=== PATIENT | female | born 1945 | race Caucasian/White ===

== ENCOUNTER → 2018-02-17 07:56 | Outpatient (CLI) | payer MEDICARE, OTHER, SELFPAY ==
[2018-02-17 10:17] LABS: Absolute Lymphocyte Count 0.92 X10^3/ul (0.83-4.51); Absolute Neutrophil Count 2.3 X10^3/uL (2.0-7.7); Basophil# 0.01 X10^3/uL; Basophil% 0.3 % (0-1); Eosinophil# 0.04 X10^3/uL; Eosinophils% 1.1 % (0-5); Hematocrit 37.6 % (37-47); Hemoglobin 12.7 g/dl (12.0-15.0); Lymphocyte # 0.92 X10^3/ul (4.0); Lymphocyte % 25.1 % (19-41); Mean Corp Hgb Conc 33.8 g/gl (32-36); Mean Corpuscular Hgb 31.3 pg (27.0-32.0); Mean Corpuscular Volume 92.6 fL (81-99); Monocyte# 0.41 X10^3/uL; Monocyte% 11.2 % (0-10); Neutrophil # 2.28 X10^3/uL (2.7-7.7); Neutrophil % 62.3 % (47-70); Platelet Count 238 K/mm3 (150-450); RBC Distribution Width CV 12.6 % (11.6-14.6); RBC Distribution Width SD 41.8 fl (35.1-43.9); Red Blood Count 4.06 M/mm3 (4.2-5.4); White Blood Count 3.7 K/mm3 (4.4-11.0)
[2018-02-17 10:21] LABS: POSITIVE COUNT NO; POSITIVE DIFFERENTIAL NO; POSITIVE MORPHOLOGY NO
[2018-02-17 10:30] LABS: ALB/GLOB Ratio 0.9 RATIO (0.9-2.4); AST(SGOT) 31 U/L (15-37); Alanine Aminotransfer ALT/SGPT 40 U/L (13-56); Albumin, Serum 3.3 g/dL (3.2-5.0); Alkaline Phosphatase 91 U/L (45-117); Anion Gap 8 (5-15); BUN 12 mg/dL (7-18); BUN/Creat Ratio 15.8 RATIO (10-20); Calcium,Total 8.4 mg/dL (8.5-10.1); Chloride 104 mmol/L (98-107); Creatinine, Serum 0.76 mg/dL (0.55-1.02); EST Glomerular Filtration Rate 80 mL/min (>60); Est Glom Filt Rate - Afr Amer 97 mL/min (>60); Globulin 3.6 g/dL (2.2-4.2); Glucose 92 mg/dL (74-106); Protein, Total 6.9 g/dL (6.4-8.2); Sodium Level 137 mmol/L (136-145)
== END ==
PROVIDERS: Family Provider Family Medicine; PCP Family Medicine; Visit Provider Internal Medicine Rheumatology
DX: M06.4 Inflammatory polyarthropathy (principal); M35.00 Sjogren syndrome, unspecified; K21.0 Gastro-esophageal reflux disease with esophagitis; R76.8 Other specified abnormal immunological findings in serum; Z79.899 Other long term (current) drug therapy
CPT/HCPCS: 36415; 80053; 85025

== ENCOUNTER → 2018-05-20 07:13 | Outpatient (CLI) | payer MEDICARE, OTHER, SELFPAY ==
[2018-05-20 11:48] LABS: Absolute Lymphocyte Count 1.37 X10^3/ul (0.83-4.51); Absolute Neutrophil Count 5.3 X10^3/uL (2.0-7.7); Eosinophil# 0.01 X10^3/uL; Eosinophils% 0.1 % (0-5); Hematocrit 37.7 % (37-47); Hemoglobin 13.2 g/dl (12.0-15.0); Lymphocyte # 1.37 X10^3/ul (4.0); Lymphocyte % 18.6 % (19-41); Mean Corpuscular Hgb 32.4 pg (27.0-32.0); Mean Corpuscular Volume 92.4 fL (81-99); Mean Platelet Vol. 9.8 fl (6.2-12.0); Monocyte# 0.57 X10^3/uL; Monocyte% 7.8 % (0-10); Neutrophil # 5.33 X10^3/uL (2.7-7.7); Neutrophil % 72.5 % (47-70); Platelet Count 331 K/mm3 (150-450); RBC Distribution Width CV 12.7 % (11.6-14.6); RBC Distribution Width SD 42.2 fl (35.1-43.9); Red Blood Count 4.08 M/mm3 (4.2-5.4); White Blood Count 7.4 K/mm3 (4.4-11.0)
[2018-05-20 11:51] LABS: POSITIVE COUNT NO; POSITIVE DIFFERENTIAL NO; POSITIVE MORPHOLOGY NO
[2018-05-20 12:15] LABS: AST(SGOT) 24 U/L (15-37); Alanine Aminotransfer ALT/SGPT 86 U/L (13-56); Albumin, Serum 3.5 g/dL (3.2-5.0); Alkaline Phosphatase 104 U/L (45-117); Anion Gap 11 (5-15); BUN 16 mg/dL (7-18); BUN/Creat Ratio 18.1 RATIO (10-20); Calcium,Total 8.3 mg/dL (8.5-10.1); Chloride 102 mmol/L (98-107); Creatinine, Serum 0.88 mg/dL (0.55-1.02); EST Glomerular Filtration Rate 67 mL/min (>60); Est Glom Filt Rate - Afr Amer 81 mL/min (>60); Globulin 3.5 g/dL (2.2-4.2); Glucose 100 mg/dL (74-106); Potassium 3.5 mmol/L (3.5-5.1); Sodium Level 135 mmol/L (136-145)
[2018-05-22 15:59] LABS: CPK Total, Creatine Kinase 40 U/L (26-192)
[2018-05-23 13:12] LABS: Aldolase 2.8 U/L (3.3-10.3)
== END ==
PROVIDERS: Family Provider Family Medicine; PCP Family Medicine; Visit Provider Internal Medicine Rheumatology
DX: M06.4 Inflammatory polyarthropathy (principal); M35.00 Sjogren syndrome, unspecified; K21.0 Gastro-esophageal reflux disease with esophagitis; R76.8 Other specified abnormal immunological findings in serum; Z79.899 Other long term (current) drug therapy
CPT/HCPCS: 36415; 80053; 82085; 82550; 85025

== ENCOUNTER → 2018-08-12 08:14 | Outpatient (CLI) | payer MEDICARE, OTHER, SELFPAY ==
[2018-08-12 10:16] LABS: Absolute Lymphocyte Count 0.72 X10^3/ul (0.83-4.51); Absolute Neutrophil Count 2.5 X10^3/uL (2.0-7.7); Basophil# 0.01 X10^3/uL; Basophil% 0.3 % (0-1); Eosinophil# 0.06 X10^3/uL; Eosinophils% 1.6 % (0-5); Hematocrit 39.2 % (37-47); Hemoglobin 13.1 g/dl (12.0-15.0); Lymphocyte # 0.72 X10^3/ul (4.0); Lymphocyte % 19.6 % (19-41); Mean Corp Hgb Conc 33.4 g/gl (32-36); Mean Corpuscular Hgb 32.3 pg (27.0-32.0); Mean Corpuscular Volume 96.8 fL (81-99); Mean Platelet Vol. 9.2 fl (6.2-12.0); Monocyte# 0.41 X10^3/uL; Monocyte% 11.2 % (0-10); Neutrophil # 2.46 X10^3/uL (2.7-7.7); Platelet Count 212 K/mm3 (150-450); RBC Distribution Width CV 12.9 % (11.6-14.6); RBC Distribution Width SD 45.6 fl (35.1-43.9); Red Blood Count 4.05 M/mm3 (4.2-5.4); White Blood Count 3.7 K/mm3 (4.4-11.0)
[2018-08-12 10:17] LABS: POSITIVE COUNT NO; POSITIVE DIFFERENTIAL NO; POSITIVE MORPHOLOGY NO
[2018-08-12 10:24] LABS: AST(SGOT) 23 U/L (15-37); Alanine Aminotransfer ALT/SGPT 34 U/L (13-56); Albumin, Serum 3.4 g/dL (3.2-5.0); Alkaline Phosphatase 83 U/L (45-117); Anion Gap 6 (5-15); BUN 12 mg/dL (7-18); BUN/Creat Ratio 12.8 RATIO (10-20); Calcium,Total 8.7 mg/dL (8.5-10.1); Chloride 104 mmol/L (98-107); Creatinine, Serum 0.94 mg/dL (0.55-1.02); EST Glomerular Filtration Rate 63 mL/min (>60); Est Glom Filt Rate - Afr Amer 76 mL/min (>60); Globulin 3.3 g/dL (2.2-4.2); Glucose 70 mg/dL (74-106); Potassium 3.8 mmol/L (3.5-5.1); Protein, Total 6.7 g/dL (6.4-8.2); Sodium Level 139 mmol/L (136-145)
== END ==
PROVIDERS: Family Provider Family Medicine; PCP Family Medicine; Referring Provider Internal Medicine Rheumatology; Visit Provider Internal Medicine Rheumatology
DX: M06.4 Inflammatory polyarthropathy (principal); M35.00 Sjogren syndrome, unspecified; K21.0 Gastro-esophageal reflux disease with esophagitis; R76.8 Other specified abnormal immunological findings in serum; Z79.899 Other long term (current) drug therapy
CPT/HCPCS: 36415; 80053; 85025

== ENCOUNTER → 2018-10-23 07:37 | Outpatient (CLI) | payer MEDICARE, OTHER, SELFPAY ==
[2018-10-23 10:23] LABS: Absolute Lymphocyte Count 0.75 X10^3/ul (0.83-4.51); Absolute Neutrophil Count 1.7 X10^3/uL (2.0-7.7); Basophil# 0.01 X10^3/uL; Basophil% 0.3 % (0-1); Eosinophil# 0.03 X10^3/uL; Hematocrit 37.5 % (37-47); Hemoglobin 12.3 g/dl (12.0-15.0); Lymphocyte # 0.75 X10^3/ul (4.0); Mean Corp Hgb Conc 32.8 g/gl (32-36); Mean Corpuscular Hgb 31.1 pg (27.0-32.0); Mean Corpuscular Volume 94.7 fL (81-99); Mean Platelet Vol. 9.7 fl (6.2-12.0); Monocyte# 0.46 X10^3/uL; Monocyte% 15.3 % (0-10); Neutrophil # 1.74 X10^3/uL (2.7-7.7); Neutrophil % 58.1 % (47-70); POSITIVE COUNT NO; POSITIVE DIFFERENTIAL NO; POSITIVE MORPHOLOGY NO; Platelet Count 270 K/mm3 (150-450); RBC Distribution Width CV 12.6 % (11.6-14.6); RBC Distribution Width SD 43.2 fl (35.1-43.9); Red Blood Count 3.96 M/mm3 (4.2-5.4)
[2018-10-23 10:31] LABS: ALB/GLOB Ratio 1.1 RATIO (0.9-2.4); AST(SGOT) 26 U/L (15-37); Alanine Aminotransfer ALT/SGPT 42 U/L (13-56); Albumin, Serum 3.5 g/dL (3.2-5.0); Alkaline Phosphatase 90 U/L (45-117); Anion Gap 8 (5-15); BUN 13 mg/dL (7-18); BUN/Creat Ratio 15.6 RATIO (10-20); Calcium,Total 8.7 mg/dL (8.5-10.1); Chloride 104 mmol/L (98-107); Creatinine, Serum 0.83 mg/dL (0.55-1.02); EST Glomerular Filtration Rate 72 mL/min (>60); Est Glom Filt Rate - Afr Amer 87 mL/min (>60); Globulin 3.3 g/dL (2.2-4.2); Glucose 79 mg/dL (74-106); Protein, Total 6.8 g/dL (6.4-8.2); Sodium Level 139 mmol/L (136-145)
== END ==
PROVIDERS: Family Provider Family Medicine; PCP Family Medicine; Referring Provider Internal Medicine Rheumatology; Visit Provider Internal Medicine Rheumatology
DX: M06.4 Inflammatory polyarthropathy (principal); M35.00 Sjogren syndrome, unspecified; R76.8 Other specified abnormal immunological findings in serum; K21.0 Gastro-esophageal reflux disease with esophagitis; Z79.899 Other long term (current) drug therapy
CPT/HCPCS: 36415; 80053; 85025

== ENCOUNTER → 2019-01-30 08:06 | Outpatient (CLI) | payer MEDICARE, OTHER, SELFPAY ==
[2019-01-30 10:13] LABS: Absolute Neutrophil Count 1.9 X10^3/uL (2.0-7.7); Basophil# 0.01 X10^3/uL; Basophil% 0.3 % (0-1); Eosinophil# 0.07 X10^3/uL; Eosinophils% 2.3 % (0-5); Hematocrit 38.1 % (37-47); Hemoglobin 12.2 g/dl (12.0-15.0); Lymphocyte % 23.3 % (19-41); Mean Corpuscular Hgb 30.8 pg (27.0-32.0); Mean Corpuscular Volume 96.2 fL (81-99); Mean Platelet Vol. 9.9 fl (6.2-12.0); Monocyte# 0.32 X10^3/uL; Monocyte% 10.6 % (0-10); Neutrophil # 1.91 X10^3/uL (2.7-7.7); Neutrophil % 63.5 % (47-70); Platelet Count 251 K/mm3 (150-450); Red Blood Count 3.96 M/mm3 (4.2-5.4)
[2019-01-30 10:14] LABS: POSITIVE COUNT NO; POSITIVE DIFFERENTIAL NO; POSITIVE MORPHOLOGY NO
[2019-01-30 10:37] LABS: ALB/GLOB Ratio 1.1 RATIO (0.9-2.4); AST(SGOT) 33 U/L (15-37); Alanine Aminotransfer ALT/SGPT 62 U/L (13-56); Albumin, Serum 3.5 g/dL (3.2-5.0); Alkaline Phosphatase 137 U/L (45-117); Anion Gap 7 (5-15); BUN 13 mg/dL (7-18); BUN/Creat Ratio 14.8 RATIO (10-20); Bilirubin, Direct 0.08 mg/dL (0.00-0.30); Calcium,Total 8.5 mg/dL (8.5-10.1); Chloride 107 mmol/L (98-107); Creatinine, Serum 0.88 mg/dL (0.55-1.02); EST Glomerular Filtration Rate 67 mL/min (>60); Est Glom Filt Rate - Afr Amer 81 mL/min (>60); Globulin 3.3 g/dL (2.2-4.2); Glucose 92 mg/dL (74-106); Potassium 3.6 mmol/L (3.5-5.1); Protein, Total 6.8 g/dL (6.4-8.2); Sodium Level 139 mmol/L (136-145)
== END ==
PROVIDERS: Family Provider Family Medicine; PCP Family Medicine; Referring Provider Internal Medicine Rheumatology; Visit Provider Internal Medicine Rheumatology
DX: M06.4 Inflammatory polyarthropathy (principal); M35.00 Sjogren syndrome, unspecified; K21.0 Gastro-esophageal reflux disease with esophagitis; R76.8 Other specified abnormal immunological findings in serum; Z79.899 Other long term (current) drug therapy
CPT/HCPCS: 36415; 80053; 82248; 85025

== ENCOUNTER → 2019-04-06 08:03 | Outpatient (CLI) | payer MEDICARE, OTHER, SELFPAY ==
[2019-04-06 09:51] LABS: Absolute Lymphocyte Count 0.73 X10^3/ul (0.83-4.51); Absolute Neutrophil Count 2.1 X10^3/uL (2.0-7.7); Basophil# 0.01 X10^3/uL; Basophil% 0.3 % (0-1); Eosinophil# 0.06 X10^3/uL; Eosinophils% 1.8 % (0-5); Hematocrit 36.2 % (37-47); Hemoglobin 12.1 g/dl (12.0-15.0); Lymphocyte # 0.73 X10^3/ul (4.0); Lymphocyte % 22.2 % (19-41); Mean Corp Hgb Conc 33.4 g/gl (32-36); Mean Corpuscular Hgb 30.7 pg (27.0-32.0); Mean Corpuscular Volume 91.9 fL (81-99); Mean Platelet Vol. 9.8 fl (6.2-12.0); Monocyte# 0.43 X10^3/uL; Monocyte% 13.1 % (0-10); Neutrophil # 2.05 X10^3/uL (2.7-7.7); Neutrophil % 62.3 % (47-70); Platelet Count 209 K/mm3 (150-450); RBC Distribution Width CV 12.5 % (11.6-14.6); RBC Distribution Width SD 41.1 fl (35.1-43.9); Red Blood Count 3.94 M/mm3 (4.2-5.4); White Blood Count 3.3 K/mm3 (4.4-11.0)
[2019-04-06 09:54] LABS: POSITIVE COUNT NO; POSITIVE DIFFERENTIAL NO; POSITIVE MORPHOLOGY NO
[2019-04-06 10:42] LABS: ALB/GLOB Ratio 1.1 RATIO (0.9-2.4); AST(SGOT) 21 U/L (15-37); Alanine Aminotransfer ALT/SGPT 35 U/L (13-56); Albumin, Serum 3.4 g/dL (3.2-5.0); Alkaline Phosphatase 84 U/L (45-117); Anion Gap 6 (5-15); BUN 16 mg/dL (7-18); Bilirubin, Direct 0.11 mg/dL (0.00-0.30); Calcium,Total 8.5 mg/dL (8.5-10.1); Chloride 110 mmol/L (98-107); Creatinine, Serum 0.89 mg/dL (0.55-1.02); EST Glomerular Filtration Rate 67 mL/min (>60); Est Glom Filt Rate - Afr Amer 81 mL/min (>60); Globulin 3.2 g/dL (2.2-4.2); Glucose 83 mg/dL (74-106); Potassium 3.8 mmol/L (3.5-5.1); Protein, Total 6.6 g/dL (6.4-8.2); Sodium Level 142 mmol/L (136-145)
== END ==
PROVIDERS: Family Provider Family Medicine; PCP Family Medicine; Referring Provider Dermatology; Visit Provider Dermatology
DX: M06.4 Inflammatory polyarthropathy (principal); M35.00 Sjogren syndrome, unspecified; K21.0 Gastro-esophageal reflux disease with esophagitis; R76.8 Other specified abnormal immunological findings in serum; Z79.899 Other long term (current) drug therapy
CPT/HCPCS: 36415; 80053; 82248; 85025

== ENCOUNTER → 2019-07-06 07:02 | Outpatient (CLI) | payer MEDICARE, OTHER, SELFPAY ==
[2019-07-06 10:11] LABS: Absolute Lymphocyte Count 0.83 X10^3/uL (0.83-4.51); Absolute Neutrophil Count 2.8 X10^3/uL (2.0-7.7); Basophil# 0.02 X10^3/uL; Basophil% 0.5 % (0-1); Eosinophil# 0.08 X10^3/uL; Eosinophils% 1.9 % (0-5); Hematocrit 38.1 % (37-47); Hemoglobin 12.5 g/dL (12.0-15.0); Lymphocyte # 0.83 X10^3/ul (4.0); Lymphocyte % 19.7 % (19-41); Mean Corp Hgb Conc 32.8 g/dL (32-36); Mean Corpuscular Hgb 31.1 pg (27.0-32.0); Mean Corpuscular Volume 94.8 fL (81-99); Mean Platelet Vol. 9.8 fl (6.2-12.0); Monocyte# 0.46 X10^3/uL; Monocyte% 10.9 % (0-10); NRBC Flagged by Analyzer 0 % (0-5); Neutrophil # 2.81 X10^3/uL (2.7-7.7); Neutrophil % 66.8 % (47-70); Platelet Count 225 K/mm3 (150-450); RBC Distribution Width CV 12.7 % (11.6-14.6); RBC Distribution Width SD 44.2 fl (35.1-43.9); Red Blood Count 4.02 M/mm3 (4.2-5.4); White Blood Count 4.2 K/mm3 (4.4-11.0)
[2019-07-06 10:49] LABS: ALB/GLOB Ratio 1.1 RATIO (0.9-2.4); AST(SGOT) 26 U/L (15-37); Alanine Aminotransfer ALT/SGPT 41 U/L (13-56); Albumin, Serum 3.5 g/dL (3.2-5.0); Alkaline Phosphatase 103 U/L (45-117); Anion Gap 7 (5-15); BUN 18 mg/dL (7-18); BUN/Creat Ratio 18.2 RATIO (10-20); Calcium,Total 8.9 mg/dL (8.5-10.1); Chloride 106 mmol/L (98-107); Creatinine, Serum 0.99 mg/dL (0.55-1.02); EST Glomerular Filtration Rate 59 mL/min (>60); Est Glom Filt Rate - Afr Amer 71 mL/min (>60); Globulin 3.2 g/dL (2.2-4.2); Glucose 81 mg/dL (74-106); Potassium 3.9 mmol/L (3.5-5.1); Protein, Total 6.7 g/dL (6.4-8.2); Sodium Level 139 mmol/L (136-145)
== END ==
PROVIDERS: Family Provider Family Medicine; PCP Family Medicine; Referring Provider Internal Medicine Rheumatology; Visit Provider Internal Medicine Rheumatology
DX: M06.4 Inflammatory polyarthropathy (principal); M35.00 Sjogren syndrome, unspecified; K21.0 Gastro-esophageal reflux disease with esophagitis; R76.8 Other specified abnormal immunological findings in serum; Z79.899 Other long term (current) drug therapy
CPT/HCPCS: 36415; 80053; 85025

== ENCOUNTER → 2019-09-28 07:18 | Outpatient (CLI) | payer MEDICARE, OTHER, SELFPAY ==
[2019-09-28 10:19] LABS: Absolute Lymphocyte Count 0.74 X10^3/uL (0.83-4.51); Absolute Neutrophil Count 2.8 X10^3/uL (2.0-7.7); Basophil# 0.01 X10^3/uL; Basophil% 0.2 % (0-1); Eosinophil# 0.03 X10^3/uL; Eosinophils% 0.7 % (0-5); Hematocrit 36.5 % (37-47); Hemoglobin 12.2 g/dL (12.0-15.0); Lymphocyte # 0.74 X10^3/ul (4.0); Lymphocyte % 18.5 % (19-41); Mean Corp Hgb Conc 33.4 g/dL (32-36); Mean Corpuscular Hgb 31.4 pg (27.0-32.0); Mean Corpuscular Volume 94.1 fL (81-99); Monocyte# 0.46 X10^3/uL; Monocyte% 11.5 % (0-10); NRBC Flagged by Analyzer 0 % (0-5); Neutrophil # 2.76 X10^3/uL (2.7-7.7); Neutrophil % 68.9 % (47-70); Platelet Count 210 K/mm3 (150-450); RBC Distribution Width CV 12.4 % (11.6-14.6); Red Blood Count 3.88 M/mm3 (4.2-5.4)
[2019-09-28 10:37] LABS: ALB/GLOB Ratio 1.1 RATIO (0.9-2.4); AST(SGOT) 23 U/L (15-37); Alanine Aminotransfer ALT/SGPT 30 U/L (13-56); Albumin, Serum 3.6 g/dL (3.2-5.0); Alkaline Phosphatase 85 U/L (45-117); BUN 13 mg/dL (7-18); Calcium,Total 8.8 mg/dL (8.5-10.1); Chloride 101 mmol/L (98-107); Creatinine, Serum 0.87 mg/dL (0.55-1.02); EST Glomerular Filtration Rate 68 mL/min (>60); Est Glom Filt Rate - Afr Amer 83 mL/min (>60); Globulin 3.3 g/dL (2.2-4.2); Glucose 71 mg/dL (74-106); Protein, Total 6.9 g/dL (6.4-8.2); Sodium Level 135 mmol/L (136-145)
[2019-09-28 10:38] LABS: Anion Gap 9 (5-15)
== END ==
PROVIDERS: Family Provider Family Medicine; PCP Family Medicine; Referring Provider Internal Medicine Rheumatology; Visit Provider Internal Medicine Rheumatology
DX: M06.4 Inflammatory polyarthropathy (principal); M35.00 Sjogren syndrome, unspecified; K21.0 Gastro-esophageal reflux disease with esophagitis; R76.8 Other specified abnormal immunological findings in serum; Z79.899 Other long term (current) drug therapy
CPT/HCPCS: 36415; 80053; 85025

== ENCOUNTER → 2019-12-29 08:57 | Outpatient (CLI) | payer MEDICARE, OTHER, SELFPAY ==
[2019-12-29 10:15] LABS: Absolute Lymphocyte Count 0.76 X10^3/uL (0.83-4.51); Absolute Neutrophil Count 2.5 X10^3/uL (2.0-7.7); Basophil# 0.01 X10^3/uL; Basophil% 0.3 % (0-1); Eosinophil# 0.06 X10^3/uL; Eosinophils% 1.6 % (0-5); Hematocrit 37.3 % (37-47); Hemoglobin 12.5 g/dL (12.0-15.0); Lymphocyte # 0.76 X10^3/ul (4.0); Lymphocyte % 20.4 % (19-41); Mean Corp Hgb Conc 33.5 g/dL (32-36); Mean Corpuscular Hgb 31.2 pg (27.0-32.0); Mean Platelet Vol. 10.1 fl (6.2-12.0); Monocyte# 0.36 X10^3/uL; Monocyte% 9.7 % (0-10); NRBC Flagged by Analyzer 0 % (0-5); Neutrophil # 2.54 X10^3/uL (2.7-7.7); Platelet Count 222 K/mm3 (150-450); RBC Distribution Width CV 11.9 % (11.6-14.6); Red Blood Count 4.01 M/mm3 (4.2-5.4); White Blood Count 3.7 K/mm3 (4.4-11.0)
[2019-12-29 10:29] LABS: ALB/GLOB Ratio 1.1 RATIO (0.9-2.4); AST(SGOT) 34 U/L (15-37); Alanine Aminotransfer ALT/SGPT 54 U/L (13-56); Albumin, Serum 3.4 g/dL (3.2-5.0); Alkaline Phosphatase 94 U/L (45-117); Anion Gap 5 (5-15); BUN 11 mg/dL (7-18); BUN/Creat Ratio 13.8 RATIO (10-20); Calcium,Total 8.9 mg/dL (8.5-10.1); Chloride 107 mmol/L (98-107); EST Glomerular Filtration Rate 75 mL/min (>60); Est Glom Filt Rate - Afr Amer 91 mL/min (>60); Glucose 85 mg/dL (74-106); Protein, Total 6.4 g/dL (6.4-8.2); Sodium Level 138 mmol/L (136-145)
== END ==
PROVIDERS: PCP Family Medicine; Referring Provider Internal Medicine Rheumatology; Visit Provider Internal Medicine Rheumatology
DX: M06.4 Inflammatory polyarthropathy (principal); M35.00 Sjogren syndrome, unspecified; R76.8 Other specified abnormal immunological findings in serum; K21.0 Gastro-esophageal reflux disease with esophagitis; Z79.899 Other long term (current) drug therapy
CPT/HCPCS: 36415; 80053; 85025

== ENCOUNTER → 2020-03-15 07:21 | Outpatient (CLI) | payer MEDICARE, OTHER, SELFPAY ==
[2020-03-15 10:03] LABS: Absolute Lymphocyte Count 0.65 X10^3/uL (0.83-4.51); Absolute Neutrophil Count 1.7 X10^3/uL (2.0-7.7); Basophil# 0.01 X10^3/uL; Basophil% 0.3 % (0-1); Eosinophil# 0.04 X10^3/uL; Eosinophils% 1.4 % (0-5); Hematocrit 36.7 % (37-47); Hemoglobin 11.8 g/dL (12.0-15.0); Lymphocyte # 0.65 X10^3/ul (4.0); Lymphocyte % 22.5 % (19-41); Mean Corp Hgb Conc 32.2 g/dL (32-36); Mean Corpuscular Hgb 30.7 pg (27.0-32.0); Mean Corpuscular Volume 95.6 fL (81-99); Monocyte# 0.44 X10^3/uL; Monocyte% 15.2 % (0-10); NRBC Flagged by Analyzer 0 % (0-5); Neutrophil # 1.74 X10^3/uL (2.7-7.7); Neutrophil % 60.3 % (47-70); Platelet Count 253 K/mm3 (150-450); RBC Distribution Width CV 13.2 % (11.6-14.6); RBC Distribution Width SD 46.1 fl (35.1-43.9); Red Blood Count 3.84 M/mm3 (4.2-5.4); White Blood Count 2.9 K/mm3 (4.4-11.0)
[2020-03-15 10:21] LABS: ALB/GLOB Ratio 1.2 RATIO (0.9-2.4); AST(SGOT) 19 U/L (15-37); Alanine Aminotransfer ALT/SGPT 29 U/L (13-56); Albumin, Serum 3.5 g/dL (3.2-5.0); Alkaline Phosphatase 77 U/L (45-117); Anion Gap 6 (5-15); BUN 12 mg/dL (7-18); BUN/Creat Ratio 13.5 RATIO (10-20); Chloride 109 mmol/L (98-107); Creatinine, Serum 0.89 mg/dL (0.55-1.02); EST Glomerular Filtration Rate 66 mL/min (>60); Est Glom Filt Rate - Afr Amer 80 mL/min (>60); Glucose 73 mg/dL (74-106); Potassium 3.9 mmol/L (3.5-5.1); Protein, Total 6.5 g/dL (6.4-8.2); Sodium Level 142 mmol/L (136-145)
== END ==
PROVIDERS: PCP Family Medicine; Referring Provider Internal Medicine Rheumatology; Visit Provider Internal Medicine Rheumatology
DX: M06.4 Inflammatory polyarthropathy (principal); M35.00 Sjogren syndrome, unspecified; K21.0 Gastro-esophageal reflux disease with esophagitis; R76.8 Other specified abnormal immunological findings in serum; Z79.899 Other long term (current) drug therapy
CPT/HCPCS: 36415; 80053; 85025

== ENCOUNTER → 2020-03-29 07:45 | Outpatient (CLI) | payer MEDICARE, OTHER, SELFPAY ==
[2020-03-29 10:01] LABS: Absolute Neutrophil Count 2.2 X10^3/uL (2.0-7.7); Basophil# 0.01 X10^3/uL; Basophil% 0.3 % (0-1); Eosinophil# 0.05 X10^3/uL; Eosinophils% 1.4 % (0-5); Hematocrit 35.9 % (37-47); Hemoglobin 11.9 g/dL (12.0-15.0); Lymphocyte % 22.7 % (19-41); Mean Corp Hgb Conc 33.1 g/dL (32-36); Mean Corpuscular Hgb 31.5 pg (27.0-32.0); Mean Platelet Vol. 9.9 fl (6.2-12.0); Monocyte# 0.45 X10^3/uL; Monocyte% 12.7 % (0-10); NRBC Flagged by Analyzer 0 % (0-5); Neutrophil # 2.21 X10^3/uL (2.7-7.7); Neutrophil % 62.6 % (47-70); Platelet Count 221 K/mm3 (150-450); RBC Distribution Width CV 12.9 % (11.6-14.6); RBC Distribution Width SD 44.5 fl (35.1-43.9); Red Blood Count 3.78 M/mm3 (4.2-5.4); White Blood Count 3.5 K/mm3 (4.4-11.0)
[2020-04-01 04:08] LABS: QNTFERON TB Mitogen Value 4.87 IU/mL (.); QNTFERON TB Nil Value 0.02 IU/mL (.); QNTFERON TB1+ Ag Value 0.02 IU/mL (.); QNTFERON TB2+ Ag Value 0.02 IU/mL (.)
[2020-04-01 05:47] LABS: QNTIFERON TB Positive Criteria Negative (Negative)
== END ==
PROVIDERS: PCP Family Medicine; Referring Provider Internal Medicine Rheumatology; Visit Provider Internal Medicine Rheumatology
DX: M06.4 Inflammatory polyarthropathy (principal); M35.00 Sjogren syndrome, unspecified; K21.0 Gastro-esophageal reflux disease with esophagitis; R76.8 Other specified abnormal immunological findings in serum; Z79.899 Other long term (current) drug therapy
CPT/HCPCS: 36415; 85025; 86480

== ENCOUNTER → 2020-05-25 07:05 | Outpatient (CLI) | payer MEDICARE, OTHER, SELFPAY ==
[2020-05-25 10:15] LABS: Absolute Lymphocyte Count 0.82 X10^3/uL (0.83-4.51); Absolute Neutrophil Count 2.5 X10^3/uL (2.0-7.7); Basophil# 0.01 X10^3/uL; Basophil% 0.3 % (0-1); Eosinophil# 0.07 X10^3/uL; Eosinophils% 1.8 % (0-5); Hematocrit 38.9 % (37-47); Hemoglobin 12.5 g/dL (12.0-15.0); Lymphocyte # 0.82 X10^3/ul (4.0); Lymphocyte % 21.2 % (19-41); Mean Corp Hgb Conc 32.1 g/dL (32-36); Mean Corpuscular Hgb 31.4 pg (27.0-32.0); Mean Corpuscular Volume 97.7 fL (81-99); Mean Platelet Vol. 10.1 fl (6.2-12.0); Monocyte# 0.46 X10^3/uL; Monocyte% 11.9 % (0-10); NRBC Flagged by Analyzer 0 % (0-5); Neutrophil % 64.5 % (47-70); Platelet Count 262 K/mm3 (150-450); RBC Distribution Width CV 12.6 % (11.6-14.6); RBC Distribution Width SD 44.6 fl (35.1-43.9); Red Blood Count 3.98 M/mm3 (4.2-5.4); White Blood Count 3.9 K/mm3 (4.4-11.0)
[2020-05-25 10:45] LABS: ALB/GLOB Ratio 1.1 RATIO (0.9-2.4); AST(SGOT) 19 U/L (15-37); Alanine Aminotransfer ALT/SGPT 31 U/L (13-56); Albumin, Serum 3.5 g/dL (3.2-5.0); Alkaline Phosphatase 78 U/L (45-117); Anion Gap 6 (5-15); BUN 17 mg/dL (7-18); BUN/Creat Ratio 19.5 RATIO (10-20); Calcium,Total 8.7 mg/dL (8.5-10.1); Chloride 104 mmol/L (98-107); Creatinine, Serum 0.87 mg/dL (0.55-1.02); EST Glomerular Filtration Rate 68 mL/min (>60); Est Glom Filt Rate - Afr Amer 82 mL/min (>60); Globulin 3.3 g/dL (2.2-4.2); Glucose 98 mg/dL (74-106); Potassium 3.9 mmol/L (3.5-5.1); Protein, Total 6.8 g/dL (6.4-8.2); Sodium Level 136 mmol/L (136-145)
== END ==
LOC: LAB.FUTURE 07:07 → MTLAB 07:11
PROVIDERS: PCP Family Medicine; Referring Provider Internal Medicine Rheumatology; Visit Provider Internal Medicine Rheumatology
DX: M06.4 Inflammatory polyarthropathy (principal); M35.00 Sjogren syndrome, unspecified; R76.8 Other specified abnormal immunological findings in serum; K21.0 Gastro-esophageal reflux disease with esophagitis; Z79.899 Other long term (current) drug therapy
CPT/HCPCS: 36415; 80053; 85025

== ENCOUNTER → 2020-07-12 07:28 | Outpatient (CLI) | payer MEDICARE, OTHER, SELFPAY ==
[2020-07-12 10:29] LABS: Basophil% 0.3 % (0-1); Eosinophils% 1.3 % (0-5); Hematocrit 36.7 % (37-47); Lymphocyte % 17.8 % (19-41); Mean Corp Hgb Conc 32.7 g/dL (32-36); Mean Corpuscular Hgb 30.8 pg (27.0-32.0); Mean Corpuscular Volume 94.3 fL (81-99); Monocyte% 11.2 % (0-10); Neutrophil % 68.9 % (47-70); Platelet Count 213 K/mm3 (150-450); RBC Distribution Width CV 12.3 % (11.6-14.6); RBC Distribution Width SD 42.2 fl (35.1-43.9); Red Blood Count 3.89 M/mm3 (4.2-5.4); White Blood Count 3.8 K/mm3 (4.4-11.0)
[2020-07-12 10:30] LABS: Absolute Lymphocyte Count 0.67 X10^3/uL (0.83-4.51); Absolute Neutrophil Count 2.6 X10^3/uL (2.0-7.7); Basophil# 0.01 X10^3/uL; Eosinophil# 0.05 X10^3/uL; Lymphocyte # 0.67 X10^3/ul (4.0); Monocyte# 0.42 X10^3/uL; NRBC Flagged by Analyzer 0 % (0-5); Neutrophil # 2.59 X10^3/uL (2.7-7.7)
[2020-07-12 11:07] LABS: ALB/GLOB Ratio 0.9 RATIO (0.9-2.4); AST(SGOT) 29 U/L (15-37); Alanine Aminotransfer ALT/SGPT 43 U/L (13-56); Albumin, Serum 3.2 g/dL (3.2-5.0); Alkaline Phosphatase 107 U/L (45-117); Anion Gap 6 (5-15); BUN 12 mg/dL (7-18); BUN/Creat Ratio 13.4 RATIO (10-20); Calcium,Total 8.5 mg/dL (8.5-10.1); Chloride 107 mmol/L (98-107); EST Glomerular Filtration Rate 66 mL/min (>60); Est Glom Filt Rate - Afr Amer 79 mL/min (>60); Globulin 3.5 g/dL (2.2-4.2); Glucose 101 mg/dL (74-106); Protein, Total 6.7 g/dL (6.4-8.2); Sodium Level 136 mmol/L (136-145)
== END ==
PROVIDERS: PCP Family Medicine; Referring Provider Internal Medicine Rheumatology; Visit Provider Internal Medicine Rheumatology
DX: M05.79 Rheumatoid arthritis with rheumatoid factor of multiple sites without organ or systems involvement (principal); M35.00 Sjogren syndrome, unspecified; R76.8 Other specified abnormal immunological findings in serum; K21.0 Gastro-esophageal reflux disease with esophagitis; Z79.899 Other long term (current) drug therapy
CPT/HCPCS: 36415; 80053; 85025

== ENCOUNTER → 2020-10-03 07:01 | Outpatient (CLI) | payer MEDICARE, OTHER, SELFPAY ==
[2020-10-03 09:45] LABS: Absolute Lymphocyte Count 0.67 X10^3/uL (0.83-4.51); Absolute Neutrophil Count 2.9 X10^3/uL (2.0-7.7); Basophil# 0.01 X10^3/uL; Basophil% 0.2 % (0-1); Eosinophil# 0.03 X10^3/uL; Eosinophils% 0.7 % (0-5); Hematocrit 38.3 % (37-47); Hemoglobin 12.3 g/dL (12.0-15.0); Lymphocyte # 0.67 X10^3/ul (4.0); Mean Corp Hgb Conc 32.1 g/dL (32-36); Mean Corpuscular Hgb 30.8 pg (27.0-32.0); Mean Corpuscular Volume 95.8 fL (81-99); Mean Platelet Vol. 10.4 fl (6.2-12.0); Monocyte# 0.54 X10^3/uL; Monocyte% 12.9 % (0-10); NRBC Flagged by Analyzer 0 % (0-5); Neutrophil # 2.92 X10^3/uL (2.7-7.7); Neutrophil % 69.7 % (47-70); Platelet Count 244 K/mm3 (150-450); RBC Distribution Width CV 12.4 % (11.6-14.6); RBC Distribution Width SD 43.3 fl (35.1-43.9); White Blood Count 4.2 K/mm3 (4.4-11.0)
[2020-10-03 10:15] LABS: ALB/GLOB Ratio 1.1 RATIO (0.9-2.4); AST(SGOT) 20 U/L (15-37); Alanine Aminotransfer ALT/SGPT 27 U/L (13-56); Albumin, Serum 3.4 g/dL (3.2-5.0); Alkaline Phosphatase 102 U/L (45-117); Anion Gap 8 (5-15); BUN 14 mg/dL (7-18); BUN/Creat Ratio 16.3 RATIO (10-20); Calcium,Total 8.6 mg/dL (8.5-10.1); Chloride 103 mmol/L (98-107); Creatinine, Serum 0.86 mg/dL (0.55-1.02); EST Glomerular Filtration Rate 69 mL/min (>60); Est Glom Filt Rate - Afr Amer 83 mL/min (>60); Globulin 3.2 g/dL (2.2-4.2); Glucose 82 mg/dL (74-106); Potassium 3.7 mmol/L (3.5-5.1); Protein, Total 6.6 g/dL (6.4-8.2); Sodium Level 137 mmol/L (136-145)
== END ==
PROVIDERS: PCP Family Medicine; Referring Provider Internal Medicine Rheumatology; Visit Provider Internal Medicine Rheumatology
DX: M05.79 Rheumatoid arthritis with rheumatoid factor of multiple sites without organ or systems involvement (principal); M35.00 Sjogren syndrome, unspecified; R76.8 Other specified abnormal immunological findings in serum; Z79.899 Other long term (current) drug therapy
CPT/HCPCS: 36415; 80053; 85025

== ENCOUNTER → 2021-01-02 07:15 | Outpatient (CLI) | payer MEDICARE, OTHER, SELFPAY ==
[2021-01-02 09:50] LABS: Absolute Lymphocyte Count 0.72 X10^3/uL (0.83-4.51); Absolute Neutrophil Count 2.6 X10^3/uL (2.0-7.7); Basophil# 0.01 X10^3/uL; Basophil% 0.3 % (0-1); Eosinophil# 0.03 X10^3/uL; Eosinophils% 0.8 % (0-5); Hemoglobin 12.2 g/dL (12.0-15.0); Lymphocyte # 0.72 X10^3/ul (4.0); Lymphocyte % 18.8 % (19-41); Mean Corp Hgb Conc 32.1 g/dL (32-36); Mean Corpuscular Hgb 30.8 pg (27.0-32.0); Mean Platelet Vol. 9.5 fl (6.2-12.0); Monocyte# 0.47 X10^3/uL; Monocyte% 12.3 % (0-10); NRBC Flagged by Analyzer 0 % (0-5); Neutrophil # 2.59 X10^3/uL (2.7-7.7); Neutrophil % 67.5 % (47-70); Platelet Count 267 K/mm3 (150-450); RBC Distribution Width CV 12.8 % (11.6-14.6); RBC Distribution Width SD 44.9 fl (35.1-43.9); Red Blood Count 3.96 M/mm3 (4.2-5.4); White Blood Count 3.8 K/mm3 (4.4-11.0)
[2021-01-02 10:20] LABS: AST(SGOT) 23 U/L (15-37); Alanine Aminotransfer ALT/SGPT 29 U/L (13-56); Albumin, Serum 3.3 g/dL (3.2-5.0); Alkaline Phosphatase 110 U/L (45-117); Anion Gap 5 (5-15); BUN 16 mg/dL (7-18); BUN/Creat Ratio 17.8 RATIO (10-20); Bilirubin, Direct 0.07 mg/dL (0.00-0.30); CPK Total, Creatine Kinase 55 U/L (26-192); Calcium,Total 9.2 mg/dL (8.5-10.1); Chloride 107 mmol/L (98-107); EST Glomerular Filtration Rate 65 mL/min (>60); Est Glom Filt Rate - Afr Amer 79 mL/min (>60); Globulin 3.4 g/dL (2.2-4.2); Glucose 74 mg/dL (74-106); Potassium 3.8 mmol/L (3.5-5.1); Protein, Total 6.7 g/dL (6.4-8.2); Sodium Level 140 mmol/L (136-145)
[2021-01-04 01:08] LABS: Aldolase 2.7 U/L (3.3-10.3)
== END ==
PROVIDERS: PCP Family Medicine; Referring Provider Internal Medicine Rheumatology; Visit Provider Internal Medicine Rheumatology
DX: M05.79 Rheumatoid arthritis with rheumatoid factor of multiple sites without organ or systems involvement (principal); M35.00 Sjogren syndrome, unspecified; R76.8 Other specified abnormal immunological findings in serum; Z79.899 Other long term (current) drug therapy
CPT/HCPCS: 36415; 80053; 82085; 82248; 82550; 85025

== ENCOUNTER → 2021-03-27 08:52 | Outpatient (CLI) | payer MEDICARE, OTHER, SELFPAY ==
[2021-03-27 09:59] LABS: Absolute Lymphocyte Count 1.12 X10^3/uL (0.83-4.51); Absolute Neutrophil Count 3.2 X10^3/uL (2.0-7.7); Basophil# 0.02 X10^3/uL; Basophil% 0.4 % (0-1); Eosinophil# 0.02 X10^3/uL; Eosinophils% 0.4 % (0-5); Hematocrit 39.9 % (37-47); Hemoglobin 12.7 g/dL (12.0-15.0); Lymphocyte # 1.12 X10^3/ul (0.83-4.51); Lymphocyte % 22.8 % (19-41); Mean Corp Hgb Conc 31.8 g/dL (32-36); Mean Corpuscular Volume 94.1 fL (81-99); Mean Platelet Vol. 9.5 fl (6.2-12.0); Monocyte% 10.2 % (0-10); NRBC Flagged by Analyzer 0 % (0-5); Neutrophil # 3.23 X10^3/uL (2.7-7.7); Neutrophil % 65.8 % (47-70); Platelet Count 282 K/mm3 (150-450); RBC Distribution Width CV 12.6 % (11.6-14.6); RBC Distribution Width SD 43.2 fl (35.1-43.9); Red Blood Count 4.24 M/mm3 (4.2-5.4); White Blood Count 4.9 K/mm3 (4.4-11.0)
[2021-03-27 10:26] LABS: ALB/GLOB Ratio 1.1 RATIO (0.9-2.4); AST(SGOT) 20 U/L (15-37); Alanine Aminotransfer ALT/SGPT 39 U/L (13-56); Albumin, Serum 3.6 g/dL (3.2-5.0); Alkaline Phosphatase 88 U/L (45-117); Anion Gap 4 (5-15); BUN 13 mg/dL (7-18); BUN/Creat Ratio 14.7 RATIO (10-20); Calcium,Total 9.4 mg/dL (8.5-10.1); Chloride 102 mmol/L (98-107); Creatinine, Serum 0.88 mg/dL (0.55-1.02); EST Glomerular Filtration Rate 67 mL/min (>60); Est Glom Filt Rate - Afr Amer 81 mL/min (>60); Globulin 3.2 g/dL (2.2-4.2); Glucose 86 mg/dL (74-106); Potassium 3.6 mmol/L (3.5-5.1); Protein, Total 6.8 g/dL (6.4-8.2); Sodium Level 135 mmol/L (136-145)
== END ==
PROVIDERS: PCP Family Medicine; Referring Provider Internal Medicine Rheumatology; Visit Provider Internal Medicine Rheumatology
DX: M05.79 Rheumatoid arthritis with rheumatoid factor of multiple sites without organ or systems involvement (principal); M35.00 Sjogren syndrome, unspecified; R76.8 Other specified abnormal immunological findings in serum; K21.00 Gastro-esophageal reflux disease with esophagitis, without bleeding; Z79.899 Other long term (current) drug therapy
CPT/HCPCS: 36415; 80053; 85025

== ENCOUNTER → 2021-06-19 06:59 | Outpatient (CLI) | payer MEDICARE, OTHER, SELFPAY ==
[2021-06-19 10:12] LABS: Absolute Lymphocyte Count 0.67 X10^3/uL (0.83-4.51); Absolute Neutrophil Count 3.5 X10^3/uL (2.0-7.7); Basophil# 0.01 X10^3/uL; Basophil% 0.2 % (0-1); Eosinophil# 0.05 X10^3/uL; Eosinophils% 1.1 % (0-5); Hemoglobin 12.2 g/dL (12.0-15.0); Lymphocyte # 0.67 X10^3/ul (0.83-4.51); Lymphocyte % 14.2 % (19-41); Mean Corpuscular Hgb 31.8 pg (27.0-32.0); Mean Corpuscular Volume 96.4 fL (81-99); Mean Platelet Vol. 10.1 fl (6.2-12.0); Monocyte# 0.47 X10^3/uL; Monocyte% 9.9 % (0-10); NRBC Flagged by Analyzer 0 % (0-5); Neutrophil # 3.51 X10^3/uL (2.7-7.7); Neutrophil % 74.2 % (47-70); Platelet Count 246 K/mm3 (150-450); RBC Distribution Width CV 12.5 % (11.6-14.6); RBC Distribution Width SD 43.7 fl (35.1-43.9); Red Blood Count 3.84 M/mm3 (4.2-5.4); White Blood Count 4.7 K/mm3 (4.4-11.0)
[2021-06-19 10:27] LABS: ALB/GLOB Ratio 1.1 RATIO (0.9-2.4); AST(SGOT) 32 U/L (15-37); Alanine Aminotransfer ALT/SGPT 38 U/L (13-56); Albumin, Serum 3.4 g/dL (3.2-5.0); Alkaline Phosphatase 125 U/L (45-117); Anion Gap 3 (5-15); BUN 18 mg/dL (7-18); BUN/Creat Ratio 22.5 RATIO (10-20); Calcium,Total 8.6 mg/dL (8.5-10.1); Chloride 105 mmol/L (98-107); EST Glomerular Filtration Rate 75 mL/min (>60); Est Glom Filt Rate - Afr Amer 90 mL/min (>60); Globulin 3.1 g/dL (2.2-4.2); Glucose 67 mg/dL (74-106); Potassium 3.7 mmol/L (3.5-5.1); Protein, Total 6.5 g/dL (6.4-8.2); Sodium Level 136 mmol/L (136-145)
== END ==
PROVIDERS: PCP Family Medicine; Referring Provider Internal Medicine Rheumatology; Visit Provider Internal Medicine Rheumatology
DX: M05.79 Rheumatoid arthritis with rheumatoid factor of multiple sites without organ or systems involvement (principal); M35.00 Sjogren syndrome, unspecified; R76.8 Other specified abnormal immunological findings in serum; K21.9 Gastro-esophageal reflux disease without esophagitis; Z79.899 Other long term (current) drug therapy
CPT/HCPCS: 36415; 80053; 85025

== ENCOUNTER → 2021-08-29 07:16 | Outpatient (CLI) | payer MEDICARE, OTHER, SELFPAY ==
[2021-08-29 09:55] LABS: Absolute Neutrophil Count 4.4 X10^3/uL (2.0-7.7); Basophil# 0.02 X10^3/uL; Basophil% 0.3 % (0-1); Eosinophil# 0.02 X10^3/uL; Eosinophils% 0.3 % (0-5); Hematocrit 36.4 % (37-47); Hemoglobin 12.1 g/dL (12.0-15.0); Lymphocyte % 16.8 % (19-41); Mean Corp Hgb Conc 33.2 g/dL (32-36); Mean Corpuscular Hgb 31.9 pg (27.0-32.0); Mean Platelet Vol. 9.4 fl (6.2-12.0); Monocyte# 0.47 X10^3/uL; Monocyte% 7.9 % (0-10); NRBC Flagged by Analyzer 0 % (0-5); Neutrophil # 4.42 X10^3/uL (2.7-7.7); Neutrophil % 74.5 % (47-70); Platelet Count 261 K/mm3 (150-450); RBC Distribution Width CV 12.2 % (11.6-14.6); RBC Distribution Width SD 42.5 fl (35.1-43.9); Red Blood Count 3.79 M/mm3 (4.2-5.4); White Blood Count 5.9 K/mm3 (4.4-11.0)
[2021-08-29 10:25] LABS: AST(SGOT) 18 U/L (15-37); Alanine Aminotransfer ALT/SGPT 31 U/L (13-56); Albumin, Serum 3.3 g/dL (3.2-5.0); Alkaline Phosphatase 82 U/L (45-117); Anion Gap 8 (5-15); BUN 15 mg/dL (7-18); BUN/Creat Ratio 16.8 RATIO (10-20); Calcium,Total 9.2 mg/dL (8.5-10.1); Chloride 104 mmol/L (98-107); Creatinine, Serum 0.89 mg/dL (0.55-1.02); EST Glomerular Filtration Rate 66 mL/min (>60); Est Glom Filt Rate - Afr Amer 79 mL/min (>60); Globulin 3.3 g/dL (2.2-4.2); Glucose 81 mg/dL (74-106); Potassium 3.3 mmol/L (3.5-5.1); Protein, Total 6.6 g/dL (6.4-8.2); Sodium Level 139 mmol/L (136-145)
== END ==
PROVIDERS: PCP Family Medicine; Referring Provider Internal Medicine Rheumatology; Visit Provider Internal Medicine Rheumatology
DX: M05.79 Rheumatoid arthritis with rheumatoid factor of multiple sites without organ or systems involvement (principal); M35.00 Sjogren syndrome, unspecified; R76.8 Other specified abnormal immunological findings in serum; Z79.899 Other long term (current) drug therapy
CPT/HCPCS: 36415; 80053; 85025

== ENCOUNTER → 2021-10-25 08:31 | Outpatient (CLI) | payer MEDICARE, OTHER, SELFPAY ==
[2021-10-28 03:07] LABS: QNTFERON TB Mitogen Value 2.05 IU/mL (.); QNTFERON TB Nil Value 0 IU/mL (.); QNTFERON TB1+ Ag Value 0 IU/mL (.); QNTFERON TB2+ Ag Value 0 IU/mL (.)
[2021-10-28 12:57] LABS: QNTIFERON TB Positive Criteria Negative (Negative)
== END ==
PROVIDERS: PCP Family Medicine; Referring Provider Dermatology; Visit Provider Dermatology
DX: M33.12 Other dermatomyositis with myopathy (principal); L93.1 Subacute cutaneous lupus erythematosus; D22.5 Melanocytic nevi of trunk; L82.1 Other seborrheic keratosis; Z79.899 Other long term (current) drug therapy; Z71.89 Other specified counseling
CPT/HCPCS: 36415; 86480

== ENCOUNTER 2021-12-06 07:11 | Outpatient (CLI) | payer MEDICARE, OTHER, SELFPAY ==
[2021-12-06 10:22] LABS: Absolute Lymphocyte Count 0.73 X10^3/uL (0.83-4.51); Absolute Neutrophil Count 2.5 X10^3/uL (2.0-7.7); Basophil# 0.01 X10^3/uL; Basophil% 0.3 % (0-1); Eosinophil# 0.03 X10^3/uL; Eosinophils% 0.8 % (0-5); Hematocrit 36.9 % (37-47); Hemoglobin 12.4 g/dL (12.0-15.0); Lymphocyte # 0.73 X10^3/ul (0.83-4.51); Lymphocyte % 18.7 % (19-41); Mean Corp Hgb Conc 33.6 g/dL (32-36); Mean Corpuscular Hgb 31.9 pg (27.0-32.0); Mean Corpuscular Volume 94.9 fL (81-99); Mean Platelet Vol. 10.3 fl (6.2-12.0); Monocyte% 15.3 % (0-10); NRBC Flagged by Analyzer 0 % (0-5); Neutrophil # 2.53 X10^3/uL (2.7-7.7); Neutrophil % 64.6 % (47-70); Platelet Count 248 K/mm3 (150-450); RBC Distribution Width CV 12.5 % (11.6-14.6); RBC Distribution Width SD 42.9 fl (35.1-43.9); Red Blood Count 3.89 M/mm3 (4.2-5.4); White Blood Count 3.9 K/mm3 (4.4-11.0)
[2021-12-06 10:50] LABS: AST(SGOT) 16 U/L (15-37); Alanine Aminotransfer ALT/SGPT 27 U/L (13-56); Albumin, Serum 3.2 g/dL (3.2-5.0); Alkaline Phosphatase 90 U/L (45-117); Anion Gap 7 (5-15); BUN 10 mg/dL (7-18); Calcium,Total 8.5 mg/dL (8.5-10.1); Chloride 103 mmol/L (98-107); Creatinine, Serum 0.83 mg/dL (0.55-1.02); EST Glomerular Filtration Rate 71 mL/min (>60); Est Glom Filt Rate - Afr Amer 86 mL/min (>60); Globulin 3.3 g/dL (2.2-4.2); Glucose 85 mg/dL (74-106); Potassium 4.1 mmol/L (3.5-5.1); Protein, Total 6.5 g/dL (6.4-8.2); Sodium Level 135 mmol/L (136-145)
== END 2021-12-06 23:59 | disposition short-term general hospital (02) ==
LOC: MTLAB 07:13
PROVIDERS: PCP Family Medicine; Referring Provider Internal Medicine Rheumatology; Visit Provider Internal Medicine Rheumatology
DX: M05.79 Rheumatoid arthritis with rheumatoid factor of multiple sites without organ or systems involvement (principal); M35.00 Sjogren syndrome, unspecified; Z79.899 Other long term (current) drug therapy; K21.00 Gastro-esophageal reflux disease with esophagitis, without bleeding; R76.8 Other specified abnormal immunological findings in serum
CPT/HCPCS: 36415; 80053; 85025

== ENCOUNTER 2022-01-18 07:10 | Outpatient (CLI) | payer MEDICARE, OTHER, SELFPAY | END 2022-01-18 23:59 | disposition home or self-care (01) | LOC: LAB 07:13 | PROVIDERS: PCP Family Medicine; Referring Provider Ophthalmology; Visit Provider Ophthalmology | DX: Z79.899 Other long term (current) drug therapy (principal) | CPT/HCPCS: 36415 ==

== ENCOUNTER 2022-02-26 07:09 | Outpatient (CLI) | payer MEDICARE, OTHER, SELFPAY ==
[2022-02-26 10:10] LABS: Absolute Lymphocyte Count 1.21 X10^3/uL (0.83-4.51); Absolute Neutrophil Count 3.2 X10^3/uL (2.0-7.7); Basophil# 0.01 X10^3/uL; Basophil% 0.2 % (0-1); Eosinophil# 0.03 X10^3/uL; Eosinophils% 0.6 % (0-5); Hematocrit 35.6 % (37-47); Hemoglobin 12.1 g/dL (12.0-15.0); Lymphocyte # 1.21 X10^3/ul (0.83-4.51); Mean Corpuscular Hgb 31.5 pg (27.0-32.0); Mean Corpuscular Volume 92.7 fL (81-99); Mean Platelet Vol. 9.8 fl (6.2-12.0); Monocyte# 0.59 X10^3/uL; Monocyte% 11.7 % (0-10); NRBC Flagged by Analyzer 0 % (0-5); Neutrophil # 3.18 X10^3/uL (2.7-7.7); Neutrophil % 63.1 % (47-70); Platelet Count 296 K/mm3 (150-450); RBC Distribution Width CV 12.4 % (11.6-14.6); RBC Distribution Width SD 42.3 fl (35.1-43.9); Red Blood Count 3.84 M/mm3 (4.2-5.4)
[2022-02-26 10:57] LABS: ALB/GLOB Ratio 1.1 RATIO (0.9-2.4); AST(SGOT) 18 U/L (15-37); Alanine Aminotransfer ALT/SGPT 26 U/L (13-56); Albumin, Serum 3.3 g/dL (3.2-5.0); Alkaline Phosphatase 78 U/L (45-117); Anion Gap 4 (5-15); BUN 13 mg/dL (7-18); BUN/Creat Ratio 14.5 RATIO (10-20); Calcium,Total 8.7 mg/dL (8.5-10.1); Chloride 105 mmol/L (98-107); EST Glomerular Filtration Rate 65 mL/min (>60); Est Glom Filt Rate - Afr Amer 79 mL/min (>60); Globulin 2.9 g/dL (2.2-4.2); Glucose 91 mg/dL (74-106); Potassium 3.4 mmol/L (3.5-5.1); Protein, Total 6.2 g/dL (6.4-8.2); Sodium Level 135 mmol/L (136-145)
== END 2022-02-26 23:59 | disposition home or self-care (01) ==
LOC: MTLAB 07:11
PROVIDERS: PCP Family Medicine; Referring Provider Internal Medicine Rheumatology; Visit Provider Internal Medicine Rheumatology
DX: M05.79 Rheumatoid arthritis with rheumatoid factor of multiple sites without organ or systems involvement (principal); M35.00 Sjogren syndrome, unspecified; R76.8 Other specified abnormal immunological findings in serum; M47.897 Other spondylosis, lumbosacral region; K21.9 Gastro-esophageal reflux disease without esophagitis; Z79.899 Other long term (current) drug therapy
CPT/HCPCS: 36415; 80053; 85025

== ENCOUNTER → 2022-05-22 | Outpatient (CLI) | payer MEDICARE, OTHER, SELFPAY ==
[2022-05-22 10:09] LABS: Absolute Lymphocyte Count 0.75 X10^3/uL (0.83-4.51); Absolute Neutrophil Count 2.4 X10^3/uL (2.0-7.7); Basophil# 0.01 X10^3/uL; Basophil% 0.3 % (0-1); Eosinophil# 0.04 X10^3/uL; Eosinophils% 1.1 % (0-5); Hematocrit 37.4 % (37-47); Hemoglobin 12.2 g/dL (12.0-15.0); Lymphocyte # 0.75 X10^3/ul (0.83-4.51); Lymphocyte % 20.6 % (19-41); Mean Corp Hgb Conc 32.6 g/dL (32-36); Mean Corpuscular Hgb 31.2 pg (27.0-32.0); Mean Corpuscular Volume 95.7 fL (81-99); Mean Platelet Vol. 9.9 fl (6.2-12.0); Monocyte# 0.46 X10^3/uL; Monocyte% 12.6 % (0-10); NRBC Flagged by Analyzer 0 % (0-5); Neutrophil # 2.37 X10^3/uL (2.7-7.7); Neutrophil % 65.1 % (47-70); Platelet Count 240 K/mm3 (150-450); RBC Distribution Width CV 12.8 % (11.6-14.6); Red Blood Count 3.91 M/mm3 (4.2-5.4); White Blood Count 3.6 K/mm3 (4.4-11.0)
[2022-05-22 10:21] LABS: ALB/GLOB Ratio 1.1 RATIO (0.9-2.4); AST(SGOT) 22 U/L (15-37); Alanine Aminotransfer ALT/SGPT 24 U/L (13-56); Albumin, Serum 3.2 g/dL (3.2-5.0); Alkaline Phosphatase 85 U/L (45-117); Anion Gap 6 (5-15); BUN 14 mg/dL (7-18); BUN/Creat Ratio 16.1 RATIO (10-20); Calcium,Total 8.4 mg/dL (8.5-10.1); Chloride 103 mmol/L (98-107); Creatinine, Serum 0.87 mg/dL (0.55-1.02); EST Glomerular Filtration Rate 68 mL/min (>60); Est Glom Filt Rate - Afr Amer 82 mL/min (>60); Globulin 2.9 g/dL (2.2-4.2); Glucose 72 mg/dL (74-106); Potassium 3.9 mmol/L (3.5-5.1); Protein, Total 6.1 g/dL (6.4-8.2); Sodium Level 135 mmol/L (136-145)
== END | disposition home or self-care (01) ==
LOC: MTLAB 07:07
PROVIDERS: PCP Family Medicine; Referring Provider Internal Medicine Rheumatology; Visit Provider Internal Medicine Rheumatology
DX: M05.79 Rheumatoid arthritis with rheumatoid factor of multiple sites without organ or systems involvement (principal); M35.00 Sjogren syndrome, unspecified; R76.8 Other specified abnormal immunological findings in serum; M47.897 Other spondylosis, lumbosacral region; K21.9 Gastro-esophageal reflux disease without esophagitis; Z79.899 Other long term (current) drug therapy
CPT/HCPCS: 36415; 80053; 85025

== ENCOUNTER → 2022-07-16 | Outpatient (CLI) | payer MEDICARE, OTHER, SELFPAY | END | disposition home or self-care (01) | PROVIDERS: PCP Family Medicine; Referring Provider Ophthalmology; Visit Provider Ophthalmology | DX: Z79.899 Other long term (current) drug therapy (principal) | CPT/HCPCS: 36415 ==

== ENCOUNTER → 2022-08-07 | Outpatient (CLI) | payer MEDICARE, OTHER, SELFPAY ==
[2022-08-07 09:59] LABS: Absolute Lymphocyte Count 0.72 X10^3/uL (0.83-4.51); Absolute Neutrophil Count 2.6 X10^3/uL (2.0-7.7); Basophil# 0.01 X10^3/uL; Basophil% 0.3 % (0-1); Eosinophil# 0.02 X10^3/uL; Eosinophils% 0.5 % (0-5); Hematocrit 36.7 % (37-47); Hemoglobin 12.2 g/dL (12.0-15.0); Lymphocyte # 0.72 X10^3/ul (0.83-4.51); Lymphocyte % 18.4 % (19-41); Mean Corp Hgb Conc 33.2 g/dL (32-36); Mean Corpuscular Hgb 32.1 pg (27.0-32.0); Mean Corpuscular Volume 96.6 fL (81-99); Mean Platelet Vol. 9.7 fl (6.2-12.0); Monocyte# 0.53 X10^3/uL; Monocyte% 13.5 % (0-10); NRBC Flagged by Analyzer 0 % (0-5); Neutrophil # 2.63 X10^3/uL (2.7-7.7); Platelet Count 263 K/mm3 (150-450); RBC Distribution Width CV 12.8 % (11.6-14.6); RBC Distribution Width SD 45.4 fl (35.1-43.9); White Blood Count 3.9 K/mm3 (4.4-11.0)
[2022-08-07 10:32] LABS: AST(SGOT) 19 U/L (15-37); Alanine Aminotransfer ALT/SGPT 25 U/L (13-56); Albumin, Serum 3.2 g/dL (3.2-5.0); Alkaline Phosphatase 90 U/L (45-117); Anion Gap 6 (5-15); BUN 11 mg/dL (7-18); BUN/Creat Ratio 14.1 RATIO (10-20); Chloride 101 mmol/L (98-107); Creatinine, Serum 0.78 mg/dL (0.55-1.02); EST Glomerular Filtration Rate 76 mL/min (>60); Est Glom Filt Rate - Afr Amer 92 mL/min (>60); Globulin 3.1 g/dL (2.2-4.2); Glucose 71 mg/dL (74-106); Potassium 4.2 mmol/L (3.5-5.1); Protein, Total 6.3 g/dL (6.4-8.2); Sodium Level 135 mmol/L (136-145)
== END | disposition home or self-care (01) ==
LOC: MTLAB 07:06
PROVIDERS: PCP Family Medicine; Referring Provider Internal Medicine Rheumatology; Visit Provider Internal Medicine Rheumatology
DX: M05.79 Rheumatoid arthritis with rheumatoid factor of multiple sites without organ or systems involvement (principal); M35.00 Sjogren syndrome, unspecified; R76.8 Other specified abnormal immunological findings in serum; M47.897 Other spondylosis, lumbosacral region; K21.9 Gastro-esophageal reflux disease without esophagitis; Z79.899 Other long term (current) drug therapy
CPT/HCPCS: 36415; 80053; 85025

== ENCOUNTER 2022-08-17 08:45 | Emergency (ER) | payer MEDICARE, OTHER, SELFPAY ==
[2022-08-17 08:47] VITALS: BP 175/77; PULSE 80; RESP 18; TEMP 36.6; O2SAT 99; BMI 26.4
--- NOTE | 2022-08-17 08:48 | EKG12_ITS ---
Test Reason : CHEST BURNING Blood Pressure : / mmHG Vent. Rate : 068 BPM Atrial Rate : 068 BPM P-R Int : 186 ms QRS Dur : 098 ms QT Int : 388 ms P-R-T Axes : 066 -18 018 degrees QTc Int : 412 ms Normal sinus rhythm Normal ECG Confirmed by LESTER FIELD, KWAN ([id number]), visual effects editor ALFONSO MALDONADO ([id number]) on 08/20/2022 10:08:45 AM Referred By: CARL Confirmed By:KWAN BATISTA MD
--- NOTE | 2022-08-17 08:48 | RAD_ITS ---
EXAM: XR CHEST, 1 VIEW CLINICAL INDICATION: chest pain TECHNIQUE: Frontal view of the chest. This report was created using [employer] report generation technology. COMPARISON: XR Chest dated 01/30/2016 FINDINGS: LUNGS AND PLEURAL SPACES: Normal. No consolidation or edema. No pneumothorax. No effusion. HEART: Normal heart size. MEDIASTINUM: No mediastinal or hilar mass. BONES/JOINTS: No acute abnormality. SOFT TISSUES: Normal. RAD/Chest 1 View (Portable) IMPRESSION: No acute cardiopulmonary abnormality. No interval change Electronically Signed: Eitan Linder MD at 9:39 EDT ,
[2022-08-17 09:06] VITALS: O2SAT 100
[2022-08-17] MEDS: Aspirin 81 MG TAB.CHEW 324 MG PO (09:09)
[2022-08-17 09:12] LABS: Absolute Neutrophil Count 2.9 X10^3/uL (2.0-7.7); Basophil# 0.01 X10^3/uL; Basophil% 0.2 % (0-1); Lymphocyte % 14.7 % (19-41); Mean Corp Hgb Conc 34.3 g/dL (32-36); Mean Corpuscular Hgb 31.6 pg (27.0-32.0); Mean Corpuscular Volume 92.1 fL (81-99); Mean Platelet Vol. 9.1 fl (6.2-12.0); Monocyte# 0.52 X10^3/uL; Monocyte% 12.7 % (0-10); NRBC Flagged by Analyzer 0 % (0-5); Neutrophil # 2.93 X10^3/uL (2.7-7.7); Neutrophil % 71.9 % (47-70); POSITIVE DIFFERENTIAL YES; Platelet Count 218 K/mm3 (150-450); RBC Distribution Width CV 11.9 % (11.6-14.6); RBC Distribution Width SD 40.2 fl (35.1-43.9); White Blood Count 4.1 K/mm3 (4.4-11.0)
--- NOTE | 2022-08-17 09:26 | ED.VIS.CHEST ---
HPI History of Present Illness Chief Complaint: Chest Pain Informant: patient Onset/Context/Timing Onset: Days Activity at onset: gradual Timing: Continuous Quality: Positive for Burning Location: Substernal Worsened By: Eating (Certain foods) Relieved By: Nothing Associated Symptoms: Positive for Nausea, Vomiting and Acid Reflux; Negative for Diaphoresis, Dyspnea, Cough, Fever, Lightheadedness or Palpitations Narrative Narrative: Patient presents with chest pain that has been constant for the past several days. Patient states it feels like her typical gastroesophageal reflux disease. Patient describes it as burning. Patient states it is over the substernal area. Patient states it is worse with eating certain foods. Patient states that a couple days ago she had some pain in her right shoulder that radiated into her jaw. Patient denies any jaw pain or neck pain at this time. Patient also states she was recently started on Cymbalta. Patient states she took a dose the last 2 nights and started having some nausea and vomiting. Patient also admits to some generalized fatigue for the past several months. [facility] Medical History Lupus Rheumatoid arteritis Sjogren's syndrome Home Medications Ca 600 mg-D3 400 unit-mag ox 40 ek-My-pojfzf-Mn-boron chewable tablet 1 ea PO DAILY 01/30/16 [History Last Taken Unknown] Clobetasol Emollient 0.05% Crm 1 applic transdermal SUSA 01/30/16 [History Last Taken Unknown] biotin 1 mg capsule 1,000 mcg PO TID 01/30/16 [History Last Taken Unknown] cyclosporine 0.05 % eye drops in a dropperette (Restasis) 1 drp 4X/DAY 01/30/16 [History Last Taken Unknown] hwfhaiay-uhmftkkd-nzei fumarate-folic acid 14 mg iron-400 mcg tablet (Monocaps) 1 ea PO DAILY 01/30/16 [History Last Taken Unknown] abatacept 125 mg/mL subcutaneous syringe (Orencia) 125 mg subcut TU 08/17/22 [History Last Taken Unknown] difluprednate 0.05 % eye drops (Durezol) 1 drp EACH EYE BID 08/17/22 [History Last Taken Unknown] doxycycline monohydrate 100 mg capsule 100 mg PO BID 08/17/22 [History Last Taken Unknown] estradiol 0.01% (0.1 mg/gram) vaginal cream (Estrace) 1 g vaginal QWEEK 08/17/22 [History Last Taken Unknown] famotidine 20 mg tablet 20 mg PO BID 08/17/22 [History Last Taken Unknown] mycophenolate mofetil 500 mg tablet (CellCept) 500 mg PO BID 08/17/22 [History Last Taken Unknown] olopatadine 0.2 % eye drops 1 drp EACH EYE BID 08/17/22 [History Last Taken Unknown] tacrolimus 0.1 % topical ointment (Protopic) 1 applic topical MOTUWETHFR 08/17/22 [History Last Taken Unknown] Allergy/AdvReac Type Severity Reaction Status Date / Time amoxicillin [Amoxicillin] AdvReac Rash Verified 08/17/22 08:47 ciprofloxacin [From Cipro] AdvReac Rash Verified 08/17/22 08:47 ciprofloxacin HCl AdvReac Rash Verified 08/17/22 08:47 [From Cipro] codeine AdvReac stomach Verified 08/17/22 08:47 upset hydroxychloroquine sulfate AdvReac Rash Verified 08/17/22 08:47 [From Plaquenil] sulfamethoxazole AdvReac Rash Verified 08/17/22 08:47 [From Bactrim] trimethoprim [From Bactrim] AdvReac Rash Verified 08/17/22 08:47 Social History Smoking Status: Never smoker ROS ROS ED Constitutional Constitutional ED: Denies chills or fever(s) Eyes Eyes: Denies blurry vision or change in vision ENT ENT ED: Denies rhinorrhea or sore throat Cardiovascular Cardiovascular: Reports chest pain; Denies palpitations Respiratory/Chest Respiratory/Chest: Denies cough or dyspnea Gastrointestinal Gastrointestinal: Reports nausea and vomiting; Denies abdominal pain Genitourinary Genitourinary ED: Denies dysuria or hematuria Musculoskeletal Musculoskeletal: Reports neck pain; Denies back pain Integumentary Denies abscess or rash Neurologic Neurologic: Denies headache(s) or weakness Allergic/Immunologic Allergic/Immunologic ED: Denies mouth swelling or urticaria EXAM Physical Exam Const Vital Signs: 08/17/22 08:47 08/17/22 09:01 08/17/22 09:06 Temperature 97.8 F Temperature Source Temporal Pulse Rate 80 Respiratory Rate 18 Respiratory Effort Normal Non-Labored Blood Pressure 175/77 H Blood Pressure Mean 109 Pulse Ox 99 100 Oxygen Delivery Method Room Air Room Air 08/17/22 11:01 08/17/22 12:15 Temperature Temperature Source Pulse Rate 73 60 Respiratory Rate 15 15 Respiratory Effort Blood Pressure 185/76 H Blood Pressure Mean 112 Pulse Ox 98 98 Oxygen Delivery Method Room Air Room Air Positive well nourished and well developed General Appearance ED: well developed and NAD HEENT normocephalic and atraumatic Eyes PERRL and EOMs intact bilaterally Neck supple and no JVD Chest Wall palpation of chest normal Resp normal respiratory effort and clear to auscultation bilaterally Effort and Inspection: Negative for respiratory distress Cardio regular rate, regular rhythm and no murmurs GI normal to inspection, nondistended, normoactive bowel sounds, soft to palpation, non-tender and non-distended Extremity normal to inspection General Extremety ED: Negative for edema or tenderness General Extremity: Negative for edema Neuro oriented x3, CN's II-XII intact bilaterally and no sensory deficits noted Sensorium / Orientation: awake and alert Motor Exam: strength 5/5 throughout Psych mental status grossly normal Heart Score History: Slightly/Non-Suspicious ECG: Normal Age: >/= 65 years Risk Factors: 1 or 2 Risk Factors Troponin: </= Normal Limit Score: 3 MDM MDM MDM Narrative Medical decision making narrative: Patient was given aspirin and a GI cocktail here. EKG was obtained. On my interpretation, it showed a normal sinus rhythm with a rate of 68. CT interval, QRS interval, and QTc intervals were all normal. [place] was normal. There are no acute ST or T wave changes. Portable 1 view chest x-ray was obtained. On my interpretation, lung pizano are clear. There is normal cardiac silhouette. Bony thorax is normal. There is no acute process noted. Radiologist also interpreted the x-ray and agrees. CBC was within normal limits. Basic metabolic profile shows a mild hyponatremia of 128. Initial high-sensitivity troponin was normal at 5. 2-hour repeat high-sensitivity troponin was normal at 5. Patient has a HEART score of 3. Patient was advised that this is low risk for acute cardiac event. Patient was instructed to follow-up with her primary care physician in 5 to 7 days for reevaluation. Patient and spouse understood and were agreeable with the plan. All questions were answered. Lab Data Attestation: I reviewed the patient's lab results. Labs: Laboratory Results - last 24 hr 08/17/22 08/17/22 08/17/22 09:05 09:05 11:08 WBC 4.1 L RBC 3.80 L Hgb 12.0 Hct 35.0 L MCV 92.1 MCH 31.6 MCHC 34.3 RDW Std Deviation 40.2 RDW Coeff of Cristopher 11.9 Plt Count 218 MPV 9.1 Immature Gran % (Auto) 0.500 Neut % (Auto) 71.9 H Lymph % (Auto) 14.7 L [place] % (Auto) 12.7 H Eos % (Auto) 0.0 Baso % (Auto) 0.2 Absolute Neuts (auto) 2.9 Absolute Lymphs (auto) 0.60 L Nucleated RBC % 0 Diff Path Review May foll Sodium 128 L Potassium 3.8 Chloride 95 L Carbon Dioxide 25.0 Anion Gap 8 BUN 13 Creatinine 0.80 Estim Creat Clear Calc 44.32 Est GFR (MDRD) Af Amer 90 Est GFR (MDRD) Non-Af 75 BUN/Creatinine Ratio 16.3 Glucose 115 H Calcium 9.5 Troponin I High Sens 5 5 Radiography Chest X-Ray - ED: 1 View, Read by ED Physician, Read by Radiologist and No Acute Disease Diagnostic Testing: Clinical Impression(s) from Imaging Studies Chest X-Ray 08/17/22 08:48 IMPRESSION: No acute cardiopulmonary abnormality. No interval change Electronically Signed: Eitan Linder MD at 9:39 EDT Reading Location ID and State: [facility] / [place] Tel , Service support , EKG Initial EKG: Attestation: I personally reviewed and interpreted this EKG as follows: Interpretation: Sinus Rhythm (68) and No Acute Injury Pattern Prior EKG tracings: available for review Prior: Unchanged (01/30/2016) Discharge Plan Triage Chief Complaint: Chest Pain ED Provider: Simba Hall Dx/Rx/DC Orders Clinical Impression: Chest pain, Elevated blood pressure reading Instructions: ED Chest Pain, Uncertain Cause Prescriptions: No Action cyclosporine [Restasis] 1 DROP dropperette 1 drp Each Eye 4X/DAY Monocaps 1 EACH tablet 1 ea PO DAILY biotin 1 MG capsule 1,000 mcg PO TID Ca-D3-mag tu-ajor-hae-ingris-bor 1 EACH tablet,chewable 1 ea PO DAILY Clobetasol Emollient 0.05% Crm 1 applic transdermal SUSA mycophenolate mofetil [CellCept] 500 mg Tablet 500 mg PO BID famotidine 20 mg Tablet 20 mg PO BID doxycycline monohydrate 100 mg Capsule 100 mg PO BID tacrolimus [Protopic] 0.1 % Ointment 1 applic TOPICAL MOTUWETHFR estradiol [Estrace] 0.01 % (0.1 mg/gram) Cream 1 g VAGINAL QWEEK olopatadine [Pataday] 0.2 % Drops 1 drp EACH EYE BID difluprednate [Durezol] 0.05 % Drops 1 drp EACH EYE BID Rx Instructions: start on Day 15 of therapy Orencia 125 mg/mL Syringe 125 mg SUBCUT TU Primary Care Provider: Guille Gautam Referrals: Guille Gautam MD [Primary Care Provider] - 5-7 Days Disposition Disposition: Home, Self Care
[2022-08-17 09:28] LABS: Anion Gap 8 (5-15); BUN 13 mg/dL (7-18); BUN/Creat Ratio 16.3 RATIO (10-20); Calcium,Total 9.5 mg/dL (8.5-10.1); Chloride 95 mmol/L (98-107); EST Glomerular Filtration Rate 75 mL/min (>60); Est Glom Filt Rate - Afr Amer 90 mL/min (>60); Estimated Creatinine Clearance 44.32 ml/min; Glucose 115 mg/dL (74-106); Potassium 3.8 mmol/L (3.5-5.1); Sodium Level 128 mmol/L (136-145); Troponin-I HS (w/2H Reflex) 5 pg/mL (3.0-54.0)
[2022-08-17 09:50] LABS: Differential Indicated SCAN CRITERIA MET
[2022-08-17] MEDS: Mag Hydrox/Al Hydrox/Simeth 30 ML UDC PO (10:15)
[2022-08-17 11:01] VITALS: PULSE 73; RESP 15; O2SAT 98
[2022-08-17 11:07] LABS: Reflex Troponin-HS? (from REC) Y
[2022-08-17 11:30] LABS: Troponin-I HS 5 pg/mL (3.0-54.0)
[2022-08-17 12:15] VITALS: BP 185/76; PULSE 60; RESP 15; O2SAT 98
[2022-08-20 13:19] LABS: Pathologist Review Reviewed
== END 2022-08-17 13:00 | disposition home or self-care (01) ==
PROVIDERS: Emergency Medicine; Emergency Provider Emergency Medicine; PCP Family Medicine; Visit Provider Emergency Medicine
DX: R07.9 Chest pain, unspecified (principal); R03.0 Elevated blood-pressure reading, without diagnosis of hypertension; Z79.899 Other long term (current) drug therapy
CPT/HCPCS: 71045; 80048; 84484; 85025; 93005; 99285; A4216

== ENCOUNTER → 2022-10-22 | Outpatient (CLI) | payer MEDICARE, OTHER, SELFPAY ==
[2022-10-22 10:08] LABS: Absolute Lymphocyte Count 0.67 X10^3/uL (0.83-4.51); Absolute Neutrophil Count 3.3 X10^3/uL (2.0-7.7); Basophil# 0.02 X10^3/uL; Basophil% 0.4 % (0-1); Eosinophil# 0.02 X10^3/uL; Eosinophils% 0.4 % (0-5); Hematocrit 38.1 % (37-47); Hemoglobin 12.6 g/dL (12.0-15.0); Lymphocyte # 0.67 X10^3/ul (0.83-4.51); Lymphocyte % 14.9 % (19-41); Mean Corp Hgb Conc 33.1 g/dL (32-36); Mean Corpuscular Volume 96.7 fL (81-99); Mean Platelet Vol. 10.1 fl (6.2-12.0); Monocyte# 0.43 X10^3/uL; Monocyte% 9.6 % (0-10); NRBC Flagged by Analyzer 0 % (0-5); Neutrophil # 3.33 X10^3/uL (2.7-7.7); Neutrophil % 74.3 % (47-70); Platelet Count 270 K/mm3 (150-450); RBC Distribution Width CV 12.6 % (11.6-14.6); RBC Distribution Width SD 44.4 fl (35.1-43.9); Red Blood Count 3.94 M/mm3 (4.2-5.4); White Blood Count 4.5 K/mm3 (4.4-11.0)
[2022-10-22 10:18] LABS: ALB/GLOB Ratio 1.3 RATIO (0.9-2.4); AST(SGOT) 28 U/L (15-37); Alanine Aminotransfer ALT/SGPT 40 U/L (13-56); Albumin, Serum 3.3 g/dL (3.2-5.0); Alkaline Phosphatase 87 U/L (45-117); Anion Gap 8 (5-15); BUN 12 mg/dL (7-18); BUN/Creat Ratio 13.3 RATIO (10-20); Bilirubin, Direct 0.15 mg/dL (0.00-0.30); Calcium,Total 8.9 mg/dL (8.5-10.1); Chloride 98 mmol/L (98-107); EST Glomerular Filtration Rate 65 mL/min (>60); Est Glom Filt Rate - Afr Amer 78 mL/min (>60); Globulin 2.6 g/dL (2.2-4.2); Glucose 101 mg/dL (74-106); Protein, Total 5.9 g/dL (6.4-8.2); Sodium Level 135 mmol/L (136-145)
[2022-10-25 16:09] LABS: QNTFERON TB Nil Value 0.04 IU/mL (.); QNTFERON TB1+ Ag Value 0.05 IU/mL (.); QNTFERON TB2+ Ag Value 0.04 IU/mL (.)
[2022-10-25 21:06] LABS: QNTIFERON TB Positive Criteria Negative (Negative)
== END | disposition home or self-care (01) ==
LOC: MTLAB 07:14
PROVIDERS: PCP Family Medicine; Referring Provider Internal Medicine Rheumatology; Visit Provider Internal Medicine Rheumatology
DX: M05.79 Rheumatoid arthritis with rheumatoid factor of multiple sites without organ or systems involvement (principal); M35.00 Sjogren syndrome, unspecified; Z79.899 Other long term (current) drug therapy
CPT/HCPCS: 36415; 80053; 82248; 85025; 86480

== ENCOUNTER → 2023-01-15 | Outpatient (CLI) | payer MEDICARE, OTHER, SELFPAY ==
[2023-01-15 10:01] LABS: Absolute Lymphocyte Count 0.69 X10^3/uL (0.83-4.51); Absolute Neutrophil Count 3.1 X10^3/uL (2.0-7.7); Basophil# 0.03 X10^3/uL; Basophil% 0.7 % (0-1); Eosinophil# 0.03 X10^3/uL; Eosinophils% 0.7 % (0-5); Hematocrit 38.7 % (37-47); Hemoglobin 12.5 g/dL (12.0-15.0); Lymphocyte # 0.69 X10^3/ul (0.83-4.51); Lymphocyte % 15.2 % (19-41); Mean Corp Hgb Conc 32.3 g/dL (32-36); Mean Corpuscular Hgb 31.3 pg (27.0-32.0); Mean Corpuscular Volume 96.8 fL (81-99); Mean Platelet Vol. 9.7 fl (6.2-12.0); Monocyte# 0.64 X10^3/uL; Monocyte% 14.1 % (0-10); NRBC Flagged by Analyzer 0 % (0-5); Neutrophil # 3.11 X10^3/uL (2.7-7.7); Neutrophil % 68.6 % (47-70); Platelet Count 259 K/mm3 (150-450); RBC Distribution Width CV 12.1 % (11.6-14.6); RBC Distribution Width SD 42.5 fl (35.1-43.9); White Blood Count 4.5 K/mm3 (4.4-11.0)
[2023-01-15 10:12] LABS: ALB/GLOB Ratio 1.1 RATIO (0.9-2.4); AST(SGOT) 21 U/L (15-37); Alanine Aminotransfer ALT/SGPT 28 U/L (13-56); Albumin, Serum 3.2 g/dL (3.2-5.0); Alkaline Phosphatase 95 U/L (45-117); Anion Gap 6 (5-15); BUN 13 mg/dL (7-18); BUN/Creat Ratio 15.6 RATIO (10-20); Bilirubin, Direct 0.14 mg/dL (0.00-0.30); Calcium,Total 9.1 mg/dL (8.5-10.1); Chloride 103 mmol/L (98-107); Creatinine, Serum 0.84 mg/dL (0.55-1.02); EST Glomerular Filtration Rate 71 mL/min (>60); Est Glom Filt Rate - Afr Amer 86 mL/min (>60); Globulin 2.9 g/dL (2.2-4.2); Glucose 78 mg/dL (74-106); Potassium 4.2 mmol/L (3.5-5.1); Protein, Total 6.1 g/dL (6.4-8.2); Sodium Level 136 mmol/L (136-145)
== END | disposition home or self-care (01) ==
LOC: MTLAB 07:15
PROVIDERS: PCP Family Medicine; Referring Provider Internal Medicine Rheumatology; Visit Provider Internal Medicine Rheumatology
DX: M05.79 Rheumatoid arthritis with rheumatoid factor of multiple sites without organ or systems involvement (principal); M35.00 Sjogren syndrome, unspecified; Z79.899 Other long term (current) drug therapy; R76.8 Other specified abnormal immunological findings in serum; M47.897 Other spondylosis, lumbosacral region; K21.9 Gastro-esophageal reflux disease without esophagitis
CPT/HCPCS: 36415; 80053; 82248; 85025

== ENCOUNTER → 2023-02-05 | Outpatient (CLI) | payer MEDICARE, OTHER, SELFPAY | END | disposition home or self-care (01) | LOC: LAB 07:20 | PROVIDERS: PCP Family Medicine; Referring Provider Ophthalmology; Visit Provider Ophthalmology | DX: Z79.899 Other long term (current) drug therapy (principal) | CPT/HCPCS: 36415 ==

== ENCOUNTER → 2023-04-16 | Outpatient (CLI) | payer MEDICARE, OTHER, SELFPAY ==
[2023-04-16 10:04] LABS: Absolute Lymphocyte Count 0.52 X10^3/uL (0.83-4.51); Absolute Neutrophil Count 2.5 X10^3/uL (2.0-7.7); Basophil# 0.01 X10^3/uL; Basophil% 0.3 % (0-1); Eosinophil# 0.03 X10^3/uL; Eosinophils% 0.9 % (0-5); Hematocrit 38.4 % (37-47); Hemoglobin 12.3 g/dL (12.0-15.0); Lymphocyte # 0.52 X10^3/ul (0.83-4.51); Lymphocyte % 15.1 % (19-41); Mean Corpuscular Hgb 30.8 pg (27.0-32.0); Mean Corpuscular Volume 96.2 fL (81-99); Mean Platelet Vol. 10.1 fl (6.2-12.0); Monocyte% 11.6 % (0-10); NRBC Flagged by Analyzer 0 % (0-5); Neutrophil # 2.48 X10^3/uL (2.7-7.7); Neutrophil % 71.8 % (47-70); POSITIVE DIFFERENTIAL YES; Platelet Count 232 K/mm3 (150-450); RBC Distribution Width CV 12.5 % (11.6-14.6); Red Blood Count 3.99 M/mm3 (4.2-5.4); White Blood Count 3.5 K/mm3 (4.4-11.0)
[2023-04-16 10:17] LABS: Differential Indicated SCAN CRITERIA MET
[2023-04-16 10:21] LABS: AST(SGOT) 25 U/L (15-37); Alanine Aminotransfer ALT/SGPT 25 U/L (13-56); Albumin, Serum 3.1 g/dL (3.2-5.0); Alkaline Phosphatase 75 U/L (45-117); Anion Gap 7 (5-15); BUN 12 mg/dL (7-18); BUN/Creat Ratio 12.6 RATIO (10-20); Bilirubin, Direct 0.15 mg/dL (0.00-0.30); Calcium,Total 8.6 mg/dL (8.5-10.1); Chloride 104 mmol/L (98-107); Creatinine, Serum 0.95 mg/dL (0.55-1.02); EST Glomerular Filtration Rate 61 mL/min (>60); Est Glom Filt Rate - Afr Amer 74 mL/min (>60); Globulin 3.1 g/dL (2.2-4.2); Glucose 116 mg/dL (74-106); Potassium 4.1 mmol/L (3.5-5.1); Protein, Total 6.2 g/dL (6.4-8.2); Sodium Level 137 mmol/L (136-145)
[2023-04-16 10:48] LABS: Differential Comment SCANNED
[2023-04-16 14:24] LABS: Pathologist Review Reviewed
== END | disposition home or self-care (01) ==
LOC: MTLAB 07:10
PROVIDERS: PCP Family Medicine; Referring Provider Internal Medicine Rheumatology; Visit Provider Internal Medicine Rheumatology
DX: M33.13 Other dermatomyositis without myopathy (principal); M05.79 Rheumatoid arthritis with rheumatoid factor of multiple sites without organ or systems involvement; M35.00 Sjogren syndrome, unspecified; L93.1 Subacute cutaneous lupus erythematosus; Z79.899 Other long term (current) drug therapy
CPT/HCPCS: 36415; 80053; 82248; 85025

== ENCOUNTER → 2023-07-10 | Outpatient (CLI) | payer MEDICARE, OTHER, SELFPAY ==
[2023-07-10 10:20] LABS: Absolute Lymphocyte Count 0.74 X10^3/uL (0.83-4.51); Absolute Neutrophil Count 3.5 X10^3/uL (2.0-7.7); Basophil# 0.02 X10^3/uL; Basophil% 0.4 % (0-1); Eosinophil# 0.05 X10^3/uL; Hematocrit 38.4 % (37-47); Hemoglobin 12.6 g/dL (12.0-15.0); Lymphocyte # 0.74 X10^3/ul (0.83-4.51); Lymphocyte % 15.5 % (19-41); Mean Corp Hgb Conc 32.8 g/dL (32-36); Mean Corpuscular Hgb 30.9 pg (27.0-32.0); Mean Corpuscular Volume 94.1 fL (81-99); Monocyte% 10.5 % (0-10); NRBC Flagged by Analyzer 0 % (0-5); Neutrophil # 3.45 X10^3/uL (2.7-7.7); Neutrophil % 72.2 % (47-70); Platelet Count 292 K/mm3 (150-450); RBC Distribution Width CV 12.4 % (11.6-14.6); Red Blood Count 4.08 M/mm3 (4.2-5.4); White Blood Count 4.8 K/mm3 (4.4-11.0)
[2023-07-10 10:31] LABS: ALB/GLOB Ratio 1.1 RATIO (0.9-2.4); AST(SGOT) 21 U/L (15-37); Alanine Aminotransfer ALT/SGPT 28 U/L (13-56); Albumin, Serum 3.4 g/dL (3.2-5.0); Alkaline Phosphatase 110 U/L (45-117); Anion Gap 4 (5-15); BUN 12 mg/dL (7-18); BUN/Creat Ratio 13.5 RATIO (10-20); Calcium,Total 8.9 mg/dL (8.5-10.1); Chloride 102 mmol/L (98-107); Creatinine, Serum 0.89 mg/dL (0.55-1.02); EST Glomerular Filtration Rate 65 mL/min (>60); Est Glom Filt Rate - Afr Amer 79 mL/min (>60); Globulin 3.2 g/dL (2.2-4.2); Glucose 110 mg/dL (74-106); Potassium 3.8 mmol/L (3.5-5.1); Protein, Total 6.6 g/dL (6.4-8.2); Sodium Level 134 mmol/L (136-145)
== END | disposition home or self-care (01) ==
PROVIDERS: PCP Family Medicine; Referring Provider Internal Medicine Rheumatology; Visit Provider Internal Medicine Rheumatology
DX: M05.79 Rheumatoid arthritis with rheumatoid factor of multiple sites without organ or systems involvement (principal); M35.00 Sjogren syndrome, unspecified; R76.8 Other specified abnormal immunological findings in serum; M47.897 Other spondylosis, lumbosacral region; K21.9 Gastro-esophageal reflux disease without esophagitis; Z79.899 Other long term (current) drug therapy
CPT/HCPCS: 36415; 80053; 85025

== ENCOUNTER → 2023-07-23 | Outpatient (CLI) | payer MEDICARE, OTHER, SELFPAY | END | disposition home or self-care (01) | LOC: LAB 06:54 | PROVIDERS: PCP Family Medicine; Referring Provider Ophthalmology; Visit Provider Ophthalmology | DX: Z79.899 Other long term (current) drug therapy (principal) | CPT/HCPCS: 36415 ==

== ENCOUNTER → 2023-08-02 | Outpatient (CLI) | payer MEDICARE, OTHER, SELFPAY ==
[2023-08-02 10:15] LABS: Absolute Lymphocyte Count 1.03 X10^3/uL (0.83-4.51); Absolute Neutrophil Count 10.4 X10^3/uL (2.0-7.7); Basophil# 0.03 X10^3/uL; Basophil% 0.2 % (0-1); Hematocrit 40.1 % (37-47); Lymphocyte # 1.03 X10^3/ul (0.83-4.51); Lymphocyte % 8.4 % (19-41); Mean Corp Hgb Conc 32.4 g/dL (32-36); Mean Corpuscular Hgb 30.7 pg (27.0-32.0); Mean Corpuscular Volume 94.8 fL (81-99); Mean Platelet Vol. 9.8 fl (6.2-12.0); Monocyte# 0.64 X10^3/uL; Monocyte% 5.2 % (0-10); NRBC Flagged by Analyzer 0 % (0-5); Neutrophil # 10.39 X10^3/uL (2.7-7.7); Neutrophil % 85.1 % (47-70); Platelet Count 372 K/mm3 (150-450); RBC Distribution Width CV 12.8 % (11.6-14.6); RBC Distribution Width SD 44.1 fl (35.1-43.9); Red Blood Count 4.23 M/mm3 (4.2-5.4); White Blood Count 12.2 K/mm3 (4.4-11.0)
[2023-08-02 10:42] LABS: AST(SGOT) 16 U/L (15-37); Alanine Aminotransfer ALT/SGPT 33 U/L (13-56); Albumin, Serum 3.5 g/dL (3.2-5.0); Alkaline Phosphatase 102 U/L (45-117); Bilirubin, Direct 0.13 mg/dL (0.00-0.30); Globulin 2.7 g/dL (2.2-4.2); Protein, Total 6.2 g/dL (6.4-8.2)
== END | disposition home or self-care (01) ==
LOC: MTLAB 07:16
PROVIDERS: PCP Family Medicine; Referring Provider Dermatology; Visit Provider Dermatology
DX: M33.13 Other dermatomyositis without myopathy (principal); L93.1 Subacute cutaneous lupus erythematosus; Z79.899 Other long term (current) drug therapy
CPT/HCPCS: 36415; 80076; 85025; 86480

== ENCOUNTER → 2023-09-30 | Outpatient (CLI) | payer MEDICARE, OTHER, SELFPAY ==
[2023-09-30 10:30] LABS: Absolute Lymphocyte Count 0.72 X10^3/uL (0.83-4.51); Absolute Neutrophil Count 3.5 X10^3/uL (2.0-7.7); Basophil# 0.02 X10^3/uL; Basophil% 0.4 % (0-1); Eosinophil# 0.02 X10^3/uL; Eosinophils% 0.4 % (0-5); Hemoglobin 11.4 g/dL (12.0-15.0); Lymphocyte # 0.72 X10^3/ul (0.83-4.51); Lymphocyte % 15.2 % (19-41); Mean Corp Hgb Conc 32.6 g/dL (32-36); Mean Corpuscular Hgb 31.1 pg (27.0-32.0); Mean Corpuscular Volume 95.6 fL (81-99); Mean Platelet Vol. 9.9 fl (6.2-12.0); Monocyte# 0.47 X10^3/uL; Monocyte% 9.9 % (0-10); NRBC Flagged by Analyzer 0 % (0-5); Neutrophil # 3.48 X10^3/uL (2.7-7.7); Neutrophil % 73.3 % (47-70); Platelet Count 280 K/mm3 (150-450); RBC Distribution Width SD 45.4 fl (35.1-43.9); Red Blood Count 3.66 M/mm3 (4.2-5.4); White Blood Count 4.8 K/mm3 (4.4-11.0)
[2023-09-30 10:48] LABS: ALB/GLOB Ratio 1.1 RATIO (0.9-2.4); AST(SGOT) 24 U/L (15-37); Alanine Aminotransfer ALT/SGPT 43 U/L (13-56); Albumin, Serum 3.3 g/dL (3.2-5.0); Alkaline Phosphatase 124 U/L (45-117); Anion Gap 6 (5-15); BUN 9 mg/dL (7-18); BUN/Creat Ratio 11.4 RATIO (10-20); Calcium,Total 8.9 mg/dL (8.5-10.1); Chloride 100 mmol/L (98-107); Creatinine, Serum 0.79 mg/dL (0.55-1.02); EST Glomerular Filtration Rate 75 mL/min (>60); Est Glom Filt Rate - Afr Amer 91 mL/min (>60); Globulin 2.9 g/dL (2.2-4.2); Glucose 98 mg/dL (74-106); Potassium 3.7 mmol/L (3.5-5.1); Protein, Total 6.2 g/dL (6.4-8.2); Sodium Level 134 mmol/L (136-145)
== END | disposition home or self-care (01) ==
LOC: MTLAB 08:40
PROVIDERS: PCP Family Medicine; Referring Provider Internal Medicine Rheumatology; Visit Provider Internal Medicine Rheumatology
DX: M05.79 Rheumatoid arthritis with rheumatoid factor of multiple sites without organ or systems involvement (principal); M35.00 Sjogren syndrome, unspecified; Z79.899 Other long term (current) drug therapy
CPT/HCPCS: 36415; 80053; 85025

== ENCOUNTER → 2023-10-09 | Outpatient (CLI) | payer MEDICARE, OTHER, SELFPAY ==
[2023-10-09 13:37] LABS: EXAGEN MAILED SPECIMEN
[2023-10-09 15:47] LABS: Color, Urine Yellow (Yellow); Glucose, Dipstick Normal (Normal); Ketone-Dipstick Negative (Negative); Leukocyte Esterase-Dipstick 500 /ul (Negative); Nitrite-Dipstick Negative (Negative); Occult Blood-Urine Negative /ul (Negative); Protein-Dipstick Negative (Negative); Specific Gravity, Urine 1.015 (1.002-1.030); Urine Bilirubin Dipstick Negative (Negative); Urine Clarity Sl. Cloudy (Clear); Urine Urobilinogen Normal (Normal)
[2023-10-09 15:49] LABS: International Normalized Ratio 0.9; Prothrombin Time (Protime)PT. 12.1 SECONDS (11.7-14.9)
[2023-10-09 15:51] LABS: Partial Thromboplast Time 27.1 Seconds (24.1-36.2)
[2023-10-09 16:12] LABS: Protein, Urine (Random) 11.9 mg/dL (<11.9); Protein:Creat Ratio 167 mg/g CRE (0-200)
[2023-10-14 17:07] LABS: Dilute Prothrombin Time (dPT) 34.1 sec (0.0-47.6); Dilute Russell Viper Venom 34.8 sec (0.0-47.0); Hexagonal Phase Phospholipid 5 sec (0-11); Interpretation Comment: (.); PTT-LA 32.6 sec (0.0-43.5); Thrombin Time 17.9 sec (0.0-23.0); dPT Confirm Ratio 1.24 Ratio (0.00-1.34)
== END | disposition home or self-care (01) ==
LOC: MTLAB 12:37
PROVIDERS: PCP Family Medicine; Referring Provider Internal Medicine Rheumatology; Visit Provider Internal Medicine Rheumatology
DX: M05.79 Rheumatoid arthritis with rheumatoid factor of multiple sites without organ or systems involvement (principal); M35.00 Sjogren syndrome, unspecified; R76.8 Other specified abnormal immunological findings in serum; M47.897 Other spondylosis, lumbosacral region; K21.9 Gastro-esophageal reflux disease without esophagitis; Z79.899 Other long term (current) drug therapy
CPT/HCPCS: 36415; 81002; 82570; 84156; 85598; 85610; 85670; 85730

== ENCOUNTER → 2023-12-10 | Outpatient (CLI) | payer MEDICARE, OTHER, SELFPAY ==
[2023-12-10 16:01] LABS: Absolute Lymphocyte Count 0.76 X10^3/uL (0.83-4.51); Absolute Neutrophil Count 3.8 X10^3/uL (2.0-7.7); Basophil# 0.01 X10^3/uL; Basophil% 0.2 % (0-1); Eosinophil# 0.02 X10^3/uL; Eosinophils% 0.4 % (0-5); Hematocrit 38.3 % (37-47); Hemoglobin 12.6 g/dL (12.0-15.0); Lymphocyte # 0.76 X10^3/ul (0.83-4.51); Lymphocyte % 15.2 % (19-41); Mean Corp Hgb Conc 32.9 g/dL (32-36); Mean Corpuscular Hgb 31.2 pg (27.0-32.0); Mean Corpuscular Volume 94.8 fL (81-99); Mean Platelet Vol. 10.1 fl (6.2-12.0); Monocyte# 0.43 X10^3/uL; Monocyte% 8.6 % (0-10); NRBC Flagged by Analyzer 0 % (0-5); Neutrophil # 3.78 X10^3/uL (2.7-7.7); Neutrophil % 75.4 % (47-70); Platelet Count 314 K/mm3 (150-450); RBC Distribution Width CV 12.3 % (11.6-14.6); RBC Distribution Width SD 42.6 fl (35.1-43.9); Red Blood Count 4.04 M/mm3 (4.2-5.4)
[2023-12-10 16:34] LABS: AST(SGOT) 28 U/L (15-37); Alanine Aminotransfer ALT/SGPT 40 U/L (13-56)
== END | disposition home or self-care (01) ==
LOC: MTLAB 13:24
PROVIDERS: PCP Family Medicine
DX: Z79.899 Other long term (current) drug therapy (principal)
CPT/HCPCS: 36415; 84450; 84460; 85025

== ENCOUNTER → 2024-01-02 | Outpatient (CLI) | payer MEDICARE, OTHER, SELFPAY ==
--- OUTSIDE RECORDS SUMMARY | 2024-01-02 07:10 | XMS RPT_ITS | CCD ---
Author Name Unknown Address [address] [facility] [address] [place] [id number] Organization [facility] Care Team Providers Care Senior Principal Architect Name Role Phone Pastor Gautam MD Primary Care Provider PASTOR GAUTAM Attending Unavailable NANY, PASTOR [facility] Unavailable NANY, PASTOR [facility] Unavailable PASTOR GAUTAM Referring Unavailable LIZ MCPHERSON Referring Unavail able NANY, PASTOR [facility] Unavailable LIZ MCPHERSON Referring Unavail able NANY, PASTOR [facility] Unavailable LIZ MCPHERSON Attending Unavail able LIZ MCPHERSON Referring Unavail able NANY, PASTOR [facility] Unavailable LIZ MCPHERSON Referring Unavail able NANY, PASTOR [facility] Unavailable NANY, PASTOR [facility] Unavailable NANY, PASTOR [facility] Attending Unavailable NANY, PASTOR [facility] Unavailable NANY, PASTOR [facility] Referring Unavailable NANY, PASTOR [facility] Unavailable NANY, PASTOR [facility] Referring Unavailable NANY, PASTOR [facility] Unavailable NANY, PASTOR [facility] Attending Unavailable NANY, PASTOR [facility] Unavailable NANY, PASTOR [facility] Referring Unavailable NANY, PASTOR [facility] Unavailable NANY, PASTOR [facility] Referring Unavailable NANY, PASTOR [facility] Unavailable NANY, PASTOR [facility] Referring Unavailable NANY, PASTOR [facility] Unavailable LIZ MCPHERSON Referring Unavail able Allergies Allergy Classification Reported Allergen(s) Allergy Type Date of Onset Reaction(s) Facility (20 sources) Amoxicillin; Translations: [AMOXICILLIN] Drug Allergy 12-26-19 08 Rash, GI Upset [facility] (20 sources) Ciprofloxacin; Translations: [CIPROFLOXACIN] Drug Allergy 09-20-20 11 Rash [facility] Work Phone: (20 sources) Clindamycin; Translations: [CLINDAMYCIN] Drug Allergy 09-20-20 11 [facility] Work Phone: (20 sources) Codeine; Translations: [CODEINE] Drug Allergy 08-04-20 10 GI Upset [facility] (20 sources) Hydroxychloroquine; Translations: [HYDROXYCHLOROQUINE SULFATE] Drug Allergy 10-28-20 14 [facility] (20 sources) Seasonal allergy; Translations: [SEASONAL ALLERGIES] Allergy to substance 03-25-20 18 Other: See Comments [facility] (20 sources) Sulfamethoxazole / Trimethoprim; Translations: [SULFAMETHOXAZOLE-TR IMETHOPRIM] Drug Allergy 02-08-20 11 [facility] Work Phone: Medications Current Medications Medication Drug Class(es) Dates Sig (Normalized) Sig (Original) sucralfate 1000 mg oral tablet (10 sources) Aluminum Complex Start: 07-05-2023 End: 07-04-2024 take 1 tablet by mouth at bedtime sucralfate (CARAFATE) 1 gram tablet Indications: GERD without esophagitis Take 1 tablet by mouth before meals and at bedtime. 120 tablet 11 07/05/2023 07/04/2024 Active Completed/Discontinued Medications Medication Drug Class(es) Dates Sig (Normalized) Sig (Original) 1 ml abatacept 125 mg/ml auto-injector (20 sources) Selective T Cell Costimulation Modulator Start: 05-10-2020 abatacept 125 mg/mL one time a week. 0 05/10/2020 Active Problems Active Problems Problem Classification Problem Date Documented Date Episodic/Chronic Deficiency and other anemia (1 source) Anemia; Translations: [Anemia, unspecified] 10-08-2023 Episodic Deficiency and other anemia (1 source) Anemia, unspecified; Translations: [Anemia, unspecified type] Onset: 10-08-2023 Episodic Esophageal disorders (2 sources) Gastroesophageal reflux disease without esophagitis; Translations: [Gastro-esophageal reflux disease without esophagitis] Onset: 07-05-2023 07-29-2023 Chronic Malaise and fatigue (2 sources) Fatigue; Translations: [Other fatigue] Onset: 10-08-2023 10-08-2023 Episodic Menopausal disorders (6 sources) Atrophy of vagina; Translations: [Postmenopausal atrophic vaginitis] Onset: 02-08-2023 Chronic Miscellaneous mental health disorders (1 source) Psychophysiologic insomnia; Translations: [Chronic insomnia] Onset: 07-05-2023 Chronic Nonmalignant breast conditions (20 sources) Fibrocystic disease of breast; Translations: [Diffuse cystic mastopathy of unspecified breast] Onset: 09-20-2008 04-04-2010 Chronic Other aftercare (1 source) Patient encounter status; Translations: [Encounter for therapeutic drug level monitoring] 10-08-2023 Episodic Other aftercare (1 source) Long-term current use of drug therapy; Translations: [Other remote computer terminal operator (current) drug therapy] 10-08-2023 Episodic Other aftercare (1 source) Encounter for therapeutic drug level monitoring; Translations: [Medication monitoring encounter] Onset: 10-08-2023 Episodic Other aftercare (1 source) Other fpc (current) drug therapy; Translations: [Other fpc (current) drug therapy] Onset: 10-08-2023 Episodic Other ear and sense organ disorders (1 source) Unspecified hearing loss, bilateral; Translations: [Bilateral hearing loss, unspecified hearing loss type] Onset: 07-05-2023 Chronic Other inflammatory condition of skin (7 sources) Cutaneous lupus erythematosus; Translations: [Other local lupus erythematosus] Onset: 06-09-2021 06-09-2021 Chronic Other inflammatory condition of skin (13 sources) Subacute cutaneous lupus erythematosus; Translations: [Subacute cutaneous lupus erythematosus] Onset: 06-09-2021 07-05-2023 Chronic Other inflammatory condition of skin (1 source) Subacute cutaneous lupus erythematosus; Translations: [Subacute cutaneous lupus erythematosus] Onset: 07-05-2023 Chronic Other nervous system disorders (20 sources) Left-sided piriformis syndrome; Translations: [Lesion of sciatic nerve, left lower limb] Onset: 05-08-2018 05-08-2018 Chronic Other upper respiratory disease (20 sources) Allergic rhinitis due to pollen; Translations: [Allergic rhinitis due to pollen] Onset: 03-25-2018 03-25-2018 Chronic Other upper respiratory disease (20 sources) Allergic rhinitis due to animals; Translations: [Allergic rhinitis due to animal (cat) (dog) hair and dander] Onset: 03-25-2018 03-25-2018 Chronic Other upper respiratory disease (20 sources) Allergic rhinitis due to house dust mite; Translations: [Other allergic rhinitis] Onset: 03-25-2018 03-25-2018 Chronic Rheumatoid arthritis and related disease (20 sources) Inflammatory polyarthropathy; Translations: [Inflammatory polyarthropathy] Onset: 05-24-2014 05-24-2014 Chronic Systemic lupus erythematosus and connective tissue disorders (20 sources) Sjogren's syndrome; Translations: [Sicca syndrome, unspecified] Onset: 07-08-2014 11-13-2021 Chronic Past or Other Problems Problem Classification Problem Date Documented Da te Episodic/Chronic Disorders of teeth and jaw (1 source) Jaw pain; Translations: [Jaw pain] Onset: 07-05-2023 Episodic Nonspecific chest pain (2 sources) Chest pain; Translations: [Chest pain, unspecified] Onset: 07-05-2023 07-29-2023 Episodic Other screening for suspected conditions (not mental disorders or infectious disease) (11 sources) Breast finding ; Translations: [Inconclusive mammogram] Onset: 02-08-2023 Episodic Residual codes; unclassified (20 sources) Insomnia; Translations: [Insomnia, unspecified] Onset: 07-16-2013 07-16-2013 Episodic Residual codes; unclassified (1 source) Other amnesia; Translations: [Memory loss] Onset: 07-05-2023 Episodic Results Test Name Value Interpretation Reference Range Facil ity Vital Signs Date Time Vital Sign Value Performing Clinician Jake huerta 10-08-2023 16:09-0500 Diastolic blood pressure 80 mm[Hg] Pastor Gautam MD Work Phone: [facility] 10-08-2023 16:09-0500 Systolic blood pressure 136 mm[Hg] Pastor Gautam MD Work Phone: [facility] 10-08-2023 15:42-0500 Body height 154.9 cm Pastor Gautam MD Work Phone: [facility] 10-08-2023 15:42-0500 Body weight 58.97 kg Pastor Gautam MD Work Phone: [facility] 10-08-2023 15:42-0500 Heart rate 72 /min Pastor Gautam MD Work Phone: [facility] 10-08-2023 15:42-0500 SaO2% (BldA) [Mass fraction] 99 % Pastor Gautam MD Work Phone: [facility] 07-29-2023 10:29-0400 Diastolic blood pressure 80 mm[Hg] Pastor Gautam MD Work Phone: [facility] 07-29-2023 10:29-0400 Systolic blood pressure 136 mm[Hg] Pastor Gautam MD Work Phone: [facility] 07-29-2023 10:08-0400 Body weight 58.51 kg Pastor Gautam MD Work Phone: [facility] 07-29-2023 10:08-0400 Heart rate 93 /min Pastor Gautam MD Work Phone: [facility] 07-29-2023 10:08-0400 SaO2% (BldA) [Mass fraction] 100 % Pastor Gautam MD Work Phone: [facility] 02-08-2023 10:56-0400 Body height 154.9 cm Liz Liz MD Work Phone: [facility] 02-08-2023 10:56-0400 Body weight 62.41 kg Liz Liz MD Work Phone: [facility] 02-08-2023 10:56-0400 Diastolic blood pressure 74 mm[Hg] Liz Liz MD Work Phone: [facility] 02-08-2023 10:56-0400 Systolic blood pressure 120 mm[Hg] Liz Liz MD Work Phone: [facility] Encounters Encounter Date Encounter Type Care Provider Facility Start: 10-09-2023 End: 10-10-2023 ambulatory PASTOR GAUTAM Facility:[facility] Start: 10-08-2023 End: 10-09-2023 ambulatory PASTOR GAUTAM Facility:[facility] Start: 10-08-2023 End: 10-08-2023 Patient encounter procedure Pastor Gautam MD Work Phone: [facility] [place] Procedures Date Procedure Procedure Detail Performing Clinician Start: 09-05-2023 Us transvaginal Liz Liz MD Work Phone: Start: 09-02-2023 Myocardial spect mul tiple studies Pastor Gautam MD Work Phone: Start: 07-08-2023 Lipid 1996 panel - S tanesha or Plasma Liz Liz MD Work Phone: Start: 02-27-2023 Digital breast tomosynthesis unilateral Liz Liz MD Work Phone: Start: 02-08-2023 Urnls dip stick/tabl et rgnt auto w/o microscopy Liz Liz MD Work Phone: Start: 02-08-2023 PARAM SCREENING W OFE Sequeira MD Work Phone: Start: 08-10-2021 Colonoscopy Brandi marti MA Start: 01-04-2020 Adult depression scr eening assessment Brandi Zuluaga MA Start: 09-24-2019 Mammography Brandi marti MA Plan of Treatment Date Care Activity Detail Author Start: 08-10-2031 Colonoscopy COLONOSCOPY [facility] Start: 08-10-2031 COLORECTAL CANCER SCREENING COLORECTAL CANCER SCREENING [facility] Start: 07-08-2028 Lipid 1996 panel - Serum or Plasma Lipid Screening [facility] Start: 07-08-2028 LIPID SCREEN LIPID SCREEN [facility] Start: 10-26-2024 LIPID SCREEN LIPID SCREEN [facility] Start: 06-09-2024 DIABETES SCREEN DIABETES SCREEN [facility] Start: 06-09-2024 Diabetes Screening Diabetes Screenin g [facility] Start: 04-07-2024 End: 07-07-2024 Hemoglobin A1c in Blood HGB A1C Lab Routine Fatigue, unspecified type Medication monitoring encounter Other fpc (current) drug therapy Expected: 04/07/2024, Expires: 07/07/2024 [facility] Work Phone: Immunizations Immunization Date Immunization Notes Care Provider Scott johnson 07-19-2023 influenza (aIIV4) vaccine, age 65+ yr, quadrivalent, PF (FLUAD QUAD) Pastor Gautam MD Work Phone: [facility] 01-19-2021 COVID-19 vaccine, fu ll dose (MODERNA) Brandi Zuluaga [facility] 12-22-2020 COVID-19 vaccine, fu ll dose (MODERNA) Brandi Zuluaga [facility] 07-08-2020 influenza, high-dose , quadrivalent vaccine (FLUZONE HIGH DOSE QUADRIVALENT) Brandi Zuluaga [facility] 09-01-2019 influenza virus vacc ine, unspecified formulation Brandi Zuluaga [facility] 12-26-2018 zoster vaccine recombinant Brandi Zuluaga [facility] Work Phone: 09-05-2018 zoster vaccine recombinant Brandi Zuluaga [facility] 08-14-2018 influenza virus vacc ine, unspecified formulation Brandi Zuluaga [facility] 09-09-2015 pneumococcal conjuga te vaccine, 13 valent Brandichu Zuluaga [facility] 09-06-2015 influenza, high dose seasonal, preservative-free Brandi Zuluaga [facility] 08-18-2014 influenza, seasonal, injectable Brandi Zuluaga [facility] 02-22-2014 pneumococcal polysaccharide vaccine, 23 valent Brandichu Zuluaga [facility] 10-11-2013 tetanus and diphther ia toxoids, adsorbed, preservative free, for adult use (2 Lf of tetanus toxoid and 2 Lf of diphtheria toxoid) Brandi Zuluaga [facility] 06-27-2012 zoster vaccine, live Brandi Zuluaga [facility] 10-04-2009 novel influenza-H1N1 -09, preservative-free, injectable Brandi Zuluaga [facility] 01-13-2007 tetanus toxoid, redu samy diphtheria toxoid, and acellular pertussis vaccine, adsorbed [facility] Work Phone: Payers Date Payer Category Payer Private Health Insurance [employer] [id number] 2021-Present [phone] [address] [place] [address] [facility] [id number] 2021 Private Health Insurance [employer]LE[employer] [id number] 2021-Present [phone] [address] [place] [address] [employer] [id number] 2021 Private Health Insurance [id number] 2012 Medicare MEDICARE MEDICAR E A AND B [id number] 2012-Present [phone] [address] [address] [place] [address] Medicare [id number] 2012 Medicare MEDICARE MEDICAR E A AND B [id number] 2012-Present [phone] [place] [address] Medicare [id number] 2012 Medicare [id number] Social History Date Type Detail Facility Start: 06-27-2012 End: 02-08-2023 Tobacco smoking status NHIS Never smoked tobacco [facility] Start: 01-09-2022 End: 10-08-2023 Alcohol intake Current drinker of alcohol (finding) [facility] Start: 01-09-2022 End: 06-30-2023 Alcohol intake [facility] Start: 01-04-2020 End: 10-06-2020 History SDOH Alcohol Frequency 5 [facility] Start: 04-08-2020 End: 10-06-2020 History SDOH Alcohol Std Drinks 1 [facility] Start: 08-10-2021 History SDOH Alcohol Comment glass of wine daily [facility] Start: 01-04-2020 End: 04-08-2020 History SDOH Social Connections Get Together 2 [facility] Start: 01-04-2020 History SDOH Social Connections Meetings 3 [facility] Start: 01-04-2020 Education 18 [facility] Start: 1945 Sex Assigned At Female [facility] Work Phone: Start: 04-17-2022 End: 04-27-2022 Exposure to SARS-CoV-2 (event) Not sure [facility] Start: 06-27-2012 End: 02-08-2023 Tobacco use and exposure Smokeless tobacco non-user [facility] Start: 06-30-2023 End: 07-05-2023 Social connection and isolation panel [facility] How often do you att end orthodoxy or restorationism services? Patient refused [facility] Do you belong to any clubs or organizations such as orthodoxy groups, [employer], vidIQ or athletic groups, or school groups? Yes [facility] Are you now , , , , never or living with a partner? [facility] How often to you hav e a drink containing alcohol? 2-3 time sa week [facility] How many standard dr inks containing alcohol do you have on a typical day? 1 or 2 [facility] How often do you hav e 6 or more drinks on 1 occasion? Never [facility] Do you feel stress - tense, restless, nervous, or anxious, or unable to sleep at night because your mind is troubled all the time - these days [OSQ] To some extent [facility] (I/We) worried wheth er (my/our) food would run out before (I/we) got money to buy more. Never true [facility] In the past 12 month s, was there a time when you were not able to pay the mortgage or rent on time? No [facility] Start: 01-22-2019 Gender identity Identifies as female gender (finding) [facility] Work Phone: Start: 01-22-2019 Sexual orientation Heterosexual (finding) [facility] Work Phone: How often to you hav e a drink containing alcohol? 4 or more times a week [facility] Do you feel stress - tense, restless, nervous, or anxious, or unable to sleep at night because your mind is troubled all the time - these days [OSQ] Only a little [facility] Clinical Notes 08-10-2021 to 10-08-2023 Pastor Gautam MD - 10/08/2023 3:42 PM Zarina Huntley PABLO - 09/05/2023 7:45 AM EDTTelephone Encounter - Carolann Hoffmann, RN - 09/03/2023 10:38 AM EDT Note Date & Type Note Facility 10-08-2023 Note HNO ID: [id number] Author: Pastor Gautam MD Service: ? Author Type: Physician Type: Progress Notes Filed: 10/08/2023 4:14 PM Note Text: Patient presents with: Follow Up HPI: Patient presents today for office visit for follow up. Followed by Derm for dermatomyositis. Recently had a flare. Was given steroid taper and then Prednisone 20 mg daily for 3 weeks. Was on it for almost 5 to 6 weeks. Discussed that we could do a slow taper over a few weeks. Was feeling great. Had a lot of energy and was doing things. 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 After stopping prednisone started with extreme exhaustion. Stopped it over a month. Still very fatigued. Was also on tizanadine. Just stopped last but is not feeling better. Also has sjogrens. Sees Dr. Wright and Dr. Sanchez. Recently had a mild NC anemia. Has had on and off before. No black or bloody stools. No heartburn or stomach pain. No night sweats etc. Denies mood issues. Evaluated recently for chest pain. Work up has been negative. Red flags for re-assessment reviewed with patient in detail. Also was having some issues remembering names. Labs were benign. Minicog was 5/5. Memory has been ok per patient recently. Recent Stress test: CONCLUSIONS: 1. SPECT Perfusion Study: Normal. 2. There is no scintigraphic evidence for inducible ischemia. 3. No evidence of scarred myocardium. 4. Left ventricle is normal in size. The left ventricle systolic function is hyperdynamic. 5. Right ventricle is normal in size. The right ventricle systolic function is normal. 6. This is a low risk scan. Component Latest Ref Rng AND Units 07/08/2023 Cholesterol, Total <200 mg/dL 169 Triglyceride <150 mg/dL 56 HDL Cholesterol >39 mg/dL 67 Non HDL Cholesterol <130 mg/dL 102 Fasting Time hrs 11 VLDL Cholesterol <30 mg/dL 11 TC:HDL Ratio <5.10 2.52 LDL Cholesterol <100 mg/dL 91 LDL:HDL Ratio <2.54 1.36 Vitamin B12 232 - 1,245 pg/mL 1,549 (H) Folate >4.7 ng/mL >20.0 TSH 0.270 - 4.200 mIU/L 2.080 WSR 0 - 20 mm/hr 8 MEDICATIONS: Current Outpatient Medications Medication Sig clobetasol (TEMOVATE) 0.05 % cream APPLY TO ANY AREAS OF RASH THAT YOU CAN SEE OR FEEL ON THE BODY 1 X DAILY, NEEDED FOR FLARES. Clobetasol Propionate 0.05 % sham LATHER INTO SCALP 10 MINUTES BEFORE SHOWERING. WASH W/ REGULAR SHAMPOO AFTERWARDS. predniSONE (DELTASONE) 20 mg tablet TAKE 1 TABLET BY MOUTH EVERY DAY FOR 3 WEEKS estradiol (ESTRACE) 0.01 % (0.1 mg/gram) vaginal cream Use 1/2-1gram vaginally 1-3 times weekly for maintenance sucralfate (CARAFATE) 1 gram tablet Take 1 tablet by mouth before meals and at bedtime. lactase (LACTAID ORAL) Take by mouth. olopatadine HCl (PATADAY OPHTHALMIC) Use in eyes. saliva substitute combo no.9 (BIOTENE DRY MOUTH ORAL RINSE) mwsh Use 15 mL as instructed. xylitol (XYLIMELTS MUCOUS MEM) Use as instructed. triamcinolone acetonide (NASACORT AQ) 55 mcg nasal inhaler Use 2 Sprays in the nose as needed. abatacept 125 mg/mL one time a week. doxycycline hyclate (VIBRAMYCIN) 100 mg capsule Take 100 mg by mouth twice daily. tacrolimus (PROTOPIC) 0.03 % ointment Apply to affected area once daily. (Patient taking differently: Apply 0.1 mL to affected area once daily.) famotidine (PEPCID) 20 mg tablet Take 20 mg by mouth twice daily. biotin 1,000 mcg chew mycophenolate Mofetil (CELLCEPT) 500 mg tablet Take 500 mg by mouth twice daily. carboxymethylcell/hypromellose (GENTEAL GEL OPHTHALMIC) Use in eyes. AUTOLOGOUS SERUM DROPS 50% OPHTH drop Use 1 Drop in both eyes every 2 hours while awake. Refrigerate, Discard in 7 days, Keep unopened bottles in Freezer Calcium-Cholecalciferol, D3, (CALCIUM 600 WITH VITAMIN D3) 600 mg(1,500mg) -400 unit cap Take 1 tablet by mouth twice daily. CYCLOSPORINE (RESTASIS OPHTHALMIC) Use in eyes four times daily. Clobetasol Propionate (TEMOVATE) 0.05 % external solution Apply to affected area as needed. multivitamins(DAILY MULTIVITAMIN TAB) Take one(1) tablet daily. No current facility-administered medications for this visit. ALLERGIES: ALLERGIES Allergen Reactions Amoxicillin Rash, GI Upset Allergy skin tests completed to penicillin, Pre-Pen and ampicillin on March 25, 2018 were negative. Patient took a test dose of amoxicillin 250 mg in the office and tolerated this without adverse reaction. She is at low risk for a severe, immediate, IgE-mediated reaction to penicillin, amoxicillin and other penicillin-type antibiotics. Skin tests and oral challenge are unreliable for predicting delayed reactions. Plaquenil [Hydroxyc* Rash Bactrim [Sulfametho* Rash Ciprofloxacin Rash Happened while on cipro + clinda -- not sure which Clindamycin Rash Happened while on cipro + clinda -- not sure which Codeine GI Upset Seasonal Allergies Other: See Comments Cat, dust mites, trees, grass, weed pollens: verified by skin testing PAST MEDICAL HI (more content not included)... [facility] 10-08-2023 History of Presen t illness Narrative Patient presents with: Follow Up HPI: Patient presents today for office visit for follow up. Followed by Derm for dermatomyositis. Recently had a flare. Was given steroid taper and then Prednisone 20 mg daily for 3 weeks. Was on it for almost 5 to 6 weeks. Discussed that we could do a slow taper over a few weeks. Was feeling great. Had a lot of energy and was doing things. Discussed risks of fpc steroids. After stopping prednisone started with extreme exhaustion. Stopped it over a month. Still very fatigued. Was also on tizanadine. Just stopped last but is not feeling better. Also has sjogrens. Sees Dr. Wright and Dr. Sanchez. Recently had a mild NC anemia. Has had on and off before. No black or bloody stools. No heartburn or stomach pain. No night sweats etc. Denies mood issues. Evaluated recently for chest pain. Work up has been negative. Red flags for re-assessment reviewed with patient in detail. Also was having some issues remembering names. Labs were benign. Minicog was 5/5. Memory has been ok per patient recently. Recent Stress test: CONCLUSIONS: 1. SPECT Perfusion Study: Normal. 2. There is no scintigraphic evidence for inducible ischemia. 3. No evidence of scarred myocardium. 4. Left ventricle is normal in size. The left ventricle systolic function is hyperdynamic. 5. Right ventricle is normal in size. The right ventricle systolic function is normal. 6. This is a low risk scan. Component Latest Ref Rng & Units 07/08/2023 Cholesterol, Total <200 mg/dL 169 Triglyceride <150 mg/dL 56 HDL Cholesterol >39 mg/dL 67 Non HDL Cholesterol <130 mg/dL 102 Fasting Time hrs 11 VLDL Cholesterol <30 mg/dL 11 TC:HDL Ratio <5.10 2.52 LDL Cholesterol <100 mg/dL 91 LDL:HDL Ratio <2.54 1.36 Vitamin B12 232 - 1,245 pg/mL 1,549 (H) Folate >4.7 ng/mL >20.0 TSH 0.270 - 4.200 mIU/L 2.080 WSR 0 - 20 mm/hr 8 MEDICATIONS: Current Outpatient Medications Medication Sig clobetasol (TEMOVATE) 0.05 % cream APPLY TO ANY AREAS OF RASH THAT YOU CAN SEE OR FEEL ON THE BODY 1 X DAILY, NEEDED FOR FLARES. Clobetasol Propionate 0.05 % sham LATHER INTO SCALP 10 MINUTES BEFORE SHOWERING. WASH W/ REGULAR SHAMPOO AFTERWARDS. predniSONE (DELTASONE) 20 mg tablet TAKE 1 TABLET BY MOUTH EVERY DAY FOR 3 WEEKS estradiol (ESTRACE) 0.01 % (0.1 mg/gram) vaginal cream Use 1/2-1gram vaginally 1-3 times weekly for maintenance sucralfate (CARAFATE) 1 gram tablet Take 1 tablet by mouth before meals and at bedtime. lactase (LACTAID ORAL) Take by mouth. olopatadine HCl (PATADAY OPHTHALMIC) Use in eyes. saliva substitute combo no.9 (BIOTENE DRY MOUTH ORAL RINSE) mwsh Use 15 mL as instructed. xylitol (XYLIMELTS MUCOUS MEM) Use as instructed. triamcinolone acetonide (NASACORT AQ) 55 mcg nasal inhaler Use 2 Sprays in the nose as needed. abatacept 125 mg/mL one time a week. doxycycline hyclate (VIBRAMYCIN) 100 mg capsule Take 100 mg by mouth twice daily. tacrolimus (PROTOPIC) 0.03 % ointment Apply to affected area once daily. (Patient taking differently: Apply 0.1 mL to affected area once daily.) famotidine (PEPCID) 20 mg tablet Take 20 mg by mouth twice daily. biotin 1,000 mcg chew mycophenolate Mofetil (CELLCEPT) 500 mg tablet Take 500 mg by mouth twice daily. carboxymethylcell/hypromellose (GENTEAL GEL OPHTHALMIC) Use in eyes. AUTOLOGOUS SERUM DROPS 50% OPHTH drop Use 1 Drop in both eyes every 2 hours while awake. Refrigerate, Discard in 7 days, Keep unopened bottles in Freezer Calcium-Cholecalciferol, D3, (CALCIUM 600 WITH VITAMIN D3) 600 mg(1,500mg) -400 unit cap Take 1 tablet by mouth twice daily. CYCLOSPORINE (RESTASIS OPHTHALMIC) Use in eyes four times daily. Clobetasol Propionate (TEMOVATE) 0.05 % external solution Apply to affected area as needed. multivitamins(DAILY MULTIVITAMIN TAB) Take one(1) tablet daily. No current facility-administered medications for this visit. ALLERGIES: ALLERGIES Allergen Reactions Amoxicillin Rash, GI Upset Allergy skin tests completed to penicillin, Pre-Pen and ampicillin on March 25, 2018 were negative. Patient took a test dose of amoxicillin 250 mg in the office and tolerated this without adverse reaction. She is at low risk for a severe, immediate, IgE-mediated reaction to penicillin, amoxicillin and other penicillin-type antibiotics. Skin tests and oral challenge are unreliable for predicting delayed reactions. Plaquenil [Hydroxyc* Rash Bactrim [Sulfametho* Rash Ciprofloxacin Rash Happened while on cipro + clinda -- not sure which Clindamycin Rash Happened while on cipro + clinda -- not sure which Codeine GI Upset Seasonal Allergies Other: See Comments Cat, dust mites, trees, grass, weed pollens: verified by skin testing PAST MEDICAL HISTORY Diagnosis Date Arthritis Corneal ulcer 11/21/2015 od Dermatomyositis (HCC) Diffuse cystic mastopathy Esophageal reflux Inflammatory polyarthritis (HCC) Internal hemorrhoids without mention of complication Lupus (HCC) SCLE PONV (postoperative nausea and vomiting) Sjogren's disease (HCC) PAST SURGICAL HISTORY Procedure Laterality Date COLONOSCOPY FLX DX W/COLLJ SPEC WHEN PFRMD 12/26/2007 COLONOSCOPY FLX DX W/COLLJ SPEC WHEN PFRMD 10/27/2018 repeat 3 years COLONOSCOPY FLX DX W/COLLJ SPEC WHEN PFRMD 08/10/2021 ESOPHAGOGASTRODUODENOSCOPY TRANSORAL DIAGNOSTIC 10/01/2013 EGD ESOPHAGOGASTRODUODENOSCOPY TRANSORAL DIAGNOSTIC 08/10/2021 PAST SURGICAL HISTORY OF breast biopsy benign/ Right PAST SURGICAL HISTORY OF 06/2014 cyst drained from back of neck FAMILY HISTORY Problem Relation Age of Onset Hypertension Mother Arthritis Mother Cataract Mother Macular Degen Mother Hypertension Paternal Grandmother other (heart didease) Maternal Grandfather other (pancreatic cancer) Maternal Grandmother Coronary Artery Disease Father very late in life -- age 86 Heart Father NE in 2010 Coronary Artery Disease Other no premature first degree other (cyststic breats 3 sisters) Other Social History Tobacco Use Smoking status: Never Smokeless tobacco: Never Vaping Use Vaping Use: Never used Substance Use Topics Alcohol use: Yes Alcohol/week: 7.0 standard drinks of alcohol Types: 7 Glasses of wine per week Comment: glass of wine daily Drug use: No Reviewed current medications, allergies, past medical history, surgical history, family history and social history today. REVIEW OF SYSTEMS All other reviewed and negative other than HPI. VITALS: BP 136/80 Pulse 72 Ht 154.9 cm (5' 1 ) Wt 59 kg (130 lb) SpO2 99% BMI 24.56 kg/m Last 4 Encounter Wt Readings: Date: Wt: 07/29/2023 58.5 kg (129 lb) 07/05/2023 59.9 kg (132 lb) 02/08/2023 62.4 kg (137 lb 9.6 oz) 01/09/2022 61.7 kg (136 lb) PHYSICAL EXAMINATION: General appearance: Well appearing, alert, in no acute distress, well-hydrated, well nourished. Skin: Skin color, texture, turgor normal, no suspicious rashes or lesions Head: Normocephalic, no masses, lesions, tenderness or abnormalities Neck: Supple, no adenopathy; thyroid symmetric, normal size, no bruits Lungs: Lungs clear to auscultation. No wheezing, rhonchi, rales Heart: RRR without murmur, gallop, or rubs. No ectopy Abdomen: Normal abdominal exam, Abdomen soft, non-tender. Bowel sounds normal. No masses, organomegaly Extremities: No deformities, edema, skin discoloration, clubbing or cyanosis. Good capillary refill. ASSESSMENT/PLAN: 1. Fatigue, unspecified type - ICD9: 780.79, ICD10: R53.83 (primary diagnosis) - discussed monitoring symptoms. It may be that she felt more energetic on steroids but have to rule out other causes. She is well over a month out from the steroids so I am reluctant to put her back on. Will do am labs to evaluate her anemia, thyroid and cortisol to evaluate the adrenal glands to start. Could consider longer taper as well. May consider endo referral or further work up pending results - CBC + DIFF - SED RATE WESTERGREN - TSH BLD - CORTISOL BLD - BASIC METABOLIC PNL - IRON + TIBC - FERRITIN BLD - VITAMIN B12 BLOOD - FOLATE SERUM - HGB A1C 2. 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 Inflammatory polyarthritis (HCC) - ICD9: 714.9, ICD10: M0 - CBC + DIFF - SED RATE WESTERGREN - TSH BLD - CORTISOL BLD - BASIC METABOLIC PNL - IRON + TIBC - FERRITIN BLD - VITAMIN B12 BLOOD - FOLATE SERUM 4. Anemia, unspecified type - ICD9: 285.9, ICD10: D64.9 - CBC + DIFF - IRON + TIBC - FERRITIN BLD - VITAMIN B12 BLOOD - FOLATE SERUM 5. Medication monitoring encounter - ICD9: V58.83, ICD10: Z51.81 - HGB A1C 6. Other remote computer terminal operator (current) drug therapy - ICD9: V58.69, ICD10: Z79.899 - HGB A1C Call with an update in one weeks or prn. Pastor Gautam MD documented in this encounter [facility] 09-05-2023 Note HNO ID: [id number] Author: Zarina Oliveira RDMS Service: ? Author Type: Center Mgr Type: Progress Notes Filed: 09/05/2023 9:03 AM Note Text: Radiology Service Progress Note PATIENT NAME: Jagdish Castillo DATE OF SERVICE: September 05, 2023 TIME: 9:03 AM PATIENT IDENTITY VERIFICATION COMPLETED USING TWO (2) IDENTIFIERS: Name and Date of confirmed by patient verbally. FALL SCREENING: Has the patient had 2 falls in the last year or 1 fall with injury or currently using an Ambulatory Assistive Device (Walker, Cane, Wheelchair, Crutches, etc.)? No PATIENT GENDER DATA: Female. status: : No status: NO. PATIENT RELEVANT IMPLANT DATA REVIEWED: Not Applicable RADIOLOGY DEPARTMENT: Ultrasound PERIPHERAL IV DATA: Not applicable SIGNED BY: Zarina Oliveira RDMS RVT September 05, 2023 9:03 AM [facility] 09-05-2023 History of Presen t illness Narrative Radiology Service Progress Note PATIENT NAME: Jagdish Castillo DATE OF SERVICE: September 05, 2023 TIME: 9:03 AM PATIENT IDENTITY VERIFICATION COMPLETED USING TWO (2) IDENTIFIERS: Name and Date of confirmed by patient verbally. FALL SCREENING: Has the patient had 2 falls in the last year or 1 fall with injury or currently using an Ambulatory Assistive Device (Walker, Cane, Wheelchair, Crutches, etc.)? No PATIENT GENDER DATA: Female. status: : No status: NO. PATIENT RELEVANT IMPLANT DATA REVIEWED: Not Applicable RADIOLOGY DEPARTMENT: Ultrasound PERIPHERAL IV DATA: Not applicable SIGNED BY: Zarina Oliveira RDMS RVGeraldine September 05, 2023 9:03 AM documented in this encounter [facility] 09-03-2023 Miscellaneous Notes Pt called and is notified of providers results. Pt voices understanding. Carolann Hoffmann RN Let her know her stress test was ok. I sent a my chart message but was not read. documented in this encounter [facility] 09-02-2023 Note HNO ID: [id number] Author: Snow Gonzales RN Service: ? Author Type: Registered Nurse Type: Progress Notes Filed: 09/02/2023 12:12 PM Note Text: RADIOLOGY SERVICE PROGRESS NOTE SERVICE DATE: 09/02/2023 SERVICE TIME: 844 PATIENT IDENTITY VERIFICATION COMPLETED USING TWO (2) METHODS: Patient confirmed name and Date of verbally. ALLERGIES AND MEDICATIONS REVIEWED BY: Snow Gonzales RN PROCEDURE TYPE: NM STRESS: 0.4 mg of Lexiscan was administered IV at 0906 over 10 Seconds by nSow Gonzales RN Reversal agent used:None LOT [id number] EXP 11/18/26 IV SITE: IV palced by nuclear tecnologist POST EXAM PIV STATUS: Discontinued by Livestock Dealer PATIENT DISCHARGED TO: Nuclear Medicine Department for post stress imaging A Diagnostic radioactive procedure has taken place, with no further precautions necessary other than routine body substance precautions. More information regarding radiation safety can be found using this link: [email or web address]-%20Diagnostic%20Nuclear%20M edicine%20Procedures.[email or web address] SIGNATURE: Snow Gonzales RN PATIENT NAME:Jagdish Castillo DATE: 09/02/23 TIME: 12:11 PM [facility] 09-02-2023 History of Presen t illness Narrative RADIOLOGY SERVICE PROGRESS NOTE SERVICE DATE: 09/02/2023 SERVICE TIME: 844 PATIENT IDENTITY VERIFICATION COMPLETED USING TWO (2) METHODS: Patient confirmed name and Date of verbally. ALLERGIES AND MEDICATIONS REVIEWED BY: Snow Gonzales RN PROCEDURE TYPE: NM STRESS: 0.4 mg of Lexiscan was administered IV at 0906 over 10 Seconds by Snow Gonzales RN Reversal agent used:None LOT [id number] EXP 11/18/26 IV SITE: IV palced by nuclear tecnologist POST EXAM PIV STATUS: Discontinued by Livestock Dealer PATIENT DISCHARGED TO: Nuclear Medicine Department for post stress imaging A Diagnostic radioactive procedure has taken place, with no further precautions necessary other than routine body substance precautions. More information regarding radiation safety can be found using this link: [email or web address] %[email or web address]-%20Diagnostic% 20Nuclear%20Medicine%20Procedur es.pdf SIGNATURE: Snow Gonzales RN PATIENT NAME:Jagdish Castillo DATE: 09/02/23 TIME: 12:11 PM documented in this encounter [facility] 09-02-2023 Note HNO ID: [id number] Author: Adolph Adames RT(R) Service: Nuclear Medicine Author Type: Technologist Type: Progress Notes Filed: 09/02/2023 9:09 AM Note Text: RADIOLOGY SERVICE PROGRESS NOTE SERVICE DATE: 09/02/2023 SERVICE TIME: 9:08 AM PATIENT IDENTITY VERIFICATION COMPLETED USING TWO (2) STANDARD IDENTIFIERS: Name and Date of confirmed by patient verbally FALL SCREENING: Has the patient had 2 falls in the last year or 1 fall with injury or currently using an Ambulatory Assistive Device (Walker, Cane, Wheelchair, Crutches, etc.)? No PATIENT GENDER DATA: .female : No ALLERGIES: Reviewed and unchanged MEDICATIONS REVIEWED: No PATIENT RELEVANT IMPLANT DATA REVIEWED: Not Applicable CREATININE: Creatinine Date Value Ref Range Status 06/09/2021 0.84 0.58 - 0.96 mg/dL Final 02/18/2018 0.79 0.58 - 0.96 mg/dL Final 02/24/2014 0.81 0.70 - 1.40 mg/dL Final eGFR-All Other Races Date Value Ref Range Status 06/09/2021 >60 . Final Comment: eGFR (Estimated GFR) Units of measure: mL/min/1.73 meters squared eGFR is derived from the reexpressed MDRD Study equation using the following parameters: serum creatinine, age, gender and race. The creatinine assay has been calibrated to be traceable to IDMS. An eGFR <60 mL/min/1.73m2 for >3 months is consistent with chronic kidney disease. Refer to KDOQI guidelines for clinical interpretation. In patients with unstable renal function, e.g. those with acute kidney injury, the eGFR may not accurately reflect actual GFR. eGFR- Date Value Ref Range Status 06/09/2021 >60 Final P.O.C.T. RESULTS: N/A September 02, [address] PERFORMED: No IV SITE: Ambulatory: A peripheral IV was started in the Right antecubital site with a Angio cath: 22 gauge. POST EXAM PIV STATUS: Discontinued PROCEDURE TYPE: NM Stress: 12.5 mCi [id number]-Pefprxo was administered IV for Rest Imaging at 0736 by FANTASMA. 30.8 mCi Qo34o-Mfatzct was administered IV for Stress Imaging at 09:06 by FANTASMA. PATIENT DISCHARGED TO: Ambulatory patient, left NM department area. A Diagnostic radioactive procedure has taken place, with no further precautions necessary other than routine body substance precautions. More information regarding radiation safety can be found using this link: [email or web address] %[email or web address]-%20Diagnostic%20Nuclear%20M edicine%20Procedures.pdf SIGNATURE: RT Dl(R) PATIENT NAME: Jagdish Castillo DATE: September 02, 2023 TIME: 9:08 AM PAGER/CONTACT #: [facility] 09-02-2023 History of Presen t illness Narrative RADIOLOGY SERVICE PROGRESS NOTE SERVICE DATE: 09/02/2023 SERVICE TIME: 9:08 AM PATIENT IDENTITY VERIFICATION COMPLETED USING TWO (2) STANDARD IDENTIFIERS: Name and Date of confirmed by patient verbally FALL SCREENING: Has the patient had 2 falls in the last year or 1 fall with injury or currently using an Ambulatory Assistive Device (Walker, Cane, Wheelchair, Crutches, etc.)? No PATIENT GENDER DATA: .female : No ALLERGIES: Reviewed and unchanged MEDICATIONS REVIEWED: No PATIENT RELEVANT IMPLANT DATA REVIEWED: Not Applicable CREATININE: Creatinine Date Value Ref Range Status 06/09/2021 0.84 0.58 - 0.96 mg/dL Final 02/18/2018 0.79 0.58 - 0.96 mg/dL Final 02/24/2014 0.81 0.70 - 1.40 mg/dL Final eGFR-All Other Races Date Value Ref Range Status 06/09/2021 >60 . Final Comment: eGFR (Estimated GFR) Units of measure: mL/min/1.73 meters squared eGFR is derived from the reexpressed MDRD Study equation using the following parameters: serum creatinine, age, gender and race. The creatinine assay has been calibrated to be traceable to IDMS. An eGFR <60 mL/min/1.73m2 for >3 months is consistent with chronic kidney disease. Refer to KDOQI guidelines for clinical interpretation. In patients with unstable renal function, e.g. those with acute kidney injury, the eGFR may not accurately reflect actual GFR. eGFR- Date Value Ref Range Status 06/09/2021 >60 Final P.O.C.T. RESULTS: N/A September 02, [address] PERFORMED: No IV SITE: Ambulatory: A peripheral IV was started in the Right antecubital site with a Angio cath: 22 gauge. POST EXAM PIV STATUS: Discontinued PROCEDURE TYPE: NM Stress: 12.5 mCi Fw72x-Aasuleu was administered IV for Rest Imaging at 0736 by FANTASMA. 30.8 mCi Wg86t-Eqrbmii was administered IV for Stress Imaging at 09:06 by FANTASMA. PATIENT DISCHARGED TO: Ambulatory patient, left NM department area. A Diagnostic radioactive procedure has taken place, with no further precautions necessary other than routine body substance precautions. More information regarding radiation safety can be found using this link: [email or web address] %[email or web address]-%20Diagnostic% 20Nuclear%20Medicine%20Procedur es.pdf SIGNATURE: RT Dl(Segun) PATIENT NAME: Jagdish Castillo DATE: September 02, 2023 TIME: 9:08 AM PAGER/CONTACT #: documented in this encounter [facility] 08-05-2023 Miscellaneous Notes Last annual with DM 02/08/23. Requested Prescriptions Pending Prescriptions Disp Refills estradiol (ESTRACE) 0.01 % (0.1 mg/gram) vaginal cream 42.5 g 2 Sig: Use 1/2-1gram vaginally 1-3 times weekly for maintenance Samantha Henriquez RN documented in this encounter [facility] 07-29-2023 Note HNO ID: [id number] Author: Pastor Gautam MD Service: ? Author Type: Physician Type: Progress Notes Filed: 07/29/2023 10:30 AM Note Text: Patient presents with: Follow Up HPI: Patient presents today for office visit for follow up visit. Scheduled next month for stress test, labs done. Reviewed cbc and cmp done at outside lab. Rash: Saw Dr Wright and was given kenalog. Didn't help given Pred which she is still currently taking. Has an itch that can't get rid of will even wake her up in the night. Possible that sucralfate causing rash? She did stop it for a while and it made no difference. Discussed that I would defer work up with her skin issues with Dr Wright and rheum given her dermatomyositis. Dr. Wright feels she is having a flare of her dermatomyositis. No lymphadenopathy. Rashes are similar to her normal symptoms. No unexplained weight oss. No further chest pain. Reflux is discussed. Was coming here originally to discuss vaccines but not really not sure how to time them with what is going on with her rash and possible side effects. Asking when ok to get the newest COVID vaccine? Ok to have RSV vaccine? Discussed risks and benefits of scripts. See previous ov: Jagdish Castillo is a 77 year old female here for a acute visit. Not wellness. Has a list of questions and issues. 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 Also has sjogrens. Sees Dr. Wright and Dr. Sanchez. Having more pain recently. Has been doing a lot of gardening. Has noted increased pain. We do not have any records. With her sjogrens is having very dry eyes and dry mouth. Seeing Dr. Bernardo. Using drops. They are placing bandage contact lenses on them in every three weeks for the eyes. With the SCLE, having very fragile skin. Using cellcept which has helped. Had been seen in [place] in 08/17/[address] pain [address] [facility]. Was having chest pain. Eval was negative but was to come in for follow up and did not. She has noted some increasing discomfort in the epigastric and chest. Has thought it was gerd but is worried because she has a family history of heart disease. Sister who is 16 years younger than she is has CAD. No radiation. No shortness of breath with it. They stopped the ppi due to cellcept. No black or bloody stools. No syncope or near syncope. She thinks it is more when she eats. Comes and goes. Is often relieved by drinking. No edema. No pleuritic pain. No changes with exertion. No shortness of breath or cough. Having issues with her hearing. 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 Was tested by audiology in the past. Discussed she was deaf in that ear and had a hearing aid which she wore but did not like wearing it. She is wondering if she is losing her hearing in the other ear. Has soreness that has been on the left side of the jaw that is worse with her dry mouth. Has been that way on and off for some times. May be acting up slightly recently. May be slightly swollen. No fever or chills. Has occasional issues remember names. No numbness or tingling or weakness. No other memory issues. Mini cog was 5/5 Has noted some sleep issues Has issues sometimes going back to sleep if wakes up early. Does have fatigue. No snoring. No chest pain or shortness. No psych issue. Rheum tried her on tizanadine. Seems to help. Gets regular labs per rheum Component Latest Ref Rng AND Units 07/08/2023 Cholesterol, Total <200 mg/dL 169 Triglyceride <150 mg/dL 56 HDL Cholesterol >39 mg/dL 67 Non HDL Cholesterol <130 mg/dL 102 Fasting Time hrs 11 VLDL Cholesterol <30 mg/dL 11 TC:HDL Ratio <5.10 2.52 LDL Cholesterol <100 mg/dL 91 LDL:HDL Ratio <2.54 1.36 Vitamin B12 232 - 1,245 pg/mL 1,549 (H) Folate >4.7 ng/mL >20.0 TSH 0.270 - 4.200 mIU/L 2.080 WSR 0 - 20 mm/hr 8 MEDICATIONS: Current Outpatient Medications Medication Sig sucralfate (CARAFATE) 1 gram tablet Take 1 tablet by mouth before meals and at bedtime. estradiol (ESTRACE) 0.01 % (0.1 mg/gram) vaginal cream Use 1/2-1gram vaginally 1-3 times weekly for maintenance lactase (LACTAID ORAL) Take by mouth. olopatadine HCl (PATADAY OPHTHALMIC) Use in eyes. saliva substitute combo no.9 (BIOTENE DRY MOUTH ORAL RINSE) mwsh Use 15 mL as instructed. xylitol (XYLIMELTS MUCOUS MEM) Use as instructed. triamcinolone acetonide (NASACORT AQ) 55 mcg nasal inhaler Use 2 Sprays in the nose as needed. abatacept 125 mg/mL one time a week. doxycycline hyclate (VIBRAMYCIN) 100 mg capsule Take 100 mg by mouth twice daily. tacrolimus (PROTOPIC) 0.03 % ointment Apply to affected area once daily. (Patient taking differently: Apply 0.1 mL to affected area once daily.) famotidine (PEPCID) 20 mg tablet Take 20 mg by mouth twice daily. biotin 1,000 mcg chew predniSONE (DELTASONE) 5 mg tablet Take 10 mg by mouth as needed. mycophenolate Mofetil (CELLCE (more content not included)... [facility] 07-29-2023 History of Presen t illness Narrative Patient presents with: Follow Up HPI: Patient presents today for office visit for follow up visit. Scheduled next month for stress test, labs done. Reviewed cbc and cmp done at outside lab. Rash: Saw Dr Wright and was given kenalog. Didn't help given Pred which she is still currently taking. Has an itch that can't get rid of will even wake her up in the night. Possible that sucralfate causing rash? She did stop it for a while and it made no difference. Discussed that I would defer work up with her skin issues with Dr Wright and rheum given her dermatomyositis. Dr. Wright feels she is having a flare of her dermatomyositis. No lymphadenopathy. Rashes are similar to her normal symptoms. No unexplained weight oss. No further chest pain. Reflux is discussed. Was coming here originally to discuss vaccines but not really not sure how to time them with what is going on with her rash and possible side effects. Asking when ok to get the newest COVID vaccine? Ok to have RSV vaccine? Discussed risks and benefits of scripts. See previous ov: Jagdish Castillo is a 77 year old female here for a acute visit. Not wellness. Has a list of questions and issues. 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 Also has sjogrens. Sees Dr. Wright and Dr. Sanchez. Having more pain recently. Has been doing a lot of gardening. Has noted increased pain. We do not have any records. With her sjogrens is having very dry eyes and dry mouth. Seeing Dr. Bernardo. Using drops. They are placing bandage contact lenses on them in every three weeks for the eyes. With the SCLE, having very fragile skin. Using cellcept which has helped. Had been seen in [place] in 08/[place]/[address] [facility]. Was having chest pain. Eval was negative but was to come in for follow up and did not. She has noted some increasing discomfort in the epigastric and chest. Has thought it was gerd but is worried because she has a family history of heart disease. Sister who is 16 years younger than she is has CAD. No radiation. No shortness of breath with it. They stopped the ppi due to cellcept. No black or bloody stools. No syncope or near syncope. She thinks it is more when she eats. Comes and goes. Is often relieved by drinking. No edema. No pleuritic pain. No changes with exertion. No shortness of breath or cough. Having issues with her hearing. 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 Was tested by audiology in the past. Discussed she was deaf in that ear and had a hearing aid which she wore but did not like wearing it. She is wondering if she is losing her hearing in the other ear. Has soreness that has been on the left side of the jaw that is worse with her dry mouth. Has been that way on and off for some times. May be acting up slightly recently. May be slightly swollen. No fever or chills. Has occasional issues remember names. No numbness or tingling or weakness. No other memory issues. Mini cog was 5/5 Has noted some sleep issues Has issues sometimes going back to sleep if wakes up early. Does have fatigue. No snoring. No chest pain or shortness. No psych issue. Rheum tried her on tizanadine. Seems to help. Gets regular labs per rheum Component Latest Ref Rng & Units 07/08/2023 Cholesterol, Total <200 mg/dL 169 Triglyceride <150 mg/dL 56 HDL Cholesterol >39 mg/dL 67 Non HDL Cholesterol <130 mg/dL 102 Fasting Time hrs 11 VLDL Cholesterol <30 mg/dL 11 TC:HDL Ratio <5.10 2.52 LDL Cholesterol <100 mg/dL 91 LDL:HDL Ratio <2.54 1.36 Vitamin B12 232 - 1,245 pg/mL 1,549 (H) Folate >4.7 ng/mL >20.0 TSH 0.270 - 4.200 mIU/L 2.080 WSR 0 - 20 mm/hr 8 MEDICATIONS: Current Outpatient Medications Medication Sig sucralfate (CARAFATE) 1 gram tablet Take 1 tablet by mouth before meals and at bedtime. estradiol (ESTRACE) 0.01 % (0.1 mg/gram) vaginal cream Use 1/2-1gram vaginally 1-3 times weekly for maintenance lactase (LACTAID ORAL) Take by mouth. olopatadine HCl (PATADAY OPHTHALMIC) Use in eyes. saliva substitute combo no.9 (BIOTENE DRY MOUTH ORAL RINSE) mwsh Use 15 mL as instructed. xylitol (XYLIMELTS MUCOUS MEM) Use as instructed. triamcinolone acetonide (NASACORT AQ) 55 mcg nasal inhaler Use 2 Sprays in the nose as needed. abatacept 125 mg/mL one time a week. doxycycline hyclate (VIBRAMYCIN) 100 mg capsule Take 100 mg by mouth twice daily. tacrolimus (PROTOPIC) 0.03 % ointment Apply to affected area once daily. (Patient taking differently: Apply 0.1 mL to affected area once daily.) famotidine (PEPCID) 20 mg tablet Take 20 mg by mouth twice daily. biotin 1,000 mcg chew predniSONE (DELTASONE) 5 mg tablet Take 10 mg by mouth as needed. mycophenolate Mofetil (CELLCEPT) 500 mg tablet Take 500 mg by mouth twice daily. carboxymethylcell/hypromellose (GENTEAL GEL OPHTHALMIC) Use in eyes. AUTOLOGOUS SERUM DROPS 50% OPHTH drop Use 1 Drop in both eyes every 2 hours while awake. Refrigerate, Discard in 7 days, Keep unopened bottles in Freezer Calcium-Cholecalciferol, D3, (CALCIUM 600 WITH VITAMIN D3) 600 mg(1,500mg) -400 unit cap Take 1 tablet by mouth twice daily. CYCLOSPORINE (RESTASIS OPHTHALMIC) Use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 noticed any particular dietary changes or triggers. She believes it may be related to her pelvic discomfort. She admits to occasional bloating. She has been moving her bowels regularly. She is not concerned about a hernia, and has not noticed any bulging or lumps. She reports being lactose intolerant which can cause loose stools. She reports being told she has diverticulosis following a colonoscopy. She reports having cystic breasts with some associated tenderness, she denies any other breast problems, no skin changes, rashes, nipple discharge. Postmenopausal: Yes since age mid 50s HRT use: Yes, vaginal estrace -- helps with dryness Last Pap: 07/23/2013 normal HPV: 07/17/2013 negative History of abnormal pap: No Last mammogram: 2020 normal History of abnormal mammogram: No Sexually active: Yes History of STDS: None Patient concerns for STD exposure: No. Time with current partner: 50+ years Pain with intercourse: No Postcoital bleeding: No Hot flashes: No Night sweats: No Vaginal dryness: No - vaginal estrogen is helpful Exercise: 4 story house up and down stairs constantly, gardening in the summer Diet: balanced OB History T2 L2 SAB1 IAB0 Ectopic0 Multiple0 Live Births0 [employer] History LMP: Postmenopausal Age at Menarche: Age at First : Age at Menopause: [employer] History Comments: Sexual Activity: Yes; Male; Post menopausal Contraception: No contraception data on record PAST MEDICAL HISTORY Diagnosis Date Arthritis Corneal ulcer 11/21/2015 od Dermatomyositis (HCC) Diffuse cystic mastopathy Esophageal reflux Inflammatory polyarthritis (HCC) Internal hemorrhoids without mention of complication Lupus (HCC) SCLE PONV (postoperative nausea and vomiting) Sjogren's disease (HCC) PAST SURGICAL HISTORY Procedure Laterality Date COLONOSCOPY FLX DX W/COLLJ SPEC WHEN PFRMD 12/26/2007 COLONOSCOPY FLX DX W/COLLJ SPEC WHEN PFRMD 10/27/2018 repeat 3 years COLONOSCOPY FLX DX W/COLLJ SPEC WHEN PFRMD 08/10/2021 ESOPHAGOGASTRODUODENOSCOPY TRANSORAL DIAGNOSTIC 10/01/2013 EGD ESOPHAGOGASTRODUODENOSCOPY TRANSORAL DIAGNOSTIC 08/10/2021 PAST SURGICAL HISTORY OF breast biopsy benign/ Right PAST SURGICAL HISTORY OF 06/2014 cyst drained from back of neck FAMILY HISTORY Problem Relation Age of Onset Hypertension Mother Arthritis Mother Cataract Mother Macular Degen Mother Hypertension Paternal Grandmother other (heart didease) Maternal Grandfather other (pancreatic cancer) Maternal Grandmother Coronary Artery Disease Father very late in life -- age 86 Heart Father [place] in 2010 Coronary Artery Disease Other no premature first degree other (cyststic breats 3 sisters) Other SOCIAL HISTORY Social History Tobacco Use Smoking status: Never Smokeless tobacco: Never Vaping Use Vaping Use: Never used Substance Use Topics Alcohol use: Yes Alcohol/week: 7.0 standard drinks Types: 7 Glasses of wine per week Comment: glass of wine daily Drug use: No REVIEW OF SYSTEMS Abdomen: some flatulence and bloating -- see HPI Bladder: No dysuria, gross hematuria, urinary frequency, or incontinence, occasional urgency. Breast: No breast lumps, nipple d/c, overlying skin changes, redness or skin retraction Allergies and current medication updated:Yes EXAM: BP 120/74 Ht 5' 1 (1.55m) Wt 137 lb 9.6 oz (62.4kg) BMI 26.01 kg/(m2). GENERAL: pleasant, female in no apparent distress HEENT: Normocephalic, atraumatic, mucus membranes moist, and no lesions NECK: Supple, full range of motion, no adenopathy, and thyroid normal DERMATOLOGY: Normal, without lesions, non-icteric, and non-hirsute BREAST: soft, non-tender, symmetric, no dominant mass, normal nipple-areolar complex, no lymphadenopathy, and no nipple discharge ABDOMEN: soft, non-tender, and no masses PELVIC: external genitalia normal, normal Bartholin's glands, urethra, [place]'s glands, no vulvar lesions, no cervical lesions, good vaginal support, physiologic (more content not included)... [facility] 02-08-2023 Note HNO ID: [id number] Author: RT Rozina(R) Service: ? Author Type: Technologist Type: Progress Notes Filed: 02/08/2023 10:04 AM Note Text: Radiology Service Progress Note PATIENT NAME: Jagdish Castillo DATE OF SERVICE: February 08, 2023 TIME: 10:04 AM PATIENT IDENTITY VERIFICATION COMPLETED USING TWO (2) IDENTIFIERS: Name and Date of confirmed by patient verbally. FALL SCREENING: Has the patient had 2 falls in the last year or 1 fall with injury or currently using an Ambulatory Assistive Device (Walker, Cane, Wheelchair, Crutches, etc.)? No PATIENT GENDER DATA: Female. status: : No status: NO. PATIENT RELEVANT IMPLANT DATA REVIEWED: Not Applicable RADIOLOGY DEPARTMENT: Mammography PERIPHERAL IV DATA: Not applicable SIGNED BY: RT Rozina(R) February 08, 2023 10:04 AM [facility] 02-08-2023 History of Presen t illness Narrative Information Lead offered: Patient declines. Vargas is a 77 year old who presents for an annual gynecologic exam with complaints, pelvic pulling sensation . Ms. Castillo reports she has some sensation of pulling above her pubic bone. She reports the sensation is deeper in her pelvis, and is not involving her skin. She has never had any pelvic surgeries, denies any appendectomies, gynecologic surgeries, cholecystectomy. She only reports regular colonoscopies. She occasionally has urgency, she had one episode of incontinence after an exercise class a couple of years ago. She denies dysuria, burning, or hematuria. She reports being more gassy lately, she has not taken anything for that. This started a couple months ago and she has not noticed any particular dietary changes or triggers. She believes it may be related to her pelvic discomfort. She admits to occasional bloating. She has been moving her bowels regularly. She is not concerned about a hernia, and has not noticed any bulging or lumps. She reports being lactose intolerant which can cause loose stools. She reports being told she has diverticulosis following a colonoscopy. She reports having cystic breasts with some associated tenderness, she denies any other breast problems, no skin changes, rashes, nipple discharge. Postmenopausal: Yes since age mid 50s HRT use: Yes, vaginal estrace -- helps with dryness Last Pap: 07/23/2013 normal HPV: 07/17/2013 negative History of abnormal pap: No Last mammogram: 2020 normal History of abnormal mammogram: No Sexually active: Yes History of STDS: None Patient concerns for STD exposure: No. Time with current partner: 50+ years Pain with intercourse: No Postcoital bleeding: No Hot flashes: No Night sweats: No Vaginal dryness: No - vaginal estrogen is helpful Exercise: 4 story house up and down stairs constantly, gardening in the summer Diet: balanced OB History T2 L2 SAB1 IAB0 Ectopic0 Multiple0 Live Births0 [employer] History LMP: Postmenopausal Age at Menarche: Age at First : Age at Menopause: [employer] History Comments: Sexual Activity: Yes; Male; Post menopausal Contraception: No contraception data on record PAST MEDICAL HISTORY Diagnosis Date Arthritis Corneal ulcer 11/21/2015 od Dermatomyositis (HCC) Diffuse cystic mastopathy Esophageal reflux Inflammatory polyarthritis (HCC) Internal hemorrhoids without mention of complication Lupus (HCC) SCLE PONV (postoperative nausea and vomiting) Sjogren's disease (HCC) PAST SURGICAL HISTORY Procedure Laterality Date COLONOSCOPY FLX DX W/COLLJ SPEC WHEN PFRMD 12/26/2007 COLONOSCOPY FLX DX W/COLLJ SPEC WHEN PFRMD 10/27/2018 repeat 3 years COLONOSCOPY FLX DX W/COLLJ SPEC WHEN PFRMD 08/10/2021 ESOPHAGOGASTRODUODENOSCOPY TRANSORAL DIAGNOSTIC 10/01/2013 EGD ESOPHAGOGASTRODUODENOSCOPY TRANSORAL DIAGNOSTIC 08/10/2021 PAST SURGICAL HISTORY OF breast biopsy benign/ Right PAST SURGICAL HISTORY OF 06/2014 cyst drained from back of neck FAMILY HISTORY Problem Relation Age of Onset Hypertension Mother Arthritis Mother Cataract Mother Macular Degen Mother Hypertension Paternal Grandmother other (heart didease) Maternal Grandfather other (pancreatic cancer) Maternal Grandmother Coronary Artery Disease Father very late in life -- age 86 Heart Father [place] in 2010 Coronary Artery Disease Other no premature first degree other (cyststic breats 3 sisters) Other SOCIAL HISTORY Social History Tobacco Use Smoking status: Never Smokeless tobacco: Never Vaping Use Vaping Use: Never used Substance Use Topics Alcohol use: Yes Alcohol/week: 7.0 standard drinks Types: 7 Glasses of wine per week Comment: glass of wine daily Drug use: No REVIEW OF SYSTEMS Abdomen: some flatulence and bloating -- see HPI Bladder: No dysuria, gross hematuria, urinary frequency, or incontinence, occasional urgency. Breast: No breast lumps, nipple d/c, overlying skin changes, redness or skin retraction Allergies and current medication updated:Yes EXAM: BP 120/74 Ht 5' 1 (1.55m) Wt 137 lb 9.6 oz (62.4kg) BMI 26.01 kg/(m^2). GENERAL: pleasant, female in no apparent distress HEENT: Normocephalic, atraumatic, mucus membranes moist, and no lesions NECK: Supple, full range of motion, no adenopathy, and thyroid normal DERMATOLOGY: Normal, without lesions, non-icteric, and non-hirsute BREAST: soft, non-tender, symmetric, no dominant mass, normal nipple-areolar complex, no lymphadenopathy, and no nipple discharge ABDOMEN: soft, non-tender, and no masses PELVIC: external genitalia normal, normal Bartholin's glands, urethra, [place]'s glands, no vulvar lesions, no cervical lesions, good vaginal support, physiologic discharge present, normal appearing perineal body and perianal region BIMANUAL: uterus normal size, shape and consistency, no adnexal masses, and non-tender RECTOVAGINAL: deferred. NEURO: alert and oriented x3,exam grossly non-focal EXTREMITIES: normal ASSESSMENT/PLAN: 1) Health maintenance: Pap/HPV screening no longer needed Mammogram ordered Mammogram up to date Nutrition, exercise and routine health maintenance exams reviewed. Calcium/Vitamin D supplementation information provided. Colon cancer screening: up to date with screening BMD: up to date 2) Follow up one year or sooner as needed 3. Reviewed that if her symptoms continue to get worse or are not improving over the next few weeks to notify the office and we will order a pelvic ultrasound. At this time I do not feel anything abnormal. She is may be relating this to diverticular lightest that was diagnosed. Liz Dobson MD documented in this encounter [facility] 02-08-2023 History of Presen t illness Narrative Radiology Service Progress Note PATIENT NAME: Jagdish Castillo DATE OF SERVICE: February 08, 2023 TIME: 10:04 AM PATIENT IDENTITY VERIFICATION COMPLETED USING TWO (2) IDENTIFIERS: Name and Date of confirmed by patient verbally. FALL SCREENING: Has the patient had 2 falls in the last year or 1 fall with injury or currently using an Ambulatory Assistive Device (Walker, Cane, Wheelchair, Crutches, etc.)? No PATIENT GENDER DATA: Female. status: : No status: NO. PATIENT RELEVANT IMPLANT DATA REVIEWED: Not Applicable RADIOLOGY DEPARTMENT: Mammography PERIPHERAL IV DATA: Not applicable SIGNED BY: RT Rozina(R) February 08, 2023 10:04 AM documented in this encounter [facility] 11-28-2022 Miscellaneous Notes Patient calling asking for refill extension of cream. Due for annual and mammogram in December. Transferred to appointment desk to make appointments. documented in this encounter [facility] 08-17-2022 Miscellaneous Notes Protocol recommends ER now. Patient agreeable and will have family drive her. Reason for Disposition [1] Chest pain (or angina ) comes and goes AND [2] is happening more often (increasing in frequency) or getting worse (increasing in severity) (Exception: chest pains that last only a few seconds) Answer Assessment - Initial Assessment Questions 1. LOCATION: Chest pressure/tightness in middle of chest. 2. RADIATION: Pain in right shoulder muscle/tight. Throat lozano sometimes- for years. Having burning in chest right now. Takes famotidine before breakfast and dinner. Last couple days taking tums. Tums have helped a little. 3. ONSET: Couple weeks 4. PATTERN Comes and goes some, but becoming more constant. SOB on exertion. 5. DURATION: Different all the time. There most of the time. 6. SEVERITY: Mild 7. CARDIAC RISK FACTORS: Does have family history. Younger sister found out recently had blood vessels that were too small to put a stent in- treating with medication. Patient has rheumatoid arthritis, lupus, sjogrens syndrome. 8. PULMONARY RISK FACTORS: No 9. CAUSE: Acid reflux 10. OTHER SYMPTOMS: No dizziness. No nausea, No sweating, No fever, does have SOB on exertion, No cough. 11. : No Protocols used: Chest [id number] documented in this encounter [facility] 04-27-2022 History of Presen t illness Narrative POPULATION HEALTH NAVIGATION OUTREACH Action/FYI spoke to Ms Castillo she did not want to schedule now she will call later to do, did not want to schedule mammogram staff message sent Pt identified by name and : YES, via phone Outreach Outcome/Action Spoke to patient or caregiver: Patient declined Did you use a PCP flex slot to schedule this appointment? No Reason for Outreach Care Gap or Scheduling/Wellness visits Payer: Payor: MEDICARE / Plan: MEDICARE A AND B / Product Type: Medicare / Care Gap Reviewed:: Annual Wellness visit Breast Cancer screening Reminder: Reminder note to check Health Maintenance for items below Health Maintenance items due: MAMMOGRAM due on 09/24/2020 DEPRESSION SCREENING due on 01/04/2021 COVID-19 VACCINE(4 - Booster for Moderna series) due on 10/10/2021 ADVANCE DIRECTIVE DISCUSSION Never done Message Sent to Practice: No Navigation Signature: Brandi Zuluaga MA April 27, 2022 11:54 AM documented in this encounter [facility] documented as of this encounter (statuses as of 04/27/2022) [facility] History of Past illness Narrative* Problem Noted Date Resolved Date History of colonic polyps 08/10/20212020 Heartburn 08/10/2021 08/10/2021 Routine general medical exam ination at a health care facility 08/04/2010 06/16/2012 Overview: 08/04/2010, establish 09/20/2011, yearly Routine gynecological examination 08/04/2010 06/16/2012 Overview: [facility], [facility] [place] Chest pain, unspecified 12/20/2005 08/04/20 10 documented as of this encounter (statuses as of 11/28/2022) [facility] History of Past illness Narrative* Problem Noted Date Resolved Date History of colonic polyps 08/10/20212020 Heartburn 08/10/2021 08/10/2021 Routine general medical exam ination at a health care facility 08/04/2010 06/16/2012 Overview: 08/04/2010, establish 09/20/2011, yearly Routine gynecological examination 08/04/2010 06/16/2012 Overview: [facility], [facility] [place] Chest pain, unspecified 12/20/2005 08/04/20 10 documented as of this encounter (statuses as of 02/08/2023) [facility] History of Past illness Narrative* Problem Noted Date Resolved Date History of colonic polyps 08/10/20212020 Heartburn 08/10/2021 08/10/2021 Routine general medical exam ination at a health care facility 08/04/2010 06/16/2012 Overview: 08/04/2010, establish 09/20/2011, yearly Routine gynecological examination 08/04/2010 06/16/2012 Overview: [facility], [facility] [place] Chest pain, unspecified 12/20/2005 08/04/20 10 documented as of this encounter (statuses as of 02/11/2023) [facility] History of Past illness Narrative* Problem Noted Date Resolved Date History of colonic polyps 08/10/20212020 Heartburn 08/10/2021 08/10/2021 Routine general medical exam ination at a health care facility 08/04/2010 06/16/2012 Overview: 08/04/2010, establish 09/20/2011, yearly Routine gynecological examination 08/04/2010 06/16/2012 Overview: [facility], [facility] [place] Chest pain, unspecified 12/20/2005 08/04/20 10 documented as of this encounter (statuses as of 02/11/2023) [facility] History of Past illness Narrative* Problem Noted Date Resolved Date History of colonic polyps 08/10/20212020 Heartburn 08/10/2021 08/10/2021 Routine general medical exam ination at a health care facility 08/04/2010 06/16/2012 Overview: 08/04/2010, establish 09/20/2011, yearly Routine gynecological examination 08/04/2010 06/16/2012 Overview: [facility], [facility] [place] Chest pain, unspecified 12/20/2005 08/04/20 10 documented as of this encounter (statuses as of 03/14/2023) [facility] History of Past illness Narrative* Problem Noted Date Resolved Date History of colonic polyps 08/10/20212020 Heartburn 08/10/2021 08/10/2021 Routine general medical exam ination at a health care facility 08/04/2010 06/16/2012 Overview: 08/04/2010, establish 09/20/2011, yearly Routine gynecological examination 08/04/2010 06/16/2012 Overview: [facility], [facility] [place] Chest pain, unspecified 12/20/2005 08/04/20 10 documented as of this encounter (statuses as of 05/08/2023) [facility] History of Past illness Narrative* Problem Noted Date Diagnosed Date Resolved Date History of colonic polyps 08/10/2021 Heartburn 08/10/2021 08/10/2021 Routine general medical exam ination at a health care facility 08/04/2010 06/16/2012 Overview: 08/04/2010, establish 09/20/2011, yearly Routine gynecological examination 08/04/2010 06/16/2012 Overview: [facility], [facility] [place] Chest pain, unspecified 12/20/200507/19 documented as of this encounter (statuses as of 07/09/2023) [facility] History of Past illness Narrative* Problem Noted Date Diagnosed Date Resolved Date History of colonic polyps 08/10/2021 Heartburn 08/10/2021 08/10/2021 Routine general medical exam ination at a health care facility 08/04/2010 06/16/2012 Overview: 08/04/2010, establish 09/20/2011, yearly Routine gynecological examination 08/04/2010 06/16/2012 Overview: [facility], [facility] [place] Chest pain, unspecified 12/20/200507/19 documented as of this encounter (statuses as of 07/29/2023) [facility] History of Past illness Narrative* Problem Noted Date Diagnosed Date Resolved Date History of colonic polyps 08/10/20211 Heartburn 08/10/2021 08/10/2021 Routine general medical exam ination at a health care facility 08/04/2010 06/16/2012 Overview: 08/04/2010, establish 09/20/2011, yearly Routine gynecological examination 08/04/2010 06/16/2012 Overview: [facility], [facility] [place] Chest pain, unspecified 12/20/200507/19 documented as of this encounter (statuses as of 08/05/2023) [facility] History of Past illness Narrative* Problem Noted Date Diagnosed Date Resolved Date History of colonic polyps 08/10/2021 Heartburn 08/10/2021 08/10/2021 Routine general medical exam ination at a health care facility 08/04/2010 06/16/2012 Overview: 08/04/2010, establish 09/20/2011, yearly Routine gynecological examination 08/04/2010 06/16/2012 Overview: [facility], [facility] [place] Chest pain, unspecified 12/20/200507/19 documented as of this encounter (statuses as of 08/28/2023) [facility] History of Past illness Narrative* Problem Noted Date Diagnosed Date Resolved Date History of colonic polyps 08/10/2021 Heartburn 08/10/2021 08/10/2021 Routine general medical exam ination at a health care facility 08/04/2010 06/16/2012 Overview: 08/04/2010, establish 09/20/2011, yearly Routine gynecological examination 08/04/2010 06/16/2012 Overview: [facility], [facility] [place] Chest pain, unspecified 12/20/200507/19 documented as of this encounter (statuses as of 09/02/2023) [facility] History of Past illness Narrative* Problem Noted Date Diagnosed Date Resolved Date History of colonic polyps 08/10/2021 Heartburn 08/10/2021 08/10/2021 Routine general medical exam ination at a health care facility 08/04/2010 06/16/2012 Overview: 08/04/2010, establish 09/20/2011, yearly Routine gynecological examination 08/04/2010 06/16/2012 Overview: [facility], [facility] [place] Chest pain, unspecified 12/20/200507/19 documented as of this encounter (statuses as of 09/03/2023) [facility] History of Past illness Narrative* Problem Noted Date Diagnosed Date Resolved Date History of colonic polyps 08/10/2021 Heartburn 08/10/2021 08/10/2021 Routine general medical exam ination at a health care facility 08/04/2010 06/16/2012 Overview: 08/04/2010, establish 09/20/2011, yearly Routine gynecological examination 08/04/2010 06/16/2012 Overview: [facility], [facility] [place] Chest pain, unspecified 12/20/200507/19 documented as of this encounter (statuses as of 09/22/2023) [facility] History of Past illness Narrative* Problem Noted Date Diagnosed Date Resolved Date History of colonic polyps 08/10/2021 Heartburn 08/10/2021 08/10/2021 Routine general medical exam ination at a health care facility 08/04/2010 06/16/2012 Overview: 08/04/2010, establish 09/20/2011, yearly Routine gynecological examination 08/04/2010 06/16/2012 Overview: [facility], [place] Chest pain, unspecified 12/20/200507/19 documented as of this encounter (statuses as of 09/22/2023) [facility] History of Past illness Narrative* Problem Noted Date Diagnosed Date Resolved Date History of colonic polyps 08/10/2021 Heartburn 08/10/2021 08/10/2021 Routine general medical exam ination at a health care facility 08/04/2010 06/16/2012 Overview: 08/04/2010, establish 09/20/2011, yearly Routine gynecological examination 08/04/2010 06/16/2012 Overview: [facility], [facility] [place] Chest pain, unspecified 12/20/200507/19 documented as of this encounter (statuses as of 09/22/2023) [facility] History of Past illness Narrative* Problem Noted Date Diagnosed Date Resolved Date History of colonic polyps 08/10/2021 Heartburn 08/10/2021 08/10/2021 Routine general medical exam ination at a health care facility 08/04/2010 06/16/2012 Overview: 08/04/2010, establish 09/20/2011, yearly Routine gynecological examination 08/04/2010 06/16/2012 Overview: [facility], [place] Chest pain, unspecified 12/20/200507/19 documented as of this encounter (statuses as of 09/22/2023) [facility] History of Past illness Narrative* Problem Noted Date Diagnosed Date Resolved Date History of colonic polyps 08/10/2021 Heartburn 08/10/2021 08/10/2021 Routine general medical exam ination at a health care facility 08/04/2010 06/16/2012 Overview: 08/04/2010, establish 09/20/2011, yearly Routine gynecological examination 08/04/2010 06/16/2012 Overview: [facility], [place] Chest pain, unspecified 12/20/200507/19 documented as of this encounter (statuses as of 09/22/2023) [facility] History of Past illness Narrative* Problem Noted Date Diagnosed Date Resolved Date History of colonic polyps 08/10/2021 Heartburn 08/10/2021 08/10/2021 Routine general medical exam ination at a health care facility 08/04/2010 06/16/2012 Overview: 08/04/2010, establish 09/20/2011, yearly Routine gynecological examination 08/04/2010 06/16/2012 Overview: [facility], [facility] [place] Chest pain, unspecified 12/20/200507/19 documented as of this encounter (statuses as of 10/09/2023) [facility] Diagnosis Vaginal atrophy Postmenopausal atrophic vaginitis [facility] Diagnosis Encounter for gynecological examination (general) (routine) without abnormal findings- Primary Dense breast tissue Vaginal atrophy Postmenopausal atrophic vaginitis Encounter for screening mammogram for malignant neoplasm of breast Other screening mammogram [facility] Diagnosis Abnormal mammogram- Primary Abnormal mammogram, unspecified documented [facility] Diagnosis Chest pain, unspecified type- Primary GERD without esophagitis Esophageal reflux Amyopathic dermatomyositis (HCC) Dermatomyositis documented [facility] Diagnosis Vaginal atrophy Postmenopausal atrophic vaginitis documented [facility] Diagnosis Screening for ischemic heart disease- Primary documented [facility] Diagnosis Abnormal mammogram Abnormal mammogram, unspecified documented [facility] Diagnosis PMB (postmenopausal bleeding) Postmenopausal bleeding documented [facility] Diagnosis Abnormal mammogram Abnormal mammogram, unspecified [facility] Diagnosis Encounter for screening mammogram for malignant neoplasm of breast Other screening mammogram [facility] Diagnosis Fatigue, unspecified type- Primary Amyopathic dermatomyositis (HCC) Dermatomyositis Inflammatory polyarthritis (HCC) Unspecified inflammatory polyarthropathy Anemia, unspecified type Medication monitoring encounter Encounter for therapeutic drug monitoring Other fpc (current) drug therapy documented in this encounter [facility] for referral (narrative)* Diagnostic Procedure Only (Routine) - Pending Review Specialty Diagnoses / Procedures Referred By Richard lagunas Referred To Contact [facility] Diagnoses Dense breast tissue Encounter for screening mammogram for malignant neoplasm of breast Procedures PARAM SCREENING W OFE SCREENING DIGITAL BREAST TOMOSYNTHESIS BI SCREENING MAMMOGRAPHY BI 2-VIEW BREAST INC CAD Liz Mcpherson MD [address] [place] [address] [facility] [address] [place] [address] Referral ID Status Reason Start Date Expiration Date Visits Requested Visits Authorized [id number] Pending Review Auto-Generat ed Referral 02/08/2023 03/09/2024 1 1 [facility] for referral (narrative)* Diagnostic Procedure Only (Routine) - Pending Review Specialty Diagnoses / Procedures Referred By Richard lagunas Referred To Contact [facility] Diagnoses Abnormal mammogram Procedures PARAM DIAGNOSTIC LEFT DIAGNOSTIC MAMMOGRAPHY COMPUTER-AIDED DETCJ UNI Liz Mcpherson MD [address] [place] [address] [facility] [place] [address] Referral ID Status Reason Start Date Expiration Date Visits Requested Visits Authorized [id number] Pending Review Auto-Generat ed Referral 02/11/2023 03/12/2024 1 1 * Diagnostic Procedure Only (Routine) - Pending Review Specialty Diagnoses / Procedures Referred By Richard lagunas Referred To Contact [facility] Diagnoses Abnormal mammogram Procedures US BREAST LTD LEFT US BREAST UNI REAL TIME WITH IMAGE LIMITED Liz Mcpherson MD [address] [place] [address] [facility] [address] [place] [address] Referral ID Status Reason Start Date Expiration Date Visits Requested Visits Authorized [id number] Pending Review Auto-Generat ed Referral 02/11/2023 03/12/2024 1 1 T [facility] for referral (narrative)* Diagnostic Procedure Only (Routine) - Closed Specialty Diagnoses / Procedures Referred By Contac t Referred To Contact [facility] Diagnoses PMB (postmenopausal bleeding) Procedures US FEMALE PELVIS TRANSVAG US TRANSVAGINAL Liz Mcpherson MD [address] [place] [address] [place] [address] Referral ID Status Reason Start Date Expiration Date V isits Requested Visits Authorized [id number] Closed Auto-Generate d Referral 08/08/2023 09/06/2024 1 1 [facility] for referral (narrative)* Diagnostic Procedure Only (Routine) - Closed Specialty Diagnoses / Procedures Referred By Richard t Referred To Contact [facility] Diagnoses Encounter for screening mammogram for malignant neoplasm of breast Procedures PARAM SCREENING W OFE SCREENING DIGITAL BREAST TOMOSYNTHESIS BI SCREENING MAMMOGRAPHY BI 2-VIEW BREAST INC CAD Liz Mcpherson MD [address] [place] [address] [facility] [place] [address] Referral ID Status Reason Start Date Expiration Date V isits Requested Visits Authorized [id number] Closed Auto-Generate d Referral 01/09/2022 02/08/2023 1 1 [facility] for visit Narrative* Diagnostic Procedure Only (Routine) - Closed Specialty Diagnoses / Procedures Referred By Contac t Referred To Contact [facility] Diagnoses Chest pain, unspecified type Procedures NM CARDIAC PERF STRESS/PHARM MYOCARDIAL SPECT MULTIPLE STUDIES Pastor Gautam MD [address] [place] [address] [facility] [address] [place] [address] Referral ID Status Reason Start Date Expiration Date V isits Requested Visits Authorized [id number] Closed Auto-Generate d Referral 07/05/2023 08/03/2024 1 1 [facility] for visit Narrative* Diagnostic Procedure Only (Routine) - Authorized Specialty Diagnoses / Procedures Referred By Richard lagunas Referred To Contact [facility] Diagnoses Abnormal mammogram Procedures US BREAST LTD LEFT US BREAST UNI REAL TIME WITH IMAGE LIMITED Liz Mcpherson MD [address] [place] [address] [facility] [address] [place] [phone] Referral ID Status Reason Start Date Expiration Date Visits Requested Visits Authorized [id number] Authorized Auto-Generat ed Referral 02/11/2023 03/12/2024 1 1 [facility] for visit Narrative* Diagnostic Procedure Only (Routine) - Closed Specialty Diagnoses / Procedures Referred By Richard lagunas Referred To Contact [facility] Diagnoses Abnormal mammogram Procedures PARAM DIAGNOSTIC LEFT DIAGNOSTIC MAMMOGRAPHY COMPUTER-AIDED DETCJ UNI Liz Mcpherson MD [address] [place] [address] [facility] [address] [place] [phone] Referral ID Status Reason Start Date Expiration Date V isits Requested Visits Authorized [id number] Closed Auto-Generate d Referral 02/11/2023 03/12/2024 1 1 [facility] for visit Narrative* Diagnostic Procedure Only (Routine) - Closed Specialty Diagnoses / Procedures Referred By Richard lagunas Referred To Contact [facility] Diagnoses Encounter for screening mammogram for malignant neoplasm of breast Procedures PARAM SCREENING W OFE SCREENING DIGITAL BREAST TOMOSYNTHESIS BI SCREENING MAMMOGRAPHY BI 2-VIEW BREAST INC CAD Liz Mcpherson MD [address] [place] [address] [facility] [address] [facility] [place] [address] Referral ID Status Reason Start Date Expiration Date V isits Requested Visits Authorized [id number] Closed Auto-Generate d Referral 01/09/2022 02/08/2023 1 1 [facility] Advance Directives No Advanced Directives Records FoundDocuments on File Type Date Recorded Patient Respiratory Care Practitioner Expl anation Advance Directive(s) 08/10/2021 7:40 AM Advance Directive(s) 10/27/2018 12:18 PM Advance Directive(s) 10/27/2018 12:26 PM Advance Directive(s) 10/03/2018 7:55 AM Advance Directive(s) 07/24/2011 12:00 AM Advance Directive(s) 01/03/2007 12:00 AM Documents on File Type Date Recorded Patient Respiratory Care Practitioner Expl anation Advance Directive(s) 10/27/2018 12:26 PM Advance Directive(s) 07/24/2011 Advance Directive(s) 01/03/2007 Documents on File Type Date Recorded Patient Respiratory Care Practitioner Expl anation Advance Directive(s) 10/27/2018 12:26 PM Advance Directive(s) 07/24/2011 Advance Directive(s) 01/03/2007 Summary Purpose Family History No Family History Records Found Additional Source Comments Source Comments (unrecognize d section and content) In the event this informatio n is protected by the Federal Confidentiality of Alcohol and Drug Abuse Patient Records regulations: The Federal rules restrict any use of the information to criminally investigate or prosecute any alcohol or drug abuse patient.[facility] the event this information is protected by the Federal Confidentiality of Alcohol and Drug Abuse Patient Records regulations: The Federal rules restrict any use of the information to criminally investigate or prosecute any alcohol or drug abuse patient.[facility] the event this information is protected by the Federal Confidentiality of Alcohol and Drug Abuse Patient Records regulations: The Federal rules restrict any use of the information to criminally investigate or prosecute any alcohol or drug abuse patient.[facility] the event this information is protected by the Federal Confidentiality of Alcohol and Drug Abuse Patient Records regulations: The Federal rules restrict any use of the information to criminally investigate or prosecute any alcohol or drug abuse patient.[facility] the event this information is protected by the Federal Confidentiality of Alcohol and Drug Abuse Patient Records regulations: The Federal rules restrict any use of the information to criminally investigate or prosecute any alcohol or drug abuse patient.[facility] the event this information is protected by the Federal Confidentiality of Alcohol and Drug Abuse Patient Records regulations: The Federal rules restrict any use of the information to criminally investigate or prosecute any alcohol or drug abuse patient.[facility] the event this information is protected by the Federal Confidentiality of Alcohol and Drug Abuse Patient Records regulations: The Federal rules restrict any use of the information to criminally investigate or prosecute any alcohol or drug abuse patient.[facility] the event this information is protected by the Federal Confidentiality of Alcohol and Drug Abuse Patient Records regulations: The Federal rules restrict any use of the information to criminally investigate or prosecute any alcohol or drug abuse patient.[facility] the event this information is protected by the Federal Confidentiality of Alcohol and Drug Abuse Patient Records regulations: The Federal rules restrict any use of the information to criminally investigate or prosecute any alcohol or drug abuse patient.[facility] the event this information is protected by the Federal Confidentiality of Alcohol and Drug Abuse Patient Records regulations: The Federal rules restrict any use of the information to criminally investigate or prosecute any alcohol or drug abuse patient.[facility] the event this information is protected by the Federal Confidentiality of Alcohol and Drug Abuse Patient Records regulations: The Federal rules restrict any use of the information to criminally investigate or prosecute any alcohol or drug abuse patient.[facility] the event this information is protected by the Federal Confidentiality of Alcohol and Drug Abuse Patient Records regulations: The Federal rules restrict any use of the information to criminally investigate or prosecute any alcohol or drug abuse patient.[facility] the event this information is protected by the Federal Confidentiality of Alcohol and Drug Abuse Patient Records regulations: The Federal rules restrict any use of the information to criminally investigate or prosecute any alcohol or drug abuse patient.[facility] the event this information is protected by the Federal Confidentiality of Alcohol and Drug Abuse Patient Records regulations: The Federal rules restrict any use of the information to criminally investigate or prosecute any alcohol or drug abuse patient.[facility] the event this information is protected by the Federal Confidentiality of Alcohol and Drug Abuse Patient Records regulations: The Federal rules restrict any use of the information to criminally investigate or prosecute any alcohol or drug abuse patient.[facility] the event this information is protected by the Federal Confidentiality of Alcohol and Drug Abuse Patient Records regulations: The Federal rules restrict any use of the information to criminally investigate or prosecute any alcohol or drug abuse patient.[facility] the event this information is protected by the Federal Confidentiality of Alcohol and Drug Abuse Patient Records regulations: The Federal rules restrict any use of the information to criminally investigate or prosecute any alcohol or drug abuse patient.[facility] the event this information is protected by the Federal Confidentiality of Alcohol and Drug Abuse Patient Records regulations: The Federal rules restrict any use of the information to criminally investigate or prosecute any alcohol or drug abuse patient.[facility] the event this information is protected by the Federal Confidentiality of Alcohol and Drug Abuse Patient Records regulations: The Federal rules restrict any use of the information to criminally investigate or prosecute any alcohol or drug abuse patient.[facility] the event this information is protected by the Federal Confidentiality of Alcohol and Drug Abuse Patient Records regulations: The Federal rules restrict any use of the information to criminally investigate or prosecute any alcohol or drug abuse patient.[facility] Reason for Visit (unrecogniz ed section and content) Reason Onset Date Comments Refill Request 11/28/2022 Reason Comments Well Woman Reason Comments Mammogram Result Call Back Reason Comments Chest Pain Reason Onset Date Comments Population Health Navigation Outreach 05/08/2023 [facility] Reason Comments Follow Up Reason Onset Date Comments Refill Request 08/03/2023 Reason Comments Results Reason Comments Radiology NM Specialty Diagnoses / Procedures Referred By Contac t Referred To Contact [facility] IMAGING Diagnoses Chest pain, unspecified type Procedures NM CARDIAC PERF STRESS/PHARM MYOCARDIAL SPECT MULTIPLE STUDIES Pastor Gautam MD [address] [place] [address] Molecular [facility] Functional Imaging [address] [place] [address] Referral ID Status Reason Start Date Expiration Date V isits Requested Visits Authorized [id number] Closed Auto-Generate d Referral 07/05/2023 08/03/2024 1 1 Reason Comments Radiology US Specialty Diagnoses / Procedures Referred By Contac t Referred To Contact [facility] Diagnoses PMB (postmenopausal bleeding) Procedures US FEMALE PELVIS TRANSVAG US TRANSVAGINAL Liz Mcpherson MD [address] [place] [address] [place] [address] Referral ID Status Reason Start Date Expiration Date V isits Requested Visits Authorized [id number] Closed Auto-Generate d Referral 08/08/2023 09/06/2024 1 1 Care Teams (unrecognized sec tion and content) Senior Principal Architect Relationship Specialty Start Date End Date Pastor Gautam MD [address] [place] [address] PCP - General Family Medicine 06/10/12 Senior Principal Architect Relationship Specialty Start Date End Date Pastor Gautam MD [address] [place] [address] PCP - General Family Medicine 06/10/12 Senior Principal Architect Relationship Specialty Start Date End Date Pastor Gautam MD [address] [place] [address] PCP - General Family Medicine 06/10/12 Senior Principal Architect Relationship Specialty Start Date End Date Pastor Gautam MD [facility] [place], [place] [address]3211 PCP - General Family Medicine 06/10/12 Senior Principal Architect Relationship Specialty Start Date End Date Pastor Gautam MD [address] [place], [place] [id number] PCP - General Family Medicine 06/10/12 Senior Principal Architect Relationship Specialty Start Date End Date Pastor Gautam MD [address] [place], [place] [address]231 PCP - General Family Medicine 06/10/12 Senior Principal Architect Relationship Specialty Start Date End Date Pastor Gautam MD [address] [place], [place] 553431 PCP - General Family Medicine 06/10/12 Senior Principal Architect Relationship Specialty Start Date End Date Pastor Gautam MD [address] [place] [address] PCP - General Family Medicine 06/10/12 Senior Principal Architect Relationship Specialty Start Date End Date Pastor Gautam MD [address] [place] [address] PCP - General Family Medicine 06/10/12 Senior Principal Architect Relationship Specialty Start Date End Date Pastor Gautam MD [address] [place] [address] PCP - General Family Medicine 06/10/12 Senior Principal Architect Relationship Specialty Start Date End Date Pastor Gautam MD [address] [place] [address] PCP - General Family Medicine 06/10/12 Senior Principal Architect Relationship Specialty Start Date End Date Pastor Gautam MD [address] [place], [place] 097681 PCP - General Family Medicine 06/10/12 Senior Principal Architect Relationship Specialty Start Date End Date Pastor Gautam MD [address] [place], [place] 775591 PCP - General Family Medicine 06/10/12 Senior Principal Architect Relationship Specialty Start Date End Date Pastor Gautam MD [address] [place], [place] 862341 PCP - General Family Medicine 06/10/12 Senior Principal Architect Relationship Specialty Start Date End Date Pastor Gautam MD [address] [place], [place] [address]121 PCP - General Family Medicine 06/10/12 Senior Principal Architect Relationship Specialty Start Date End Date Pastor Gautam MD [address] [place], [place] [address]491 PCP - General Family Medicine 06/10/12 Senior Principal Architect Relationship Specialty Start Date End Date Pastor Gautam MD [address] [place] [address] PCP - General Family Medicine 06/10/12 Senior Principal Architect Relationship Specialty Start Date End Date Pastor Gautam MD [address] [place], [place] [address]88[address] PCP - General Family Medicine 06/10/12 INFORMATION SOURCE (unrecogn ized section and content) FOR RECORDS PERTAINING TO PATIENTS WHO ARE OR HAVE BEEN ENROLLED IN A CHEMICAL DEPENDENCY/SUBSTANCEABUSE PROGRAM, SOME INFORMATION MAY BE OMITTED. This clinical summary was aggregated from multiple sources. Caution should be exercised in using it in the provision of clinical care. This summary normalizes information from multiple sources, and as a consequence, information in this document may materially change the coding, format and clinical context of patient data. In addition, data may be omitted in some cases. CLINICAL DECISIONS SHOULD BE BASED ON THE PRIMARY CLINICAL RECORDS. [facility]. provides no warranty or guarantee of the accuracy or completeness of information in this document.
[2024-01-02 10:12] LABS: Absolute Lymphocyte Count 0.69 X10^3/uL (0.83-4.51); Absolute Neutrophil Count 2.6 X10^3/uL (2.0-7.7); Basophil# 0.02 X10^3/uL; Basophil% 0.5 % (0-1); Eosinophil# 0.04 X10^3/uL; Hematocrit 37.5 % (37-47); Hemoglobin 12.2 g/dL (12.0-15.0); Lymphocyte # 0.69 X10^3/ul (0.83-4.51); Mean Corp Hgb Conc 32.5 g/dL (32-36); Mean Corpuscular Volume 95.4 fL (81-99); Mean Platelet Vol. 9.2 fl (6.2-12.0); Monocyte# 0.49 X10^3/uL; Monocyte% 12.8 % (0-10); NRBC Flagged by Analyzer 0 % (0-5); Neutrophil # 2.58 X10^3/uL (2.7-7.7); Neutrophil % 67.2 % (47-70); Platelet Count 282 K/mm3 (150-450); RBC Distribution Width CV 12.1 % (11.6-14.6); Red Blood Count 3.93 M/mm3 (4.2-5.4); White Blood Count 3.8 K/mm3 (4.4-11.0)
[2024-01-02 10:26] LABS: ALB/GLOB Ratio 1.3 RATIO (0.9-2.4); AST(SGOT) 23 U/L (15-37); Alanine Aminotransfer ALT/SGPT 35 U/L (13-56); Albumin, Serum 3.4 g/dL (3.2-5.0); Alkaline Phosphatase 113 U/L (45-117); Anion Gap 3 (5-15); BUN 11 mg/dL (7-18); BUN/Creat Ratio 12.9 RATIO (10-20); Calcium,Total 8.6 mg/dL (8.5-10.1); Chloride 105 mmol/L (98-107); Creatinine, Serum 0.85 mg/dL (0.55-1.02); EST Glomerular Filtration Rate 69 mL/min (>60); Est Glom Filt Rate - Afr Amer 83 mL/min (>60); Globulin 2.7 g/dL (2.2-4.2); Glucose 84 mg/dL (74-106); Protein, Total 6.1 g/dL (6.4-8.2); Sodium Level 136 mmol/L (136-145)
== END | disposition home or self-care (01) ==
LOC: MTLAB 07:08
PROVIDERS: PCP Family Medicine; Referring Provider Internal Medicine Rheumatology; Visit Provider Internal Medicine Rheumatology
DX: M05.79 Rheumatoid arthritis with rheumatoid factor of multiple sites without organ or systems involvement (principal); M35.00 Sjogren syndrome, unspecified; R76.8 Other specified abnormal immunological findings in serum; M47.897 Other spondylosis, lumbosacral region; K21.9 Gastro-esophageal reflux disease without esophagitis; Z79.899 Other long term (current) drug therapy
CPT/HCPCS: 36415; 80053; 85025

== ENCOUNTER → 2024-03-16 | Outpatient (CLI) | payer SELFPAY ==
[2024-03-16 09:39] LABS: SERUM TEARS COLLECTION SPECIMEN PROCESSED
== END | disposition home or self-care (01) ==
PROVIDERS: PCP Family Medicine; Visit Provider Ophthalmology
DX: Z79.899 Other long term (current) drug therapy (principal)

== ENCOUNTER → 2024-04-01 | Outpatient (CLI) | payer MEDICARE, OTHER, SELFPAY ==
[2024-04-01 10:16] LABS: Absolute Lymphocyte Count 0.51 X10^3/uL (0.83-4.51); Absolute Neutrophil Count 2.2 X10^3/uL (2.0-7.7); Basophil# 0.01 X10^3/uL; Basophil% 0.3 % (0-1); Eosinophil# 0.02 X10^3/uL; Eosinophils% 0.6 % (0-5); Hemoglobin 12.2 g/dL (12.0-15.0); Lymphocyte # 0.51 X10^3/ul (0.83-4.51); Lymphocyte % 16.1 % (19-41); Mean Corp Hgb Conc 32.1 g/dL (32-36); Mean Corpuscular Hgb 30.6 pg (27.0-32.0); Mean Corpuscular Volume 95.2 fL (81-99); Mean Platelet Vol. 9.1 fl (6.2-12.0); Monocyte# 0.36 X10^3/uL; Monocyte% 11.4 % (0-10); NRBC Flagged by Analyzer 0 % (0-5); Neutrophil # 2.24 X10^3/uL (2.7-7.7); Neutrophil % 70.7 % (47-70); POSITIVE DIFFERENTIAL YES; Platelet Count 298 K/mm3 (150-450); RBC Distribution Width CV 13.7 % (11.6-14.6); RBC Distribution Width SD 47.9 fl (35.1-43.9); Red Blood Count 3.99 M/mm3 (4.2-5.4); White Blood Count 3.2 K/mm3 (4.4-11.0)
[2024-04-01 10:34] LABS: AST(SGOT) 21 U/L (15-37); Alanine Aminotransfer ALT/SGPT 38 U/L (13-56)
== END | disposition home or self-care (01) ==
PROVIDERS: PCP Family Medicine; Referring Provider Dermatology; Visit Provider Dermatology
DX: Z79.899 Other long term (current) drug therapy (principal)
CPT/HCPCS: 36415; 84450; 84460; 85025

== ENCOUNTER → 2024-06-10 | Outpatient (CLI) | payer MEDICARE, OTHER, SELFPAY ==
[2024-06-10 10:14] LABS: Absolute Lymphocyte Count 0.64 X10^3/uL (0.83-4.51); Absolute Neutrophil Count 2.9 X10^3/uL (2.0-7.7); Basophil# 0.02 X10^3/uL; Basophil% 0.5 % (0-1); Eosinophil# 0.02 X10^3/uL; Eosinophils% 0.5 % (0-5); Hematocrit 37.4 % (37-47); Hemoglobin 12.3 g/dL (12.0-15.0); Lymphocyte # 0.64 X10^3/ul (0.83-4.51); Mean Corp Hgb Conc 32.9 g/dL (32-36); Mean Corpuscular Hgb 31.1 pg (27.0-32.0); Mean Corpuscular Volume 94.4 fL (81-99); Monocyte# 0.42 X10^3/uL; Monocyte% 10.5 % (0-10); NRBC Flagged by Analyzer 0 % (0-5); Neutrophil # 2.89 X10^3/uL (2.7-7.7); Neutrophil % 72.2 % (47-70); Platelet Count 303 K/mm3 (150-450); RBC Distribution Width CV 12.3 % (11.6-14.6); RBC Distribution Width SD 42.7 fl (35.1-43.9); Red Blood Count 3.96 M/mm3 (4.2-5.4)
[2024-06-10 10:49] LABS: ALB/GLOB Ratio 1.1 RATIO (0.9-2.4); AST(SGOT) 32 U/L (15-37); Alanine Aminotransfer ALT/SGPT 40 U/L (13-56); Albumin, Serum 3.2 g/dL (3.2-5.0); Alkaline Phosphatase 114 U/L (45-117); Anion Gap 6 (5-15); BUN 12 mg/dL (7-18); BUN/Creat Ratio 15.1 RATIO (10-20); Chloride 105 mmol/L (98-107); Creatinine, Serum 0.79 mg/dL (0.55-1.02); EST Glomerular Filtration Rate 75 mL/min (>60); Est Glom Filt Rate - Afr Amer 90 mL/min (>60); Globulin 2.9 g/dL (2.2-4.2); Glucose 92 mg/dL (74-106); Potassium 3.9 mmol/L (3.5-5.1); Protein, Total 6.1 g/dL (6.4-8.2); Sodium Level 138 mmol/L (136-145)
== END | disposition home or self-care (01) ==
LOC: MTLAB 08:32
PROVIDERS: PCP Family Medicine; Referring Provider Internal Medicine Rheumatology; Visit Provider Internal Medicine Rheumatology
DX: M05.79 Rheumatoid arthritis with rheumatoid factor of multiple sites without organ or systems involvement (principal); Z79.899 Other long term (current) drug therapy
CPT/HCPCS: 36415; 80053; 85025

== ENCOUNTER → 2024-08-05 | Outpatient (CLI) | payer SELFPAY ==
[2024-08-05 09:50] LABS: SERUM TEARS COLLECTION SPECIMEN PROCESSED
== END | disposition home or self-care (01) ==
LOC: LAB 07:44
PROVIDERS: PCP Family Medicine; Referring Provider Ophthalmology; Visit Provider Ophthalmology
DX: H04.123 Dry eye syndrome of bilateral lacrimal glands (principal)

== ENCOUNTER → 2024-09-28 | Outpatient (CLI) | payer MEDICARE, OTHER, SELFPAY ==
[2024-09-28 10:13] LABS: Absolute Lymphocyte Count 0.48 X10^3/uL (0.83-4.51); Absolute Neutrophil Count 3.5 X10^3/uL (2.0-7.7); Basophil# 0.02 X10^3/uL; Basophil% 0.4 % (0-1); Eosinophil# 0.04 X10^3/uL; Eosinophils% 0.9 % (0-5); Hematocrit 37.4 % (37-47); Hemoglobin 11.9 g/dL (12.0-15.0); Lymphocyte # 0.48 X10^3/ul (0.83-4.51); Lymphocyte % 10.5 % (19-41); Mean Corp Hgb Conc 31.8 g/dL (32-36); Mean Corpuscular Hgb 30.2 pg (27.0-32.0); Mean Corpuscular Volume 94.9 fL (81-99); Mean Platelet Vol. 10.1 fl (6.2-12.0); Monocyte# 0.54 X10^3/uL; Monocyte% 11.8 % (0-10); NRBC Flagged by Analyzer 0 % (0-5); Neutrophil # 3.49 X10^3/uL (2.7-7.7); POSITIVE DIFFERENTIAL YES; Platelet Count 291 K/mm3 (150-450); RBC Distribution Width CV 12.6 % (11.6-14.6); RBC Distribution Width SD 43.4 fl (35.1-43.9); Red Blood Count 3.94 M/mm3 (4.2-5.4); White Blood Count 4.6 K/mm3 (4.4-11.0)
[2024-09-28 10:22] LABS: ALB/GLOB Ratio 1.2 RATIO (0.9-2.4); AST(SGOT) 21 U/L (15-37); Alanine Aminotransfer ALT/SGPT 31 U/L (13-56); Albumin, Serum 3.4 g/dL (3.2-5.0); Alkaline Phosphatase 121 U/L (45-117); Anion Gap 6 (5-15); BUN 11 mg/dL (7-18); Calcium,Total 9.3 mg/dL (8.5-10.1); Chloride 105 mmol/L (98-107); Creatinine, Serum 0.78 mg/dL (0.55-1.02); EST Glomerular Filtration Rate 76 mL/min (>60); Est Glom Filt Rate - Afr Amer 92 mL/min (>60); Globulin 2.9 g/dL (2.2-4.2); Glucose 96 mg/dL (74-106); Potassium 3.9 mmol/L (3.5-5.1); Protein, Total 6.3 g/dL (6.4-8.2); Sodium Level 137 mmol/L (136-145)
== END | disposition home or self-care (01) ==
PROVIDERS: PCP Family Medicine; Referring Provider Internal Medicine Rheumatology; Visit Provider Internal Medicine Rheumatology
DX: M05.79 Rheumatoid arthritis with rheumatoid factor of multiple sites without organ or systems involvement (principal); Z79.899 Other long term (current) drug therapy
CPT/HCPCS: 36415; 80053; 85025

== ENCOUNTER → 2024-10-01 | Outpatient (CLI) | payer MEDICARE, OTHER, SELFPAY ==
[2024-10-09 09:10] LABS: QNTFERON TB Mitogen Value 2.13 IU/mL (.); QNTFERON TB Nil Value 0.02 IU/mL (.); QNTFERON TB1+ Ag Value 0.03 IU/mL (.); QNTFERON TB2+ Ag Value 0.02 IU/mL (.); QNTIFERON TB Positive Criteria Negative (Negative)
== END | disposition home or self-care (01) ==
PROVIDERS: PCP Family Medicine; Referring Provider Dermatology; Visit Provider Dermatology
DX: Z79.899 Other long term (current) drug therapy (principal)
CPT/HCPCS: 36415; 86480

== ENCOUNTER → 2024-12-03 | Outpatient (CLI) | payer MEDICARE, OTHER, SELFPAY ==
[2024-12-03 12:11] LABS: Absolute Lymphocyte Count 0.69 X10^3/uL (0.83-4.51); Absolute Neutrophil Count 2.4 X10^3/uL (2.0-7.7); Basophil# 0.02 X10^3/uL; Basophil% 0.5 % (0-1); Eosinophil# 0.01 X10^3/uL; Eosinophils% 0.3 % (0-5); Hematocrit 39.3 % (37-47); Lymphocyte # 0.69 X10^3/ul (0.83-4.51); Lymphocyte % 18.6 % (19-41); Mean Corp Hgb Conc 33.1 g/dL (32-36); Mean Corpuscular Hgb 30.7 pg (27.0-32.0); Mean Corpuscular Volume 92.7 fL (81-99); Mean Platelet Vol. 9.7 fl (6.2-12.0); Monocyte# 0.54 X10^3/uL; Monocyte% 14.6 % (0-10); NRBC Flagged by Analyzer 0 % (0-5); Neutrophil # 2.43 X10^3/uL (2.7-7.7); Neutrophil % 65.5 % (47-70); Platelet Count 279 K/mm3 (150-450); RBC Distribution Width CV 12.4 % (11.6-14.6); RBC Distribution Width SD 42.3 fl (35.1-43.9); Red Blood Count 4.24 M/mm3 (4.2-5.4); White Blood Count 3.7 K/mm3 (4.4-11.0)
[2024-12-03 15:44] LABS: AST(SGOT) 20 U/L (15-37); Alanine Aminotransfer ALT/SGPT 32 U/L (13-56)
== END | disposition home or self-care (01) ==
LOC: MTLAB 11:12
PROVIDERS: PCP Family Medicine; Referring Provider Dermatology; Visit Provider Dermatology
DX: Z79.899 Other long term (current) drug therapy (principal)
CPT/HCPCS: 36415; 84450; 84460; 85025

== ENCOUNTER → 2024-12-14 | Outpatient (CLI) | payer MEDICARE, OTHER, SELFPAY ==
[2024-12-14 10:59] LABS: ALB/GLOB Ratio 1.2 RATIO (0.9-2.4); AST(SGOT) 26 U/L (15-37); Alanine Aminotransfer ALT/SGPT 36 U/L (13-56); Albumin, Serum 3.4 g/dL (3.2-5.0); Alkaline Phosphatase 120 U/L (45-117); Anion Gap 5 (5-15); BUN 12 mg/dL (7-18); BUN/Creat Ratio 15.3 RATIO (10-20); Calcium,Total 9.3 mg/dL (8.5-10.1); Chloride 103 mmol/L (98-107); Creatinine, Serum 0.78 mg/dL (0.55-1.02); EST Glomerular Filtration Rate 76 mL/min (>60); Est Glom Filt Rate - Afr Amer 92 mL/min (>60); Globulin 2.9 g/dL (2.2-4.2); Glucose 65 mg/dL (74-106); Potassium 4.1 mmol/L (3.5-5.1); Protein, Total 6.3 g/dL (6.4-8.2); Sodium Level 135 mmol/L (136-145)
== END | disposition home or self-care (01) ==
LOC: MTLAB 08:45
PROVIDERS: PCP Family Medicine; Referring Provider Internal Medicine Rheumatology; Visit Provider Internal Medicine Rheumatology
DX: M05.79 Rheumatoid arthritis with rheumatoid factor of multiple sites without organ or systems involvement (principal); Z79.899 Other long term (current) drug therapy
CPT/HCPCS: 36415; 80053

== ENCOUNTER → 2025-02-12 | Outpatient (CLI) | payer SELFPAY ==
[2025-02-12 09:55] LABS: SERUM TEARS COLLECTION SPECIMEN PROCESSED
== END | disposition home or self-care (01) ==
PROVIDERS: PCP Family Medicine; Referring Provider Ophthalmology; Visit Provider Ophthalmology
DX: M35.01 Sjogren syndrome with keratoconjunctivitis (principal)

== ENCOUNTER → 2025-02-24 | Outpatient (CLI) | payer MEDICARE, OTHER, SELFPAY ==
[2025-02-24 10:26] LABS: Absolute Lymphocyte Count 0.65 X10^3/uL (0.83-4.51); Absolute Neutrophil Count 4.5 X10^3/uL (2.0-7.7); Basophil# 0.02 X10^3/uL; Basophil% 0.4 % (0-1); Eosinophil# 0.03 X10^3/uL; Eosinophils% 0.5 % (0-5); Hematocrit 35.7 % (37-47); Hemoglobin 11.8 g/dL (12.0-15.0); Lymphocyte # 0.65 X10^3/ul (0.83-4.51); Lymphocyte % 11.4 % (19-41); Mean Corp Hgb Conc 33.1 g/dL (32-36); Mean Corpuscular Volume 93.7 fL (81-99); Mean Platelet Vol. 9.8 fl (6.2-12.0); Monocyte# 0.46 X10^3/uL; Monocyte% 8.1 % (0-10); NRBC Flagged by Analyzer 0 % (0-5); Neutrophil # 4.53 X10^3/uL (2.7-7.7); Neutrophil % 79.2 % (47-70); Platelet Count 304 K/mm3 (150-450); RBC Distribution Width CV 12.8 % (11.6-14.6); RBC Distribution Width SD 43.9 fl (35.1-43.9); Red Blood Count 3.81 M/mm3 (4.2-5.4); White Blood Count 5.7 K/mm3 (4.4-11.0)
[2025-02-24 11:03] LABS: AST(SGOT) 23 U/L (<=31); Alanine Aminotransfer ALT/SGPT 23 U/L (<=34); Alkaline Phosphatase 91 U/L (35-104); Anion Gap 10 (5-15); BUN 14 mg/dL (4-19); BUN/Creat Ratio 14.9 RATIO (10-20); Calcium,Total 9.3 mg/dL (7.6-11.0); Carbon Dioxide 23.6 mmol/L (21.0-32.0); Chloride 103 mmol/L (98-108); Creatinine, Serum 0.92 mg/dL (0.70-1.20); EST Glomerular Filtration Rate 64 (>60); Glucose 84 mg/dL (70-99); Potassium 3.9 mmol/L (3.3-5.1); Protein, Total 5.9 g/dL (5.9-8.4); Sodium Level 136 mmol/L (133-145); Total Bilirubin 0.37 mg/dL (0.00-1.30)
== END | disposition home or self-care (01) ==
LOC: MTLAB 07:44
PROVIDERS: PCP Family Medicine; Referring Provider Internal Medicine Rheumatology; Visit Provider Internal Medicine Rheumatology
DX: M05.79 Rheumatoid arthritis with rheumatoid factor of multiple sites without organ or systems involvement (principal); Z79.899 Other long term (current) drug therapy
CPT/HCPCS: 36415; 80053; 85025

== ENCOUNTER → 2025-05-18 | Outpatient (CLI) | payer MEDICARE, OTHER, SELFPAY ==
--- OUTSIDE RECORDS SUMMARY | 2025-05-18 07:21 | XMS RPT_ITS | CCD ---
Author Organization [facility] CliniSysd Care Team Providers Care Operations Forester Name Role Phone Lotus FIELD, Guille Eden Primary Care Provider Guille Gautam MD Primary Care Provider Sudha CODING MACHINE OPERATOR.BOAT CANVAS MAKER INSTALLER, Chely Unavailable Louis CODING MACHINE OPERATOR.BOAT CANVAS MAKER INSTALLER, Jing Knowles Unavailable [phone] Lotus FIELD, Dr. Han Primary Care Provider [phone] Kyle FIELD, Dr. Collazo Attending Provider [phone] Kyle FIELD, Dr. Collazo Referring Provider Daniel FIELD, Dr. Mccarthy Other Provider [phone] Daniel FIELD, Dr. Mccarthy Attending Provider Daniel FIELD, Dr. Mccarthy Referring Provider Stone FIELD, Dr. Bucio Attending Provider [phone] Stone FIELD, Dr. Bucio Referring Provider [facility] Unavailable Vellanki, Shari Attending Unavailable Camronlanki, Shari Referring Unavailable Camronlanki, Shari Attending Unavailable [facility] Unavailable Vellanki, Shari Referring Unavailable Zay Wright Attending Unavailable Zay Wright Referring Unavailable Lotus, Guille Primary Care Unavailable Vellanki, Shari Consulting Unavailable [facility] Care Unavailable Vellanki, Shari Attending Unavailable Vellanki, Shari Referring Unavailable [place], Guille Primary Care Unavailable Vellanki, Shari Attending Unavailable Vellanki, Shari Referring Unavailable Zay Wright Attending Unavailable Zay Wright Referring Unavailable Lotus, Guille Primary Care Unavailable Zay Wright Attending Unavailable [place], Guille Primary Care Unavailable [place], [facility] Primary Care Unavailable Fortunato Ritter Attending Unavailable Fortunato Ritter Referring Unavailable [facility] Primary [facility] Unavailable Osmin Jordan Attending Unavailable Osmin Jordan Attending Unavailable Osmin Jordan Referring Unavailable [facility] Primary Care Unavailable [facility] Unavailable Zay Wright Referring Unavailable Shari Sanchez Consulting Unavailable Zya Wright Attending Unavailable [facility] Primary Care Unavailable MARYJANE CALLAHAN Referring Unavail able MARYJANE CALLAHAN Attending Unavail able [facility] Primary Care Unavailable Allergies Allergy Classification Reported Allergen(s) Allergy Type Date of Onset Reaction(s) Facility (20 sources) Amoxicillin; Translations: [AMOXICILLIN] Drug Allergy 12-26-19 08 Rash, GI [facility] (20 sources) Ciprofloxacin; Translations: [CIPROFLOXACIN] Drug Allergy 09-20-20 11 [facility] Work Phone: (18 sources) Ciprofloxacin; Translations: [ciprofloxacin HCl] Drug Allergy 01-30-20 16 [facility] (20 sources) Codeine; Translations: [CODEINE] Drug Allergy 08-04-20 10 GI [facility] (20 sources) Hydroxychloroquine; Translations: [hydroxychloroquine sulfate] Drug Allergy 10-28-20 14 [facility] (3 sources) mycophenolate mofetil Drug Allergy 01-30-20 16 [facility] Work Phone: (17 sources) Sulfamethoxazole Drug Allergy 01-30-20 16 [facility] (17 sources) Trimethoprim Drug Allergy 01-30-20 16 [facility] (20 sources) Clindamycin; Translations: [CLINDAMYCIN] Drug Allergy 09-20-20 11 [facility] Work Phone: (20 sources) Seasonal allergy; Translations: [SEASONAL ALLERGIES] Allergy to substance 03-25-20 18 Other: See [facility] (20 sources) Sulfamethoxazole / Trimethoprim; Translations: [SULFAMETHOXAZOLE-TR IMETHOPRIM] Drug Allergy 02-08-20 11 [facility] Work Phone: (1 source) Amoxicillin Drug Allergy 08-17-20 22 [facility] Repository (1 source) Ciprofloxacin Drug Allergy 08-17-20 22 [facility] Rep[facility] (1 source) Codeine Drug Allergy 08-17-20 22 [facility] Repository (1 source) Sulfamethoxazole Drug Allergy 08-17-20 [facility] Repository (1 source) Trimethoprim Drug Allergy 08-17-20 [facility] Repository Medications Current Medications Medication Drug Class(es) Dates Sig (Normalized) Sig (Original) 1 ml abatacept 125 mg/ml prefilled syringe (20 sources) Selective T Cell Costimulation Modulator Start: 08-17-2022 Abatacept (Orencia) 125 mg/mL Syringe Active 125 mg SC August 17, 2022 12:00am Start: 08-17-2022 Abatacept (Ore ncia) 125 mg/mL Syringe Active 125 MG SC August 17, 2022 12:00am Start: 05-10-2020 abatacept 125 mg/mL one time a week. 05/10/2020 Active Comment on above: one time a week. AUTOLOGOUS SERUM DROPS 50% OPHTH drop (20 sources) Start: 7 take 1 drop(s) into the eye(s) every two hours AUTOLOGOUS SERUM DROPS 50% OPHTH drop Indications: Keratoconjunctivitis sicca, in Sjogren's syndrome (HCC) Use 1 Drop in both eyes every 2 hours while awake. Refrigerate, Discard in 7 days, Keep unopened bottles in Freezer 1 Bottle 12/19/2016 Active Start: 12-19-2016 take 1 drop(s) into the eye(s) every two hours AUTOLOGOUS SERUM DROPS 50% OPHTH drop Indications: Keratoconjunctivitis sicca, in Sjogren's syndrome (HCC) Use 1 Drop in both eyes every 2 hours while awake. Refrigerate, Discard in 7 days, Keep unopened bottles in Freezer 1 Bottle 0 12/19/2016 Active Comment on above: Use 1 Drop in both e yes every 2 hours while awake. Refrigerate, Discard in 7 days, Keep unopened bottles in Freezer biotin 1 mg oral capsule (20 sources) Start: 01-30-2016 Biotin 1 MG capsule Active 1000 ug PO THREE TIMES A DAY January 30, 2016 12:00am Start: 01-30-2016 take 1000 ug by mout h three times daily Biotin Active 1000 MCG PO THREE TIMES A DAY January 30, 2016 12:00am Start: 11-30-2014 biotin 1,000 m cg chew 11/30/2014 Active calcium carbonate 1500 mg / cholecalciferol 0.01 mg oral capsule (20 sources) Vitamin D Start: 10-30-2016 take 1 tablet by mouth twice daily Calcium-Cholecalciferol, D3, (CALCIUM 600 WITH VITAMIN D3) 600 mg(1,500mg) -400 unit cap Take 1 tablet by mouth twice daily. 60 capsule 12 10/30/2016 Active Start: 01-30-2016 take 1 tablet by sheryl th once daily Ca-D3-Mag Jh-Uyay-Jdl-Temo-Bor 1 EACH tablet,chewable Active 1 NMA PO DAILY January 30, 2016 12:00am Start: 01-30-2016 Ca-D3-Mag Ox-Z ajr-Ivt-Ihbw-Bor Active 1 EACH PO DAILY January 30, 2016 12:00am Comment on above: Take 1 tablet by sheryl th twice daily. carboxymethylcell/hypromello se (GENTEAL GEL OPHTHALMIC) (20 sources) carboxymethylcel l/hypromel lose (GENTEAL GEL OPHTHALMIC) Use in eyes. Active carboxymethylcel l/hypromellose (GENTEAL GEL OPHTHALMIC) Use in eyes. 0 Active Comment on above: Use in eyes. clobetasol propionate 0.5 mg/ml medicated shampoo (20 sources) Corticosteroid Start: 08-08-2023 Clobetasol Propionate 0.05 % sham LATHER INTO SCALP 10 MINUTES BEFORE SHOWERING. WASH W/ REGULAR SHAMPOO AFTERWARDS. 08/08/2023 Active Start: 08-07-2023 clobetasol (TE MOVATE) 0.05 % cream APPLY TO ANY AREAS OF RASH THAT YOU CAN SEE OR FEEL ON THE BODY 1 X DAILY, NEEDED FOR FLARES. 08/07/2023 Active Start: 08-07-2023 clobetasol (TE MOVATE) 0.05 % cream APPLY TO ANY AREAS OF RASH THAT YOU CAN SEE OR FEEL ON THE BODY 1 X DAILY, NEEDED FOR FLARES. 0 08/07/2023 Active Clobetasol Propi angella (TEMOVATE) 0.05 % external solution Apply to affected area as needed. Active Comment on above: Apply to affected ar ea as needed. APPLY TO ANY AREAS O F RASH THAT YOU CAN SEE OR FEEL ON THE BODY 1 X DAILY, NEEDED FOR FLARES. LATHER INTO SCALP 10 MINUTES BEFORE SHOWERING. WASH W/ REGULAR SHAMPOO AFTERWARDS. Clobetasol Emollient 0.05% Crm (17 sources) Start: 01-30-2016 Clobetasol Emollient 0.05% Crm Active DAILY January 30, 2016 11:02am Start: 01-30-2016 Clobetasol Emo llient 0.05% Crm Active 1 NMA TD SUSA January 30, 2016 12:00am Start: 01-30-2016 Clobetasol Emo llient 0.05% Crm Active 1 APPLIC TD SUSA January 29, 2016 11:00pm Start: 01-30-2016 Clobetasol Emo llient 0.05% Crm Active 1 APPLIC TD SUSA January 30, 2016 12:00am Start: 01-30-2016 Clobetasol Emo llient 0.05% Crm Active DAILY January 30, 2016 12:00am cycloSPORINE 0.5 mg/ml ophthalmic suspension (20 sources) Calcineurin Inhibitor Immunosuppressant Start: 01-30-2016 take 1 drop(s) into the eye(s) four times daily Cyclosporine (Restasis Ophthalmic) 1 DROP Droperette Active 1 DRP Each Eye 4 TIMES DAILY January 30, 2016 12:00am CYCLOSPORINE (RE STASIS OPHTHALMIC) Use in eyes four times daily. Active CYCLOSPORINE (RE STASIS OPHTHALMIC) Use in eyes four times daily. 0 Active Comment on above: Use in eyes four gwyn es daily. Cyclosporine (Restasis Ophthalmic) 1 DROP dropperette (14 sources) Start: 01-30-2016 take 1 drop(s) into the eye(s) four times daily Cyclosporine (Restasis Ophthalmic) 1 DROP dropperette Active 1 NMA Each Eye 4 TIMES DAILY January 30, 2016 12:00am Start: 01-30-2016 take 1 drop(s) into the eye(s) four times daily Cyclosporine (Restasis Ophthalmic) 1 DROP dropperette Active 1 DRP Each Eye 4 TIMES DAILY January 29, 2016 11:00pm Start: 01-30-2016 take 1 drop(s) into the eye(s) four times daily Cyclosporine (Restasis Ophthalmic) 1 DROP dropperette Active 1 DRP Each Eye 4 TIMES DAILY January 30, 2016 12:00am Difluprednate (Durezol) 0.05 % Drops (14 sources) Start: 08-17-2022 Difluprednate (Durezol) 0.05 % Drops Active 1 NMA EACH EYE TWICE A DAY August 17, 2022 12:00am start on Day 15 of therapy Start: 08-17-2022 Difluprednate (Durezol) 0.05 % Drops Active 1 DRP EACH EYE TWICE A DAY August 16, 2022 11:00pm start on Day 15 of therapy Start: 08-17-2022 Difluprednate (Durezol) 0.05 % Drops Active 1 DRP EACH EYE TWICE A DAY August 17, 2022 12:00am start on Day 15 of therapy doxycycline monohydrate 100 mg oral capsule (20 sources) Tetracycline-class Drug Start: 08-17-2022 take 1 capsule by mouth twice daily Doxycycline Monohydrate 100 mg Capsule Active 100 mg PO TWICE A DAY August 17, 2022 12:00am take 1 capsule by mouth twice [place] doxycycline hyclate (VIBRAMYCIN) 100 mg capsule Take 100 mg by mouth twice daily. Active Comment on above: Take 100 mg by mouth twice daily. estradiol 0.1 mg/ml vaginal cream (20 sources) Estrogen Start: 03-15-2025 estradiol (ESTRACE) 0.01 % (0.1 mg/gram) vaginal cream Indications: Vaginal atrophy Use 1/2-1gram vaginally 1-3 times weekly for maintenance 42.5 g 2 03/15/2025 Active Start: 08-05-2023 End: 08-07-2024 estradiol (ESTRACE) 0.01 % ( 0.1 mg/gram) vaginal cream Indications: Vaginal atrophy Use 1/2-1gram vaginally 1-3 times weekly for maintenance 42.5 g 2 08/07/2024 Active Start: 06-10-2023 End: 08-03-2023 estradiol (ESTRACE) 0.01 % ( 0.1 mg/gram) vaginal cream Indications: Vaginal atrophy Use 1/2-1gram vaginally 1-3 times weekly for maintenance 42.5 g 2 06/10/2023 08/03/2023 Discontinued Start: 08-17-2022 Estradiol (Est race) 0.01 % (0.1 mg/gram) Cream Active 1 g VAGINAL EVERY WEEK August 17, 2022 12:00am Start: 01-09-2022 End: 06-07-2023 estradiol (ESTRACE) 0.01 % ( 0.1 mg/gram) vaginal cream Indications: Vaginal atrophy Use 1 gram nightly x 2 weeks and then use 1/2-1gram 1-3 times weekly for maintenance 42.5 g 0 11/28/2022 02/08/2023 Discontinued Comment on above: Use 1 gram nightly x 2 weeks and then use 1/2-1gram 1-3 times weekly for maintenance Use 1/2-1gram vagina lly 1-3 times weekly for maintenance 1 ml etanercept 50 mg/ml prefilled syringe (3 sources) Tumor Necrosis Factor [place] Start: 01-30-20 16 inject 50 mg by subcutaneous injection every week Etanercept (Enbrel) 50 MG/ML Ml Active 50 MG SQ Q7D January 30, 2016 12:00am famotidine 20 mg oral tablet (20 sources) Histamine-2 Receptor Antagonist Start: 08-17-20 22 take 1 tablet by mouth twice daily Famotidine 20 mg Tablet Active 20 mg PO TWICE A DAY August 17, 2022 12:00am Comment on above: Take 20 mg by mouth twice daily. Lactase (20 sources) lactase (LACTAID ORAL) Take by mouth. Active lactase (LACTAID ORAL) Take by mouth. 0 Active Comment on above: Take by mouth. lansoprazole 30 mg delayed release oral capsule (3 sources) Proton Pump Inhibitor Start: 4 take 30 mg by mouth once daily Lansoprazole Active 30 MG PO DAILY July 08, 2014 12:00am Gyfiaiih-Ltw-Ganl Fum-Folic Ac (Monocaps Tablet) 1 EACH tablet (17 sources) Start: 6 Mspcziqo-Ptw-Txqa Fum-Folic Ac (Monocaps Tablet) 1 EACH tablet Active 1 EACH PO DAILY January 30, 2016 11:02am Start: 01-30-2016 Vmizlqbo-Gpu-N ace Fum-Folic Ac (Monocaps Tablet) 1 EACH tablet Active 1 NMA PO DAILY January 30, 2016 12:00am Start: 01-30-2016 Kuzqaguj-Awx-O ace Fum-Folic Ac (Monocaps Tablet) 1 EACH tablet Active 1 EACH PO DAILY January 29, 2016 11:00pm Start: 01-30-2016 Eruiezpf-Pzt-D ace Fum-Folic Ac (Monocaps Tablet) 1 EACH tablet Active 1 EACH PO DAILY January 30, 2016 12:00am multivitamins(DAILY MULTIVITAMIN TAB) (20 sources) Start: 09-20-2008 multivitamins(DAILY MULTIVITAMIN TAB) Take one(1) tablet daily. 0 0 09/20/2008 Active Comment on above: Take one(1) tablet d aily. mycophenolate mofetil 500 mg oral tablet (20 sources) Start: 08-17-2022 take 1 tablet by mouth twice daily Mycophenolate Mofetil (Cellcept) 500 mg Tablet Active 500 mg PO TWICE A DAY August 17, 2022 12:00am Comment on above: Take 500 mg by mouth twice daily. olopatadine 2 mg/ml ophthalmic solution (20 sources) Histamine-1 Receptor Inhibitor Start: 08-17-2022 Olopatadine (Pataday) 0.2 % Drops Active 1 NMA EACH EYE TWICE A DAY August 17, 2022 12:00am olopatadine HCl (PATADAY OPHTHALMIC) Use in eyes. Active olopatadine HCl (PATADAY OPHTHALMIC) Use in eyes. 0 Active Comment on above: Use in eyes. predniSONE 20 mg oral tablet (20 sources) Start: 08-08-2023 take 1 tablet by mouth once daily predniSONE (DELTASONE) 20 mg tablet TAKE 1 TABLET BY MOUTH EVERY DAY FOR 3 WEEKS 08/08/2023 Active Start: 07-08-2014 End: 10-08-2023 predniSONE (DELTASONE) 5 mg tablet Take 10 mg by mouth as needed. 0 07/08/2014 10/08/2023 Discontinued Comment on above: Take 10 mg by mouth as needed. TAKE 1 TABLET BY SHERYL TH EVERY DAY FOR 3 WEEKS saliva substitute combo no.9 (BIOTENE DRY MOUTH ORAL RINSE) mwsh (20 sources) saliva substitut e combo no.9 (BIOTENE DRY MOUTH ORAL RINSE) mwsh Use 15 mL as instructed. Active saliva substitut e combo no.9 (BIOTENE DRY MOUTH ORAL RINSE) mwsh Use 15 mL as instructed. 0 Active Comment on above: Use 15 mL as instruc colton. sucralfate 1000 mg oral tablet (20 sources) Aluminum Complex Start: 07-05-20 End: 05-28-20 26 take 1 tablet by mouth at bedtime sucralfate (CARAFATE) 1 gram tablet Indications: GERD without esophagitis Take 1 tablet by mouth before meals and at bedtime. 360 tablet 04/14/2025 04/14/2026 Active Comment on above: Take 1 tablet by sheryl th before meals and at bedtime. tacrolimus 0.001 mg/mg topical ointment (20 sources) Calcineurin Inhibitor Immunosuppressant Start: 08-17-20 Tacrolimus (Protopic) 0.1 % Ointment Active 1 NMA TOPICAL MOTUWETHFR August 17, 2022 12:00am Start: 08-17-2022 Tacrolimus (Pr otopic) 0.1 % Ointment Active 1 APPLIC TOPICAL MOTUWETHFR August 17, 2022 12:00am Start: 01-07-2020 tacrolimus (CO OTOPIC) 0.03 % ointment Apply to affected area once daily. 01/07/2020 Active Comment on above: Apply to affected ar ea once daily. triamcinolone acetonide 1 mg/ml topical cream (20 sources) Corticosteroid Start: 01-30-2016 Triamcinolone 0.1% Cream (Kenalog) 1 APPLIC Tube Active 1 APPLIC TOPICAL TWICE A DAY January 30, 2016 12:00am triamcinolone ac etonide (NASACORT AQ) 55 mcg nasal inhaler Use 2 Sprays in the nose as needed. Active Comment on above: Use 2 Sprays in the nose as needed. Xylitol (20 sources) xylitol (XYLIMEL TS MUCOUS MEM) Use as instructed. Active xylitol (XYLIMEL TS MUCOUS MEM) Use as instructed. 0 Active Comment on above: Use as instructed. Completed/Discontinued Medications Medication Drug Class(es) Dates Sig (Normalized) Sig (Original) Acetylcysteine (9 sources) Antidote, Mucolytic, Antidote for Acetaminophen Overdose End: 07-05-2023 acetylcysteine ophthalmic solution 10% (CPD) twice daily. 0 07/05/2023 Discontinued acetylcysteine o phthalmic solution 10% (CPD) twice daily. 0 Active Comment on above: twice daily. dexamethasone 1 mg/ml / tobramycin 3 mg/ml ophthalmic suspension (12 sources) Aminoglycoside Antibacterial, Corticosteroid Start: 11-04-2018 End: 07-05-2023 tobramycin-dexamethas one (TOBRADEX) ophthalmic suspension Start: 01-30-2016 Tobramycin-Dex amethasone Active 1 DRP EVERY 6 HOURS January 30, 2016 12:00am docusate sodium 100 mg oral capsule (9 sources) Start: 08-14-2019 End: 07-05-2023 take 1 capsule by mouth once daily docusate sodium (COLACE) 100 mg capsule Take 1 capsule by mouth once daily. 0 08/14/2019 07/05/2023 Discontinued Comment on above: Take 1 capsule by mo [facility] once daily. Ketotifen (9 sources) Histamine-1 Receptor Inhibitor End: 07-05-2023 ketotifen fumarate (ALAWAY OPHTHALMIC) Use in eyes. 0 07/05/2023 Discontinued ketotifen fumara te (ALAWAY OPHTHALMIC) Use in eyes. 0 Active Comment on above: Use in eyes. moxifloxacin 5 mg/ml ophthalmic solution (9 sources) Quinolone Antimicrobial Start: 1 End: 3 take 1 drop(s) into the eye(s) twice daily moxifloxacin (VIGAMOX) 0.5 % ophthalmic solution INSTILL 1 DROP INTO BOTH EYES TWICE A DAY 1 Bottle 5 05/23/2021 07/05/2023 Discontinued Comment on above: INSTILL 1 DROP INTO BOTH EYES TWICE A DAY Problems Active Problems Problem Classification Problem Date Documented Date Episodic/Chronic Deficiency and other anemia (1 source) Anemia; Translations: [Anemia, unspecified] 10-08-2023 Episodic Esophageal disorders (3 sources) Gastroesophageal reflux disease without esophagitis; Translations: [Gastro-esophageal reflux disease without esophagitis] 07-29-2023 Chronic Genitourinary symptoms and ill-defined conditions (2 sources) Nocturnal enuresis; Translations: [Nocturnal enuresis] Onset: 5 03-13-2024 Chronic Immunizations and screening for infectious disease (1 source) Encounter for screening for human papillomavirus (HPV); Translations: [Special screening examination for human papillomavirus (HPV)] Onset: 5 Episodic Malaise and fatigue (1 source) Fatigue; Translations: [Other fatigue] 10-08-2023 Episodic Menopausal disorders (7 sources) Atrophy of vagina; Translations: [Postmenopausal atrophic vaginitis] Onset: 5 Chronic Nonmalignant breast conditions (20 sources) Fibrocystic disease of breast; Translations: [Diffuse cystic mastopathy of unspecified breast] Onset: 8 04-04-2010 Chronic Other aftercare (1 source) Patient encounter status; Translations: [Encounter for therapeutic drug level monitoring] 10-08-2023 Episodic Other aftercare (1 source) Long-term current use of drug therapy; Translations: [Other intermediate (current) drug therapy] 10-08-2023 Episodic Other aftercare (3 sources) Other intermediate (current) drug therapy; Translations: [Other intermediate (current) drug therapy] Onset: 4 Episodic Other bone disease and musculoskeletal deformities (2 sources) Osteopenia; Translations: [Other specified disorders of bone density and structure, other site] 03-13-2024 Episodic Other circulatory disease (14 sources) Elevated blood pressure; Translations: [Elevated blood-pressure reading, without diagnosis of hypertension] 08-25-2022 Episodic Other female genital disorders (1 source) Other specified noninflammatory disorders of vagina; Translations: [Vaginal dryness] Onset: 5 Episodic Other inflammatory condition of skin (7 sources) Cutaneous lupus erythematosus; Translations: [Other local lupus erythematosus] Onset: 1 06-09-2021 Chronic Other inflammatory condition of skin (20 sources) Subacute cutaneous lupus erythematosus; Translations: [Subacute cutaneous lupus erythematosus] Onset: 1 07-05-2023 Chronic Other nervous system disorders (20 sources) Left-sided piriformis syndrome; Translations: [Lesion of sciatic nerve, left lower limb] Onset: 8 05-08-2018 Chronic Other screening for suspected conditions (not mental disorders or infectious disease) (13 sources) Breast finding ; Translations: [Inconclusive mammogram] Onset: 5 Episodic Other upper respiratory disease (20 sources) Allergic rhinitis due to pollen; Translations: [Allergic rhinitis due to pollen] Onset: 8 03-25-2018 Chronic Other upper respiratory disease (20 sources) Allergic rhinitis due to animals; Translations: [Allergic rhinitis due to animal (cat) (dog) hair and dander] Onset: 8 03-25-2018 Chronic Other upper respiratory disease (20 sources) Allergic rhinitis due to house dust mite; Translations: [Other allergic rhinitis] Onset: 8 03-25-2018 Chronic Rheumatoid arthritis and related disease (20 sources) Inflammatory polyarthropathy; Translations: [Inflammatory polyarthropathy] Onset: 5 05-24-2014 Chronic Systemic lupus erythematosus and connective tissue disorders (20 sources) Sjogren's syndrome; Translations: [Sicca syndrome, unspecified] Onset: 4 11-13-2021 Chronic Unclassified (1 source) Immunosuppression due to drug therapy (HCC); Translations: [Immunosuppression due to drug therapy (HCC)] Onset: 5 Past or Other Problems Problem Classification Problem Date Documented Da te Episodic/Chronic Nonspecific chest pain (20 sources) Chest pain; Translations: [Chest pain, unspecified] Onset: 12-20-2005 Resolved: 08-04-2010 08-25-2022 Episodic Other and unspecified benign neoplasm (9 sources) History of polyp of colon; Translations: [Personal history of colonic polyps] Onset: 08-10-2021 Resolved: 08-10-2021 08-10-2021 Episodic Other eye disorders (1 source) Dry eye syndrome of bilateral lacrimal glands; Translations: [Dry eye syndrome of bilateral lacrimal glands] Onset: 08-26-2024 Episodic Other gastrointestinal disorders (9 sources) Heartburn; Translations: [Heartburn] Onset: 08-10-2021 Resolved: 08-10-2021 08-10-2021 Episodic Residual codes; unclassified (20 sources) Insomnia; Translations: [Insomnia, unspecified] Onset: 07-16-2013 07-16-2013 Episodic Results Test Name Value Interpretation Reference Range Facility [facility] 03-15-2025 CNOV Office Visit (OBGYWM ) JAGDISH CASTILLO ([id number]) 1945 F Date Time Provider Department 03/15/25 8:20 AM MARYJANE CALLAHAN OBMALLORY During your visit today, we recorded the following information about you: Blood pressure Weight Height 124/66 57.6 kg 1.505 m Maryjane Callahan MD 03/15/2025 8:41 AM Signed Local Bulk Driver offered: Patient declines. Obst[facility]s [facility]ne[facility] [place] Annual Exam Subjective Recording using ambient [employer] software for draft documentation of the visit was discussed with the patient/authorized sales promotion representative; all questions welcomed and answered. Patient/authorized sales promotion representative agreed to proceed CHIEF COMPLAINT: The patient is a 79-year-old female with a history of dermatomyositis and polyarthritis presenting for a yearly exam. She reports concerns about bladder leakage and vaginal dryness. HPI: Urinary and Pelvic Floor Issues - Reports bladder leakage, which began last year and has not improved despite lifestyle modifications such as reducing caffeine intake and urinating routinely. - Uses Everdry underwear for protection, denies issues with odor or embarrassment. - Denies pain with urination. - Denies increased frequency of urination, but notes she does not wait to urinate. - Family history of bladder control issues; mother has no bladder control. Vaginal Dryness - Reports vaginal dryness with occasional stinging, which she attributes to urine from bladder leakage causing irritation. - Using estradiol vaginal cream every three days to manage dryness, but experiences breast tenderness if used more frequently. - Denies significant sexual activity. Sleep Disturbances - Reports variable sleep patterns, sometimes feeling extremely tired by 8 PM but waking up at 4 AM. - Other times, can stay up until 10 PM and sleep until 6 AM. - Notes that reducing caffeine intake has helped with sleep issues. Past Screenings - Mammogram: Recent, results not specified. - Pap Smear (2012): Normal - Colonoscopy (2020): Diverticulosis - Bone Density Scan (Last Year): Normal Medications: - Estradiol vaginal cream HISTORY: OB History Gravida3 Para2 Term2 Preterm0 AB1 Living2 SAB1 IAB0 Ectopic0 Multiple0 Live Births0 National Service Officer History LMP: Postmenopausal Age at Menarche: 47 Age at First : Age at Menopause: National Service Officer History Comments: Sexual Activity: Yes; Male; Post menopausal Contraception: No contraception data on record PAST MEDICAL HISTORY Diagnosis Date Arthritis Corneal ulcer 11/21/2015 od Dermatomyositis (HCC) Diffuse cystic mastopathy Esophageal reflux Inflammatory polyarthritis (HCC) Internal hemorrhoids without mention of complication Lupus SCLE-recent test was negative for lupus PONV (postoperative nausea and vomiting) Sjogren's disease [...] 06/2014 cyst drained from back of neck REMV CATARACT EXTRACAP,INSERT LENS Bilateral 12/2024 FAMILY HISTORY Problem Relation Age of Onset Hypertension Mother Arthritis Mother Cataract Mother Macular Degen Mother Hypertension Paternal Grandmother other (heart didease) Maternal Grandfather other (pancreatic cancer) Maternal Grandmother Coronary Artery Disease Father very late in life -- age 86 Heart Father DC in 2010 Coronary Artery Disease Other no premature first degree other (cyststic breats 3 sisters) Other Social History Tobacco Use Smoking status: Never Smokeless tobacco: Never Vaping Use Vaping status: Never Used Substance Use Topics Alcohol use: Yes Alcohol/week: 7.0 standard drinks of alcohol Types: 7 Glasses of wine per week Comment: glass of wine daily Drug use: No Current Outpatient Medications Medication Sig sucralfate (CARAFATE) 1 gram tablet Take 1 tablet by mouth before meals and at bedtime. clobetasol (TEMOVATE) 0.05 % cream APPLY TO ANY AREAS OF RASH THAT YOU CAN SEE OR FEEL ON THE BODY 1 X DAILY, NEEDED FOR FLARES. Clobetasol Propionate 0.05 % sham LATHER INTO SCALP 10 MINUTES BEFORE SHOWERING. WASH W/ REGULAR SHAMPOO AFTERWARDS. predniSONE (DELTASONE) 20 mg tablet TAKE 1 TABLET BY MOUTH EVERY DAY FOR 3 WEEKS lactase (LACTAID ORAL) Take by mouth. olopatadine HCl (PATADAY OPHTHALMIC) Use in eyes. saliva substitute combo no.9 (BIOTENE DRY MOUTH ORAL RINSE) mwsh Use 15 mL as instructed. xylitol (XYLIMELTS MUCOUS MEM) Use as instructed. triamcinolone acetonide (NASACORT AQ) 55 mcg nasal (more content not included)... Normal [facility] HIGH RISK HUMAN PAPILLOMA IVET (HPV), PCR FOR DETECTION AND GENOTYPINGon 03-15-2025 HPV 16 Ag Ql (Unsp spec) Not detected Normal Not detected [facility] Comment on above: Order Comment: Speci men Type: FLUID SPECIMEN Ordering Facility: [facility] Address: [address] [place] [address] Performed By: #### H PVHRT #### [facility] CLIA [id number] [address] [place] [address] [place] HPV 18 Ag Ql (Unsp spec) Not detected Normal Not detected [facility] Comment on above: Order Comment: Speci men Type: FLUID SPECIMEN Ordering Facility: [facility] Address: [address] [place] [address] Performed By: #### H PVHRT #### [facility] CLIA [id number] [address] [place] [address] [place] HPV 31+33+35+39+45+51+52+ 56+58+59+66+68 DNA UBALDO+probe Ql (Cvx) Not detected Normal Not detected [facility] Comment on above: Order Comment: Speci men Type: FLUID SPECIMEN Ordering Facility: [facility] Address: [address] [place] [address] Result Comment: High Risk HPV Other Type includes HPV types 31, 33, 35, 39, 45, 51, 52, 56, 58, 59, 66 and 68. Performed By: #### H PVHRT #### [facility] CLIA [id number] [address] [place] [address] [place] PAP TESTon 03-15-2025 ADEQUACY Normal [facility] Comment on above: Order Comment: Speci men Type: FLUID SPECIMEN Ordering Facility: [facility] Address: [address] [place] [address] Result Comment: Sati sfactory for interpretation. Transformation zone present Performed By: #### L [id number] #### [facility] CLIA [id number] [address] [place] [address] [place] CASE REPORT Normal [facility] Comment on above: Order Comment: Speci men Type: FLUID SPECIMEN Ordering Facility: [facility] Address: [address] [place] [address] Result Comment: Gyne cologic Cytology Report Case: [id number] Authorizing Provider: Maryjane Callahan, Collected: 03/15/2025 08:54 AM Ordering Location: OB/Gynecology Received: 03/15/2025 12:12 PM First Screen: Rosamariaa, [place], [place], ASCP Specimen: Pap Test, ThinPrep, Cervix Performed By: #### L [id number] #### [facility] CLIA [id number] [address] [place] [address] [place] [facility] CLINICAL HISTORY, CYTOLOGY, CHICKEN STUFFER Routine Exam Normal [facility] Comment on above: Order Comment: Speci men Type: FLUID SPECIMEN Ordering Facility: [facility] Address: [address] [place] [address] Result Comment: Stephanie deckerusal Performed By: #### L [id number] #### [facility] CLIA [id number] [address] [place] [address] [place] [facility] FINAL PERFORMING LAB Normal [facility] Comment on above: Order Comment: Speci men Type: FLUID SPECIMEN Ordering Facility: [facility] Address: [address] [place] [address] Result Comment: Tech nical component, telesales supervisor screening performed at: [facility], [address] [place], [place] [id number] CLIA: [id number] Diagnostic interpretation performed at: [facility], [address] [place], [place] [id number] CLIA# [id number] Secret Service Agent: Fco Garcia MD Performed By: #### L [id number] #### [facility] CLIA [id number] [address] [place], [place] [id number] [place] INTERPRETATION, CYTOLOGY, CHICKEN STUFFER Normal [facility] Comment on above: Order Comment: Speci men Type: FLUID SPECIMEN Ordering Facility: [facility] Address: [address] [place] [address] Result Comment: Nega tive for intraepithelial lesion or malignancy. at 1637 EDT Performed By: #### L [id number] #### [facility] CLIA [id number] [address] [place] [address] [place] PAP DISCLAIMER COMMENT The Pap Smear is a screening test for cervical cancer. False negative results occur with all screening tests, emphasizing the need for rescreening at recommended intervals, and clinical correlation. Normal [facility] Comment on above: Order Comment: Speci men Type: FLUID SPECIMEN Ordering Facility: [facility] Address: [address] [place] [address] Performed By: #### L [id number] #### [facility] CLIA [id number] [address] [place] [address] [place] PAP INSURANCE SALES EXECUTIVE COMMENT This specimen has be en analyzed by the ThinPrep Imaging System, an automated imaging and review system, which assists the laboratory in evaluating cells on ThinPrep Pap tests. Following automated imaging, selected pizano from every slide are reviewed by a telesales supervisor. Normal [facility] Comment on above: Order Comment: Speci men Type: FLUID SPECIMEN Ordering Facility: [facility] Address: [address] [place] [address] Performed By: #### L [id number] #### [facility] CLIA [id number] [address] [place] [address] [place] Absolute neutrophil countOrd ered By: Shari Sanchez on 02-24-2025 Neutrophils (Bld) [#/Vol] 4.5 10*3/uL 2.0-7.7 [facility] Anion gap in Serum or Plasma Ordered By: Shari Sanchez on 02-24-2025 Anion gap [Moles/Vol] 10 mmol/L 5-15 [facility] BUN/creatinine ratioOrdered By: Shari Daniel on 02-24-2025 Urea nitrogen/Creatinine [Mass ratio] 14.9 mg/mg 10-20 [facility] Basophil percentageOrdered B y: Shari Sanchez on 02-24-2025 Basophils/100 WBC (Bld) 0.4 % 0-1 [facility] Bilirubin, totalOrdered By: Shari Daniel on 02-24-2025 Bilirubin [Mass/Vol] 0.37 mg/dL 0.00-1.30 [facility] CBC W/Diff, Automatedon Absolute Lymph 0.65 X10 3/uL Low 0.83-4.51 [facility] Comment on above: Performed By: #### L 100.0100, L500.4050 #### [facility] [address] [place], [address] Absolute Neut 4.5 X10 3/uL Normal 2.0-7.7 [facility] Comment on above: Performed By: #### L 100.0100, L500.4050 #### [facility] [address] [place], [address] Basophils/100 WBC (Bld) 0.4 % Normal 0-1 [facility] Comment on above: Performed By: #### L 100.0100, L500.4050 #### [facility] [address] [place], [address] Eosinophils/100 WBC (Bld) 0.5 % Normal 0-5 [facility] Comment on above: Performed By: #### L 100.0100, L500.4050 #### [facility] [address] [place], [address] Erythrocyte distribution width (RBC) [Ratio] 12.8 % Normal 11.6-14.6 [facility] Comment on above: Performed By: #### L 100.0100, L500.4050 #### [facility] [address] [place], [address] Hematocrit (Bld) [Volume fraction] 35.7 % Low 37-47 [facility] Comment on above: Performed By: #### L 100.0100, L500.4050 #### [facility] [address] [place], [address] Hemoglobin (Bld) [Mass/Vol] 11.8 g/dL Low 12.0-15.0 [facility] Comment on above: Performed By: #### L 100.0100, L500.4050 #### [facility] [address] [place], [address] IG% 0.400 Normal 0.0-0.9 [facility] Comment on above: Result Comment: IG% - Immature Granulocytes (promyelocytes, myelocytes and metamyelocytes) > 1% indicates that a LEFT SHIFT is Present. Performed By: #### L 100.0100, L500.4050 #### [facility] [address] [place], [address] Lymphocytes/100 WBC (Bld) 11.4 % Low 19-41 [facility] Comment on above: Performed By: #### L 100.0100, L500.4050 #### [facility] [address] [place], [address] MCH (RBC) [Entitic mass] 31.0 pg Normal 27.0-32.0 [facility] Comment on above: Performed By: #### L 100.0100, L500.4050 #### [facility] [address] [place], [address] MCHC (RBC) [Mass/Vol] 33.1 g/dL Normal 32-36 [facility] Comment on above: Performed By: #### L 100.0100, L500.4050 #### [facility] [address] [place], [address] MCV (RBC) [Entitic vol] 93.7 fL Normal 81-99 [facility] Comment on above: Performed By: #### L 100.0100, L500.4050 #### [facility] [address] [place], [address] Monocytes/100 WBC (Bld) 8.1 % Normal 0-10 [facility] Comment on above: Performed By: #### L 100.0100, L500.4050 #### [facility] [address] [place], [address] Neutrophils/100 WBC (Bld) 79.2 % High 47-70 [facility] Comment on above: Performed By: #### L 100.0100, L500.4050 #### [facility] [address] [place], [address] Nucleated RBC (Bld) [#/Vol] 0 10*3/uL Normal 0-5 [facility] Comment on above: Performed By: #### L 100.0100, L500.4050 #### [facility] [address] [place], [address] Platelet mean volume (Bld) [Entitic vol] 9.8 fL Normal 6.2-12.0 [facility] Comment on above: Performed By: #### L 100.0100, L500.4050 #### [facility] [address] [place], [address] Platelets (Bld) [#/Vol] 304 10*3/uL Normal 150-450 [facility] Comment on above: Performed By: #### L 100.0100, L500.4050 #### [facility] [address] [place], [address] RBC (Bld) [#/Vol] 3.81 10*6/uL Low 4.2-5.[address] [facility] Comment on above: Performed By: #### L 100.0100, L500.4050 #### [facility] [address] [place], [address] RDW SD 43.9 fl Normal 35.1-43.9 [facility] Comment on above: Performed By: #### L 100.0100, L500.4050 #### [facility] [address] [place], [address] WBC (Bld) [#/Vol] 5.7 10*3/uL Normal 4.4-11.0 [facility] Comment on above: Performed By: #### L 100.0100, L500.4050 #### [facility] [address] [place], [address] Carbon dioxide, total [Moles /volume] in Central venous bloodOrdered By: Shari Sanchez on 02-24-2025 CO2 [Moles/Vol] 23.6 mmol/L 21.0-32.0 [facility] Chloride assayOrdered By: Manuel Sanchez on 02-24-2025 Chloride [Moles/Vol] 103 mmol/L 98-108 [facility] Comprehensive Metabolic Prof ilon 02-24-2025 Albumin [Mass/Vol] 4.0 g/dL Normal 3.4-4.8 [facility] Comment on above: Performed By: #### L 100.0100, L500.4050 #### [facility] [address] [place], [address] Albumin/Globulin [Mass ratio] 2.0 {ratio} Normal 0.9-2.4 [facility] Comment on above: Performed By: #### L 100.0100, L500.4050 #### [facility] [address] [place], [address] ALK PHOS 91 U/L Normal 35-104 [facility] Comment on above: Performed By: #### L 100.0100, L500.4050 #### [facility] [address] [place], [address] ALT [Catalytic activity/Vol] 23 U/L Normal <=34 [facility] Comment on above: Performed By: #### L 100.0100, L500.4050 #### [facility] [address] [place], [address] AST [Catalytic activity/Vol] 23 U/L Normal <=31 [facility] Comment on above: Performed By: #### L 100.0100, L500.4050 #### [facility] [address] [place], [address] Bilirubin [Mass/Vol] 0.37 mg/dL Normal 0.00-1.30 [facility] Comment on above: Performed By: #### L 100.0100, L500.4050 #### [facility] [address] [place], [address] BUN/CRE 14.9 RATIO Normal 10-20 [facility] Comment on above: Performed By: #### L 100.0100, L500.4050 #### [facility] [address] [place], [address] Calcium [Mass/Vol] 9.3 mg/dL Normal 7.6-11.0 [facility] Comment on above: Performed By: #### L 100.0100, L500.4050 #### [facility] [address] [place], [address] Chloride [Moles/Vol] 103 mmol/L Normal 98-108 [facility] Comment on above: Performed By: #### L 100.0100, L500.4050 #### [facility] [address] [place], [address] CO2 [Moles/Vol] 23.6 mmol/L Normal 21.0-32.0 [facility] Comment on above: Performed By: #### L 100.0100, L500.4050 #### [facility] [address] [place], [address] Creatinine [Mass/Vol] 0.92 mg/dL Normal 0.70-1.20 [facility] Comment on above: Performed By: #### L 100.0100, L500.4050 #### [facility] [address] [place], [address] GAP 10 Normal 5-15 [facility] Comment on above: Performed By: #### L 100.0100, L500.4050 #### [facility] [address] [place], [address] GFR/1.73 sq M.predicted among non-blacks MDRD (S/P/Bld) [Vol rate/Area] 64 mL/min/{1.73_m2} Normal >60 [facility] Comment on above: Result Comment: mL/m in/1.73m2 CKD-EPI Creatinine Equation (2020) Performed By: #### L 100.0100, L500.4050 #### [facility] [address] [place], [address] Globulin (S) [Mass/Vol] 2.0 g/dL Low 2.2-4.2 [facility] Comment on above: Performed By: #### L 100.0100, L500.4050 #### [facility] [address] [place], [address] Glucose [Mass/Vol] 84 mg/dL Normal 70-99 [facility] Comment on above: Performed By: #### L 100.0100, L500.4050 #### [facility] [address] [place], [address] Potassium [Moles/Vol] 3.9 mmol/L Normal 3.3-5.1 [facility] Comment on above: Performed By: #### L 100.0100, L500.4050 #### [facility] [address] [place], [address] Sodium [Moles/Vol] 136 mmol/L Normal 133-145 [facility] Comment on above: Performed By: #### L 100.0100, L500.4050 #### [facility] [address] [place], [address] T PROT 5.9 g/dL Normal 5.9-8.4 [facility] Comment on above: Performed By: #### L 100.0100, L500.4050 #### [facility] [address] [place], [address] Urea nitrogen [Mass/Vol] 14 mg/dL Normal 4-19 [facility] Comment on above: Performed By: #### L 100.0100, L500.4050 #### [facility] [address] [place], [address] Eosinophil percentageOrdered By: Shari Sanchez on 02-24-2025 Eosinophils/100 WBC (Bld) 0.5 % 0-5 [facility] Erythrocyte distribution wid th (RBC) [Ratio]Ordered By: Shari Sanchez on 02-24-2025 Erythrocyte distribution width (RBC) [Entitic vol] 43.9 fL 35.1-43.9 [facility] Erythrocyte distribution wid th ratioOrdered By: Shari Sanchez on 02-24-2025 Erythrocyte distribution width (RBC) [Ratio] 12.8 % 11.6-14.6 [facility] GFR/1.73 sq M.predicted navya g non-blacks MDRD (S/P/Bld) [Vol rate/Area]Ordered By: Shari Sanchez on 02-24-2025 Estimated GFR (MDRD) Non-Af Amer 64 >60 [facility] Comment on above: mL/min/1.73m2 CKD-EP I Creatinine Equation (2020) Hematocrit Auto (Bld) [Volum e fraction]Ordered By: Shari Sanchez on 02-24-2025 Hematocrit (Bld) [Volume fraction] 35.7 % Low 37-47 [facility] Hemoglobin measurementOrdere d By: Shari Sanchez on 02-24-2025 Hemoglobin (Bld) [Mass/Vol] 11.8 g/dL Low 12.0-15.0 [facility] Immature granulocytes/100 WB C Auto (Bld)Ordered By: Shari Sanchez on 02-24-2025 Immature granulocytes/100 WBC (Bld) 0.400 % 0.0-0.9 [facility] Comment on above: IG% - Immature Granu locytes (promyelocytes, myelocytes and metamyelocytes) > 1% indicates that a LEFT SHIFT is Present. Laboratory - Chemistry and C hemistry - challengeOrdered By: Shari Sanchez on 02-24-2025 AST [Catalytic activity/Vol] 23 U/L <32 [facility] Lymphocytes Auto (Unsp spec) [#/Vol]Ordered By: Shari Sanchez on 02-24-2025 Lymphocytes (Bld) [#/Vol] 0.65 10*3/uL Low 0.83-4.51 [facility] Lymphocytes/100 WBC Auto (Un sp spec)Ordered By: Shari Sanchez on 02-24-2025 Lymphocytes/100 WBC (Bld) 11.4 % Low 19-41 [facility] MCV (mean corpuscular volume ) determinationOrdered By: Shari Sanchez on 02-24-2025 MCV (RBC) [Entitic vol] 93.7 fL 81-99 [facility] Mean corpuscular hemoglobin (MCH) determinationOrdered By: Shari Sanchez on 02-24-2025 MCH (RBC) [Entitic mass] 31.0 pg 27.0-32.0 [facility] Mean corpuscular hemoglobin concentration (MCHC) determinationOrdered By: Shari Sanchez on 02-24-2025 MCHC (RBC) [Mass/Vol] 33.1 g/dL 32-36 [facility] Mean platelet volume determi nationOrdered By: Shari Sanchez on 02-24-2025 Platelet mean volume (Bld) [Entitic vol] 9.8 fL 6.2-12.0 [facility] Monocyte percentageOrdered B y: Shari Sanchez on 02-24-2025 Monocytes/100 WBC (Bld) 8.1 % 0-10 [facility] Neutrophil percentageOrdered By: Shari Sanchez on 02-24-2025 Neutrophils/100 WBC (Bld) 79.2 % High 47-70 [facility] Nucleated red blood cell per centageOrdered By: Shari Sanchez on 02-24-2025 Nucleated RBC/100 WBC (Bld) [Ratio] 0 % 0-5 [facility] Platelet countOrdered By: Manuel Sanchez on 02-24-2025 Platelets (Bld) [#/Vol] 304 10*3/uL 150-450 [facility] Potassium (Unsp spec) [Mass/ Vol]Ordered By: Shari Sanchez on 02-24-2025 Potassium [Moles/Vol] 3.9 mmol/L 3.3-5.1 [facility] RBC Auto (Bld) [#/Vol]Ordere d By: Shari Sanchez on 02-24-2025 RBC (Bld) [#/Vol] 3.81 10*6/uL Low 4.2-5.[address] [facility] Serum creatinine measurement (mass/volume)Ordered By: Shari Sanchez on 02-24-2025 Creatinine [Mass/Vol] 0.92 mg/dL 0.70-1.20 [facility] Serum globulin measurementOr dered By: Shari Sanchez on 02-24-2025 Globulin (S) [Mass/Vol] 2.0 g/dL Low 2.2-4.2 [facility] Serum glucose measurement (m ass/volume)Ordered By: Shari Sanchez on 02-24-2025 Glucose [Mass/Vol] 84 mg/dL 70-99 [facility] Serum or plasma alanine sofia otransferase (ALT) measurementOrdered By: Shari Sanchez on 02-24-2025 ALT [Catalytic activity/Vol] 23 U/L <35 [facility] Serum or plasma albumin sam urement (mass/volume)Ordered By: Shari Sanchez on 02-24-2025 Albumin [Mass/Vol] 4.0 g/dL 3.4-4.8 [facility] Serum or plasma albumin/glob ulin mass ratioOrdered By: Shari Sanchez on 02-24-2025 Albumin/Globulin [Mass ratio] 2.0 {ratio} 0.9-2.4 [facility] Serum or plasma alkaline jessie sphatase measurementOrdered By: Shari Sanchez on 02-24-2025 ALP [Catalytic activity/Vol] 91 U/L 35-104 [facility] Serum or plasma calcium sam urement (mass/volume)Ordered By: Shari Sanchez on 02-24-2025 Calcium [Mass/Vol] 9.3 mg/dL 7.6-11.0 [facility] Serum or plasma urea nitroge n measurement (mass/volume)Ordered By: Shari Sanchez on 02-24-2025 Urea nitrogen [Mass/Vol] 14 mg/dL 4-19 [facility] Sodium levelOrdered By: Nav Sanchez on 02-24-2025 Sodium [Moles/Vol] 136 mmol/L 133-145 [facility] Total proteinOrdered By: Tobias Sanchez on 02-24-2025 Protein [Mass/Vol] 5.9 g/dL 5.9-8.4 [facility] White blood cell (WBC) count Ordered By: Shari Sanchez on 02-24-2025 WBC (Bld) [#/Vol] 5.7 10*3/uL 4.4-11.0 [facility] PARAM SCREENING W TOMOon 02-11 PARAM SCREENING W OFE * * *Final Report* * * * * * SEE BOTTOM OF REPORT FOR ADDENDED TEXT * * * DATE OF EXAM: Feb 11 2025 8:12AM [facility] [id number] - PARAM SCREENING W OFE / PROCEDURE REASON: Encounter for screening mammogram for breast cancer * * * * Physician Interpretation * * * * RESULT: [facility] [address] [id number] #[id number] - PARAM SCREENING W OFE HISTORY: 79 year-old patient seen for screening. Patient is asymptomatic in both breasts. Patient states no personal history of breast cancer. COMPARISON STUDIES: The present examination has been compared to prior imaging studies dated 02/08/2023 (mammogram), 02/27/2023 (mammogram) and 02/10/2024 (mammogram). MAMMOGRAM TECHNIQUE: The study was acquired using full field digital technology and interpreted from soft copy. Digital Breast Tomosynthesis (DBT) images were obtained and used to assist in the interpretation of this examination. MAMMOGRAM FINDINGS: The breasts are extremely dense, which lowers the sensitivity of mammography. No suspicious masses, calcifications or other abnormalities are seen in either breast. There are no significant interval changes. IMPRESSION: There is no mammographic evidence of malignancy in either breast. Routine screening mammogram is recommended. Annual mammogram will be due in 1 year. BI-RADS Category 1: Negative RISK: Based on the Tyrer-Cuzick (TC) risk assessment model, this patient has a 4.9% lifetime risk of developing breast cancer, meaning they are at average risk for developing breast cancer. However, this is only an estimate based on available history provided on the patient's questionnaire. We encourage all patients to talk with their providers about these results, further recommendations for managing breast health, and appropriate supplemental screening options if the patient has dense breast tissue. Interpreting Radiologist: Nury Laughlin M.D. Electronically signed on: 02/12/2025 [employer] Drill Operator Helper: LONA Transcribe Date/Time: Feb 11 2025 7:55A Dictated by: NURY LAUGHLIN MD This examination was interpreted and the report reviewed and electronically signed by: NURY LAUGHLIN MD on Feb 12 2025 8:08AM EST This document has been addended by: NURY LAUGHLIN MD on Feb 12 2025 8:08AM EST [id number] Normal [facility] Albumin to globulin ratioOrd ered By: Shari Sanchez on 12-14-2024 Albumin/Globulin [Mass ratio] 1.2 {ratio} 0.9-2.4 [facility] Bilirubin, totalOrdered By: Shari Sanchez on 12-14-2024 Bilirubin [Mass/Vol] 0.30 mg/dL 0.20-1.00 [facility] Comment on above: For patients on eltr ombopag therapy, use of Dimension [place] TBIL is not recommended. Blood urea nitrogen (BUN)/cr eatinine ratioOrdered By: Shari Sanchez on 12-14-2024 Urea nitrogen/Creatinine [Mass ratio] 15.3 mg/mg 10-20 [facility] Carbon dioxide measurementOr dered By: Shari Sanchez on 12-14-2024 CO2 [Moles/Vol] 27.0 mmol/L 21.0-32.0 [facility] Chloride measurementOrdered By: Shari Sanchez on 12-14-2024 Chloride [Moles/Vol] 103 mmol/L 98-107 [facility] Comprehensive Metabolic Prof ilon 12-14-2024 Albumin [Mass/Vol] 3.4 g/dL Normal 3.2-5.0 [facility] Comment on above: Performed By: #### L 100.0100, L500.4050 #### [facility] [address] [place], [address] Albumin/Globulin [Mass ratio] 1.2 {ratio} Normal 0.9-2.4 [facility] Comment on above: Performed By: #### L 100.0100, L500.4050 #### [facility] [address] [place], [address] ALK P 120 U/L High 45-117 [facility] Comment on above: Performed By: #### L 100.0100, L500.4050 #### [facility] [address] [place], [address] ALT [Catalytic activity/Vol] 36 U/L Normal 13-56 [facility] Comment on above: Performed By: #### L 100.0100, L500.4050 #### [facility] [address] [place], [address] AST [Catalytic activity/Vol] 26 U/L Normal 15-37 [facility] Comment on above: Performed By: #### L 100.0100, L500.4050 #### [facility] [address] [place], [address] Bilirubin [Mass/Vol] 0.30 mg/dL Normal 0.20-1.00 [facility] Comment on above: Result Comment: For patients on eltrombopag therapy, use of Dimension [place] TBIL is not recommended. Performed By: #### L 100.0100, L500.4050 #### [facility] [address] [place], [address] BUN/CRE 15.3 RATIO Normal 10-20 [facility] Comment on above: Performed By: #### L 100.0100, L500.4050 #### [facility] [address] [place], [address] CA,Total 9.3 mg/dL Normal 8.5-10.1 [facility] Comment on above: Performed By: #### L 100.0100, L500.4050 #### [facility] [address] [place], [address] Chloride [Moles/Vol] 103 mmol/L Normal 98-107 [facility] Comment on above: Performed By: #### L 100.0100, L500.4050 #### [facility] [address] [place], [address] CO2 [Moles/Vol] 27.0 mmol/L Normal 21.0-32.0 [facility] Comment on above: Performed By: #### L 100.0100, L500.4050 #### [facility] [address] [place], [address] Creatinine [Mass/Vol] 0.78 mg/dL Normal 0.55-1.02 [facility] Comment on above: Result Comment: The validity of the calculated GFR GFRAA in patients over 70 years has not been determined. Clinical correlation is essential. Performed By: #### L 100.0100, L500.4050 #### [facility] [address] [place], [address] EST GFR - AA 92 mL/min Normal >60 [facility] Comment on above: Result Comment: Afri can Liberian GFR Calc Performed By: #### L 100.0100, L500.4050 #### [facility] [address] [place], [address] GAP 5 Normal 5-15 [facility] Comment on above: Performed By: #### L 100.0100, L500.4050 #### [facility] [address] [place], [address] GFR/1.73 sq M.predicted among non-blacks MDRD (S/P/Bld) [Vol rate/Area] 76 mL/min/{1.73_m2} Normal >60 [facility] Comment on above: Result Comment: Non- GFR Calc Performed By: #### L 100.0100, L500.4050 #### [facility] [address] [place], [address] Globulin (S) [Mass/Vol] 2.9 g/dL Normal 2.2-4.2 [facility] Comment on above: Performed By: #### L 100.0100, L500.4050 #### [facility] [address] [place], [address] Glucose [Mass/Vol] 65 mg/dL Low 74-106 [facility] Comment on above: Performed By: #### L 100.0100, L500.4050 #### [facility] [address] [place], [address] Potassium [Moles/Vol] 4.1 mmol/L Normal 3.5-5.1 [facility] Comment on above: Performed By: #### L 100.0100, L500.4050 #### [facility] [address] [place], [address] Sodium [Moles/Vol] 135 mmol/L Low 136-145 [facility] Comment on above: Performed By: #### L 100.0100, L500.4050 #### [facility] [address] [place], [address] T PROT 6.3 g/dL Low 6.4-8.2 [facility] Comment on above: Performed By: #### L 100.0100, L500.4050 #### [facility] [address] [place], [address] Urea nitrogen [Mass/Vol] 12 mg/dL Normal 7-18 [facility] Comment on above: Performed By: #### L 100.0100, L500.4050 #### [facility] [address] [place], [address] Estimated glomerular filtrat ion rate (GFR) AmericanOrdered By: Shari Sanchez on 12-14-2024 Estimated GFR (MDRD) Amer 92 mL/min >60 [facility] Comment on above: GFR Calc Glomerular filtration rate ( GFR) estimationOrdered By: Shari Sanchez on 12-14-2024 Estimated GFR (MDRD) Non-Af Amer 76 mL/min >60 [facility] Comment on above: Non- GFR Calc Glucose measurementOrdered B y: Shari Sanchez on 12-14-2024 Glucose [Mass/Vol] 65 mg/dL Low 74-106 [facility] Laboratory - Chemistry and C hemistry - challengeOrdered By: hSari Sanchez on 12-14-2024 AST [Catalytic activity/Vol] 26 U/L 15-37 [facility] Potassium measurementOrdered By: Shari Sanchez on 12-14-2024 Potassium [Moles/Vol] 4.1 mmol/L 3.5-5.1 [facility] Serum anion gap measurementO rdered By: Shari Sanchez on 12-14-2024 Anion gap [Moles/Vol] 5 mmol/L 5-15 [facility] Serum globulin measurementOr dered By: Shari Sanchez on 12-14-2024 Globulin (S) [Mass/Vol] 2.9 g/dL 2.2-4.2 [facility] Serum or plasma alanine sofia otransferase (ALT) measurementOrdered By: Shari Sanchez on 12-14-2024 ALT [Catalytic activity/Vol] 36 U/L 13-56 [facility] Serum or plasma albumin sam urement (mass/volume)Ordered By: Shari Sanchez on 12-14-2024 Albumin [Mass/Vol] 3.4 g/dL 3.2-5.0 [facility] Serum or plasma alkaline jessie sphatase measurementOrdered By: Shari Sanchez on 12-14-2024 ALP [Catalytic activity/Vol] 120 U/L High 45-117 [facility] Serum or plasma calcium sam urement (mass/volume)Ordered By: Shari Sanchez on 12-14-2024 Calcium [Mass/Vol] 9.3 mg/dL 8.5-10.1 [facility] Serum or plasma creatinine m easurement (mass/volume)Ordered By: Shari Sanchez on 12-14-2024 Creatinine [Mass/Vol] 0.78 mg/dL 0.55-1.02 [facility] Comment on above: The validity of the calculated GFR & GFRAA in patients over 70 years has not been determined. Clinical correlation is essential. Serum or plasma urea nitroge n measurement (mass/volume)Ordered By: Shari Sanchez on 12-14-2024 Urea nitrogen [Mass/Vol] 12 mg/dL 7-18 [facility] Sodium levelOrdered By: Nav Sanchez on 12-14-2024 Sodium [Moles/Vol] 135 mmol/L Low 136-145 [facility] Total proteinOrdered By: Tobias Sanchez on 12-14-2024 Protein [Mass/Vol] 6.3 g/dL Low 6.4-8.2 [facility] AST(SGOT)on 12-03-2024 AST [Catalytic activity/Vol] 20 U/L Normal 15-37 [facility] Comment on above: Performed By: #### L 100.0100, L500.4050 #### [facility] [address] [place], [place], [id number] Absolute neutrophil countOrd ered By: Zay Wright on 12-03-2024 Neutrophils (Bld) [#/Vol] 2.4 10*3/uL 2.0-7.7 [facility] Alanine Aminotransferas (SGP T)on 12-03-2024 ALT [Catalytic activity/Vol] 32 U/L Normal 13-56 [facility] Comment on above: Performed By: #### L 100.0100, L500.4050 #### [facility] [address] [place], [address] Basophil percentageOrdered B y: Zay Wright on 12-03-2024 Basophils/100 WBC (Bld) 0.5 % 0-1 [facility] CBC W/Diff, Automatedon 11-18 Absolute Lymph 0.69 X10 3/uL Low 0.83-4.51 [facility] Comment on above: Performed By: #### L 501.4405, L501.4100, L100.0100 #### [facility] [address] [place], [address] Absolute Neut 2.4 X10 3/uL Normal 2.0-7.7 [facility] Comment on above: Performed By: #### L 501.4405, L501.4100, L100.0100 #### [facility] [address] [place], [address] Basophils/100 WBC (Bld) 0.5 % Normal 0-1 [facility] Comment on above: Performed By: #### L 501.4405, L501.4100, L100.0100 #### [facility] [address] [place], [address] Eosinophils/100 WBC (Bld) 0.3 % Normal 0-5 [facility] Comment on above: Performed By: #### L 501.4405, L501.4100, L100.0100 #### [facility] [address] [place], [address] Erythrocyte distribution width (RBC) [Ratio] 12.4 % Normal 11.6-14.6 [facility] Comment on above: Performed By: #### L 501.4405, L501.4100, L100.0100 #### [facility] [address] [place], [address] Hematocrit (Bld) [Volume fraction] 39.3 % Normal 37-47 [facility] Comment on above: Performed By: #### L 501.4405, L501.4100, L100.0100 #### [facility] [address] [place], [address] Hemoglobin (Bld) [Mass/Vol] 13.0 g/dL Normal 12.0-15.0 [facility] Comment on above: Performed By: #### L 501.4405, L501.4100, L100.0100 #### [facility] [address] [place], [address] IG% 0.500 Normal 0.0-0.9 [facility] Comment on above: Result Comment: IG% - Immature Granulocytes (promyelocytes, myelocytes and metamyelocytes) > 1% indicates that a LEFT SHIFT is Present. Performed By: #### L 501.4405, L501.4100, L100.0100 #### [facility] [address] [place], [address] Lymphocytes/100 WBC (Bld) 18.6 % Low 19-41 [facility] Comment on above: Performed By: #### L 501.4405, L501.4100, L100.0100 #### [facility] [address] [place], [address] MCH (RBC) [Entitic mass] 30.7 pg Normal 27.0-32.0 [facility] Comment on above: Performed By: #### L 501.4405, L501.4100, L100.0100 #### [facility] [address] [place], [address] MCHC (RBC) [Mass/Vol] 33.1 g/dL Normal 32-36 [facility] Comment on above: Performed By: #### L 501.4405, L501.4100, L100.0100 #### [facility] [address] [place], [address] MCV (RBC) [Entitic vol] 92.7 fL Normal 81-99 [facility] Comment on above: Performed By: #### L 501.4405, L501.4100, L100.0100 #### [facility] [address] [place], [address] Monocytes/100 WBC (Bld) 14.6 % High 0-10 [facility] Comment on above: Performed By: #### L 501.4405, L501.4100, L100.0100 #### [facility] [address] [place], [address] Neutrophils/100 WBC (Bld) 65.5 % Normal 47-70 [facility] Comment on above: Performed By: #### L 501.4405, L501.4100, L100.0100 #### [facility] [address] [place], [address] Nucleated RBC (Bld) [#/Vol] 0 10*3/uL Normal 0-5 [facility] Comment on above: Performed By: #### L 501.4405, L501.4100, L100.0100 #### [facility] [address] [place], [address] Platelet mean volume (Bld) [Entitic vol] 9.7 fL Normal 6.2-12.0 [facility] Comment on above: Performed By: #### L 501.4405, L501.4100, L100.0100 #### [facility] [address] [place], [address] Platelets (Bld) [#/Vol] 279 10*3/uL Normal 150-450 [facility] Comment on above: Performed By: #### L 501.4405, L501.4100, L100.0100 #### [facility] [address] [place], [address] RBC (Bld) [#/Vol] 4.24 10*6/uL Normal 4.2-5.[address] [facility] Comment on above: Performed By: #### L 501.4405, L501.4100, L100.0100 #### [facility] [address] [place], [address] RDW SD 42.3 fl Normal 35.1-43.9 [facility] Comment on above: Performed By: #### L 501.4405, L501.4100, L100.0100 #### [facility] [address] [place], [address] WBC (Bld) [#/Vol] 3.7 10*3/uL Low 4.4-11.0 [facility] Comment on above: Performed By: #### L 501.4405, L501.4100, L100.0100 #### [facility] [address] [place], [address] Eosinophil percentageOrdered By: Zay Wright on 12-03-2024 Eosinophils/100 WBC (Bld) 0.3 % 0-5 [facility] Erythrocyte distribution wid th ratioOrdered By: Zay Wright on 12-03-2024 Erythrocyte distribution width (RBC) [Ratio] 12.4 % 11.6-14.6 [facility] Erythrocyte distribution wid th standard deviationOrdered By: Zay Wright on 12-03-2024 Erythrocyte distribution width (RBC) [Entitic vol] 42.3 fL 35.1-43.9 [facility] Hematocrit Auto (Bld) [Volum e fraction]Ordered By: Zay Wright on 12-03-2024 Hematocrit (Bld) [Volume fraction] 39.3 % 37-47 [facility] Hemoglobin measurementOrdere d By: Zay Wright on 12-03-2024 Hemoglobin (Bld) [Mass/Vol] 13.0 g/dL 12.0-15.0 [facility] Immature granulocytes/100 WB C Auto (Bld)Ordered By: Zay Wright on 12-03-2024 Immature granulocytes/100 WBC (Bld) 0.500 % 0.0-0.9 [facility] Comment on above: IG% - Immature Granu locytes (promyelocytes, myelocytes and metamyelocytes) > 1% indicates that a LEFT SHIFT is Present. Laboratory - Chemistry and C hemistry - challengeOrdered By: Zay Wright on 12-03-2024 AST [Catalytic activity/Vol] 20 U/L 15-37 [facility] Lymphocytes Auto (Unsp spec) [#/Vol]Ordered By: Zay Wright on 12-03-2024 Lymphocytes (Bld) [#/Vol] 0.69 10*3/uL Low 0.83-4.51 [facility] Lymphocytes/100 WBC Auto (Un sp spec)Ordered By: Zay Wright on 12-03-2024 Lymphocytes/100 WBC (Bld) 18.6 % Low 19-41 [facility] MCV (mean corpuscular volume ) determinationOrdered By: Zay Wright on 12-03-2024 MCV (RBC) [Entitic vol] 92.7 fL 81-99 [facility] Mean corpuscular hemoglobin (MCH) determinationOrdered By: Zay Wright on 12-03-2024 MCH (RBC) [Entitic mass] 30.7 pg 27.0-32.0 [facility] Mean corpuscular hemoglobin concentration (MCHC) determinationOrdered By: Zay Wright on 12-03-2024 MCHC (RBC) [Mass/Vol] 33.1 g/dL 32-36 [facility] Mean platelet volume determi nationOrdered By: Zay Wright on 12-03-2024 Platelet mean volume (Bld) [Entitic vol] 9.7 fL 6.2-12.0 [facility] Monocyte percentageOrdered B y: Zay Wright on 12-03-2024 Monocytes/100 WBC (Bld) 14.6 % High 0-10 [facility] Neutrophil percentageOrdered By: Zay Wright on 12-03-2024 Neutrophils/100 WBC (Bld) 65.5 % 47-70 [facility] Nucleated red blood cell per centageOrdered By: Zay Wright on 12-03-2024 Nucleated RBC/100 WBC (Bld) [Ratio] 0 % 0-5 [facility] Platelet countOrdered By: Matteo Wright on 12-03-2024 Platelets (Bld) [#/Vol] 279 10*3/uL 150-450 [facility] RBC Auto (Bld) [#/Vol]Ordere d By: Zay Wright on 12-03-2024 RBC (Bld) [#/Vol] 4.24 10*6/uL 4.2-5.[address] [facility] Serum or plasma alanine sofia otransferase (ALT) measurementOrdered By: Zay Wright on 12-03-2024 ALT [Catalytic activity/Vol] 32 U/L 13-56 [facility] White blood cell (WBC) count Ordered By: Zay Wright on 12-03-2024 WBC (Bld) [#/Vol] 3.7 10*3/uL Low 4.4-11.0 [facility] Quantiferon TB-Gold+on 10-09 QFT MITOGEN SAURABH 2.13 IU/mL Normal . [facility] Comment on above: Performed By: #### L 100.0100, L500.4050 #### [facility] [address] [place], [place], [id number] QFT NIL VALUE 0.02 IU/mL Normal . [facility] Comment on above: Performed By: #### L 100.0100, L500.4050 #### [facility] [address] [place], [place], [id number] QFT TB GOLD+ Comment Normal . [facility] Comment on above: Result Comment: Julian tiFERON-TB Gold Plus is a qualitative indirect test for M tuberculosis infection (including disease) and is intended for use in conjunction with risk assessment, radiography, and other medical and diagnostic evaluations. The QuantiFERON-TB Gold Plus result is determined by subtracting the Nil value from either TB antigen (Ag) value. The Mitogen tube serves as a control for the test. Performed By: #### L 100.0100, L500.4050 #### [facility] [address] [place], [place], [id number] QFT TB POS CRIT Negative Normal Negative [facility] Comment on above: Result Comment: No r esponse to M tuberculosis antigens detected. Infection with M tuberculosis is unlikely, but high risk individuals should be considered for additional testing (ATS/IDSA/CDC Clinical Practice Guidelines, 2017). The reference range is an Antigen minus Nil result of <0.35 IU/mL. The specimen received for QuantiFERON testing was incubated by the ordering institution. Specific procedures outlined in our Directory of Services and in the package insert for the QuantiFERON Gold (In Tube) test must be followed to enable for proper stimulation of cells for the production of interferon gamma. Chemiluminescence immunoassay methodology Performed at: [facility] [employer] [id number] Evaluation Assistant: Alvin Portillo PhD, Phone: [phone] Performed By: #### L 100.0100, L500.4050 #### [facility] [address] [place], [place], [id number] QFT TB1+ AG SAURABH 0.03 IU/mL Normal . [facility] Comment on above: Performed By: #### L 100.0100, L500.4050 #### [facility] [address] [place], [place], [id number] QFT TB2+ AG SAURABH 0.02 IU/mL Normal . [facility] Comment on above: Performed By: #### L 100.0100, L500.4050 #### [facility] [address] [place], [place], [id number] CBC W/Diff, Automatedon 11- Absolute Lymph 0.48 X10 3/uL Low 0.83-4.51 [facility] Comment on above: Performed By: #### L 500.4050, L100.0100 #### [facility] [address] [place], [address] Absolute Neut 3.5 X10 3/uL Normal 2.0-7.7 [facility] Comment on above: Performed By: #### L 500.4050, L100.0100 #### [facility] [address] [place], [address] Basophils/100 WBC (Bld) 0.4 % Normal 0-1 [facility] Comment on above: Performed By: #### L 500.4050, L100.0100 #### [facility] [address] [place], [address] Eosinophils/100 WBC (Bld) 0.9 % Normal 0-5 [facility] Comment on above: Performed By: #### L 500.4050, L100.0100 #### [facility] [address] [place], [address] Erythrocyte distribution width (RBC) [Ratio] 12.6 % Normal 11.6-14.6 [facility] Comment on above: Performed By: #### L 500.4050, L100.0100 #### [facility] [address] [place], [address] Hematocrit (Bld) [Volume fraction] 37.4 % Normal 37-47 [facility] Comment on above: Performed By: #### L 500.4050, L100.0100 #### [facility] [address] [place], [address] Hemoglobin (Bld) [Mass/Vol] 11.9 g/dL Low 12.0-15.0 [facility] Comment on above: Performed By: #### L 500.4050, L100.0100 #### [facility] [address] [place], [address] IG% 0.400 Normal 0.0-0.9 [facility] Comment on above: Result Comment: IG% - Immature Granulocytes (promyelocytes, myelocytes and metamyelocytes) > 1% indicates that a LEFT SHIFT is Present. Performed By: #### L 500.4050, L100.0100 #### [facility] [address] [place], [address] Lymphocytes/100 WBC (Bld) 10.5 % Low 19-41 [facility] Comment on above: Performed By: #### L 500.4050, L100.0100 #### [facility] [address] [place], [address] MCH (RBC) [Entitic mass] 30.2 pg Normal 27.0-32.0 [facility] Comment on above: Performed By: #### L 500.4050, L100.0100 #### [facility] [address] [place], [address] MCHC (RBC) [Mass/Vol] 31.8 g/dL Low 32-36 [facility] Comment on above: Performed By: #### L 500.4050, L100.0100 #### [facility] [address] [place], [address] MCV (RBC) [Entitic vol] 94.9 fL Normal 81-99 [facility] Comment on above: Performed By: #### L 500.4050, L100.0100 #### [facility] [address] [place], [address] Monocytes/100 WBC (Bld) 11.8 % High 0-10 [facility] Comment on above: Performed By: #### L 500.4050, L100.0100 #### [facility] [address] [place], [address] Neutrophils/100 WBC (Bld) 76.0 % High 47-70 [facility] Comment on above: Performed By: #### L 500.4050, L100.0100 #### [facility] [address] [place], [address] Nucleated RBC (Bld) [#/Vol] 0 10*3/uL Normal 0-5 [facility] Comment on above: Performed By: #### L 500.4050, L100.0100 #### [facility] [address] [place], [address] Platelet mean volume (Bld) [Entitic vol] 10.1 fL Normal 6.2-12.0 [facility] Comment on above: Performed By: #### L 500.4050, L100.0100 #### [facility] [address] [place], [address] Platelets (Bld) [#/Vol] 291 10*3/uL Normal 150-450 [facility] Comment on above: Performed By: #### L 500.4050, L100.0100 #### [facility] [address] [place], [address] RBC (Bld) [#/Vol] 3.94 10*6/uL Low 4.2-5.[address] [facility] Comment on above: Performed By: #### L 500.4050, L100.0100 #### [facility] [address] [place], [address] RDW SD 43.4 fl Normal 35.1-43.9 [facility] Comment on above: Performed By: #### L 500.4050, L100.0100 #### [facility] [address] [place], [address] WBC (Bld) [#/Vol] 4.6 10*3/uL Normal 4.4-11.0 [facility] Comment on above: Performed By: #### L 500.4050, L100.0100 #### [facility] [address] [place], [address] Comprehensive Metabolic Prof ilon 09-28-2024 Albumin [Mass/Vol] 3.4 g/dL Normal 3.2-5.0 [facility] Comment on above: Performed By: #### L 500.4050, L100.0100 #### [facility] [address] [place], [address] Albumin/Globulin [Mass ratio] 1.2 {ratio} Normal 0.9-2.4 [facility] Comment on above: Performed By: #### L 500.4050, L100.0100 #### [facility] [address] [place], [address] ALK P 121 U/L High 45-117 [facility] Comment on above: Performed By: #### L 500.4050, L100.0100 #### [facility] [address] [place], [address] ALT [Catalytic activity/Vol] 31 U/L Normal 13-56 [facility] Comment on above: Performed By: #### L 500.4050, L100.0100 #### [facility] [address] [place], [address] AST [Catalytic activity/Vol] 21 U/L Normal 15-37 [facility] Comment on above: Performed By: #### L 500.4050, L100.0100 #### [facility] [address] [place], [address] Bilirubin [Mass/Vol] 0.50 mg/dL Normal 0.20-1.00 [facility] Comment on above: Result Comment: For patients on eltrombopag therapy, use of Dimension [place] TBIL is not recommended. Performed By: #### L 500.4050, L100.0100 #### [facility] [address] [place], [address] BUN/CRE 14.0 RATIO Normal 10-20 [facility] Comment on above: Performed By: #### L 500.4050, L100.0100 #### [facility] [address] [place], [address] CA,Total 9.3 mg/dL Normal 8.5-10.1 [facility] Comment on above: Performed By: #### L 500.4050, L100.0100 #### [facility] [address] [place], [address] Chloride [Moles/Vol] 105 mmol/L Normal 98-107 [facility] Comment on above: Performed By: #### L 500.4050, L100.0100 #### [facility] [address] [place], [address] CO2 [Moles/Vol] 26.0 mmol/L Normal 21.0-32.0 [facility] Comment on above: Performed By: #### L 500.4050, L100.0100 #### [facility] [address] [place], [address] Creatinine [Mass/Vol] 0.78 mg/dL Normal 0.55-1.02 [facility] Comment on above: Result Comment: The validity of the calculated GFR GFRAA in patients over 70 years has not been determined. Clinical correlation is essential. Performed By: #### L 500.4050, L100.0100 #### [facility] [address] [place], [address] EST GFR - AA 92 mL/min Normal >60 [facility] Comment on above: Result Comment: Afri can [place] GFR Calc Performed By: #### L 500.4050, L100.0100 #### [facility] [address] [place], [address] GAP 6 Normal 5-15 [facility] Comment on above: Performed By: #### L 500.4050, L100.0100 #### [facility] [address] [place], [address] GFR/1.73 sq M.predicted among non-blacks MDRD (S/P/Bld) [Vol rate/Area] 76 mL/min/{1.73_m2} Normal >60 [facility] Comment on above: Result Comment: Non- GFR Calc Performed By: #### L 500.4050, L100.0100 #### [facility] [address] [place], [address] Globulin (S) [Mass/Vol] 2.9 g/dL Normal 2.2-4.2 [facility] Comment on above: Performed By: #### L 500.4050, L100.0100 #### [facility] [address] [place], [address] Glucose [Mass/Vol] 96 mg/dL Normal 74-106 [facility] Comment on above: Performed By: #### L 500.4050, L100.0100 #### [facility] [address] [place], [address] Potassium [Moles/Vol] 3.9 mmol/L Normal 3.5-5.1 [facility] Comment on above: Performed By: #### L 500.4050, L100.0100 #### [facility] [address] [place], [address] Sodium [Moles/Vol] 137 mmol/L Normal 136-145 [facility] Comment on above: Performed By: #### L 500.4050, L100.0100 #### [facility] [address] [place], [address] T PROT 6.3 g/dL Low 6.4-8.2 [facility] Comment on above: Performed By: #### L 500.4050, L100.0100 #### [facility] [address] [place], [address] Urea nitrogen [Mass/Vol] 11 mg/dL Normal 7-18 [facility] Comment on above: Performed By: #### L 500.4050, L100.0100 #### [facility] [address] [place], [address] CBC W/Diff, Automatedon 07-2 Absolute Lymph 0.64 X10 3/uL Low 0.83-4.51 [facility] Comment on above: Performed By: #### L 100.0100, L500.4050 #### [facility] [address] [place], [address] Absolute Neut 2.9 X10 3/uL Normal 2.0-7.7 [facility] Comment on above: Performed By: #### L 100.0100, L500.4050 #### [facility] [address] [place], [address] Basophils/100 WBC (Bld) 0.5 % Normal 0-1 [facility] Comment on above: Performed By: #### L 100.0100, L500.4050 #### [facility] [address] [place], [address] Eosinophils/100 WBC (Bld) 0.5 % Normal 0-5 [facility] Comment on above: Performed By: #### L 100.0100, L500.4050 #### [facility] [address] [place], [address] Erythrocyte distribution width (RBC) [Ratio] 12.3 % Normal 11.6-14.6 [facility] Comment on above: Performed By: #### L 100.0100, L500.4050 #### [facility] [address] [place], [address] Hematocrit (Bld) [Volume fraction] 37.4 % Normal 37-47 [facility] Comment on above: Performed By: #### L 100.0100, L500.4050 #### [facility] [address] [place], [address] Hemoglobin (Bld) [Mass/Vol] 12.3 g/dL Normal 12.0-15.0 [facility] Comment on above: Performed By: #### L 100.0100, L500.4050 #### [facility] [address] [place], [address] IG% 0.300 Normal 0.0-0.9 [facility] Comment on above: Result Comment: IG% - Immature Granulocytes (promyelocytes, myelocytes and metamyelocytes) > 1% indicates that a LEFT SHIFT is Present. Performed By: #### L 100.0100, L500.4050 #### [facility] [address] [place], [address] Lymphocytes/100 WBC (Bld) 16.0 % Low 19-41 [facility] Comment on above: Performed By: #### L 100.0100, L500.4050 #### [facility] [address] [place], [address] MCH (RBC) [Entitic mass] 31.1 pg Normal 27.0-32.0 [facility] Comment on above: Performed By: #### L 100.0100, L500.4050 #### [facility] [address] [place], [address] MCHC (RBC) [Mass/Vol] 32.9 g/dL Normal 32-36 [facility] Comment on above: Performed By: #### L 100.0100, L500.4050 #### [facility] [address] [place], [address] MCV (RBC) [Entitic vol] 94.4 fL Normal 81-99 [facility] Comment on above: Performed By: #### L 100.0100, L500.4050 #### [facility] [address] [place], [address] Monocytes/100 WBC (Bld) 10.5 % High 0-10 [facility] Comment on above: Performed By: #### L 100.0100, L500.4050 #### [facility] [address] [place], [address] Neutrophils/100 WBC (Bld) 72.2 % High 47-70 [facility] Comment on above: Performed By: #### L 100.0100, L500.4050 #### [facility] [address] [place], [address] Nucleated RBC (Bld) [#/Vol] 0 10*3/uL Normal 0-5 [facility] Comment on above: Performed By: #### L 100.0100, L500.4050 #### [facility] [address] [place], [address] Platelet mean volume (Bld) [Entitic vol] 10.0 fL Normal 6.2-12.0 [facility] Comment on above: Performed By: #### L 100.0100, L500.4050 #### [facility] [address] [place], [address] Platelets (Bld) [#/Vol] 303 10*3/uL Normal 150-450 [facility] Comment on above: Performed By: #### L 100.0100, L500.4050 #### [facility] [address] [place], [address] RBC (Bld) [#/Vol] 3.96 10*6/uL Low 4.2-5.[address] [facility] Comment on above: Performed By: #### L 100.0100, L500.4050 #### [facility] [address] [place], [address] RDW SD 42.7 fl Normal 35.1-43.9 [facility] Comment on above: Performed By: #### L 100.0100, L500.4050 #### [facility] [address] [place], [address] WBC (Bld) [#/Vol] 4.0 10*3/uL Low 4.4-11.0 [facility] Comment on above: Performed By: #### L 100.0100, L500.4050 #### [facility] [address] [place], [address] Comprehensive Metabolic Prof [facility] 06-10-2024 Albumin [Mass/Vol] 3.2 g/dL Normal 3.2-5.0 [facility] Comment on above: Performed By: #### L 100.0100, L500.4050 #### [facility] [address] [place], [address] Albumin/Globulin [Mass ratio] 1.1 {ratio} Normal 0.9-2.4 [facility] Comment on above: Performed By: #### L 100.0100, L500.4050 #### [facility] [address] [place], [address] ALK P 114 U/L Normal 45-117 [facility] Comment on above: Performed By: #### L 100.0100, L500.4050 #### [facility] [address] [place], [address] ALT [Catalytic activity/Vol] 40 U/L Normal 13-56 [facility] Comment on above: Performed By: #### L 100.0100, L500.4050 #### [facility] [address] [place], [address] AST [Catalytic activity/Vol] 32 U/L Normal 15-37 [facility] Comment on above: Performed By: #### L 100.0100, L500.4050 #### [facility] [address] [place], [address] Bilirubin [Mass/Vol] 0.30 mg/dL Normal 0.20-1.00 [facility] Comment on above: Result Comment: For patients on eltrombopag therapy, use of Dimension [place] TBIL is not recommended. Performed By: #### L 100.0100, L500.4050 #### [facility] [address] [place], [address] BUN/CRE 15.1 RATIO Normal 10-20 [facility] Comment on above: Performed By: #### L 100.0100, L500.4050 #### [facility] [address] [place], [address] CA,Total 9.0 mg/dL Normal 8.5-10.1 [facility] Comment on above: Performed By: #### L 100.0100, L500.4050 #### [facility] [address] [place], [address] Chloride [Moles/Vol] 105 mmol/L Normal 98-107 [facility] Comment on above: Performed By: #### L 100.0100, L500.4050 #### [facility] [address] [place], [address] CO2 [Moles/Vol] 27.0 mmol/L Normal 21.0-32.0 [facility] Comment on above: Performed By: #### L 100.0100, L500.4050 #### [facility] [address] [place], [address] Creatinine [Mass/Vol] 0.79 mg/dL Normal 0.55-1.02 [facility] Comment on above: Result Comment: The validity of the calculated GFR GFRAA in patients over 70 years has not been determined. Clinical correlation is essential. Performed By: #### L 100.0100, L500.4050 #### [facility] [address] [place], [address] EST GFR - AA 90 mL/min Normal >60 [facility] Comment on above: Result Comment: Afri can [place] GFR Calc Performed By: #### L 100.0100, L500.4050 #### [facility] [address] [place], [address] GAP 6 Normal 5-15 [facility] Comment on above: Performed By: #### L 100.0100, L500.4050 #### [facility] [address] [place], [address] GFR/1.73 sq M.predicted among non-blacks MDRD (S/P/Bld) [Vol rate/Area] 75 mL/min/{1.73_m2} Normal >60 [facility] Comment on above: Result Comment: Non- GFR Calc Performed By: #### L 100.0100, L500.4050 #### [facility] [address] [place], [address] Globulin (S) [Mass/Vol] 2.9 g/dL Normal 2.2-4.2 [facility] Comment on above: Performed By: #### L 100.0100, L500.4050 #### [facility] [address] [place], [address] Glucose [Mass/Vol] 92 mg/dL Normal 74-106 [facility] Comment on above: Performed By: #### L 100.0100, L500.4050 #### [facility] [address] [place], [address] Potassium [Moles/Vol] 3.9 mmol/L Normal 3.5-5.1 [facility] Comment on above: Performed By: #### L 100.0100, L500.4050 #### [facility] [address] [place], [address] Sodium [Moles/Vol] 138 mmol/L Normal 136-145 [facility] Comment on above: Performed By: #### L 100.0100, L500.4050 #### [facility] [address] [place], [address] T PROT 6.1 g/dL Low 6.4-8.2 [facility] Comment on above: Performed By: #### L 100.0100, L500.4050 #### [facility] [address] [place], [address] Urea nitrogen [Mass/Vol] 12 mg/dL Normal 7-18 [facility] Comment on above: Performed By: #### L 100.0100, L500.4050 #### [facility] [address] [place], [address] AST(SGOT)on 04-01-2024 AST [Catalytic activity/Vol] 21 U/L Normal 15-37 [facility] Comment on above: Order Comment: CC TO DR SANCHEZ Performed By: #### L 501.4100, L100.0100, L501.4405 #### [facility] [address] [place], [address] Alanine Aminotransferas (SGP T)on 04-01-2024 ALT [Catalytic activity/Vol] 38 U/L Normal 13-56 [facility] Comment on above: Order Comment: CC TO DR SANCHEZ Performed By: #### L 501.4100, L100.0100, L501.4405 #### [facility] [address] [place], [address] CBC W/Diff, Automatedon 03-18 Absolute Lymph 0.51 X10 3/uL Low 0.83-4.51 [facility] Comment on above: Performed By: #### L 501.4100, L100.0100, L501.4405 #### [facility] [address] [place], [address] Absolute Neut 2.2 X10 3/uL Normal 2.0-7.7 [facility] Comment on above: Performed By: #### L 501.4100, L100.0100, L501.4405 #### [facility] [address] [place], [address] Basophils/100 WBC (Bld) 0.3 % Normal 0-1 [facility] Comment on above: Performed By: #### L 501.4100, L100.0100, L501.4405 #### [facility] [address] [place], [address] Eosinophils/100 WBC (Bld) 0.6 % Normal 0-5 [facility] Comment on above: Performed By: #### L 501.4100, L100.0100, L501.4405 #### [facility] [address] [place], [address] Erythrocyte distribution width (RBC) [Ratio] 13.7 % Normal 11.6-14.6 [facility] Comment on above: Performed By: #### L 501.4100, L100.0100, L501.4405 #### [facility] [address] [place], [address] Hematocrit (Bld) [Volume fraction] 38.0 % Normal 37-47 [facility] Comment on above: Performed By: #### L 501.4100, L100.0100, L501.4405 #### [facility] [address] [place], [address] Hemoglobin (Bld) [Mass/Vol] 12.2 g/dL Normal 12.0-15.0 [facility] Comment on above: Performed By: #### L 501.4100, L100.0100, L501.4405 #### [facility] [address] [place], [address] IG% 0.900 Normal 0.0-0.9 [facility] Comment on above: Result Comment: IG% - Immature Granulocytes (promyelocytes, myelocytes and metamyelocytes) > 1% indicates that a LEFT SHIFT is Present. Performed By: #### L 501.4100, L100.0100, L501.4405 #### [facility] [address] [place], [address] Lymphocytes/100 WBC (Bld) 16.1 % Low 19-41 [facility] Comment on above: Performed By: #### L 501.4100, L100.0100, L501.4405 #### [facility] [address] [place], [address] MCH (RBC) [Entitic mass] 30.6 pg Normal 27.0-32.0 [facility] Comment on above: Performed By: #### L 501.4100, L100.0100, L501.4405 #### [facility] [address] [place], [address] MCHC (RBC) [Mass/Vol] 32.1 g/dL Normal 32-36 [facility] Comment on above: Performed By: #### L 501.4100, L100.0100, L501.4405 #### [facility] [address] [place], [address] MCV (RBC) [Entitic vol] 95.2 fL Normal 81-99 [facility] Comment on above: Performed By: #### L 501.4100, L100.0100, L501.4405 #### [facility] [address] [place], [address] Monocytes/100 WBC (Bld) 11.4 % High 0-10 [facility] Comment on above: Performed By: #### L 501.4100, L100.0100, L501.4405 #### [facility] [address] [place], [address] Neutrophils/100 WBC (Bld) 70.7 % High 47-70 [facility] Comment on above: Performed By: #### L 501.4100, L100.0100, L501.4405 #### [facility] [address] [place], [address] Nucleated RBC (Bld) [#/Vol] 0 10*3/uL Normal 0-5 [facility] Comment on above: Performed By: #### L 501.4100, L100.0100, [id number] #### [facility] [address] [place], [address] Platelet mean volume (Bld) [Entitic vol] 9.1 fL Normal 6.2-12.0 [facility] Comment on above: Performed By: #### L 501.4100, L100.0100, [id number] #### [facility] [address] [place], [address] Platelets (Bld) [#/Vol] 298 10*3/uL Normal 150-450 [facility] Comment on above: Performed By: #### L 501.4100, L100.0100, [id number] #### [facility] [address] [place], [address] RBC (Bld) [#/Vol] 3.99 10*6/uL Low 4.2-5.[address] [facility] Comment on above: Performed By: #### L [id number], L100.0100, [id number] #### [facility] [address] [place], [address] RDW SD 47.9 fl High 35.1-43.9 [facility] Comment on above: Performed By: #### L [id number], L100.0100, [id number] #### [facility] [address] [place], [address] WBC (Bld) [#/Vol] 3.2 10*3/uL Low 4.4-11.0 [facility] Comment on above: Performed By: #### L [id number], L100.0100, [id number] #### [facility] [address] [place], [address] UA DIP, URINE (POC)on 2023 BILIRUBIN UA (POCT) Negative Negative [facility] CLARITY UA (POCT) Clear [facility] COLOR UA (POCT) Yellow [facility] GLUCOSE UA (POCT) Negative Negative mg/dL [facility] Hemoglobin Ql (U) Negative Negative [facility] KETONE UA (POCT) Negative Negative mg/dL [facility] LEUKOCYTES UA (POCT) Negative Negative [facility] NITRITE UA (POCT) Negative Negative [facility] PH UA (POCT) 6.0 4.5 - 8.0 [facility] Protein Ql (U) Negative Negative mg/dL [facility] SPECIFIC GRAVITY UA (POCT) 1.010 1.005 - 1.030 [facility] UROBILINOGEN UA (POCT) 0.2 Normal E.U./dL [facility] Location:[facility], [address], [place], [address] [facility] POINT OF CARE [facility] DBT Breast - bilateral scree ningon 02-10-2024 [facility] Absolute lymphocyte countOrd ered By: Shari Sanchez on 01-02-2024 Lymphocytes Auto (Unsp spec) [#/Vol] 0.69 10*3/uL 0.83-4.51 [facility] Automated lymphocyte count a s percentage of total leukocytesOrdered By: Shari Sanchez on 01-02-2024 Lymphocytes/100 WBC Auto (Unsp spec) 18.0 % 19-41 [facility] Basophil percentageOrdered B y: Shari Sanchez on 01-02-2024 Basophils/100 WBC (Bld) 0.5 % 0-1 [facility] Bilirubin [Mass/Vol] 0.20 mg/dL 0.20-1.00 [facility] Comment on above: For patients on eltr ombopag therapy, use of Dimension [place] TBIL is not recommended. Chloride [Moles/Vol] 105 mmol/L 98-107 [facility] Eosinophils/100 WBC (Bld) 1.0 % 0-5 [facility] Glucose [Mass/Vol] 84 mg/dL 74-106 [facility] Hemoglobin (Bld) [Mass/Vol] 12.2 g/dL 12.0-15.0 [facility] Monocytes/100 WBC (Bld) 12.8 % 0-10 [facility] Neutrophils (Bld) [#/Vol] 2.6 10*3/uL 2.0-7.7 [facility] Neutrophils/100 WBC (Bld) 67.2 % 47-70 [facility] Potassium [Moles/Vol] 4.0 mmol/L 3.5-5.1 [facility] Protein [Mass/Vol] 6.1 g/dL 6.4-8.2 [facility] Sodium [Moles/Vol] 136 mmol/L 136-145 [facility] WBC (Bld) [#/Vol] 3.8 10*3/uL 4.4-11.0 [facility] Determination of erythrocyte mean corpuscular volume (MCV)Ordered By: Shari Sanchez on 01-02-2024 MCV (RBC) [Entitic vol] 95.4 fL 81-99 [facility] Erythrocyte distribution wid th ratioOrdered By: Shari Sanchez on 01-02-2024 Erythrocyte distribution width (RBC) [Ratio] 12.1 % 11.6-14.6 [facility] Erythrocyte distribution wid th standard deviationOrdered By: Shari Sanchez on 01-02-2024 Erythrocyte distribution width (RBC) [Entitic vol] 42.0 fL 35.1-43.9 [facility] Hematocrit Auto (Bld) [Volum e fraction]Ordered By: Shari Sanchez on 01-02-2024 Hematocrit (Bld) [Volume fraction] 37.5 % 37-47 [facility] Immature granulocytes/100 WB C Auto (Bld)Ordered By: Shari Sanchez on 01-02-2024 Immature granulocytes/100 WBC (Bld) 0.500 % 0.0-0.9 [facility] Comment on above: IG% - Immature Granu locytes (promyelocytes, myelocytes and metamyelocytes) > 1% indicates that a LEFT SHIFT is Present. Laboratory - Chemistry and C hemistry - challengeOrdered By: Shari Sanchez on 01-02-2024 Albumin/Globulin [Mass ratio] 1.3 {ratio} 0.9-2.4 [facility] ALP [Catalytic activity/Vol] 113 U/L 45-117 [facility] ALT [Catalytic activity/Vol] 35 U/L 13-56 [facility] CO2 [Moles/Vol] 28.0 mmol/L 21.0-32.0 [facility] Globulin (S) [Mass/Vol] 2.7 g/dL 2.2-4.2 [facility] Urea nitrogen/Creatinine [Mass ratio] 12.9 mg/mg 10-20 [facility] - Hematology and Cell countsOrdered By: Shari Sanchez on 01-02-2024 MCH (RBC) [Entitic mass] 31.0 pg 27.0-32.0 [facility] MCHC (RBC) [Mass/Vol] 32.5 g/dL 32-36 [facility] Nucleated RBC/100 WBC (Bld) [Ratio] 0 % 0-5 [facility] Platelet mean volume (Bld) [Entitic vol] 9.2 fL 6.2-12.0 [facility] Platelets (Bld) [#/Vol] 282 10*3/uL 150-450 [facility] No Panel InformationOrdered By: Shari Sanchez on 01-02-2024 Estimated GFR (MDRD) Amer 83 mL/min >60 [facility] Comment on above: GFR Calc Estimated GFR (MDRD) Non-Af Amer 69 mL/min >60 [facility] Comment on above: Non- GFR Calc RBC Auto (Bld) [#/Vol]Ordere d By: Shari Sanchez on 01-02-2024 RBC (Bld) [#/Vol] 3.93 10*6/uL 4.2-5.[address] [facility] Serum or plasma calcium sam urement (mass/volume)Ordered By: Shari Sanchez on 01-02-2024 Calcium [Mass/Vol] 8.6 mg/dL 8.5-10.1 [facility] Serum or plasma creatinine m easurement (mass/volume)Ordered By: Shari Sanchez on 01-02-2024 Creatinine [Mass/Vol] 0.85 mg/dL 0.55-1.02 [facility] Comment on above: The validity of the calculated GFR & GFRAA in patients over 70 years has not been determined. Clinical correlation is essential. Serum or plasma urea nitroge n measurement (mass/volume)Ordered By: Shari Sanchez on 01-02-2024 Urea nitrogen [Mass/Vol] 11 mg/dL 7-18 [facility] Thin prep Papanicolaou smear with manual screeningOrdered By: Sharipedrito Sanchez on 01-02-2024 Thin prep Papanicolaou smear with manual screening 3.4 g/dL 3.2-5.0 [facility] Thin prep Papanicolaou smear with manual screening 23 U/L 15-37 [facility] Thin prep Papanicolaou smear with manual screening 3 5-15 [facility] Absolute lymphocyte counton 12-10-2023 Lymphocytes Auto (Unsp spec) [#/Vol] 0.76 10*3/uL 0.83-4.51 [facility] Automated lymphocyte count a s percentage of total leukocyteson 12-10-2023 Lymphocytes/100 WBC Auto (Unsp spec) 15.2 % 19-41 [facility] Basophil percentageon 2023 Basophils/100 WBC (Bld) 0.2 % 0-1 [facility] Eosinophils/100 WBC (Bld) 0.4 % 0-5 [facility] Hemoglobin (Bld) [Mass/Vol] 12.6 g/dL 12.0-15.0 [facility] Monocytes/100 WBC (Bld) 8.6 % 0-10 [facility] Neutrophils (Bld) [#/Vol] 3.8 10*3/uL 2.0-7.7 [facility] Neutrophils/100 WBC (Bld) 75.4 % 47-70 [facility] WBC (Bld) [#/Vol] 5.0 10*3/uL 4.4-11.0 [facility] Determination of erythrocyte mean corpuscular volume (MCV)on 12-10-2023 MCV (RBC) [Entitic vol] 94.8 fL 81-99 [facility] Erythrocyte distribution wid th ratioon 12-10-2023 Erythrocyte distribution width (RBC) [Ratio] 12.3 % 11.6-14.6 [facility] Erythrocyte distribution wid th standard deviationon 12-10-2023 Erythrocyte distribution width (RBC) [Entitic vol] 42.6 fL 35.1-43.9 [facility] Hematocrit Auto (Bld) [Volum e fraction]on 12-10-2023 Hematocrit (Bld) [Volume fraction] 38.3 % 37-47 [facility] Immature granulocytes/100 WB C Auto (Bld)on 12-10-2023 Immature granulocytes/100 WBC (Bld) 0.200 % 0.0-0.9 [facility] Comment on above: IG% - Immature Granu locytes (promyelocytes, myelocytes and metamyelocytes) > 1% indicates that a LEFT SHIFT is Present. Laboratory - Chemistry and C hemistry - challengeon 12-10-2023 ALT [Catalytic activity/Vol] 40 U/L 13-56 [facility] - Hematology and Cell countson 12-10-2023 MCH (RBC) [Entitic mass] 31.2 pg 27.0-32.0 [facility] MCHC (RBC) [Mass/Vol] 32.9 g/dL 32-36 [facility] Nucleated RBC/100 WBC (Bld) [Ratio] 0 % 0-5 [facility] Platelets (Bld) [#/Vol] 314 10*3/uL 150-450 [facility] Platelet mean volume Wally-Ec ker (Bld) [Entitic vol]on 12-10-2023 Platelet mean volume (Bld) [Entitic vol] 10.1 fL 6.2-12.0 [facility] RBC Auto (Bld) [#/Vol]on RBC (Bld) [#/Vol] 4.04 10*6/uL 4.2-5.[address] [facility] Thin prep Papanicolaou smear with manual screeningon 12-10-2023 Thin prep Papanicolaou smear with manual screening 28 U/L 15-37 [facility] Bilirubin Test strip Ql (U)O rdered By: Shari Sanchez on 10-09-2023 Bilirubin Ql (U) Negative Negative [facility] Dilute Tanner's viper venom timeOrdered By: Shari Sanchez on 10-09-2023 dRVVT Coag (PPP) [Time] 34.8 s 0.0-47.0 [facility] INR in Blood by Coagulation assayOrdered By: Shari Sanchez on 10-09-2023 INR Coag (Bld) [Relative time] 0.9 {INR} [facility] Ketones Test strip Ql (U)Ord ered By: Shari Sanchez on 10-09-2023 Ketones Ql (U) Negative Negative [facility] - CoagulationOrde red By: Shari Sanchez on 10-09-2023 aPTT Coag (Bld) [Time] 27.1 s 24.1-36.2 [facility] PT Coag (PPP) [Time] 12.1 s 11.7-14.9 [facility] - Miscellaneous t estsOrdered By: Shari Sanchez on 10-09-2023 Service comment (Unsp spec) [Interp] Comment . [facility] Comment on above: Results do not indic ate the presence of a LupusAnticoagulant: abnormal high screening results (PTT-LA,dRVVT, mixing studies), may be due to medication (heparin,warfarin, aspirin), Factor inhibitors, anticardiolipinantibodies, or poor specimen integrity.Performed at: [address] [id number] Director: Ortega Arredondo MD, Phone: [phone] Nitrite Test strip Ql (U)Ord ered By: Shari Sanchez on 10-09-2023 Nitrite Ql (U) Negative Negative [facility] No Panel InformationOrdered By: Shari Sanchez on 10-09-2023 Miscellaneous Test Comment MAILED SPECIMEN [facility] Protein Test strip Ql (U)Ord ered By: Shari Sanchez on 10-09-2023 Protein Ql (U) Negative Negative [facility] Thin prep Papanicolaou smear with manual screeningOrdered By: Shari Sanchez on 10-09-2023 Thin prep Papanicolaou smear with manual screening 34.1 sec 0.0-47.6 [facility] Thin prep Papanicolaou smear with manual screening 1.24 Ratio 0.00-1.34 [facility] Thin prep Papanicolaou smear with manual screening 32.6 sec 0.0-43.5 [facility] Thin prep Papanicolaou smear with manual screening Comment: . [facility] Comment on above: No lupus anticoagula nt was detected. Thrombin time in platelet po or plasmaOrdered By: Shari Sanchez on 10-09-2023 Thrombin time Coag (PPP) [Time] 17.9 sec 0.0-23.0 [facility] Urine blood detectionOrdered By: Shari Sanchez on 10-09-2023 RBC Ql (U) Negative Negative [facility] Urine clarityOrdered By: Tobias Sanchez on 10-09-2023 Clarity (U) Sl. Cloudy Clear [facility] Urine color determinationOrd ered By: Shari Sanchez on 10-09-2023 Color (U) Yellow Yellow [facility] Urine creatinine measurement (mass/volume)Ordered By: Shari Sanchez on 10-09-2023 Creatinine (U) [Mass/Vol] 71.10 mg/dL NO RANGE EST. [facility] Urine glucose detectionOrder ed By: Shari Sanchez on 10-09-2023 Glucose Ql (U) Normal mg/dl Normal [facility] Urine leukocyte esterase det ection by dipstickOrdered By: Shari Sanchez on 10-09-2023 Leukocyte esterase Test strip Ql (U) 500 /ul Negative [facility] Urine pHOrdered By: Shari more on 10-09-2023 pH (U) 7.0 [pH] 5.0 - 8.0 [facility] Urine protein measurement (m ass/volume)Ordered By: Shari Sanchez on 10-09-2023 Protein (U) [Mass/Vol] 11.9 mg/dL 0.0-11.8 [facility] Urine protein/creatinine mas s ratioOrdered By: Shari Sanchez on 10-09-2023 Protein/Creatinine (U) [Mass ratio] 167 mg/g CRE 0-200 [facility] Urine specific gravity measu rementOrdered By: Shari Sanchez on 10-09-2023 Specific gravity (U) [Rel density] 1.015 1.002-1.03 0 [facility] Urobilinogen Auto test strip Ql (U)Ordered By: Shari Sanchez on 10-09-2023 Urobilinogen Ql (U) Normal mg/dl Normal [facility] Absolute lymphocyte countOrd ered By: Sharipedrito Sanchez on 09-30-2023 Lymphocytes Auto (Unsp spec) [#/Vol] 0.72 10*3/uL 0.83-4.51 [facility] Basophil percentageOrdered B y: Shari Sanchez on 09-30-2023 Basophils/100 WBC (Bld) 0.4 % 0-1 [facility] Bilirubin [Mass/Vol] 0.30 mg/dL 0.20-1.00 [facility] Comment on above: For patients on eltr ombopag therapy, use of Dimension [place] TBIL is not recommended. Chloride [Moles/Vol] 100 mmol/L 98-107 [facility] Eosinophils/100 WBC (Bld) 0.4 % 0-5 [facility] Glucose [Mass/Vol] 98 mg/dL 74-106 [facility] Neutrophils (Bld) [#/Vol] 3.5 10*3/uL 2.0-7.7 [facility] Neutrophils/100 WBC (Bld) 73.3 % 47-70 [facility] Potassium [Moles/Vol] 3.7 mmol/L 3.5-5.1 [facility] Protein [Mass/Vol] 6.2 g/dL 6.4-8.2 [facility] Sodium [Moles/Vol] 134 mmol/L 136-145 [facility] WBC (Bld) [#/Vol] 4.8 10*3/uL 4.4-11.0 [facility] Blood erythrocytes count (nu mber/volume)Ordered By: Shari Sanchez on 09-30-2023 RBC (Bld) [#/Vol] 3.66 10*6/uL 4.2-5.[address] [facility] Blood hemoglobin measurement (mass/volume)Ordered By: Shari Sanchez on 09-30-2023 Hemoglobin (Bld) [Mass/Vol] 11.4 g/dL 12.0-15.0 [facility] Blood lymphocytes/100 leukoc ytesOrdered By: Sharipedrito Sanchez on 09-30-2023 Lymphocytes/100 WBC (Bld) 15.2 % 19-41 [facility] Blood monocytes/100 leukocyt esOrdered By: Sharipedrito Sanchez on 09-30-2023 Monocytes/100 WBC (Bld) 9.9 % 0-10 [facility] Blood platelet mean volumeOr dered By: Sharipedrito Sanchez on 09-30-2023 Platelet mean volume (Bld) [Entitic vol] 9.9 fL 6.2-12.0 [facility] Determination of erythrocyte mean corpuscular volume (MCV)Ordered By: Shari Sanchez on 09-30-2023 MCV (RBC) [Entitic vol] 95.6 fL 81-99 [facility] Hematocrit Auto (Bld) [Volum e fraction]Ordered By: [facility] Daniel on 09-30-2023 Hematocrit (Bld) [Volume fraction] 35.0 % 37-47 [facility] - Chemistry and C hemistry - challengeOrdered By: [facility] Daniel on 09-30-2023 ALP [Catalytic activity/Vol] 124 U/L 45-117 [facility] ALT [Catalytic activity/Vol] 43 U/L 13-56 [facility] CO2 [Moles/Vol] 28.0 mmol/L 21.0-32.0 [facility] Globulin (S) [Mass/Vol] 2.9 g/dL 2.2-4.2 [facility] Urea nitrogen/Creatinine [Mass ratio] 11.4 mg/mg 10-20 [facility] - Hematology and Cell countsOrdered By: Sharipedrito Sanchez on 09-30-2023 Erythrocyte distribution width (RBC) [Entitic vol] 45.4 fL 35.1-43.9 [facility] Erythrocyte distribution width (RBC) [Ratio] 13.0 % 11.6-14.6 [facility] Immature granulocytes/100 WBC (Bld) 0.800 % 0.0-0.9 [facility] Comment on above: IG% - Immature Granu locytes (promyelocytes, myelocytes and metamyelocytes) > 1% indicates that a LEFT SHIFT is Present. MCH (RBC) [Entitic mass] 31.1 pg 27.0-32.0 [facility] Nucleated RBC/100 WBC (Bld) [Ratio] 0 % 0-5 [facility] MCHC Auto (RBC) [Mass/Vol]Or dered By: Shari Sanchez on 09-30-2023 MCHC (RBC) [Mass/Vol] 32.6 g/dL 32-36 [facility] No Panel InformationOrdered By: Shari Sanchez on 09-30-2023 Estimated GFR (MDRD) Amer 91 mL/min >60 [facility] Comment on above: GFR Calc Estimated GFR (MDRD) Non-Af Amer 75 mL/min >60 [facility] Comment on above: Non- GFR Calc Platelets bldOrdered By: Tobias Sanchez on 09-30-2023 Platelets (Bld) [#/Vol] 280 10*3/uL 150-450 [facility] Serum or plasma albumin sam urement (mass/volume)Ordered By: Shari Sanchez on 09-30-2023 Albumin [Mass/Vol] 3.3 g/dL 3.2-5.0 [facility] Serum or plasma albumin/glob ulin mass ratioOrdered By: Shari Sanchez on 09-30-2023 Albumin/Globulin [Mass ratio] 1.1 {ratio} 0.9-2.4 [facility] Serum or plasma calcium sam urement (mass/volume)Ordered By: Shari Sanchez on 09-30-2023 Calcium [Mass/Vol] 8.9 mg/dL 8.5-10.1 [facility] Serum or plasma creatinine m easurement (mass/volume)Ordered By: Shari Sanchez on 09-30-2023 Creatinine [Mass/Vol] 0.79 mg/dL 0.55-1.02 [facility] Comment on above: The validity of the calculated GFR & GFRAA in patients over 70 years has not been determined. Clinical correlation is essential. Serum or plasma urea nitroge n measurement (mass/volume)Ordered By: Shari Sanchez on 09-30-2023 Urea nitrogen [Mass/Vol] 9 mg/dL 7-18 [facility] Thin prep Papanicolaou smear with manual screeningOrdered By: Shari Sanchez on 09-30-2023 Thin prep Papanicolaou smear with manual screening 24 U/L 15-37 [facility] Thin prep Papanicolaou smear with manual screening 6 5-15 [facility] US FEMALE PELVIS TRANSVAGon 09-05-2023 [facility] No Panel Informationon 09-02 [facility] Absolute lymphocyte countOrd ered By: Zay Wright on 08-02-2023 Lymphocytes Auto (Unsp spec) [#/Vol] 1.03 10*3/uL 0.83-4.51 [facility] Basophil percentageOrdered B y: Zay Wright on 08-02-2023 Basophils/100 WBC (Bld) 0.2 % 0-1 [facility] Bilirubin [Mass/Vol] 0.40 mg/dL 0.20-1.00 [facility] Comment on above: For patients on eltr ombopag therapy, use of Dimension [place] TBIL is not recommended. Eosinophils/100 WBC (Bld) 0.0 % 0-5 [facility] Neutrophils (Bld) [#/Vol] 10.4 10*3/uL 2.0-7.7 [facility] Neutrophils/100 WBC (Bld) 85.1 % 47-70 [facility] Protein [Mass/Vol] 6.2 g/dL 6.4-8.2 [facility] WBC (Bld) [#/Vol] 12.2 10*3/uL 4.4-11.[address] [facility] Blood erythrocytes count (nu mber/volume)Ordered By: Zay Wright on 08-02-2023 RBC (Bld) [#/Vol] 4.23 10*6/uL 4.2-5.[address] [facility] Blood hemoglobin measurement (mass/volume)Ordered By: Zay Wright on 08-02-2023 Hemoglobin (Bld) [Mass/Vol] 13.0 g/dL 12.0-15.0 [facility] Blood lymphocytes/100 leukoc ytesOrdered By: Zay Wright on 08-02-2023 Lymphocytes/100 WBC (Bld) 8.4 % 19-41 [facility] Blood monocytes/100 leukocyt esOrdered By: Zay Wright on 08-02-2023 Monocytes/100 WBC (Bld) 5.2 % 0-10 [facility] Blood platelet mean volumeOr dered By: Zay Wright on 08-02-2023 Platelet mean volume (Bld) [Entitic vol] 9.8 fL 6.2-12.0 [facility] Determination of erythrocyte mean corpuscular volume (MCV)Ordered By: Zay Wright on 08-02-2023 MCV (RBC) [Entitic vol] 94.8 fL 81-99 [facility] Direct bilirubinOrdered By: Zay Wright on 08-02-2023 Bilirubin.direct [Mass/Vol] 0.13 mg/dL 0.00-0.30 [facility] Hematocrit Auto (Bld) [Volum e fraction]Ordered By: Zay Wright on 08-02-2023 Hematocrit (Bld) [Volume fraction] 40.1 % 37-47 [facility] Laboratory - Chemistry and C hemistry - challengeOrdered By: Zay Wright on 08-02-2023 ALP [Catalytic activity/Vol] 102 U/L 45-117 [facility] ALT [Catalytic activity/Vol] 33 U/L 13-56 [facility] Globulin (S) [Mass/Vol] 2.7 g/dL 2.2-4.2 [facility] - Hematology and Cell countsOrdered By: Zay Wright on 08-02-2023 Erythrocyte distribution width (RBC) [Entitic vol] 44.1 fL 35.1-43.9 [facility] Erythrocyte distribution width (RBC) [Ratio] 12.8 % 11.6-14.6 [facility] Immature granulocytes/100 WBC (Bld) 1.100 % 0.0-0.9 [facility] Comment on above: IG% - Immature Granu locytes (promyelocytes, myelocytes and metamyelocytes) > 1% indicates that a LEFT SHIFT is Present. MCH (RBC) [Entitic mass] 30.7 pg 27.0-32.0 [facility] Nucleated RBC/100 WBC (Bld) [Ratio] 0 % 0-5 [facility] MCHC Auto (RBC) [Mass/Vol]Or dered By: Zay Wright on 08-02-2023 MCHC (RBC) [Mass/Vol] 32.4 g/dL 32-36 [facility] Platelets bldOrdered By: Walter Wright on 08-02-2023 Platelets (Bld) [#/Vol] 372 10*3/uL 150-450 [facility] Qualitative QuantiFERON-TB g old in tube testOrdered By: Zay Wright on 08-02-2023 M. tuberculosis tuberculin stim IFN-g Ql (Bld) Not Reportable [facility] Serum or plasma albumin sam urement (mass/volume)Ordered By: Zay Wright on 08-02-2023 Albumin [Mass/Vol] 3.5 g/dL 3.2-5.0 [facility] Thin prep Papanicolaou smear with manual screeningOrdered By: Zay Wright on 08-02-2023 Thin prep Papanicolaou smear with manual screening 16 U/L 15 [facility] Thin prep Papanicolaou smear with manual screening See comment [facility] Comment on above: TEST RESULTS LIMITS QFT-TB Plus (Client Incubated)QuantiFERON CriteriaQuantiFERON-TB Gold Plus is a qualitative indirect test forM tuberculosis infection (including disease) and is intended for use in conjunction with risk assessment, radiography, and other medical and diagnostic evaluations. The QuantiFERON-TB Gold Plus result is determined by subtracting the Nil value from either TB antigen (Ag)value. The Mitogen tube serves as a control for the test.QuantiFERON TB1 Ag Value 0.00 IU/mLQuantiFERON TB2 Ag Value 0.00 IU/mLQuantiFERON Nil Value 0.02 IU/mLQuantiFERON Mitogen Value 0.47 IU/mLQuantiFERON-TB Gold Plus Indeterminate Abnormal NegativeMitogen (positive control) gave low response. This may occur due to suboptimal pre-analytical handling.The specimen received for QuantiFERON testing was incubated by the ordering institution. Specific procedures outlined in our Directory of Services and in the package insert for the QuantiFERON Gold (In Tube) test must be followed to enable for proper stimulation of cells for the production of interferon gamma.Chemiluminescence immunoassay methodology TESTING PERFORMED AT [facility]. ORIGINAL REPORT ON FILE IN LAB CONTAINS ADDITIONAL TEST SITE INFORMATION. Thin prep Papanicolaou smear with manual screening Not Reportable [facility] No Panel InformationOrdered By: Osmin Jordan on 07-23-2023 Miscellaneous Test See comment [facility] Comment on above: Sent directly to [facility] per ordering physician. Absolute lymphocyte countOrd ered By: Shari Sanchez on 07-10-2023 Lymphocytes Auto (Unsp spec) [#/Vol] 0.74 10*3/uL 0.83-4.51 [facility] Basophil percentageOrdered B y: Shari Sanchez on 07-10-2023 Basophils/100 WBC (Bld) 0.4 % 0-1 [facility] Bilirubin [Mass/Vol] 0.30 mg/dL 0.20-1.00 [facility] Comment on above: For patients on eltr ombopag therapy, use of Dimension [place] TBIL is not recommended. Chloride [Moles/Vol] 102 mmol/L 98-107 [facility] Eosinophils/100 WBC (Bld) 1.0 % 0-5 [facility] Glucose [Mass/Vol] 110 mg/dL 74-106 [facility] Comment on above: Fasting Glucose resu lt from 100 to 125 mg/dL suggests IMPAIRED HOMEOSTASIS per A.D.A. criteria. Neutrophils (Bld) [#/Vol] 3.5 10*3/uL 2.0-7.7 [facility] Neutrophils/100 WBC (Bld) 72.2 % 47-70 [facility] Potassium [Moles/Vol] 3.8 mmol/L 3.5-5.1 [facility] Protein [Mass/Vol] 6.6 g/dL 6.4-8.2 [facility] Sodium [Moles/Vol] 134 mmol/L 136-145 [facility] WBC (Bld) [#/Vol] 4.8 10*3/uL 4.4-11.0 [facility] Blood erythrocytes count (nu mber/volume)Ordered By: Shari Sanchez on 07-10-2023 RBC (Bld) [#/Vol] 4.08 10*6/uL 4.2-5.[address] [facility] Blood hemoglobin measurement (mass/volume)Ordered By: Shari Sanchez on 07-10-2023 Hemoglobin (Bld) [Mass/Vol] 12.6 g/dL 12.0-15.0 [facility] Blood lymphocytes/100 leukoc ytesOrdered By: Shari Sanchez on 07-10-2023 Lymphocytes/100 WBC (Bld) 15.5 % 19-41 [facility] Blood monocytes/100 leukocyt esOrdered By: Shari Sanchez on 07-10-2023 Monocytes/100 WBC (Bld) 10.5 % 0-10 [facility] Blood platelet mean volumeOr dered By: Shari Sanchez on 07-10-2023 Platelet mean volume (Bld) [Entitic vol] 10.0 fL 6.2-12.0 [facility] Determination of erythrocyte mean corpuscular volume (MCV)Ordered By: Shari Sanchez on 07-10-2023 MCV (RBC) [Entitic vol] 94.1 fL 81-99 [facility] Hematocrit Auto (Bld) [Volum e fraction]Ordered By: Shari Sanchez on 07-10-2023 Hematocrit (Bld) [Volume fraction] 38.4 % 37-47 [facility] Laboratory - Chemistry and C hemistry - challengeOrdered By: Shari Sanchez on 07-10-2023 ALP [Catalytic activity/Vol] 110 U/L 45-117 [facility] ALT [Catalytic activity/Vol] 28 U/L 13-56 [facility] CO2 [Moles/Vol] 28.0 mmol/L 21.0-32.0 [facility] Globulin (S) [Mass/Vol] 3.2 g/dL 2.2-4.2 [facility] Urea nitrogen/Creatinine [Mass ratio] 13.5 mg/mg 10-20 [facility] Laboratory - Hematology and Cell countsOrdered By: Shari Sanchez on 07-10-2023 Erythrocyte distribution width (RBC) [Entitic vol] 43.0 fL 35.1-43.9 [facility] Erythrocyte distribution width (RBC) [Ratio] 12.4 % 11.6-14.6 [facility] Immature granulocytes/100 WBC (Bld) 0.400 % 0.0-0.9 [facility] Comment on above: IG% - Immature Granu locytes (promyelocytes, myelocytes and metamyelocytes) > 1% indicates that a LEFT SHIFT is Present. MCH (RBC) [Entitic mass] 30.9 pg 27.0-32.0 [facility] Nucleated RBC/100 WBC (Bld) [Ratio] 0 % 0-5 [facility] MCHC Auto (RBC) [Mass/Vol]Or dered By: Shari Sanchez on 07-10-2023 MCHC (RBC) [Mass/Vol] 32.8 g/dL 32-36 [facility] No Panel InformationOrdered By: Shari Sanchez on 07-10-2023 Estimated GFR (MDRD) Amer 79 mL/min >60 [facility] Comment on above: GFR Calc Estimated GFR (MDRD) Non-Af Amer 65 mL/min >60 [facility] Comment on above: Non- GFR Calc Platelets bldOrdered By: Toibas Sanchez on 07-10-2023 Platelets (Bld) [#/Vol] 292 10*3/uL 150-450 [facility] Serum or plasma albumin sam urement (mass/volume)Ordered By: Shari Sanchez on 07-10-2023 Albumin [Mass/Vol] 3.4 g/dL 3.2-5.0 [facility] Serum or plasma albumin/glob ulin mass ratioOrdered By: Shari Sanchez on 07-10-2023 Albumin/Globulin [Mass ratio] 1.1 {ratio} 0.9-2.4 [facility] Serum or plasma calcium sam urement (mass/volume)Ordered By: Shari Sanchez on 07-10-2023 Calcium [Mass/Vol] 8.9 mg/dL 8.5-10.1 [facility] Serum or plasma creatinine m easurement (mass/volume)Ordered By: Shari Sanchez on 07-10-2023 Creatinine [Mass/Vol] 0.89 mg/dL 0.55-1.02 [facility] Comment on above: The validity of the calculated GFR & GFRAA in patients over 70 years has not been determined. Clinical correlation is essential. Serum or plasma urea nitroge n measurement (mass/volume)Ordered By: Shari Sanchez on 07-10-2023 Urea nitrogen [Mass/Vol] 12 mg/dL 7-18 [facility] Thin prep Papanicolaou smear with manual screeningOrdered By: Shari Sanchez on 07-10-2023 Thin prep Papanicolaou smear with manual screening 21 U/L 15-37 [facility] Thin prep Papanicolaou smear with manual screening 4 5-15 [facility] Absolute lymphocyte countOrd ered By: Dr. Sanchez on 04-16-2023 Lymphocytes Auto (Unsp spec) [#/Vol] 0.52 10*3/uL 0.83-4.51 [facility] Basophil percentageOrdered B y: Dr. Sanchez on 04-16-2023 Basophils/100 WBC (Bld) 0.3 % 0-1 [facility] Bilirubin [Mass/Vol] 0.40 mg/dL 0.20-1.00 [facility] Comment on above: For patients on eltr ombopag therapy, use of Dimension [place] TBIL is not recommended. Chloride [Moles/Vol] 104 mmol/L 98-107 [facility] Eosinophils/100 WBC (Bld) 0.9 % 0-5 [facility] Glucose [Mass/Vol] 116 mg/dL 74-106 [facility] Comment on above: Fasting Glucose resu lt from 100 to 125 mg/dL suggests IMPAIRED HOMEOSTASIS per A.D.A. criteria. Neutrophils (Bld) [#/Vol] 2.5 10*3/uL 2.0-7.7 [facility] Neutrophils/100 WBC (Bld) 71.8 % 47-70 [facility] Potassium [Moles/Vol] 4.1 mmol/L 3.5-5.1 [facility] Protein [Mass/Vol] 6.2 g/dL 6.4-8.2 [facility] Sodium [Moles/Vol] 137 mmol/L 136-145 [facility] WBC (Bld) [#/Vol] 3.5 10*3/uL 4.4-11.0 [facility] Blood erythrocytes count (nu mber/volume)Ordered By: Dr. Sanchez on 04-16-2023 RBC (Bld) [#/Vol] 3.99 10*6/uL 4.2-5.[address] [facility] Blood hemoglobin measurement (mass/volume)Ordered By: Dr. Sanchez on 04-16-2023 Hemoglobin (Bld) [Mass/Vol] 12.3 g/dL 12.0-15.0 [facility] Blood lymphocytes/100 leukoc ytesOrdered By: Dr. Sanchez on 04-16-2023 Lymphocytes/100 WBC (Bld) 15.1 % 19-41 [facility] Blood manual differential co mment interpretation (narrative result)Ordered By: Dr. Sanchez on 04-16-2023 Manual differential comment Kaden (Bld) [Interp] SCANNED [facility] Blood monocytes/100 leukocyt esOrdered By: Dr. Sanchez on 04-16-2023 Monocytes/100 WBC (Bld) 11.6 % 0-10 [facility] Blood platelet mean volumeOr dered By: Dr. Sanchez on 04-16-2023 Platelet mean volume (Bld) [Entitic vol] 10.1 fL 6.2-12.0 [facility] Determination of erythrocyte mean corpuscular volume (MCV)Ordered By: Dr. Sanchez on 04-16-2023 MCV (RBC) [Entitic vol] 96.2 fL 81-99 [facility] Direct bilirubinOrdered By: Dr. Sanchez on 04-16-2023 Bilirubin.direct [Mass/Vol] 0.15 mg/dL 0.00-0.30 [facility] Hematocrit Auto (Bld) [Volum e fraction]Ordered By: Dr. Sanchez on 04-16-2023 Hematocrit (Bld) [Volume fraction] 38.4 % 37-47 [facility] Laboratory - Chemistry and C hemistry - challengeOrdered By: Dr. Sanchez on 04-16-2023 ALP [Catalytic activity/Vol] 75 U/L 45-117 [facility] ALT [Catalytic activity/Vol] 25 U/L 13-56 [facility] CO2 [Moles/Vol] 26.0 mmol/L 21.0-32.0 [facility] Globulin (S) [Mass/Vol] 3.1 g/dL 2.2-4.2 [facility] Urea nitrogen/Creatinine [Mass ratio] 12.6 mg/mg 10-20 [facility] Laboratory - Hematology and Cell countsOrdered By: Dr. Sanchez on 04-16-2023 Erythrocyte distribution width (RBC) [Entitic vol] 44.0 fL 35.1-43.9 [facility] Erythrocyte distribution width (RBC) [Ratio] 12.5 % 11.6-14.6 [facility] Immature granulocytes/100 WBC (Bld) 0.300 % 0.0-0.9 [facility] Comment on above: IG% - Immature Granu locytes (promyelocytes, myelocytes and metamyelocytes) > 1% indicates that a LEFT SHIFT is Present. MCH (RBC) [Entitic mass] 30.8 pg 27.0-32.0 [facility] Nucleated RBC/100 WBC (Bld) [Ratio] 0 % 0-5 [facility] MCHC Auto (RBC) [Mass/Vol]Or dered By: Dr. Sanchez on 04-16-2023 MCHC (RBC) [Mass/Vol] 32.0 g/dL 32-36 [facility] No Panel InformationOrdered By: Dr. Sanchez on 04-16-2023 Estimated GFR (MDRD) Amer 74 mL/min >60 [facility] Comment on above: GFR Calc Estimated GFR (MDRD) Non-Af Amer 61 mL/min >60 [facility] Comment on above: Non- GFR Calc Platelets bldOrdered By: Dr. Sanchez on 04-16-2023 Platelets (Bld) [#/Vol] 232 10*3/uL 150-450 [facility] Review by pathologistOrdered By: Dr. Sanchez on 04-16-2023 Pathologist review Kaden (Unsp spec) [Interp] Reviewed [facility] Comment on above: Previous reported re sult: Mariely kayla Edited by: SOM on 04/16/23:1424 AMENDED REPORT 04/16/23 1424 PATH REV previously reported as: Mariely garza Serum or plasma albumin sam urement (mass/volume)Ordered By: Dr. Sanchez on 04-16-2023 Albumin [Mass/Vol] 3.1 g/dL 3.2-5.0 [facility] Serum or plasma albumin/glob ulin mass ratioOrdered By: Dr. Sanchez on 04-16-2023 Albumin/Globulin [Mass ratio] 1.0 {ratio} 0.9-2.4 [facility] Serum or plasma calcium sam urement (mass/volume)Ordered By: Dr. Sanchez on 04-16-2023 Calcium [Mass/Vol] 8.6 mg/dL 8.5-10.1 [facility] Serum or plasma creatinine m easurement (mass/volume)Ordered By: Dr. Sanchez on 04-16-2023 Creatinine [Mass/Vol] 0.95 mg/dL 0.55-1.02 [facility] Comment on above: The validity of the calculated GFR & GFRAA in patients over 70 years has not been determined. Clinical correlation is essential. Serum or plasma urea nitroge n measurement (mass/volume)Ordered By: Dr. Sanchez on 04-16-2023 Urea nitrogen [Mass/Vol] 12 mg/dL 7-18 [facility] Thin prep Papanicolaou smear with manual screeningOrdered By: Dr. Sanchez on 04-16-2023 Thin prep Papanicolaou smear with manual screening 25 U/L 15-37 [facility] Thin prep Papanicolaou smear with manual screening 7 5-15 [facility] PARAM DIAG W OFE HIGGINBOTHAMon 02-27 [facility] PARAM SCREENING W ANTONIOAdrian 02-08 [facility] UA DIP, URINE (POC)on 2022 BILIRUBIN UA (POCT) Negative Negative [facility] CLARITY UA (POCT) Clear [facility] COLOR UA (POCT) Yellow [facility] GLUCOSE UA (POCT) Negative Negative mg/dL [facility] HEMOGLOBIN/BLOOD UA (POCT) Negative Negative [facility] KETONE UA (POCT) Negative Negative mg/dL [facility] LEUKOCYTES [facility]) [facility] NITRITE UA (POCT) Negative Negative [facility] PH UA (POCT) 7.0 4.5 - 8.0 [facility] Protein Ql (U) Negative Negative mg/dL [facility] SPECIFIC GRAVITY UA (POCT) 1.015 1.005 - 1.030 [facility] UROBILINOGEN UA (POCT) 0.2 E.U./dL Normal E.U./dL [facility] Absolute lymphocyte countOrd ered By: Dr. Sanchez on 01-15-2023 Lymphocytes Auto (Unsp spec) [#/Vol] 0.69 10*3/uL 0.83-4.51 [facility] Basophil percentageOrdered B y: Dr. Sanchez on 01-15-2023 Basophils/100 WBC (Bld) 0.7 % 0-1 [facility] Bilirubin [Mass/Vol] 0.30 mg/dL 0.20-1.00 [facility] Comment on above: For patients on eltr ombopag therapy, use of Dimension [place] TBIL is not recommended. Chloride [Moles/Vol] 103 mmol/L 98-107 [facility] Eosinophils/100 WBC (Bld) 0.7 % 0-5 [facility] Glucose [Mass/Vol] 78 mg/dL 74-106 [facility] Neutrophils (Bld) [#/Vol] 3.1 10*3/uL 2.0-7.7 [facility] Neutrophils/100 WBC (Bld) 68.6 % 47-70 [facility] Potassium [Moles/Vol] 4.2 mmol/L 3.5-5.1 [facility] Protein [Mass/Vol] 6.1 g/dL 6.4-8.2 [facility] Sodium [Moles/Vol] 136 mmol/L 136-145 [facility] WBC (Bld) [#/Vol] 4.5 10*3/uL 4.4-11.0 [facility] Blood erythrocytes count (nu mber/volume)Ordered By: Dr. Sanchez on 01-15-2023 RBC (Bld) [#/Vol] 4.00 10*6/uL 4.2-5.[address] [facility] Blood hemoglobin measurement (mass/volume)Ordered By: Dr. Sanchez on 01-15-2023 Hemoglobin (Bld) [Mass/Vol] 12.5 g/dL 12.0-15.0 [facility] Blood lymphocytes/100 leukoc ytesOrdered By: Dr. Sanchez on 01-15-2023 Lymphocytes/100 WBC (Bld) 15.2 % 19-41 [facility] Blood monocytes/100 leukocyt esOrdered By: Dr. Sanchez on 01-15-2023 Monocytes/100 WBC (Bld) 14.1 % 0-10 [facility] Blood platelet mean volumeOr dered By: Dr. Sanchez on 01-15-2023 Platelet mean volume (Bld) [Entitic vol] 9.7 fL 6.2-12.0 [facility] Determination of erythrocyte mean corpuscular volume (MCV)Ordered By: Dr. Sanchez on 01-15-2023 MCV (RBC) [Entitic vol] 96.8 fL 81-99 [facility] Direct bilirubinOrdered By: Dr. Sanchez on 01-15-2023 Bilirubin.direct [Mass/Vol] 0.14 mg/dL 0.00-0.30 [facility] Hematocrit Auto (Bld) [Volum e fraction]Ordered By: Dr. Sanchez on 01-15-2023 Hematocrit (Bld) [Volume fraction] 38.7 % 37-47 [facility] Laboratory - Chemistry and C hemistry - challengeOrdered By: Dr. Sanchez on 01-15-2023 ALP [Catalytic activity/Vol] 95 U/L 45-117 [facility] ALT [Catalytic activity/Vol] 28 U/L 13-56 [facility] CO2 [Moles/Vol] 27.0 mmol/L 21.0-32.0 [facility] Globulin (S) [Mass/Vol] 2.9 g/dL 2.2-4.2 [facility] Urea nitrogen/Creatinine [Mass ratio] 15.6 mg/mg 10-20 [facility] Laboratory - Hematology and Cell countsOrdered By: Dr. Sanchez on 01-15-2023 Erythrocyte distribution width (RBC) [Entitic vol] 42.5 fL 35.1-43.9 [facility] Erythrocyte distribution width (RBC) [Ratio] 12.1 % 11.6-14.6 [facility] Immature granulocytes/100 WBC (Bld) 0.700 % 0.0-0.9 [facility] Comment on above: IG% - Immature Granu locytes (promyelocytes, myelocytes and metamyelocytes) > 1% indicates that a LEFT SHIFT is Present. MCH (RBC) [Entitic mass] 31.3 pg 27.0-32.0 [facility] Nucleated RBC/100 WBC (Bld) [Ratio] 0 % 0-5 [facility] MCHC Auto (RBC) [Mass/Vol]Or dered By: Dr. Sanchez on 01-15-2023 MCHC (RBC) [Mass/Vol] 32.3 g/dL 32-36 [facility] No Panel InformationOrdered By: Dr. Sanchez on 01-15-2023 Estimated GFR (MDRD) Amer 86 mL/min >60 [facility] Comment on above: GFR Calc Estimated GFR (MDRD) Non-Af Amer 71 mL/min >60 [facility] Comment on above: Non- GFR Calc Platelets bldOrdered By: Dr. Sanchez on 01-15-2023 Platelets (Bld) [#/Vol] 259 10*3/uL 150-450 [facility] Serum or plasma albumin sam urement (mass/volume)Ordered By: Dr. Sanchez on 01-15-2023 Albumin [Mass/Vol] 3.2 g/dL 3.2-5.0 [facility] Serum or plasma albumin/glob ulin mass ratioOrdered By: Dr. Sanchez on 01-15-2023 Albumin/Globulin [Mass ratio] 1.1 {ratio} 0.9-2.4 [facility] Serum or plasma calcium sam urement (mass/volume)Ordered By: Dr. Sanchez on 01-15-2023 Calcium [Mass/Vol] 9.1 mg/dL 8.5-10.1 [facility] Serum or plasma creatinine m easurement (mass/volume)Ordered By: Dr. Sanchez on 01-15-2023 Creatinine [Mass/Vol] 0.84 mg/dL 0.55-1.02 [facility] Comment on above: The validity of the calculated GFR & GFRAA in patients over 70 years has not been determined. Clinical correlation is essential. Serum or plasma urea nitroge n measurement (mass/volume)Ordered By: Dr. Sanchez on 01-15-2023 Urea nitrogen [Mass/Vol] 13 mg/dL 7-18 [facility] Thin prep Papanicolaou smear with manual screeningOrdered By: Dr. Sanchez on 01-15-2023 Thin prep Papanicolaou smear with manual screening 21 U/L 15-37 [facility] Thin prep Papanicolaou smear with manual screening 6 5-15 [facility] Absolute lymphocyte countOrd ered By: Dr. Sanchez on 10-22-2022 Lymphocytes Auto (Unsp spec) [#/Vol] 0.67 10*3/uL 0.83-4.51 [facility] Basophil percentageOrdered B y: Dr. Sanchez on 10-22-2022 Basophils/100 WBC (Bld) 0.4 % 0-1 [facility] Bilirubin [Mass/Vol] 0.40 mg/dL 0.20-1.00 [facility] Comment on above: For patients on eltr ombopag therapy, use of Dimension [place] TBIL is not recommended. Chloride [Moles/Vol] 98 mmol/L 98-107 [facility] Eosinophils/100 WBC (Bld) 0.4 % 0-5 [facility] Glucose [Mass/Vol] 101 mg/dL 74-106 [facility] Comment on above: Fasting Glucose resu lt from 100 to 125 mg/dL suggests IMPAIRED HOMEOSTASIS per A.D.A. criteria. Neutrophils (Bld) [#/Vol] 3.3 10*3/uL 2.0-7.7 [facility] Neutrophils/100 WBC (Bld) 74.3 % 47-70 [facility] Potassium [Moles/Vol] 4.0 mmol/L 3.5-5.1 [facility] Protein [Mass/Vol] 5.9 g/dL 6.4-8.2 [facility] Sodium [Moles/Vol] 135 mmol/L 136-145 [facility] WBC (Bld) [#/Vol] 4.5 10*3/uL 4.4-11.0 [facility] Blood erythrocytes count (nu mber/volume)Ordered By: Dr. Sanchez on 10-22-2022 RBC (Bld) [#/Vol] 3.94 10*6/uL 4.2-5.[address] [facility] Blood hemoglobin measurement (mass/volume)Ordered By: Dr. Sanchez on 10-22-2022 Hemoglobin (Bld) [Mass/Vol] 12.6 g/dL 12.0-15.0 [facility] Blood lymphocytes/100 leukoc ytesOrdered By: Dr. Sanchez on 10-22-2022 Lymphocytes/100 WBC (Bld) 14.9 % 19-41 [facility] Blood monocytes/100 leukocyt esOrdered By: Dr. Sanchez on 10-22-2022 Monocytes/100 WBC (Bld) 9.6 % 0-10 [facility] Blood platelet mean volumeOr dered By: Dr. Sanchez on 10-22-2022 Platelet mean volume (Bld) [Entitic vol] 10.1 fL 6.2-12.0 [facility] Determination of erythrocyte mean corpuscular volume (MCV)Ordered By: Dr. Sanchez on 10-22-2022 MCV (RBC) [Entitic vol] 96.7 fL 81-99 [facility] Direct bilirubinOrdered By: Dr. Sanchez on 10-22-2022 Bilirubin.direct [Mass/Vol] 0.15 mg/dL 0.00-0.30 [facility] Hematocrit Auto (Bld) [Volum e fraction]Ordered By: Dr. Sanchez on 10-22-2022 Hematocrit (Bld) [Volume fraction] 38.1 % 37-47 [facility] Laboratory - Chemistry and C hemistry - challengeOrdered By: Dr. Sanchez on 10-22-2022 ALP [Catalytic activity/Vol] 87 U/L 45-117 [facility] ALT [Catalytic activity/Vol] 40 U/L 13-56 [facility] CO2 [Moles/Vol] 29.0 mmol/L 21.0-32.0 [facility] [facility] Globulin (S) [Mass/Vol] 2.6 g/dL 2.2-4.2 [facility] Urea nitrogen/Creatinine [Mass ratio] 13.3 mg/mg 10-20 [facility] Laboratory - Hematology and Cell countsOrdered By: Dr. Sanchez on 10-22-2022 Erythrocyte distribution width (RBC) [Entitic vol] 44.4 fL 35.1-43.9 [facility] Erythrocyte distribution width (RBC) [Ratio] 12.6 % 11.6-14.6 [facility] Immature granulocytes/100 WBC (Bld) 0.400 % 0.0-0.9 [facility] Comment on above: IG% - Immature Granu locytes (promyelocytes, myelocytes and metamyelocytes) > 1% indicates that a LEFT SHIFT is Present. MCH (RBC) [Entitic mass] 32.0 pg 27.0-32.0 [facility] Nucleated RBC/100 WBC (Bld) [Ratio] 0 % 0-5 [facility] MCHC Auto (RBC) [Mass/Vol]Or dered By: Dr. Sanchez on 10-22-2022 MCHC (RBC) [Mass/Vol] 33.1 g/dL 32-36 [facility] No Panel InformationOrdered By: Dr. Sanchez on 10-22-2022 Estimated GFR (MDRD) Amer 78 mL/min >60 [facility] Comment on above: GFR Calc Estimated GFR (MDRD) Non-Af Amer 65 mL/min >60 [facility] Comment on above: Non- GFR Calc Platelets bldOrdered By: Dr. Sanchez on 10-22-2022 Platelets (Bld) [#/Vol] 270 10*3/uL 150-450 [facility] Qualitative QuantiFERON-TB g old in tube testOrdered By: Dr. Sanchez on 10-22-2022 M. tuberculosis tuberculin stim IFN-g Ql (Bld) 0.05 IU/mL . [facility] Serum or plasma albumin sam urement (mass/volume)Ordered By: Dr. Sanchez on 10-22-2022 Albumin [Mass/Vol] 3.3 g/dL 3.2-5.0 [facility] Serum or plasma albumin/glob ulin mass ratioOrdered By: Dr. Sanchez on 10-22-2022 Albumin/Globulin [Mass ratio] 1.3 {ratio} 0.9-2.4 [facility] Serum or plasma calcium sam urement (mass/volume)Ordered By: Dr. Sanchez on 10-22-2022 Calcium [Mass/Vol] 8.9 mg/dL 8.5-10.1 [facility] Serum or plasma creatinine m easurement (mass/volume)Ordered By: Dr. Sanchez on 10-22-2022 Creatinine [Mass/Vol] 0.90 mg/dL 0.55-1.02 [facility] Comment on above: The validity of the calculated GFR & GFRAA in patients over 70 years has not been determined. Clinical correlation is essential. Serum or plasma urea nitroge n measurement (mass/volume)Ordered By: Dr. Sanchez on 10-22-2022 Urea nitrogen [Mass/Vol] 12 mg/dL 7-18 [facility] Thin prep Papanicolaou smear with manual screeningOrdered By: Dr. Sanchez on 10-22-2022 Thin prep Papanicolaou smear with manual screening 28 U/L 15-37 [facility] Thin prep Papanicolaou smear with manual screening 8 5-15 [facility] Thin prep Papanicolaou smear with manual screening Comment . [facility] Comment on above: QuantiFERON-TB Gold Plus is a qualitative indirect test forM tuberculosis infection (including disease) and isintended for use in conjunction with risk assessment,radiography, and other medical and diagnostic evaluations.The QuantiFERON-TB Gold Plus result is determined bysubtracting the Nil value from either TB antigen (Ag)value. The Mitogen tube serves as a control for the test. Thin prep Papanicolaou smear with manual screening 0.04 IU/mL . [facility] Thin prep Papanicolaou smear with manual screening 4.20 IU/mL . [facility] Thin prep Papanicolaou smear with manual screening Negative Negative [facility] Comment on above: No response to M tub erculosis antigens detected.Infection with M tuberculosis is unlikely, but high riskindividuals should be considered for additional testing(ATS/IDSA/CDC Clinical Practice Guidelines, 2017). Thereference range is an Antigen minus Nil result of <0.35IU/mL.The specimen received for QuantiFERON testing was incubatedby the ordering institution. Specific procedures outlinedin our Directory of Services and in the package insert forthe QuantiFERON Gold (In Tube) test must be followed toenable for proper stimulation of cells for the productionof interferon gamma. Chemiluminescence immunoassaymethodologyPerformed at: [address] [id number] Director: Alvin Portillo PhD, Phone: [phone] Absolute lymphocyte counton 08-17-2022 Lymphocytes Auto (Unsp spec) [#/Vol] 0.60 10*3/uL 0.83-4.51 [facility] Work Phone: Basophil percentageon 2021 Basophils/100 WBC (Bld) 0.2 % 0-1 [facility] Work Phone: Chloride [Moles/Vol] 95 mmol/L 98-107 [facility] Work Phone: Eosinophils/100 WBC (Bld) 0.0 % 0-5 [facility] Work Phone: [phone] Glucose [Mass/Vol] 115 mg/dL 74-106 [facility] Work Phone: [phone] Comment on above: Fasting Glucose resu lt from 100 to 125 mg/dL suggests IMPAIRED HOMEOSTASIS per A.D.A. criteria. Neutrophils (Bld) [#/Vol] 2.9 10*3/uL 2.0-7.7 [facility] Work Phone: Neutrophils/100 WBC (Bld) 71.9 % 47-70 [facility] Work Phone: Potassium [Moles/Vol] 3.8 mmol/L 3.5-5.1 [facility] Work Phone: [phone] Sodium [Moles/Vol] 128 mmol/L 136-145 [facility] Work Phone: [phone] WBC (Bld) [#/Vol] 4.1 10*3/uL 4.4-11.0 [facility] Work Phone: [phone] Blood erythrocytes count (nu mber/volume)on 08-17-2022 RBC (Bld) [#/Vol] 3.80 10*6/uL 4.2-5.[address] [facility] Work Phone: [phone] Blood hemoglobin measurement (mass/volume)on 08-17-2022 Hemoglobin (Bld) [Mass/Vol] 12.0 g/dL 12.0-15.0 [facility] Work Phone: Blood lymphocytes/100 leukoc yteson 08-17-2022 Lymphocytes/100 WBC (Bld) 14.7 % 19-41 [facility] Work Phone: Blood monocytes/100 leukocyt eson 08-17-2022 Monocytes/100 WBC (Bld) 12.7 % 0-10 [facility] Work Phone: Blood platelet mean volumeon 08-17-2022 Platelet mean volume (Bld) [Entitic vol] 9.1 fL 6.2-12.0 [facility] Work Phone: [phone] Determination of erythrocyte mean corpuscular volume (MCV)on 08-17-2022 MCV (RBC) [Entitic vol] 92.1 fL 81-99 [facility] Work Phone: Hematocrit Auto (Bld) [Volum e fraction]on 08-17-2022 Hematocrit (Bld) [Volume fraction] 35.0 % 37-47 [facility] Work Phone: [phone] Laboratory - Chemistry and C hemistry - challengeon 08-17-2022 CO2 [Moles/Vol] 25.0 mmol/L 21.0-32.0 [facility] Work Phone: [phone] Urea nitrogen/Creatinine [Mass ratio] 16.3 mg/mg 10-20 [facility] Work Phone: Laboratory - Hematology and Cell countson 08-17-2022 Erythrocyte distribution width (RBC) [Entitic vol] 40.2 fL 35.1-43.9 [facility] Work Phone: [phone] Erythrocyte distribution width (RBC) [Ratio] 11.9 % 11.6-14.6 [facility] Work Phone: Immature granulocytes/100 WBC (Bld) 0.500 % 0.0-0.9 [facility] Work Phone: Comment on above: IG% - Immature Granu locytes (promyelocytes, myelocytes and metamyelocytes) > 1% indicates that a LEFT SHIFT is Present. MCH (RBC) [Entitic mass] 31.6 pg 27.0-32.0 [facility] Work Phone: Nucleated RBC/100 WBC (Bld) [Ratio] 0 % 0-5 [facility] Work Phone: MCHC Auto (RBC) [Mass/Vol]on 08-17-2022 MCHC (RBC) [Mass/Vol] 34.3 g/dL 32-36 [facility] Work Phone: No Panel Informationon 08-17 Troponin I High Sensitivity 5 pg/mL 3.0-54.0 [facility] Work Phone: Comment on above: Please Note: New Maite t Units and Gender Specific Reference Ranges. For more information see Policy Stat Procedure [employer] [place] High Sensitivity Troponin (TNIH) and attachments. Estimated Creatinine Clearance Calc 44.32 ml/min [facility] Work Phone: Estimated GFR (MDRD) Amer 90 mL/min >60 [facility] Work Phone: Comment on above: GFR Calc Estimated GFR (MDRD) Non-Af Amer 75 mL/min >60 [facility] Work Phone: Comment on above: Non- GFR Calc Platelets bldon 08-17-2022 Platelets (Bld) [#/Vol] 218 10*3/uL 150-450 [facility] Work Phone: Review by pathologiston 07-21 Pathologist review Kaden (Unsp spec) [Interp] May foll [facility] Work Phone: Pathologist review Kaden (Unsp spec) [Interp] Reviewed [facility] Work Phone: Comment on above: Previous reported re sult: Mariely garza Edited by: RGOOD on 08/20/22:1319 AMENDED REPORT 08/20/22 2349 PATH REV previously reported as: Mariely garza Serum or plasma calcium sam urement (mass/volume)on 08-17-2022 Calcium [Mass/Vol] 9.5 mg/dL 8.5-10.1 [facility] Work Phone: Serum or plasma creatinine m easurement (mass/volume)on 08-17-2022 Creatinine [Mass/Vol] 0.80 mg/dL 0.55-1.02 [facility] Work Phone: Comment on above: The validity of the calculated GFR & GFRAA in patients over 70 years has not been determined. Clinical correlation is essential. Serum or plasma urea nitroge n measurement (mass/volume)on 08-17-2022 Urea nitrogen [Mass/Vol] 13 mg/dL 7-18 [facility] Work Phone: Thin prep Papanicolaou smear with manual screeningon 08-17-2022 Thin prep Papanicolaou smear with manual screening 8 5-15 [facility] Work Phone: Absolute lymphocyte counton 08-07-2022 Lymphocytes Auto (Unsp spec) [#/Vol] 0.72 10*3/uL 0.83-4.51 [facility] Work Phone: Basophil percentageon 2021 Basophils/100 WBC (Bld) 0.3 % 0-1 [facility] Work Phone: Bilirubin [Mass/Vol] 0.40 mg/dL 0.20-1.00 [facility] Work Phone: Comment on above: For patients on eltr ombopag therapy, use of Dimension [employer] [place] TBIL is not recommended. Chloride [Moles/Vol] 101 mmol/L 98-107 [facility] Work Phone: Eosinophils/100 WBC (Bld) 0.5 % 0-5 [facility] Work Phone: Glucose [Mass/Vol] 71 mg/dL 74-106 [facility] Work Phone: Neutrophils (Bld) [#/Vol] 2.6 10*3/uL 2.0-7.7 [facility] Work Phone: Neutrophils/100 WBC (Bld) 67.0 % 47-70 [facility] Work Phone: Potassium [Moles/Vol] 4.2 mmol/L 3.5-5.1 [facility] Work Phone: Protein [Mass/Vol] 6.3 g/dL 6.4-8.2 [facility] Work Phone: Sodium [Moles/Vol] 135 mmol/L 136-145 [facility] Work Phone: WBC (Bld) [#/Vol] 3.9 10*3/uL 4.4-11.0 [facility] Work Phone: Blood erythrocytes count (nu mber/volume)on 08-07-2022 RBC (Bld) [#/Vol] 3.80 10*6/uL 4.2-5.[address] [facility] Work Phone: Blood hemoglobin measurement (mass/volume)on 08-07-2022 Hemoglobin (Bld) [Mass/Vol] 12.2 g/dL 12.0-15.0 [facility] Work Phone: Blood lymphocytes/100 leukoc yteson 08-07-2022 Lymphocytes/100 WBC (Bld) 18.4 % 19-41 [facility] Work Phone: Blood monocytes/100 leukocyt eson 08-07-2022 Monocytes/100 WBC (Bld) 13.5 % 0-10 [facility] Work Phone: Blood platelet mean volumeon 08-07-2022 Platelet mean volume (Bld) [Entitic vol] 9.7 fL 6.2-12.0 [facility] Work Phone: [phone] Determination of erythrocyte mean corpuscular volume (MCV)on 08-07-2022 MCV (RBC) [Entitic vol] 96.6 fL 81-99 [facility] Work Phone: Hematocrit Auto (Bld) [Volum e fraction]on 08-07-2022 Hematocrit (Bld) [Volume fraction] 36.7 % 37-47 [facility] Work Phone: [phone] Laboratory - Chemistry and C hemistry - challengeon 08-07-2022 ALP [Catalytic activity/Vol] 90 U/L 45-117 [facility] Work Phone: ALT [Catalytic activity/Vol] 25 U/L 13-56 [facility] Work Phone: CO2 [Moles/Vol] 28.0 mmol/L 21.0-32.0 [facility] Work Phone: Globulin (S) [Mass/Vol] 3.1 g/dL 2.2-4.2 [facility] Work Phone: [phone] Urea nitrogen/Creatinine [Mass ratio] 14.1 mg/mg 10-20 [facility] Work Phone: Laboratory - Hematology and Cell countson 08-07-2022 Erythrocyte distribution width (RBC) [Entitic vol] 45.4 fL 35.1-43.9 [facility] Work Phone: [phone] Erythrocyte distribution width (RBC) [Ratio] 12.8 % 11.6-14.6 [facility] Work Phone: [phone] Immature granulocytes/100 WBC (Bld) 0.300 % 0.0-0.9 [facility] Work Phone: [phone] Comment on above: IG% - Immature Granu locytes (promyelocytes, myelocytes and metamyelocytes) > 1% indicates that a LEFT SHIFT is Present. MCH (RBC) [Entitic mass] 32.1 pg 27.0-32.0 [facility] Work Phone: Nucleated RBC/100 WBC (Bld) [Ratio] 0 % 0-5 [facility] Work Phone: [phone] MCHC Auto (RBC) [Mass/Vol]on 08-07-2022 MCHC (RBC) [Mass/Vol] 33.2 g/dL 32-36 [facility] Work Phone: No Panel Informationon 08-07 Estimated GFR (MDRD) Amer 92 mL/min >60 [facility] Work Phone: Comment on above: GFR Calc Estimated GFR (MDRD) Non-Af Amer 76 mL/min >60 [facility] Work Phone: Comment on above: Non- GFR Calc Platelets bldon 08-07-2022 Platelets (Bld) [#/Vol] 263 10*3/uL 150-450 [facility] Work Phone: Serum or plasma albumin sam urement (mass/volume)on 08-07-2022 Albumin [Mass/Vol] 3.2 g/dL 3.2-5.0 [facility] Work Phone: Serum or plasma albumin/glob ulin mass ratioon 08-07-2022 Albumin/Globulin [Mass ratio] 1.0 {ratio} 0.9-2.4 [facility] Work Phone: Serum or plasma calcium sam urement (mass/volume)on 08-07-2022 Calcium [Mass/Vol] 9.0 mg/dL 8.5-10.1 [facility] Work Phone: Serum or plasma creatinine m easurement (mass/volume)on 08-07-2022 Creatinine [Mass/Vol] 0.78 mg/dL 0.55-1.02 [facility] Work Phone: Comment on above: The validity of the calculated GFR & GFRAA in patients over 70 years has not been determined. Clinical correlation is essential. Serum or plasma urea nitroge n measurement (mass/volume)on 08-07-2022 Urea nitrogen [Mass/Vol] 11 mg/dL 7-18 [facility] Work Phone: Thin prep Papanicolaou smear with manual screeningon 08-07-2022 Thin prep Papanicolaou smear with manual screening 19 U/L 15-37 [facility] Work Phone: Thin prep Papanicolaou smear with manual screening 6 5-15 [facility] Work Phone: Absolute lymphocyte counton 05-22-2022 Lymphocytes Auto (Unsp spec) [#/Vol] 0.75 10*3/uL 0.83-4.51 [facility] Work Phone: Basophil percentageon 2021 Basophils/100 WBC (Bld) 0.3 % 0-1 [facility] Work Phone: Bilirubin [Mass/Vol] 0.30 mg/dL 0.20-1.00 [facility] Work Phone: Comment on above: For patients on eltr ombopag therapy, use of Dimension [employer] [place] TBIL is not recommended. Chloride [Moles/Vol] 103 mmol/L 98-107 [facility] Work Phone: Eosinophils/100 WBC (Bld) 1.1 % 0-5 [facility] Work Phone: Glucose [Mass/Vol] 72 mg/dL 74-106 [facility] Work Phone: Neutrophils (Bld) [#/Vol] 2.4 10*3/uL 2.0-7.7 [facility] Work Phone: Neutrophils/100 WBC (Bld) 65.1 % 47-70 [facility] Work Phone: Potassium [Moles/Vol] 3.9 mmol/L 3.5-5.1 [facility] Work Phone: Protein [Mass/Vol] 6.1 g/dL 6.4-8.2 [facility] Work Phone: Sodium [Moles/Vol] 135 mmol/L 136-145 [facility] Work Phone: WBC (Bld) [#/Vol] 3.6 10*3/uL 4.4-11.0 [facility] Work Phone: Blood erythrocytes count (nu mber/volume)on 05-22-2022 RBC (Bld) [#/Vol] 3.91 10*6/uL 4.2-5.[address] [facility] Work Phone: [phone] Blood hemoglobin measurement (mass/volume)on 05-22-2022 Hemoglobin (Bld) [Mass/Vol] 12.2 g/dL 12.0-15.0 [facility] Work Phone: Blood lymphocytes/100 leukoc yteson 05-22-2022 Lymphocytes/100 WBC (Bld) 20.6 % 19-41 [facility] Work Phone: Blood monocytes/100 leukocyt eson 05-22-2022 Monocytes/100 WBC (Bld) 12.6 % 0-10 [facility] Work Phone: Blood platelet mean volumeon 05-22-2022 Platelet mean volume (Bld) [Entitic vol] 9.9 fL 6.2-12.0 [facility] Work Phone: Determination of erythrocyte mean corpuscular volume (MCV)on 05-22-2022 MCV (RBC) [Entitic vol] 95.7 fL 81-99 [facility] Work Phone: Hematocrit Auto (Bld) [Volum e fraction]on 05-22-2022 Hematocrit (Bld) [Volume fraction] 37.4 % 37-47 [facility] Work Phone: [phone] Laboratory - Chemistry and C hemistry - challengeon 05-22-2022 ALP [Catalytic activity/Vol] 85 U/L 45-117 [facility] Work Phone: ALT [Catalytic activity/Vol] 24 U/L 13-56 [facility] Work Phone: CO2 [Moles/Vol] 26.0 mmol/L 21.0-32.0 [facility] Work Phone: Globulin (S) [Mass/Vol] 2.9 g/dL 2.2-4.2 [facility] Work Phone: [phone] Urea nitrogen/Creatinine [Mass ratio] 16.1 mg/mg 10-20 [facility] Work Phone: Laboratory - Hematology and Cell countson 05-22-2022 Erythrocyte distribution width (RBC) [Entitic vol] 45.0 fL 35.1-43.9 [facility] Work Phone: Erythrocyte distribution width (RBC) [Ratio] 12.8 % 11.6-14.6 [facility] Work Phone: Immature granulocytes/100 WBC (Bld) 0.300 % 0.0-0.9 [facility] Work Phone: Comment on above: IG% - Immature Granu locytes (promyelocytes, myelocytes and metamyelocytes) > 1% indicates that a LEFT SHIFT is Present. MCH (RBC) [Entitic mass] 31.2 pg 27.0-32.0 [facility] Work Phone: Nucleated RBC/100 WBC (Bld) [Ratio] 0 % 0-5 [facility] Work Phone: MCHC Auto (RBC) [Mass/Vol]on 05-22-2022 MCHC (RBC) [Mass/Vol] 32.6 g/dL 32-36 [facility] Work Phone: No Panel Informationon 05-22 Estimated GFR (MDRD) Amer 82 mL/min >60 [facility] Work Phone: Comment on above: GFR Calc Estimated GFR (MDRD) Non-Af Amer 68 mL/min >60 [facility] Work Phone: Comment on above: Non- GFR Calc Platelets bldon 05-22-2022 Platelets (Bld) [#/Vol] 240 10*3/uL 150-450 [facility] Work Phone: Serum or plasma albumin sam urement (mass/volume)on 05-22-2022 Albumin [Mass/Vol] 3.2 g/dL 3.2-5.0 [facility] Work Phone: Serum or plasma albumin/glob ulin mass ratioon 05-22-2022 Albumin/Globulin [Mass ratio] 1.1 {ratio} 0.9-2.4 [facility] Work Phone: Serum or plasma calcium sam urement (mass/volume)on 05-22-2022 Calcium [Mass/Vol] 8.4 mg/dL 8.5-10.1 [facility] Work Phone: Serum or plasma creatinine m easurement (mass/volume)on 05-22-2022 Creatinine [Mass/Vol] 0.87 mg/dL 0.55-1.02 [facility] Work Phone: Comment on above: The validity of the calculated GFR & GFRAA in patients over 70 years has not been determined. Clinical correlation is essential. Serum or plasma urea nitroge n measurement (mass/volume)on 05-22-2022 Urea nitrogen [Mass/Vol] 14 mg/dL 7-18 [facility] Work Phone: Thin prep Papanicolaou smear with manual screeningon 05-22-2022 Thin prep Papanicolaou smear with manual screening 22 U/L 15-37 [facility] Work Phone: Thin prep Papanicolaou smear with manual screening 6 5-15 [facility] Work Phone: Absolute lymphocyte counton 02-26-2022 Lymphocytes Auto (Unsp spec) [#/Vol] 1.21 10*3/uL 0.83-4.51 [facility] Work Phone: Basophil percentageon 2021 Basophils/100 WBC (Bld) 0.2 % 0-1 [facility] Work Phone: Bilirubin [Mass/Vol] 0.40 mg/dL 0.20-1.00 [facility] Work Phone: Comment on above: For patients on eltr ombopag therapy, use of Dimension [employer] [place] TBIL is not recommended. Chloride [Moles/Vol] 105 mmol/L 98-107 [facility] Work Phone: Eosinophils/100 WBC (Bld) 0.6 % 0-5 [facility] Work Phone: Glucose [Mass/Vol] 91 mg/dL 74-106 [facility] Work Phone: Neutrophils (Bld) [#/Vol] 3.2 10*3/uL 2.0-7.7 [facility] Work Phone: Neutrophils/100 WBC (Bld) 63.1 % 47-70 [facility] Work Phone: Potassium [Moles/Vol] 3.4 mmol/L 3.5-5.1 [facility] Work Phone: Protein [Mass/Vol] 6.2 g/dL 6.4-8.2 [facility] Work Phone: Sodium [Moles/Vol] 135 mmol/L 136-145 [facility] Work Phone: WBC (Bld) [#/Vol] 5.0 10*3/uL 4.4-11.0 [facility] Work Phone: Blood erythrocytes count (nu mber/volume)on 02-26-2022 RBC (Bld) [#/Vol] 3.84 10*6/uL 4.2-5.[address] [facility] Work Phone: Blood hemoglobin measurement (mass/volume)on 02-26-2022 Hemoglobin (Bld) [Mass/Vol] 12.1 g/dL 12.0-15.0 [facility] Work Phone: Blood lymphocytes/100 leukoc yteson 02-26-2022 Lymphocytes/100 WBC (Bld) 24.0 % 19-41 [facility] Work Phone: Blood monocytes/100 leukocyt eson 02-26-2022 Monocytes/100 WBC (Bld) 11.7 % 0-10 [facility] Work Phone: Blood platelet mean volumeon 02-26-2022 Platelet mean volume (Bld) [Entitic vol] 9.8 fL 6.2-12.0 [facility] Work Phone: Determination of erythrocyte mean corpuscular volume (MCV)on 02-26-2022 MCV (RBC) [Entitic vol] 92.7 fL 81-99 [facility] Work Phone: Hematocrit Auto (Bld) [Volum e fraction]on 02-26-2022 Hematocrit (Bld) [Volume fraction] 35.6 % 37-47 [facility] Work Phone: [phone] Laboratory - Chemistry and C hemistry - challengeon 02-26-2022 ALP [Catalytic activity/Vol] 78 U/L 45-117 [facility] Work Phone: ALT [Catalytic activity/Vol] 26 U/L 13-56 [facility] Work Phone: CO2 [Moles/Vol] 26.0 mmol/L 21.0-32.0 [facility] Work Phone: [phone] Globulin (S) [Mass/Vol] 2.9 g/dL 2.2-4.2 [facility] Work Phone: [phone] Urea nitrogen/Creatinine [Mass ratio] 14.5 mg/mg 10-20 [facility] Work Phone: Laboratory - Hematology and Cell countson 02-26-2022 Erythrocyte distribution width (RBC) [Entitic vol] 42.3 fL 35.1-43.9 [facility] Work Phone: [phone] Erythrocyte distribution width (RBC) [Ratio] 12.4 % 11.6-14.6 [facility] Work Phone: [phone] Immature granulocytes/100 WBC (Bld) 0.400 % 0.0-0.9 [facility] Work Phone: [phone] Comment on above: IG% - Immature Granu locytes (promyelocytes, myelocytes and metamyelocytes) > 1% indicates that a LEFT SHIFT is Present. MCH (RBC) [Entitic mass] 31.5 pg 27.0-32.0 [facility] Work Phone: [phone] Nucleated RBC/100 WBC (Bld) [Ratio] 0 % 0-5 [facility] Work Phone: MCHC Auto (RBC) [Mass/Vol]on 02-26-2022 MCHC (RBC) [Mass/Vol] 34.0 g/dL 32-36 [facility] Work Phone: No Panel Informationon 02-26 Estimated GFR (MDRD) Amer 79 mL/min >60 [facility] Work Phone: Comment on above: GFR Calc Estimated GFR (MDRD) Non-Af Amer 65 mL/min >60 [facility] Work Phone: Comment on above: Non- GFR Calc Platelets bldon 02-26-2022 Platelets (Bld) [#/Vol] 296 10*3/uL 150-450 [facility] Work Phone: Serum or plasma albumin sam urement (mass/volume)on 02-26-2022 Albumin [Mass/Vol] 3.3 g/dL 3.2-5.0 [facility] Work Phone: Serum or plasma albumin/glob ulin mass ratioon 02-26-2022 Albumin/Globulin [Mass ratio] 1.1 {ratio} 0.9-2.4 [facility] Work Phone: Serum or plasma calcium sam urement (mass/volume)on 02-26-2022 Calcium [Mass/Vol] 8.7 mg/dL 8.5-10.1 [facility] Work Phone: Serum or plasma creatinine m easurement (mass/volume)on 02-26-2022 Creatinine [Mass/Vol] 0.90 mg/dL 0.55-1.02 [facility] Work Phone: Comment on above: The validity of the calculated GFR & GFRAA in patients over 70 years has not been determined. Clinical correlation is essential. Serum or plasma urea nitroge n measurement (mass/volume)on 02-26-2022 Urea nitrogen [Mass/Vol] 13 mg/dL 7-18 [facility] Work Phone: Thin prep Papanicolaou smear with manual screeningon 04-11-2022 Thin prep Papanicolaou smear with manual screening 18 U/L 15-37 [facility] Work Phone: Thin prep Papanicolaou smear with manual screening 4 5-15 [facility] Work Phone: Absolute lymphocyte counton 12-06-2021 Lymphocytes Auto (Unsp spec) [#/Vol] 0.73 10*3/uL 0.83-4.51 [facility] Work Phone: Basophil percentageon 2021 Basophils/100 WBC (Bld) 0.3 % 0-1 [facility] Work Phone: Bilirubin [Mass/Vol] 0.30 mg/dL 0.20-1.00 [facility] Work Phone: Comment on above: For patients on eltr ombopag therapy, use of Dimension [place] TBIL is not recommended. Chloride [Moles/Vol] 103 mmol/L 98-107 [facility] Work Phone: Eosinophils/100 WBC (Bld) 0.8 % 0-5 [facility] Work Phone: Glucose [Mass/Vol] 85 mg/dL 74-106 [facility] Work Phone: Neutrophils (Bld) [#/Vol] 2.5 10*3/uL 2.0-7.7 [facility] Work Phone: Neutrophils/100 WBC (Bld) 64.6 % 47-70 [facility] Work Phone: Potassium [Moles/Vol] 4.1 mmol/L 3.5-5.1 [facility] Work Phone: Protein [Mass/Vol] 6.5 g/dL 6.4-8.2 [facility] Work Phone: Sodium [Moles/Vol] 135 mmol/L 136-145 [facility] Work Phone: WBC (Bld) [#/Vol] 3.9 10*3/uL 4.4-11.0 [facility] Work Phone: [phone] Blood erythrocytes count (nu mber/volume)on 12-06-2021 RBC (Bld) [#/Vol] 3.89 10*6/uL 4.2-5.[address] [facility] Work Phone: [phone] Blood hemoglobin measurement (mass/volume)on 12-06-2021 Hemoglobin (Bld) [Mass/Vol] 12.4 g/dL 12.0-15.0 [facility] Work Phone: Blood lymphocytes/100 leukoc yteson 12-06-2021 Lymphocytes/100 WBC (Bld) 18.7 % 19-41 [facility] Work Phone: Blood monocytes/100 leukocyt eson 12-06-2021 Monocytes/100 WBC (Bld) 15.3 % 0-10 [facility] Work Phone: Blood platelet mean volumeon 12-06-2021 Platelet mean volume (Bld) [Entitic vol] 10.3 fL 6.2-12.0 [facility] Work Phone: [phone] Determination of erythrocyte mean corpuscular volume (MCV)on 12-06-2021 MCV (RBC) [Entitic vol] 94.9 fL 81-99 [facility] Work Phone: [phone] Hematocrit Auto (Bld) [Volum e fraction]on 12-06-2021 Hematocrit (Bld) [Volume fraction] 36.9 % 37-47 [facility] Work Phone: [phone] Laboratory - Chemistry and C hemistry - challengeon 12-06-2021 ALP [Catalytic activity/Vol] 90 U/L 45-117 [facility] Work Phone: [phone] ALT [Catalytic activity/Vol] 27 U/L 13-56 [facility] Work Phone: [phone] CO2 [Moles/Vol] 25.0 mmol/L 21.0-32.0 [facility] Work Phone: [phone] Globulin (S) [Mass/Vol] 3.3 g/dL 2.2-4.2 [facility] Work Phone: Urea nitrogen/Creatinine [Mass ratio] 12.0 mg/mg 10-20 [facility] Work Phone: Laboratory - Hematology and Cell countson 12-06-2021 Erythrocyte distribution width (RBC) [Entitic vol] 42.9 fL 35.1-43.9 [facility] Work Phone: Erythrocyte distribution width (RBC) [Ratio] 12.5 % 11.6-14.6 [facility] Work Phone: Immature granulocytes/100 WBC (Bld) 0.300 % 0.0-0.9 [facility] Work Phone: Comment on above: IG% - Immature Granu locytes (promyelocytes, myelocytes and metamyelocytes) > 1% indicates that a LEFT SHIFT is Present. MCH (RBC) [Entitic mass] 31.9 pg 27.0-32.0 [facility] Work Phone: Nucleated RBC/100 WBC (Bld) [Ratio] 0 % 0-5 [facility] Work Phone: MCHC Auto (RBC) [Mass/Vol]on 12-06-2021 MCHC (RBC) [Mass/Vol] 33.6 g/dL 32-36 [facility] Work Phone: No Panel Informationon 12-06 Estimated GFR (MDRD) Amer 86 mL/min >60 [facility] Work Phone: Comment on above: GFR Calc Estimated GFR (MDRD) Non-Af Amer 71 mL/min >60 [facility] Work Phone: Comment on above: Non- GFR Calc Platelets bldon 12-06-2021 Platelets (Bld) [#/Vol] 248 10*3/uL 150-450 [facility] Work Phone: Serum or plasma albumin sam urement (mass/volume)on 12-06-2021 Albumin [Mass/Vol] 3.2 g/dL 3.2-5.0 [facility] Work Phone: Serum or plasma albumin/glob ulin mass ratioon 12-06-2021 Albumin/Globulin [Mass ratio] 1.0 {ratio} 0.9-2.4 [facility] Work Phone: Serum or plasma calcium sam urement (mass/volume)on 12-06-2021 Calcium [Mass/Vol] 8.5 mg/dL 8.5-10.1 [facility] Work Phone: Serum or plasma creatinine m easurement (mass/volume)on 12-06-2021 Creatinine [Mass/Vol] 0.83 mg/dL 0.55-1.02 [facility] Work Phone: Comment on above: The validity of the calculated GFR & GFRAA in patients over 70 years has not been determined. Clinical correlation is essential. Serum or plasma urea nitroge n measurement (mass/volume)on 12-06-2021 Urea nitrogen [Mass/Vol] 10 mg/dL 7-18 [facility] Work Phone: Thin prep Papanicolaou smear with manual screeningon 12-06-2021 Thin prep Papanicolaou smear with manual screening 16 U/L 15-37 [facility] Work Phone: Thin prep Papanicolaou smear with manual screening 7 5-15 [facility] Work Phone: Vital Signs Date Time Vital Sign Value Performing Clinician Faci lity 03-13-2024 08:33-0400 Body height 152.4 cm Maryjane Page MD Work Phone: [facility] 03-13-2024 08:33-0400 Body mass index (BMI) [Ratio] 25.19 kg/m2 Maryjane Page MD Work Phone: [facility] 03-13-2024 08:33-0400 Body weight 58.51 kg Maryjane Page MD Work Phone: [facility] 03-13-2024 08:33-0400 Diastolic blood pressure 80 mm[Hg] Maryjane Page MD Work Phone: [facility] 03-13-2024 08:33-0400 Systolic blood pressure 142 mm[Hg] Maryjane Page MD Work Phone: [facility] 10-08-2023 16:09-0500 Diastolic blood pressure 80 mm[Hg] Guille Gautam MD Work Phone: [facility] 10-08-2023 16:09-0500 Systolic blood pressure 136 mm[Hg] Guille Gautam MD Work Phone: [facility] 10-08-2023 15:42-0500 Body height 154.9 cm Guille Gautam MD Work Phone: [facility] 10-08-2023 15:42-0500 Body weight 58.97 kg Guille Gautam MD Work Phone: [facility] 10-08-2023 15:42-0500 Heart rate 72 /min Guille Gautam MD Work Phone: [facility] 10-08-2023 15:42-0500 SaO2% (BldA) [Mass fraction] 99 % Guille Gautam MD Work Phone: [facility] 07-29-2023 10:29-0400 Diastolic blood pressure 80 mm[Hg] Guille Gautam MD Work Phone: [facility] 07-29-2023 10:29-0400 Systolic blood pressure 136 mm[Hg] Guille Gautam MD Work Phone: [facility] 07-29-2023 10:08-0400 Body weight 58.51 kg Guille Gautam MD Work Phone: [facility] 07-29-2023 10:08-0400 Heart rate 93 /min Guille Gautam MD Work Phone: [facility] 07-29-2023 10:08-0400 SaO2% (BldA) [Mass fraction] 100 % Guille Gautam MD Work Phone: [facility] 02-08-2023 10:56-0400 Body height 154.9 cm Maryjane Page MD Work Phone: [facility] 02-08-2023 10:56-0400 Body weight 62.41 kg Maryjane Page MD Work Phone: [facility] 02-08-2023 10:56-0400 Diastolic blood pressure 74 mm[Hg] Maryjane Page MD Work Phone: [facility] 02-08-2023 10:56-0400 Systolic blood pressure 120 mm[Hg] Maryjane Page MD Work Phone: [facility] 08-17-2022 12:15-0400 Diastolic blood pressure 76 mm[Hg] [facility] Work Phone: 08-17-2022 12:15-0400 Heart rate 60 /min [facility] Work Phone: 08-17-2022 12:15-0400 Respiratory rate 15 /min [facility] Work Phone: 08-17-2022 12:15-0400 SaO2% (BldA) [Mass fraction] 98 % [facility] Work Phone: 08-17-2022 12:15-0400 Systolic blood pressure 185 mm[Hg] [facility] Work Phone: 08-17-2022 08:47-0400 Body height 152.4 cm [facility] Work Phone: 08-17-2022 08:47-0400 Body mass index (BMI) [Ratio] 26.4 kg/m2 [facility] Work Phone: 08-17-2022 08:47-0400 Body temperature 97.8 [degF] [facility] Work Phone: 08-17-2022 08:47-0400 Body weight 61.4 kg [facility] Work Phone: Encounters Encounter Date Encounter Type Care Provider Facility Start: 04-28-2025 End: 04-28-2025 Refill Maryjane Page MD Work Phone: OB/Gynecology Comment on above: Refill Request Start: 04-14-2025 End: 04-14-2025 Refill Guille Gautam MD Work Phone: [facility] [place] Comment on above: Refill Request Start: 03-18-2025 End: 05-18-2025 Follow-up encounter Maryjane Page MD Work Phone: OB/Gynecology Start: 03-15-2025 End: 03-15-2025 ambulatory MARYJANE PAGE Facility:[facility] Start: 03-15-2025 Encounter for gynecological examination (general) (routine) without abnormal findings MARYJANE PAGE [facility] Start: 02-24-2025 End: 02-24-[address] Guille Gautam MD Work Phone: [facility] Work Phone: Start: 02-24-2025 End: 02-24-[address] Shari Sanchez MD -Laboratory, [place] Work Phone: Start: 02-24-2025 End: 02-24-2025 ambulatory Shari Sanchez Facility:[facility] Start: 02-12-2025 End: 04-14-2025 Follow-up encounter Antonietta Desir APRN.[employer] Work Phone: OB/Gynecology Start: 02-12-2025 End: 02-12-[address] Guille Gautam MD Work Phone: [facility] Work Phone: Start: 02-12-2025 End: 02-12-[address] Fortunato Ritter MD -Laboratory Work Phone: Start: 02-11-2025 End: 02-12-2025 ambulatory Guille Gautam Facility:[facility] Start: 02-11-2025 End: 02-11-2025 Subsequent hospital visit by physician Screen Mammo [facility] M[facility] Comment on above: Encounter for screen ing mammogram for breast cancer [Z12.31] Start: 12-14-2024 End: 12-14-[address] Shari Sanchez MD -Laboratory, [place] Work Phone: Start: 12-14-2024 End: 12-14-2024 ambulatory [facility] Facility:[facility] Start: 12-03-2024 End: 12-03-[address] Zay Wright MD -Laboratory, [place] Work Phone: Start: 12-03-2024 End: 12-03-2024 ambulatory [facility] Facility:[facility] Start: 10-01-2024 End: 10-01-2024 ambulatory Zaykatherine Wright Facility:[facility] Start: 09-28-2024 End: 09-28-2024 ambulatory [facility] Facility:[facility] Start: 08-07-2024 End: 08-07-2024 Refill Maryjane Page MD Work Phone: OB/Gynecology Comment on above: Refill Request Start: 08-05-2024 End: 08-05-2024 ambulatory [facility] Facility:[facility] Start: 06-10-2024 End: 06-10-2024 ambulatory [facility] Facility:[facility] Start: 04-14-2024 Refill Guille Gautam MD Work Phone: [facility] [place] Comment on above: Refill Request Start: 04-01-2024 End: 04-01-2024 ambulatory Zay Wright Facility:[facility] Start: 03-19-2024 End: 03-19-2024 Subsequent hospital visit by physician Bone Density [facility] Work Phone: Radiology Comment on above: Osteopenia of lumbar spine [M85.88] Start: 03-16-2024 End: 03-16-2024 ambulatory [facility] Work Phone: Start: 03-16-2024 End: 03-16-2024 Patient encounter procedure [facility]-Laboratory Work Phone: Start: 03-16-2024 End: 03-16-2024 ambulatory Guille Gautam Facility:[facility] Start: 03-13-2024 End: 03-13-2024 Patient encounter procedure Maryjane Page MD Work Phone: OB/Gynecology Comment on above: Encounter for gyneco logical examination (general) (routine) without abnormal findings (Primary Dx); Encounter for screening mammogram for breast cancer; Osteopenia of lumbar spine; Enuresis, nocturnal only Start: 03-13-2024 End: 03-13-2024 Patient encounter status Maryjane Page MD Work Phone: [facility] Start: 02-10-2024 Documentation procedure Mammog carl Coordinator [facility] Start: 02-10-2024 Letter encounter Mammography Coordinator [facility] Department Start: 02-10-2024 End: 02-10-2024 Subsequent hospital visit by physician Screen Mammo [facility] M[facility]ogram Comment on above: Dense breast tissue [R92.30] Start: 01-02-2024 End: 01-02-2024 ambulatory [facility] Work Phone: Start: 01-02-2024 End: 01-02-2024 Patient encounter procedure [facility] Work Phone: Start: 12-10-2023 End: 12-10-2023 Patient encounter procedure [facility] Work Phone: Start: 10-09-2023 End: 10-09-2023 ambulatory [facility] Work Phone: Start: 10-09-2023 End: 10-09-2023 Patient encounter procedure [facility] Work Phone: Start: 10-08-2023 End: 10-08-2023 Patient encounter procedure Guille Gautam MD Work Phone: [facility] Medicine [place] Comment on above: Fatigue, unspecified type (Primary Dx); Amyopathic dermatomyositis (HCC); Inflammatory polyarthritis (HCC); Anemia, unspecified type; Medication monitoring encounter; Other intermediate (current) drug therapy Start: 09-30-2023 End: 09-30-2023 ambulatory [facility] Work Phone: Start: 09-30-2023 End: 09-30-2023 Patient encounter procedure [facility] Work Phone: Start: 09-05-2023 End: 09-05-2023 Subsequent hospital visit by physician [facility] 2 Work Phone: Radiology Comment on above: PMB (postmenopausal bleeding) [N95.0] Start: 09-03-2023 Telephone encounter Guille Gautam MD Work Phone: [facility] [place] Comment on above: Results Start: 09-02-2023 End: 09-02-2023 Nursing evaluation of patient and report Nurse Card Admin [facility] Work Phone: Cardiology Comment on above: Screening for ischem ic heart disease (Primary Dx) Start: 09-02-2023 End: 09-02-2023 Subsequent hospital visit by physician Injection Nm [facility] Work Phone: Nuclear Medicine Comment on above: Chest pain, unspecif ied type [R07.9] Start: 08-27-2023 ambulatory Nurse Card Adm in [facility] Work Phone: Cardiology Comment on above: Stress Test Instruct ions for 09/02/23 Start: 08-27-2023 E-mail encounter fro m caregiver Nurse Card Admin [facility] Work Phone: [facility] Start: 08-03-2023 Refill Maryjane Page MD Work Phone: OB/Gynecology Comment on above: Refill Request Start: 08-02-2023 End: 08-02-2023 ambulatory [facility] Work Phone: Start: 08-02-2023 End: 08-02-2023 Patient encounter procedure [facility] Work Phone: Start: 07-29-2023 End: 07-29-2023 Patient encounter procedure Guille Gautam MD Work Phone: [facility] Comment on above: Chest pain, unspecif ied type (Primary Dx); GERD without esophagitis; Amyopathic dermatomyositis (HCC) Start: 07-23-2023 End: 07-23-2023 ambulatory [facility] Work Phone: Start: 07-23-2023 End: 07-23-2023 Patient encounter procedure [facility] Work Phone: Start: 07-10-2023 End: 07-10-2023 ambulatory [facility] Work Phone: Start: 07-10-2023 End: 07-10-2023 Patient encounter procedure [facility] Work Phone: Start: 07-08-2023 ambulatory Guille Gautam MD Work Phone: [facility] Comment on above: EKG 07/05/23 Start: 05-08-2023 ambulatory [facility] Lopez [facility] Comment on above: [facility] Start: 04-16-2023 End: 04-16-2023 ambulatory [facility] Work Phone: Start: 04-16-2023 End: 04-16-2023 Patient encounter procedure [facility] Start: 02-27-2023 End: 02-27-2023 Subsequent hospital visit by physician [facility] Work Phone: Radiology Comment on above: No Show Start: 02-11-2023 Orders Only Maryjane Page MD Work Phone: OB/Gynecology Comment on above: Abnormal mammogram ( Primary Dx) Mammogram Result Dale l Back Start: 02-08-2023 End: 02-08-2023 Patient encounter procedure Maryjane Page MD Work Phone: OB/Gynecology Comment on above: Encounter for gyneco logical examination (general) (routine) without abnormal findings (Primary Dx); Dense breast tissue; Vaginal atrophy; Encounter for screening mammogram for malignant neoplasm of breast Start: 02-08-2023 End: 02-08-2023 Patient encounter status Maryjane Page MD Work Phone: OB/Gynecology Start: 02-08-2023 End: 02-08-2023 Subsequent hospital visit by physician Screen Mammo [facility] M[facility] Comment on above: Encounter for screen ing mammogram for malignant neoplasm of breast [Z12.31] Start: 02-05-2023 End: 02-05-2023 ambulatory [facility] Work Phone: Start: 02-05-2023 End: 02-05-2023 Patient encounter procedure [facility] Start: 01-15-2023 End: 01-15-2023 ambulatory [facility] Work Phone: Start: 01-15-2023 End: 01-15-2023 Patient encounter procedure [facility] Start: 11-28-2022 Refill Maryjane Page MD Work Phone: OB/Gynecology Comment on above: Refill Request Start: 10-22-2022 End: 10-22-2022 ambulatory [facility] Work Phone: Start: 10-22-2022 End: 10-22-2022 Patient encounter procedure [facility] Start: 08-17-2022 ambulatory Guille Gautam MD Work Phone: [facility] [place] Comment on above: Chest Pain Start: 08-17-2022 End: 08-17-2022 Emergency department patient visit [facility]-Emergency Department Start: 08-07-2022 End: 08-07-2022 ambulatory [facility] Work Phone: Start: 08-07-2022 End: 08-07-2022 Patient encounter procedure [facility] Start: 07-16-2022 End: 07-16-2022 Patient encounter procedure [facility] Start: 05-22-2022 End: 05-22-2022 Patient encounter procedure [facility] Start: 04-27-2022 ambulatory Brandi Jeffrey [facility] Comment on above: Population Health Na vigation Outreach ([facility]) Start: 02-26-2022 End: 02-26-2022 Patient encounter procedure [facility] Start: 01-18-2022 End: 01-18-2022 Patient encounter procedure [facility] Start: 12-06-2021 End: 12-06-2021 Patient encounter procedure [facility] Start: 08-04-2010 End: 06-16-2012 Patient encounter status Maryjane Page MD Work Phone: [facility] Procedures Date Procedure Procedure Detail Performing Clinician Start: 03-13-2024 Urnls dip stick/tabl et rgnt auto w/o microscopy Maryjane Page MD Work Phone: Start: 02-10-2024 Screening digital br east tomosynthesis bi Maryjane Bill Page MD Work Phone: Start: 09-05-2023 Us transvaginal Maryjane Page MD Work Phone: Start: 09-02-2023 Myocardial spect mul tiple studies Guille Gautam MD Work Phone: Start: 07-08-2023 Lipid 1996 panel - S tanesha or Plasma Maryjane Bill Page MD Work Phone: Start: 02-27-2023 Digital breast tomosynthesis unilateral Maryjane Bill Page MD Work Phone: Start: 02-08-2023 Urnls dip stick/tabl et rgnt auto w/o microscopy Maryjane Page MD Work Phone: Start: 02-08-2023 PARAM SCREENING W OFE De floyd Page MD Work Phone: Start: 08-17-2022 Plain chest X-ray Start: 08-10-2021 Colonoscopy Brandi marti PEDRITO Start: 01-04-2020 Adult depression scr eening assessment Brandi Zuluaga MA Start: 09-24-2019 Mammography Brandi marti MA Plan of Treatment Date Care Activity Detail Author Start: 08-10-2031 Colonoscopy COLONOSCOPY [facility] Start: 08-10-2031 COLORECTAL CANCER SCREENING COLORECTAL CANCER SCREENING [facility] Start: 07-08-2028 Lipid 1996 panel - Serum or Plasma Lipid Screening [facility] Start: 07-08-2028 LIPID SCREEN LIPID SCREEN [facility] Start: 10-09-2026 Diabetes Screening Diabetes Screenin g [facility] Start: 03-16-2026 End: 03-16-2026 Patient encounter procedure 03/16/2026 11:20 AM EDT Office Visit OB/Gynecology [address] [place] [id number] Maryjane Callahan MD [address] [place] [address] Annual OB/Gynecology Comment on above: Annual Start: 03-15-2026 Screening for malign ant neoplasm of cervix Cervical Cancer Screening [facility] Start: 02-14-2026 End: 02-14-2026 Patient encounter procedure 02/14/2026 7:50 AM EDT Appointment Mammogram [address] [place] [address] Encounter for screening mammogram for breast cancer [Z12.31] Mammogram Comment on above: Encounter for screen ing mammogram for breast cancer [Z12.31] Start: 03-15-2025 End: 03-15-2025 Patient encounter procedure OB/Gynecology Comment on above: Annual Start: 02-05-2025 Covid-19 Vaccine (10 - Moderna risk season) Covid-19 Vaccine (10 - Moderna risk ) [facility] Start: 11-18-2024 Advance Directive Discussion Advance Directive Discussion [facility] Start: 10-26-2024 LIPID SCREEN LIPID SCREEN [facility] Start: 07-19-2024 Covid-19 Vaccine (9 - 2023-24 season) Covid-19 Vaccine () [facility] Start: 07-19-2024 Influenza vaccination Influenza Vacc ine (#1) [facility] Start: 06-09-2024 DIABET[facility]CREEN [facility] Start: 06-09-2024 Diabetes Screening Diabetes Screengera mac [facility] Start: 04-07-2024 End: 07-07-2024 Hemoglobin A1c in Blood HGB A1C Lab Routine Fatigue, unspecified type Medication monitoring encounter Other manager long term care (current) drug therapy Expected: 04/07/2024, Expires: 07/07/2024 [facility] Work Phone: Comment on above: Expected: 04/07/2024 , Expires: 07/07/2024 Start: 03-31-2024 Covid-19 Vaccine () Covid-19 Vaccine () [facility] Start: 11-18-2023 Advance Directive Discussion Advance Directive Discussion [facility] Start: 11-18-2023 Behavioral Health Screening Behavioral Health Screening [facility] Start: 11-18-2023 Depression Assessment Depression Ass essment [facility] Start: 11-07-2023 Covid-19 Vaccine () Covid-19 Vaccine () [facility] Start: 10-11-2023 Urine microalbumin profile [facility] Start: 10-08-2023 End: 01-07-2024 Basic metabolic 2000 panel - Serum or Plasma BASIC METABOLIC PNL Lab Routine Fatigue, unspecified type Amyopathic dermatomyositis (HCC) Inflammatory polyarthritis (HCC) Expected: 10/08/2023, Expires: 01/07/2024 [facility] Work Phone: Comment on above: Expected: 10/08/2023 , Expires: 01/07/2024 Start: 10-08-2023 End: 01-07-2024 CBC W Auto Differential panel - Blood CBC + DIFF Lab Routine Fatigue, unspecified type Amyopathic dermatomyositis (HCC) Inflammatory polyarthritis (HCC) Anemia, unspecified type Expected: 10/08/2023, Expires: 01/07/2024 [facility] Work Phone: Comment on above: Expected: 10/08/2023 , Expires: 01/07/2024 Start: 10-08-2023 End: 01-07-2024 Cobalamin (Vitamin B12) [Mass/volume] in Serum or Plasma VITAMIN B12 BLOOD Lab Routine Fatigue, unspecified type Amyopathic dermatomyositis (HCC) Inflammatory polyarthritis (HCC) Anemia, unspecified type Expected: 10/08/2023, Expires: 01/07/2024 [facility] Work Phone: Comment on above: Expected: 10/08/2023 , Expires: 01/07/2024 Start: 10-08-2023 End: 01-07-2024 Cortisol [Mass/volume] in Serum or Plasma CORTISOL BLD Lab Routine Fatigue, unspecified type Amyopathic dermatomyositis (HCC) Inflammatory polyarthritis (HCC) Expected: 10/08/2023, Expires: 01/07/2024 [facility] Work Phone: Comment on above: Expected: 10/08/2023 , Expires: 01/07/2024 Start: 10-08-2023 End: 01-07-2024 Erythrocyte sedimentation rate SED RATE WESTERGREN Lab Routine Fatigue, unspecified type Amyopathic dermatomyositis (HCC) Inflammatory polyarthritis (HCC) Expected: 10/08/2023, Expires: 01/07/2024 [facility] Work Phone: Comment on above: Expected: 10/08/2023 , Expires: 01/07/2024 Start: 10-08-2023 End: 01-07-2024 Ferritin [Mass/volume] in Serum or Plasma FERRITIN BLD Lab Routine Fatigue, unspecified type Amyopathic dermatomyositis (HCC) Inflammatory polyarthritis (HCC) Anemia, unspecified type Expected: 10/08/2023, Expires: 01/07/2024 [facility] Work Phone: Comment on above: Expected: 10/08/2023 , Expires: 01/07/2024 Start: 10-08-2023 End: 01-07-2024 Folate [Mass/volume] in Serum or Plasma FOLATE SERUM Lab Routine Fatigue, unspecified type Amyopathic dermatomyositis (HCC) Inflammatory polyarthritis (HCC) Anemia, unspecified type Expected: 10/08/2023, Expires: 01/07/2024 [facility] Work Phone: Comment on above: Expected: 10/08/2023 , Expires: 01/07/2024 Start: 10-08-2023 End: 01-07-2024 Iron and Iron binding capacity panel - Serum or Plasma IRON + TIBC Lab Routine Fatigue, unspecified type Amyopathic dermatomyositis (HCC) Inflammatory polyarthritis (HCC) Anemia, unspecified type Expected: 10/08/2023, Expires: 01/07/2024 [facility] Work Phone: Comment on above: Expected: 10/08/2023 , Expires: 01/07/2024 Start: 10-08-2023 End: 01-07-2024 Thyrotropin [Units/volume] in Serum or Plasma TSH BLD Lab Routine Fatigue, unspecified type Amyopathic dermatomyositis (HCC) Inflammatory polyarthritis (HCC) Expected: 10/08/2023, Expires: 01/07/2024 [facility] Work Phone: Comment on above: Expected: 10/08/2023 , Expires: 01/07/2024 Start: 08-21-2023 Covid-19 Vaccine (2022- season) Covid-19 Vaccine ( season) [facility] Start: 08-21-2023 COVID-19 VACCINE (7 - Moderna risk series) COVID-19 VACCINE (7 - Moderna risk series) [facility] Start: 07-23-2023 Procedure [facility] Start: 07-19-[address] [facility] Start: 02-05-2023 Procedure [facility] Start: 11-18-2022 ADVANCE DIRECTIVE DISCUSSION ADVANCE DIRECTIVE DISCUSSION [facility] Start: 11-18-2022 DEPRESSION ASSESSMENT DEPRESSION ASS ESSMENT [facility] Start: 08-17-2022 [facility] Work Phone: Start: 07-19-[address] [facility] Start: 07-16-2022 Procedure [facility] Work Phone: Start: 11-18-2021 ADVANCE DIRECTIVE DISCUSSION ADVANCE DIRECTIVE DISCUSSION [facility] Start: 10-10-2021 COVID-19 VACCINE (4 - Booster for Moderna series) COVID-19 VACCINE (4 - Booster for Moderna series) [facility] Start: 09-04-2021 COVID-19 VACCINE (4 - Booster for Moderna series) COVID-19 VACCINE (4 - Booster for Moderna series) [facility] Start: 01-04-2021 Adult depression screening assessment DEPRESSION SCREENING [facility] Start: 09-24-2020 Mammography MAMMOGRAM [facility] Start: 02-22-2015 FECAL OCCULT BLOOD FECAL OCCULT BLOO D [facility] Start: 07-16-2014 Screening for malign ant neoplasm of cervix Cervical Cancer Screening [facility] Start: 09-18-2012 Medicare Annual Wellness Visit Medicare Annual Wellness Visit [facility] Start: 2007 RSV Vaccine (1 - 1-d ose 60+ series) RSV Vaccine (1 - 1-dose 60+ series) [facility] Start: 1992 COLOGUARD (FIT-DNA) COLOGUARD (FIT-D NA) [facility] Start: [address] COLONOGRAPHY [facility] Start: 1992 SIGMOIDOSCOPY SIGMO[facility] Start: 1965 Anxiety Screening Anxiety Screening [facility] Start: 1965 Depression Screening Depression Scre ening [facility] End: 04-12-2025 BD DXA TRABECULAR BONE SCORE (TBS) BD DXA TRABECULAR BONE SCORE (TBS) Radiology Routine Osteopenia of lumbar spine 1 Occurrences starting 03/13/2024 until 04/12/2025 [facility] Comment on above: 1 Occurrences starti ng 03/13/2024 until 04/12/2025 BD DXA TRABECULAR JUAN PABLO NE SCORE (TBS) BD DXA TRABECULAR BONE SCORE (TBS) Radiology Routine Osteopenia of lumbar spine 03/19/2024 8:10 AM EDT [facility] End: 04-12-2025 DBT Breast - bilateral screening PARAM SCREENING W OFE Radiology Routine Encounter for screening mammogram for breast cancer 1 Occurrences starting 03/13/2024 until 04/12/2025 [facility] Work Phone: Comment on above: 1 Occurrences starti ng 03/13/2024 until 04/12/2025 DBT Breast - bilater al screening PARAM SCREENING W OFE Radiology Routine Encounter for screening mammogram for breast cancer 02/11/2025 8:12 AM EDT [facility] Work Phone: End: 04-12-2025 DXA Skeletal system.axial Views for bone density DXA-AXIAL SKELETON Radiology Routine Osteopenia of lumbar spine 1 Occurrences starting 03/13/2024 until 04/12/2025 [facility] Comment on above: 1 Occurrences starti ng 03/13/2024 until 04/12/2025 DXA Skeletal system.axial Views for bone density DXA-AXIAL SKELETON Radiology Routine Osteopenia of lumbar spine 03/19/2024 8:10 AM EDT [facility] Work Phone: In-vitro immunologic test [facility] End: 03-12-2024 PARAM DIAGNOSTIC LEFT PARAM DIAGNOSTIC LEFT Radiology Routine Abnormal mammogram 1 Occurrences starting 02/11/2023 until 03/12/2024 [facility] Work Phone: Comment on above: 1 Occurrences starti ng 02/11/2023 until 03/12/2024 End: 03-09-2024 PARAM SCREENING W OFE PARAM SCREENING W OFE Radiology Routine Dense breast tissue Encounter for screening mammogram for malignant neoplasm of breast 1 Occurrences starting 02/08/2023 until 03/09/2024 [facility] Work Phone: Comment on above: 1 Occurrences starti ng 02/08/2023 until 03/09/2024 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 [facility] Patient Education ED Chest Pain, Uncertain Cause [facility] Work Phone: Patient referral [facility] Work Phone: End: 03-12-2024 US BREAST LTD LEFT US BREAST LTD LEFT Radiology Routine Abnormal mammogram 1 Occurrences starting 02/11/2023 until 03/12/2024 [facility] Work Phone: Comment on above: 1 Occurrences starti ng 02/11/2023 until 03/12/2024 [facility] Immunizations Immunization Date Immunization Notes Care Provider Scott sheliajosé 08-17-2024 influenza, high dose seasonal, preservative-free Antonietta Desir APRN.CNP Work Phone: [facility] 09-26-2023 respiratory syncytia l virus (RSV) vaccine, adjuvanted (AREXVY) Screen Wstr [facility] 07-19-2023 influenza (aIIV4) vaccine, age 65+ yr, quadrivalent, PF (FLUAD QUAD) Guille Gautam MD Work Phone: [facility] 07-19-2023 influenza virus vacc ine, unspecified formulation Maryjane Page MD Work Phone: [facility] 01-19-2021 COVID-19 vaccine, fu ll dose (MODERNA) Brandi Zuluaga [facility] 12-22-2020 COVID-19 vaccine, fu ll dose (MODERNA) Brandi Zuluaga [facility] 07-08-2020 influenza, high-dose , quadrivalent vaccine (FLUZONE HIGH DOSE QUADRIVALENT) Brandi Zuluaga [facility] 09-01-2019 influenza virus vacc ine, unspecified formulation Brandi Zuluaga [facility] 12-26-2018 zoster vaccine recombinant Brandi Zuluaga [facility] Work Phone: 09-05-2018 zoster vaccine recombinant Brandi Zuluaga [facility] 08-14-2018 influenza virus vacc ine, unspecified formulation Brandi Zuluaga [facility] 09-09-2015 pneumococcal conjuga te vaccine, 13 valent Brandi Zuluaga [facility] 09-06-2015 influenza, high dose seasonal, preservative-free Brandi Zuluaga [facility] 08-18-2014 influenza, seasonal, injectable Brandi Zuluaga [facility] 02-22-2014 pneumococcal polysaccharide vaccine, 23 valent Brandi Zuluaga [facility] 10-11-2013 tetanus and diphther ia toxoids, adsorbed, preservative free, for adult use (2 Lf of tetanus toxoid and 2 Lf of diphtheria toxoid) Brandi Zuluaga [facility] 06-27-2012 zoster vaccine, live Brandi Zuluaga [facility] 10-04-2009 novel influenza-H1N1 -09, preservative-free, injectable Brandi Zuluaga [facility] 01-13-2007 tetanus toxoid, redu samy diphtheria toxoid, and acellular pertussis vaccine, adsorbed Brandi Zuluaga [facility] Work Phone: Payers Date Payer Category Payer Self-pay [id number] 2021 Private Health Insurance [employer] [place] [employer] [place] [id number] 2021-Present [phone] [address] [place] [address] Indemnity [id number] 2021 Private Health Insurance [id number] 2021 Private Health Insurance [id number] 2012 Medicare MEDICARE MEDICAR E A AND B [id number] 2012-Present [phone] [address] [address] [place] [address] Medicare [id number] 2012 Medicare [id number] 2012 Medicare [id number] 2011 Private Health Insurance [id number] Unknown [id number] Unknown [id number] Unknown [id number] Unknown [id number] Unknown [id number] Unknown [id number] Unknown [id number] Unknown [id number] Unknown [id number] Unknown [id number] Unknown [id number] Social History Date Type Detail Facility Start: 01-30-2016 End: 08-17-2022 Tobacco smoking status NEIS Unknown if ever smoked [facility] Start: 1945 Sex Assigned At Female [facility] Work Phone: Start: 06-27-2012 End: 02-08-2023 Tobacco smoking status NEIS Never smoked tobacco [facility] Start: 01-09-2022 End: 03-15-2025 Alcohol intake Current drinker of alcohol (finding) [facility] Start: 01-09-2022 End: 06-30-2023 Alcohol intake [facility] Start: 01-04-2020 End: 10-06-2020 History SDOH Alcohol Frequency 5 [facility] Start: 04-08-2020 End: 10-06-2020 History SDOH Alcohol Std Drinks 1 [facility] Start: 08-10-2021 History SDOH Alcohol Comment glass of wine daily [facility] Start: 01-04-2020 End: 04-08-2020 History SDOH Social Connections Get Together 2 [facility] Start: 01-04-2020 History SDOH Social Connections Meetings 3 [facility] Start: 01-04-2020 Education 18 [facility] Start: 04-17-2022 End: 04-27-2022 Exposure to SARS-CoV-2 (event) Not sure [facility] Start: 06-27-2012 End: 02-08-2023 Tobacco use and exposure Smokeless tobacco non-user [facility] Start: 06-30-2023 End: 07-05-2023 Social connection and isolation panel [facility] How often do you att end religious or religion services? Patient refused [facility] Do you belong to any clubs or organizations such as religious groups, unions, [employer] or athletic groups, or school groups? Yes [facility] Are you now , , , , never or living with a partner? [facility] How often to you hav e a drink containing alcohol? 2-3 time sa week [facility] How many standard dr inks containing alcohol do you have on a typical day? 1 or 2 [facility] How often do you hav e 6 or more drinks on 1 occasion? Never [facility] Do you feel stress - tense, restless, nervous, or anxious, or unable to sleep at night because your mind is troubled all the time - these days [OSQ] To some extent [facility] (I/We) worried anay er (my/our) food would run out before (I/we) got money to buy more. Never true [facility] In the past 12 month s, was there a time when you were not able to pay the mortgage or rent on time? No [facility] Start: 01-22-2019 Gender identity Identifies as female gender (finding) [facility] Work Phone: Start: 01-22-2019 Sexual orientation Heterosexual (finding) [facility] Work Phone: How often to you hav e a drink containing alcohol? 4 or more times a week [facility] Do you feel stress - tense, restless, nervous, or anxious, or unable to sleep at night because your mind is troubled all the time - these days [OSQ] Only a little [facility] Start: 02-16-2025 End: 03-01-2025 Sex Female (finding) [facility] Functional Status Date Assessment Result Facility 11-29-2014 Are you deaf, or do you have serious difficulty hearing No 11/29/2014 1:25 PM Chiquita Paez LPN No [facility] 11-29-2014 Are you blind, or do you have serious difficulty seeing, even when wearing glasses No 11/29/2014 1:25 PM Chiquita Paez LPN No [facility] 11-29-2014 Do you have serious difficulty walking or climbing stairs No 11/29/2014 1:25 PM Chiquita Paez LPN No [facility] 11-29-2014 Do you have difficul ty dressing or bathing No 11/29/2014 1:25 PM Chiquita Paez LPN No [facility] 11-29-2014 Because of a physica l, mental, or emotional condition, do you have difficulty doing errands alone such as visiting a physician's office or shopping No 11/29/2014 1:25 PM Chiquita Paez LPN No [facility] Mental Status Date Assessment Result Facility 08-17-2022 Cognitive function Voice/Name [facility] Work Phone: 11-29-2014 Because of a physica l, mental, or emotional condition, do you have serious difficulty concentrating, remembering, or making decisions No 11/29/2014 1:25 PM Chiquita Paez LPN No [facility] Clinical Notes 08-10-2021 to 04-14-2025 Telephone Encounter - Chiquita Gutierrez LPN - 04/14/2025 12:02 PM EDTTelephone Encounter - Chiquita Gutierrez LPN - 04/14/2025 12:02 PM EDTBKari mcmahon Mammo Tech - 02/11/2025 8:10 AM EDT Note Date & Type Note Facility 04-14-2025 Telephone encounter Note Prescription Refill Information The patient has been identified by name and date of : Yes Caregiver verified no other encounters exist for this prescription request: Yes Caregiver confirmed with patient/requestor that no other refills are due, in the near future, with this provider at this time: Yes The last office visit in the department: 10/08/23 Does the patient have a future office visit with this provider/department: No Please route back so she can be scheduled for a visit. Requested Prescriptions Pending Prescriptions Disp Refills sucralfate (CARAFATE) 1 gram tablet 360 tablet 1 Sig: Take 1 tablet by mouth before meals and at bedtime. Chiquita Gutierrez LPN April 14, 2025 12:03 PM [facility] 04-14-2025 Miscellaneous Notes Prescription Refill Information The patient has been identified by name and date of : Yes Caregiver verified no other encounters exist for this prescription request: Yes Caregiver confirmed with patient/requestor that no other refills are due, in the near future, with this provider at this time: Yes The last office visit in the department: 10/08/23 Does the patient have a future office visit with this provider/department: No Please route back so she can be scheduled for a visit. Requested Prescriptions Pending Prescriptions Disp Refills sucralfate (CARAFATE) 1 gram tablet 360 tablet 1 Sig: Take 1 tablet by mouth before meals and at bedtime. Chiquita Gutierrez LPN April 14, 2025 12:03 PM documented in this encounter [facility] 04-07-2025 Note HNO ID: [id number] Author: SAMANTHA DAWN MA Service: ? Author Type: Tinsel Machine Operator Type: Progress Notes Filed: 04/07/2025 13:43 Note Text: POPULATION HEALTH NAVIGATION OUTREACH Action/FYI Contacted patient to schedule HCC care gaps and health maintenance. 1st attempt: Left message with my direct number 2nd attempt: My Chart message sent Topic Due (Y or N) Comments Annual Wellness Exam Yes PCP Follow up No Colorectal Cancer Screening No A1C No HTN/Controlling BP No HCC Yes Updated appointment notes No Reason for Outreach Care Gap/HCC or Scheduling Wellness Visits Care Gaps due: Medicare Annual Wellness Visit Patient Contacted: Unable or unnecessary to reach patient: Left message MyChart message sent HCC related Navigation Signature: Samantha Dawn MA April 07, 2025 1:43 PM [facility] 04-07-2025 Note Patient Outreach (NE TNAV) JAGDISH CASTILLO ([id number]) 1945 F Date Time Provider Department 04/07/25 SAMANTHA DAWN During your visit today, we recorded the following information about you: Samantha Dawn MA 04/07/2025 1:43 PM Signed POPULATION HEALTH NAVIGATION OUTREACH Action/FYI Contacted patient to schedule HCC care gaps and health maintenance. 1st attempt: Left message with my direct number 2nd attempt: My Chart message sent Topic Due (Y or N) Comments Annual Wellness Exam Yes PCP Follow up No Colorectal Cancer Screening No A1C No HTN/Controlling BP No HCC Yes Updated appointment notes No Reason for Outreach Care Gap/HCC or Scheduling Wellness Visits Care Gaps due: Medicare Annual Wellness Visit Patient Contacted: Unable or unnecessary to reach patient: Left message [employer] message sent HCC related Navigation Signature: Samantha Dawn MA April 07, 2025 1:43 PM Allergies As of Date: 04/07/2025 Noted Allergy Reaction AMOXICILLIN 12/26/2007 2 - [...] pollens: verified by skin testing Date Reviewed: 03/15/2025 Reviewed by: Dinorah Hogan MA - Fully Assessed Reason for Visit: Population Health Navigation Outreach [3910] Cmt: Ribera/Workbench/ACO Prescriptions as of 04/07/2025 - estradiol (ESTRACE) 0.01 % (0.1 mg/gram) vaginal cream Use 1/2-1gram vaginally 1-3 times weekly for maintenance - sucralfate (CARAFATE) 1 gram tablet Take 1 tablet by mouth before meals and at bedtime. - clobetasol (TEMOVATE) 0.05 % cream APPLY TO ANY AREAS OF RASH THAT YOU CAN SEE OR FEEL ON THE BODY 1 X DAILY, NEEDED FOR FLARES. - Clobetasol Propionate 0.05 % sham LATHER INTO SCALP 10 MINUTES BEFORE SHOWERING. WASH W/ REGULAR SHAMPOO AFTERWARDS. - predniSONE (DELTASONE) 20 mg tablet TAKE 1 TABLET BY MOUTH EVERY DAY FOR 3 WEEKS - lactase (LACTAID ORAL) Take by mouth. - olopatadine HCl (PATADAY OPHTHALMIC) Use in eyes. - saliva substitute combo no.9 (BIOTENE DRY MOUTH ORAL RINSE) mwsh Use 15 mL as instructed. - xylitol (XYLIMELTS MUCOUS MEM) Use as instructed. - triamcinolone acetonide (NASACORT AQ) 55 mcg nasal inhaler Use 2 Sprays in the nose as needed. - abatacept 125 mg/mL one time a week. - doxycycline hyclate (VIBRAMYCIN) 100 mg capsule Take 100 mg by mouth twice daily. - tacrolimus (PROTOPIC) 0.03 % ointment Apply to affected area once daily. - famotidine (PEPCID) 20 mg tablet Take 20 mg by mouth twice daily. - biotin 1,000 mcg chew - mycophenolate Mofetil (CELLCEPT) 500 mg tablet Take 500 mg by mouth twice daily. - carboxymethylcell/hypromellose (GENTEAL GEL OPHTHALMIC) Use in [...] tablet daily. 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] 09/20/2008 Routine general medical examination at [facility]08/04/2010 06/16/2012 Class: Chronic Routine gynecological examination [Z01.419] 08/04/2010 06/16/2012 Class: Chronic Insomnia [G47.00] 07/16/2013 Inflammatory polyarthritis (HCC) [M06.4] Sjogren's syndrome (HCC) [M35.00] 07/08/2014 Seasonal allergic rhinitis due to pollen [J30.1]03/25/2018 Allergic rhinitis due to cats [J30.81] 03/25/2018 Allergic rhinitis due to dust mite [J30.89] 03/25/2018 Piriformis syndrome, left [G57.02] 05/08/2018 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 [facility] 03-15-2025 Note HNO ID: [id number] Author: MARYJANE CALLAHAN MD Service: ? Author Type: Physician Type: Progress Notes Filed: 03/15/2025 08:41 Note Text: Local Bulk Driver offered: Patient declines. [facility]ne[facility] [place] Annual Exam Subjective Recording using [employer] software for draft documentation of the visit was discussed with the patient/authorized sales promotion representative; all questions welcomed and answered. Patient/authorized sales promotion representative agreed to proceed CHIEF COMPLAINT: The patient is a 79-year-old female with a history of dermatomyositis and polyarthritis presenting for a yearly exam. She reports concerns about bladder leakage and vaginal dryness. HPI: Urinary and Pelvic Floor Issues - Reports bladder leakage, which began last year and has not improved despite lifestyle modifications such as reducing caffeine intake and urinating routinely. - Uses Everdry underwear for protection, denies issues with odor or embarrassment. - Denies pain with urination. - Denies increased frequency of urination, but notes she does not wait to urinate. - Family history of bladder control issues; mother has no bladder control. Vaginal Dryness - Reports vaginal dryness with occasional stinging, which she attributes to urine from bladder leakage causing irritation. - Using estradiol vaginal cream every three days to manage dryness, but experiences breast tenderness if used more frequently. - Denies significant sexual activity. Sleep Disturbances - Reports variable sleep patterns, sometimes feeling extremely tired by 8 PM but waking up at 4 AM. - Other times, can stay up until 10 PM and sleep until 6 AM. - Notes that reducing caffeine intake has helped with sleep issues. Past Screenings - Mammogram: Recent, results not specified. - Pap Smear (2012): Normal - Colonoscopy (2020): Diverticulosis - Bone Density Scan (Last Year): Normal Medications: - Estradiol vaginal cream HISTORY: OB History Gravida3 Para2 Term2 Preterm0 AB1 Living2 SAB1 IAB0 Ectopic0 Multiple0 Live Births0 National Service Officer History LMP: Postmenopausal Age at Menarche: 47 Age at First : Age at Menopause: National Service Officer History Comments: Sexual Activity: Yes; Male; Post menopausal Contraception: No contraception data on record PAST MEDICAL HISTORY Diagnosis Date Arthritis Corneal ulcer 11/21/2015 od Dermatomyositis (HCC) Diffuse cystic mastopathy Esophageal reflux Inflammatory polyarthritis (HCC) Internal hemorrhoids without mention of complication Lupus SCLE-recent test was negative for lupus PONV (postoperative nausea and vomiting) Sjogren's disease [...] 06/2014 cyst drained from back of neck REMV CATARACT EXTRACAP,INSERT LENS Bilateral 12/2024 FAMILY HISTORY Problem Relation Age of Onset Hypertension Mother Arthritis Mother Cataract Mother Macular Degen Mother Hypertension Paternal Grandmother other (heart didease) Maternal Grandfather other (pancreatic cancer) Maternal Grandmother Coronary Artery Disease Father very late in life -- age 86 Heart Father DC in 2010 Coronary Artery Disease Other no premature first degree other (cyststic breats 3 sisters) Other Social History Tobacco Use Smoking status: Never Smokeless tobacco: Never Vaping Use Vaping status: Never Used Substance Use Topics Alcohol use: Yes Alcohol/week: 7.0 standard drinks of alcohol Types: 7 Glasses of wine per week Comment: glass of wine daily Drug use: No Current Outpatient Medications Medication Sig sucralfate (CARAFATE) 1 gram tablet Take 1 tablet by mouth before meals and at bedtime. clobetasol (TEMOVATE) 0.05 % cream APPLY TO ANY AREAS OF RASH THAT YOU CAN SEE OR FEEL ON THE BODY 1 X DAILY, NEEDED FOR FLARES. Clobetasol Propionate 0.05 % sham LATHER INTO SCALP 10 MINUTES BEFORE SHOWERING. WASH W/ REGULAR SHAMPOO AFTERWARDS. predniSONE (DELTASONE) 20 mg tablet TAKE 1 TABLET BY MOUTH EVERY DAY FOR 3 WEEKS lactase (LACTAID ORAL) Take by mouth. olopatadine [...] ointment Apply to affected area once daily. famotidin (more content not included)... [facility] 02-11-2025 History of Presen t illness Narrative Radiology Service Progress Note PATIENT NAME: Jagdish Castillo DATE OF SERVICE: February 11, 2025 TIME: 8:29 AM PATIENT IDENTITY VERIFICATION COMPLETED USING TWO (2) IDENTIFIERS: Name and Date of confirmed by patient verbally. FALL SCREENING: Has the patient had 2 falls in the last year or 1 fall with injury or currently using an Ambulatory Assistive Device (Walker, Cane, Wheelchair, Crutches, etc.)? No PATIENT GENDER DATA: Assigned female at . status: : No status: NO. PATIENT RELEVANT IMPLANT DATA REVIEWED: Not Applicable PATIENT PRESENTS WITH AN IMPLANTABLE OR ATTACHED OPTICAL DISPENSER: No RADIOLOGY DEPARTMENT: Mammography PERIPHERAL IV DATA: Not applicable SIGNED BY: Michael Andrade February 11, 2025 8:29 AM documented in this encounter [facility] 02-11-2025 Note HNO ID: [id number] Author: KARI MORTON Mammo Tech Service: ? Author Type: Cutting Machine Tender Decorative Type: Progress Notes Filed: 02/11/2025 08:30 Note Text: Radiology Service Progress Note PATIENT NAME: Jagdish Castillo DATE OF SERVICE: February 11, 2025 TIME: 8:29 AM PATIENT IDENTITY VERIFICATION COMPLETED USING TWO (2) IDENTIFIERS: Name and Date of confirmed by patient verbally. FALL SCREENING: Has the patient had 2 falls in the last year or 1 fall with injury or currently using an Ambulatory Assistive Device (Walker, Cane, Wheelchair, Crutches, etc.)? No PATIENT GENDER DATA: Assigned female at . status: : No status: NO. PATIENT RELEVANT IMPLANT DATA REVIEWED: Not Applicable PATIENT PRESENTS WITH AN IMPLANTABLE OR ATTACHED OPTICAL DISPENSER: No RADIOLOGY DEPARTMENT: Mammography PERIPHERAL IV DATA: Not applicable SIGNED BY: Michael Andrade February 11, 2025 8:29 AM [facility] 08-07-2024 Telephone encounter Note Patient request for medication is as follows: Requested Prescriptions Pending Prescriptions Disp Refills estradiol (ESTRACE) 0.01 % (0.1 mg/gram) vaginal cream 42.5 g 2 Sig: Use 1/2-1gram vaginally 1-3 times weekly for maintenance Last annual exam: 03/13/24 Please approve the above prescription(s) to electronically send to pharmacy. Jenae Álvarez RN [facility] 08-07-2024 Miscellaneous Notes Patient request for medication is as follows: Requested Prescriptions Pending Prescriptions Disp Refills estradiol (ESTRACE) 0.01 % (0.1 mg/gram) vaginal cream 42.5 g 2 Sig: Use 1/2-1gram vaginally 1-3 times weekly for maintenance Last annual exam: 03/13/24 Please approve the above prescription(s) to electronically send to pharmacy. Jenae Álvarez RN documented in this encounter [facility] 04-14-2024 Telephone encounter Note Patient has been identified by name and date of : Yes, Patient phones for refill(s): Requested Prescriptions Pending Prescriptions Disp Refills sucralfate (CARAFATE) 1 gram tablet 120 tablet 11 Sig: Take 1 tablet by mouth before meals and at bedtime. Date of last office visit in primary care: 10/08/2023 Date of next office visit in primary care: Visit date not found Please advise. Thank you. Jing Caal LPN. [facility] 04-14-2024 Miscellaneous Notes Patient has been identified by name and date of : Yes, Patient phones for refill(s): Requested Prescriptions Pending Prescriptions Disp Refills sucralfate (CARAFATE) 1 gram tablet 120 tablet 11 Sig: Take 1 tablet by mouth before meals and at bedtime. Date of last office visit in primary care: 10/08/2023 Date of next office visit in primary care: Visit date not found Please advise. Thank you. Jing Caal LPN. documented in this encounter [facility] 03-19-2024 History of Presen t illness Narrative Radiology Service Progress Note PATIENT NAME: Jagdish Castillo DATE OF SERVICE: March 19, 2024 TIME: 7:50 AM PATIENT IDENTITY VERIFICATION COMPLETED USING TWO (2) IDENTIFIERS: Name and Date of confirmed by patient verbally. FALL SCREENING: Has the patient had 2 falls in the last year or 1 fall with injury or currently using an Ambulatory Assistive Device (Walker, Cane, Wheelchair, Crutches, etc.)? No PATIENT GENDER DATA: Female. status: : No status: NO. PATIENT RELEVANT IMPLANT DATA REVIEWED: Not Applicable PATIENT PRESENTS WITH AN IMPLANTABLE OR ATTACHED OPTICAL DISPENSER: No RADIOLOGY DEPARTMENT: Bone Density PERIPHERAL IV DATA: Not applicable SIGNED BY: RT Fermin(R) March 19, 2024 7:50 AM documented in this encounter [facility] 03-13-2024 History of Presen t illness Narrative Local Bulk Driver offered: Patient declines. Jagdish is a 78 year old who presents for an annual gynecologic exam with complaints, urinary incontinence . My Chart: HbA1C due, Tdap due Concerns with urine leak that started about 1 month ago. She started wearing a pad to sleep because of tthe concern and has been waking up in the middle of night to damp pads with some smell of urine. Also states could be from sweating. No increased urgency or frequency. No incontinence with straining. Denies blood in the urine or pain with urination. No change in drinking habits. other questions related to steroids and flare in dermatomyositis and impact on memory recall. Sleep: wake up around 2am to use the restroom and has trouble staying asleep after, going to bed 8:30-9:30pm, waking up any time between 4-6 am. DEXA in 2021 showed osteopenia. Postmenopausal: Yes since age mid 50s HRT use: Yes, vaginal estrace cream for vaginal dryness - working well. Last Pap: 07/23/2013 normal HPV: 07/17/2013 negative History of abnormal pap: No Last mammogram: 2023 normal History of abnormal mammogram: No Sexually active: Yes Pain with intercourse: No Postcoital bleeding: No Hot flashes: No Night sweats: sometimes waking up feeling warm Vaginal dryness: Yes, estrace helps OB History T2 L2 SAB1 IAB0 Ectopic0 Multiple0 Live Births0 National Service Officer History LMP: Postmenopausal Age at Menarche: Age at First : Age at Menopause: National Service Officer History Comments: Sexual Activity: Yes; Male; Post menopausal Contraception: No contraception data on record PAST MEDICAL HISTORY Diagnosis Date Arthritis Corneal ulcer 11/21/2015 od Dermatomyositis (HCC) Diffuse cystic mastopathy Esophageal reflux Inflammatory polyarthritis (HCC) Internal hemorrhoids without mention of complication Lupus (HCC) SCLE-recent test was negative for lupus PONV (postoperative nausea and vomiting) Sjogren's disease [...] in life -- age 88 Heart Father DC in 2010 Coronary Artery Disease Other no [...] Drug use: No REVIEW OF SYSTEMS Abdomen: No abdominal pain, nausea, vomiting, diarrhea, or constipation. No bloating, early satiety, indigestion, or increased flatulence. Bladder: See HPI Breast: No breast lumps, nipple d/c, overlying skin changes, redness or skin retraction Allergies and current medication updated:Yes EXAM: BP 142/80 Ht 5' 0 (1.52m) Wt 129 lb (58.5kg) BMI 25.19 kg/(m^2). GENERAL: pleasant, female in no apparent [...] external genitalia normal, normal Bartholin's glands, urethra, Dustin's glands, no vulvar lesions, no cervical lesions, good vaginal support, physiologic discharge present, normal appearing perineal body and perianal region BIMANUAL: uterus normal size, shape and consistency, no adnexal masses, and non-tender RECTOVAGINAL: deferred. NEURO: alert and oriented x3,exam grossly non-focal EXTREMITIES: normal ASSESSMENT/PLAN: 1) Health maintenance: Pap/HPV screening no longer needed Mammogram ordered Nutrition, exercise and routine health maintenance exams reviewed. Calcium/Vitamin D supplementation information provided. Colon cancer screening: up to date with screening BMD: ordered 2) Follow up one year or sooner as needed 3) UA today 4) reviewed journal for fluid intake/output, night time enuresis occurrence, caffeine intake. Reviewed stopping fluids 2hr prior to bed and no caffeine past 12pm. 5) if not improvement will send to urology/urogyn not good candidate for anticholinergic due to sjogrens pt will notify office if not improving or worsening symptoms. 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 Maryjane Dobson MD documented in this encounter [facility] 02-10-2024 Miscellaneous Notes February 11, 2024 PID: [id number] Jagdish Castillo [address] [place] [address] Dear Ms. Castillo, We are pleased to inform you that the results of your recent breast imaging exam on 02/10/2024 are normal. Your mammogram demonstrates that you have dense breast tissue, which could hide abnormalities. Dense breast tissue, in and of itself, is a relatively common condition. Therefore, this information is not provided to cause undue concern; rather, it is to raise your awareness and promote discussion with your health care provider regarding the presence of dense breast tissue in addition to other risk factors. Early detection of cancer is very important. We also understand recommendations regarding breast cancer screening are controversial. Please discuss with your primary care provider which strategy is best for you and whether a mammogram is right for you. Your imaging studies and report will be kept on file at [facility] as part of your permanent medical record and are available for your continuing care. Thank you for allowing us to help in meeting your health care needs. Sincerely, Dr. Smith Interpreting Radiologist [facility] (Normal over 40) documented in this encounter [facility] 02-10-2024 History of Presen t illness Narrative Radiology Service Progress Note PATIENT NAME: Jagdish Castillo DATE OF SERVICE: February 10, 2024 TIME: 7:37 AM PATIENT IDENTITY VERIFICATION COMPLETED USING TWO (2) IDENTIFIERS: Name and Date of confirmed by patient verbally. FALL SCREENING: Has the patient had 2 falls in the last year or 1 fall with injury or currently using an Ambulatory Assistive Device (Walker, Cane, Wheelchair, Crutches, etc.)? No PATIENT GENDER DATA: Female. status: : No status: NO. PATIENT RELEVANT IMPLANT DATA REVIEWED: Not Applicable PATIENT PRESENTS WITH AN IMPLANTABLE OR ATTACHED OPTICAL DISPENSER: No RADIOLOGY DEPARTMENT: Mammography PERIPHERAL IV DATA: Not applicable SIGNED BY: Michael Mckeon February 10, 2024 7:37 AM documented in this encounter [facility] 10-08-2023 History of Presen t illness Narrative [...] and was doing things. Discussed risks of manager long term care steroids. After stopping prednisone started with extreme [...] in life -- age 88 Heart Father DC in 2010 Coronary Artery Disease Other no [...] 136/80 Pulse 72 Ht 154.9 cm (5' 1) Wt 59 kg (130 lb) SpO2 99% [...] ICD10: Z51.81 - HGB A1C 6. Other intermediate (current) drug therapy - ICD9: V58.69, ICD10: Z79.899 - HGB A1C Call with an update in one weeks or prn. Guille Gautam MD documented in this encounter [facility] 09-05-2023 History of Presen t illness Narrative [...] RDMS RVT September 05, 2023 9:03 AM documented in this encounter [facility] 09-03-2023 Miscellaneous Notes Pt called and is notified of providers results. Pt voices understanding. Carolann Hoffmann RN Let her know her stress test was ok. I sent a my chart message but was not read. documented in this encounter [facility] 09-02-2023 History of Presen t illness Narrative [...] Snow Gonzales RN Reversal agent used:None LOT [id number] EXP 11/18/26 IV SITE: IV palced by nuclear tecnologist POST EXAM PIV STATUS: Discontinued by Missile And Missile Checkout Technician PATIENT DISCHARGED TO: Nuclear Medicine Department for post stress imaging A Diagnostic radioactive procedure has taken place, with no further precautions necessary other than routine body substance precautions. More information regarding radiation safety can be found using this link: [email or web address]% 20Nuclear%20Medicine%20Procedur [email or web address] SIGNATURE: Snow Gonzales RN PATIENT NAME:Jagdish Castillo DATE: 09/02/23 TIME: 12:11 PM documented in this encounter [facility] 09-02-2023 History of Presen t illness Narrative [...] Discontinued PROCEDURE TYPE: NM Stress: 12.5 mCi [id number] was administered IV for Rest Imaging at 0736 by FANTASMA. 30.8 mCi [id number] was administered IV for Stress Imaging at 09:06 by FANTASMA. PATIENT DISCHARGED TO: Ambulatory patient, left ID department area. A Diagnostic radioactive procedure has taken place, with no further precautions necessary other than routine body substance precautions. More information regarding radiation safety can be found using this link: [email or web address]% 20Nuclear%20Medicine%20Procedur es.pdf SIGNATURE: RT Dl(Segun) PATIENT NAME: Jagdish Castillo DATE: September 02, 2023 TIME: 9:08 AM PAGER/CONTACT #: documented in this encounter [facility] 08-05-2023 Miscellaneous Notes Last annual with DM 02/08/23. Requested Prescriptions Pending Prescriptions Disp Refills estradiol (ESTRACE) 0.01 % (0.1 mg/gram) vaginal cream 42.5 g 2 Sig: Use 1/2-1gram vaginally 1-3 times weekly for maintenance Samantha Henriquez RN documented in this encounter [facility] 07-29-2023 History of Presen t illness Narrative [...] Er in 08/17/22 for chest pain at [facility]. Was having chest pain. Eval was negative [...] in life -- age 88 Heart Father DC in 2010 Coronary Artery Disease Other no [...] 710.3, ICD10: M33.10 - per Dr. Wright. Guille Gautam MD documented in this encounter [facility] 07-08-2023 Miscellaneous Notes Called patient and explained her heart rate was fine. Was in the 70's at other point during the visit and is otherwise ok. Questions were answered. documented in this encounter [facility] 05-08-2023 History of Presen t illness Narrative POPULATION HEALTH NAVIGATION OUTREACH Action/FYI Spoke with Jagdish . She will call back [facility] ANNUAL MEDICARE WELLNESS ADVANCE DIRECTIVE DISCUSSION Patient [...] 2023 7:34 AM documented in this encounter [facility] 02-27-2023 History of Presen t illness Narrative [...] IV DATA: Not applicable SIGNED BY: RT Molly(Segun) February 27, 2023 1:09 PM documented in this encounter [facility] 02-11-2023 Miscellaneous Notes Patient called to schedule CB mammogram documented in this encounter [facility] 02-08-2023 History of Presen t illness Narrative Local Bulk Driver offered: Patient declines. Vargas is a 77 [...] L2 SAB1 IAB0 Ectopic0 Multiple0 Live Births0 National Service Officer History LMP: Postmenopausal Age at Menarche: Age at First : Age at Menopause: National Service Officer History Comments: Sexual Activity: Yes; Male; Post [...] in life -- age 88 Heart Father DC in 2010 Coronary Artery Disease Other no [...] external genitalia normal, normal Bartholin's glands, urethra, Dustin's glands, no vulvar lesions, no cervical lesions, [...] this to diverticular lightest that was diagnosed. Maryjane Dobson MD documented in this encounter [facility] 02-08-2023 History of Presen t illness Narrative [...] 2023 10:04 AM documented in this encounter [facility] 11-28-2022 Miscellaneous Notes Patient calling asking for refill extension of cream. Due for annual and mammogram in December. Transferred to appointment desk to make appointments. documented in this encounter [facility] 08-17-2022 Miscellaneous Notes Protocol recommends ER now. Patient agreeable and will have family drive her. Reason for Disposition [1] Chest pain (or angina) comes and goes AND [2] is happening [...] cough. 11. : No Protocols used: Chest [id number] documented in this encounter [facility] 04-27-2022 History of Presen t illness Narrative [...] 2022 11:54 AM documented in this encounter [facility] 08-10-2021 History of Past i llness Narrative Problem Noted Date Resolved Date History of colonic polyps 08/10/20212020 Heartburn 08/10/2021 08/10/2021 Routine general medical exam ination at a health care facility 08/04/2010 06/16/2012 Overview: 08/04/2010, establish 09/20/2011, yearly Routine gynecological examination 08/04/2010 06/16/2012 Overview: [facility], [facility] [place] Chest pain, unspecified 12/20/2005 08/04/20 10 documented as of this encounter (statuses as of 04/27/2022) [facility] History of Past illness Narrative* Problem Noted Date Resolved Date History of colonic polyps 08/10/20212020 Heartburn 08/10/2021 08/10/2021 Routine general medical exam ination at a health care facility 08/04/2010 06/16/2012 Overview: 08/04/2010, establish 09/20/2011, yearly Routine gynecological examination 08/04/2010 06/16/2012 Overview: [facility], [facility] [place] Chest pain, unspecified 12/20/2005 08/04/20 10 documented as of this encounter (statuses as of 11/28/2022) [facility] History of Past illness Narrative* Problem Noted Date Resolved Date History of colonic polyps 08/10/20212020 Heartburn 08/10/2021 08/10/2021 Routine general medical exam ination at a health care facility 08/04/2010 06/16/2012 Overview: 08/04/2010, establish 09/20/2011, yearly Routine gynecological examination 08/04/2010 06/16/2012 Overview: [facility], [facility] [place] Chest pain, unspecified 12/20/2005 08/04/20 10 documented as of this encounter (statuses as of 02/08/2023) [facility] History of Past illness Narrative* Problem Noted Date Resolved Date History of colonic polyps 08/10/20212020 Heartburn 08/10/2021 08/10/2021 Routine general medical exam ination at a health care facility 08/04/2010 06/16/2012 Overview: 08/04/2010, establish 09/20/2011, yearly Routine gynecological examination 08/04/2010 06/16/2012 Overview: [facility], [facility] [place] Chest pain, unspecified 12/20/2005 08/04/20 10 documented as of this encounter (statuses as of 02/11/2023) [facility] History of Past illness Narrative* Problem Noted Date Resolved Date History of colonic polyps 08/10/20212020 Heartburn 08/10/2021 08/10/2021 Routine general medical exam ination at a health care facility 08/04/2010 06/16/2012 Overview: 08/04/2010, establish 09/20/2011, yearly Routine gynecological examination 08/04/2010 06/16/2012 Overview: [facility], [facility] [place] Chest pain, unspecified 12/20/2005 08/04/20 10 documented as of this encounter (statuses as of 02/11/2023) [facility]09-23[facility]2021 History of Past illness Narrative* Problem Noted Date Resolved Date History of colonic polyps 08/10/20212020 Heartburn 08/10/2021 08/10/2021 Routine general medical exam ination at a health care facility 08/04/2010 06/16/2012 Overview: 08/04/2010, establish 09/20/2011, yearly Routine gynecological examination 08/04/2010 06/16/2012 Overview: [facility], [facility] Chest pain, unspecified 12/20/2005 08/04/20 10 documented as of this encounter (statuses as of 03/14/2023) [facility]2021 History of Past illness Narrative* Problem Noted Date Resolved Date History of colonic polyps 08/10/20212020 Heartburn 08/10/2021 08/10/2021 Routine general medical exam ination at a health care facility 08/04/2010 06/16/2012 Overview: 08/04/2010, establish 09/20/2011, yearly Routine gynecological examination 08/04/2010 06/16/2012 Overview: [facility], [facility] [place] Chest pain, unspecified 12/20/2005 08/04/20 10 documented as of this encounter (statuses as of 05/08/2023) [facility]2021 History of Past illness Narrative* Problem Noted Date Diagnosed Date Resolved Date History of colonic polyps 08/10/2021 Heartburn 08/10/2021 08/10/2021 Routine general medical exam ination at a health care facility 08/04/2010 06/16/2012 Overview: 08/04/2010, establish 09/20/2011, yearly Routine gynecological examination 08/04/2010 06/16/2012 Overview: [facility], [facility] Chest pain, unspecified 12/20/200507/19 documented as of this encounter (statuses as of 07/09/2023) [facility] History of Past illness Narrative* Problem Noted Date Diagnosed Date Resolved Date History of colonic polyps 08/10/2021 Heartburn 08/10/2021 08/10/2021 Routine general medical exam ination at a health care facility 08/04/2010 06/16/2012 Overview: 08/04/2010, establish 09/20/2011, yearly Routine gynecological examination 08/04/2010 06/16/2012 Overview: [facility], [facility] Chest pain, unspecified 12/20/200507/19 documented as of this encounter (statuses as of 07/29/2023) [facility] History of Past illness Narrative* Problem Noted Date Diagnosed Date Resolved Date History of colonic polyps 08/10/2021 Heartburn 08/10/2021 08/10/2021 Routine general medical exam ination at a health care facility 08/04/2010 06/16/2012 Overview: 08/04/2010, establish 09/20/2011, yearly Routine gynecological examination 08/04/2010 06/16/2012 Overview: [facility], [facility] [place] Chest pain, unspecified 12/20/200507/19 documented as of this encounter (statuses as of 08/05/2023) [facility] History of Past illness Narrative* Problem Noted Date Diagnosed Date Resolved Date History of colonic polyps 08/10/2021 Heartburn 08/10/2021 08/10/2021 Routine general medical exam ination at a health care facility 08/04/2010 06/16/2012 Overview: 08/04/2010, establish 09/20/2011, yearly Routine gynecological examination 08/04/2010 06/16/2012 Overview: [facility], [facility] [place] Chest pain, unspecified 12/20/200507/19 documented as of this encounter (statuses as of 08/28/2023) [facility] History of Past illness Narrative* Problem Noted Date Diagnosed Date Resolved Date History of colonic polyps 08/10/2021 Heartburn 08/10/2021 08/10/2021 Routine general medical exam ination at a health care facility 08/04/2010 06/16/2012 Overview: 08/04/2010, establish 09/20/2011, yearly Routine gynecological examination 08/04/2010 06/16/2012 Overview: [facility], [facility] [place] Chest pain, unspecified 12/20/200507/19 documented as of this encounter (statuses as of 09/02/2023) [facility] History of Past illness Narrative* Problem Noted Date Diagnosed Date Resolved Date History of colonic polyps 08/10/2021 Heartburn 08/10/2021 08/10/2021 Routine general medical exam ination at a health care facility 08/04/2010 06/16/2012 Overview: 08/04/2010, establish 09/20/2011, yearly Routine gynecological examination 08/04/2010 06/16/2012 Overview: [facility], [facility] Chest pain, unspecified 12/20/200507/19 documented as of this encounter (statuses as of 09/03/2023) [facility] History of Past illness Narrative* Problem Noted Date Diagnosed Date Resolved Date History of colonic polyps 08/10/2021 Heartburn 08/10/2021 08/10/2021 Routine general medical exam ination at a health care facility 08/04/2010 06/16/2012 Overview: 08/04/2010, establish 09/20/2011, yearly Routine gynecological examination 08/04/2010 06/16/2012 Overview: [facility], [facility] Chest pain, unspecified 12/20/200507/19 documented as of this encounter (statuses as of 09/22/2023) [facility] History of Past illness Narrative* Problem Noted Date Diagnosed Date Resolved Date History of colonic polyps 08/10/2021 Heartburn 08/10/2021 08/10/2021 Routine general medical exam ination at a health care facility 08/04/2010 06/16/2012 Overview: 08/04/2010, establish 09/20/2011, yearly Routine gynecological examination 08/04/2010 06/16/2012 Overview: [facility], [facility] [place] Chest pain, unspecified 12/20/200507/19 documented as of this encounter (statuses as of 09/22/2023) [facility] History of Past illness Narrative* Problem Noted Date Diagnosed Date Resolved Date History of colonic polyps 08/10/2021 Heartburn 08/10/2021 08/10/2021 Routine general medical exam ination at a health care facility 08/04/2010 06/16/2012 Overview: 08/04/2010, establish 09/20/2011, yearly Routine gynecological examination 08/04/2010 06/16/2012 Overview: [facility], [facility] Chest pain, unspecified 12/20/200507/19 documented as of this encounter (statuses as of 09/22/2023) [facility] History of Past illness Narrative* Problem Noted Date Diagnosed Date Resolved Date History of colonic polyps 08/10/2021 Heartburn 08/10/2021 08/10/2021 Routine general medical exam ination at a health care facility 08/04/2010 06/16/2012 Overview: 08/04/2010, establish 09/20/2011, yearly Routine gynecological examination 08/04/2010 06/16/2012 Overview: [facility], [facility] Chest pain, unspecified 12/20/200507/19 documented as of this encounter (statuses as of 09/22/2023) [facility]21 History of Past illness Narrative* Problem Noted Date Diagnosed Date Resolved Date History of colonic polyps 08/10/2021 Heartburn 08/10/2021 08/10/2021 Routine general medical exam ination at a health care facility 08/04/2010 06/16/2012 Overview: 08/04/2010, establish 09/20/2011, yearly Routine gynecological examination 08/04/2010 06/16/2012 Overview: [facility], [facility] [place] Chest pain, unspecified 12/20/200507/19 documented as of this encounter (statuses as of 09/22/2023) [facility] History of Past illness Narrative* Problem Noted Date Diagnosed Date Resolved Date History of colonic polyps 08/10/2021 Heartburn 08/10/2021 08/10/2021 Routine general medical exam ination at a health care facility 08/04/2010 06/16/2012 Overview: 08/04/2010, establish 09/20/2011, yearly Routine gynecological examination 08/04/2010 06/16/2012 Overview: [facility], [facility] Chest pain, unspecified 12/20/200507/19 documented as of this encounter (statuses as of 10/09/2023) [facility]20[facility] History of Past illness Narrative* Problem Noted Date Diagnosed Date Resolved Date History of colonic polyps 08/10/2021 Heartburn 08/10/2021 08/10/2021 Routine general medical exam ination at a health care facility 08/04/2010 06/16/2012 Overview: 08/04/2010, establish 09/20/2011, yearly Routine gynecological examination 08/04/2010 06/16/2012 Overview: [facility], [facility] [place] Chest pain, unspecified 12/20/200507/19 documented as of this encounter (statuses as of 02/11/2024) [facility]21 History of Past illness Narrative* Problem Noted Date Diagnosed Date Resolved Date History of colonic polyps 08/10/2021 Heartburn 08/10/2021 08/10/2021 Routine general medical exam ination at a health care facility 08/04/2010 06/16/2012 Overview: 08/04/2010, establish 09/20/2011, yearly Routine gynecological examination 08/04/2010 06/16/2012 Overview: [facility], [facility] [place] Chest pain, unspecified 12/20/200507/19 documented as of this encounter (statuses as of 02/12/2024) [facility] noteNo assessment information availableWCleveland [facility] Work Phone: Evaluation note* Diagnosis Vaginal atrophy Postmenopausal atrophic vaginitis documented in this encounter [facility] note* Diagnosis Encounter for gynecological examination (general) (routine) without abnormal findings- Primary Dense breast tissue Vaginal atrophy Postmenopausal atrophic vaginitis Encounter for screening mammogram for malignant neoplasm of breast Other screening mammogram [facility] Diagnosis Abnormal mammogram- Primary Abnormal mammogram, unspecified documented in this encounter [facility] note* Diagnosis Chest pain, unspecified type- Primary GERD without esophagitis Esophageal reflux Amyopathic dermatomyositis (HCC) Dermatomyositis [facility]* Diagnosis Vaginal atrophy Postmenopausal atrophic vaginitis documented in this encounter [facility] note* Diagnosis Screening for ischemic heart disease- Primary [facility]* Diagnosis Abnormal mammogram Abnormal mammogram, unspecified [facility]* Diagnosis PMB (postmenopausal bleeding) Postmenopausal bleeding [facility] Diagnosis Abnormal mammogram Abnormal mammogram, unspecified [facility]* Diagnosis Encounter for screening mammogram for malignant neoplasm of breast Other screening mammogram documented in this encounter [facility] note* Diagnosis Fatigue, unspecified type- Primary Amyopathic dermatomyositis (HCC) Dermatomyositis Inflammatory polyarthritis (HCC) Unspecified inflammatory polyarthropathy Anemia, unspecified type Medication monitoring encounter Encounter for therapeutic drug monitoring Other intermediate (current) drug therapy documented in this encounter [facility] note* Diagnosis Dense breast tissue Encounter for screening mammogram for malignant neoplasm of breast Other screening mammogram documented in this encounter [facility] note* Diagnosis Encounter for gynecological examination (general) (routine) without abnormal findings- Primary Encounter for screening mammogram for breast cancer Osteopenia of lumbar spine Enuresis, nocturnal only documented in this encounter [facility] note* Diagnosis Osteopenia of lumbar spine documented in this encounter [facility] note* Diagnosis GERD without esophagitis Esophageal reflux documented in this encounter [facility] note* Diagnosis Vaginal atrophy Postmenopausal atrophic vaginitis documented in this encounter [facility] note* Diagnosis Encounter for screening mammogram for breast cancer documented in this encounter [facility] note* Diagnosis GERD without esophagitis Esophageal reflux documented in this encounter [facility] for referral (narrative)* Diagnostic Procedure Only (Routine) - Pending Review Specialty Diagnoses / Procedures Referred By Rihcard lagunas Referred To Contact [facility] Diagnoses Dense breast tissue Encounter for screening mammogram for malignant neoplasm of breast Procedures PARAM SCREENING W OFE SCREENING DIGITAL BREAST TOMOSYNTHESIS BI SCREENING MAMMOGRAPHY BI 2-VIEW BREAST INC CAD Maryjane Callahan MD [address] [place] [address] Br Imaging [address] [place] [address] Referral ID Status Reason Start Date Expiration Date Visits Requested Visits Authorized [id number] Pending Review Auto-Generat ed Referral 02/08/2023 03/09/2024 1 1 [facility] for referral (narrative)* Diagnostic Procedure Only (Routine) - Pending Review Specialty Diagnoses / Procedures Referred By Richard lagunas Referred To Contact [facility] Diagnoses Abnormal mammogram Procedures PARAM DIAGNOSTIC LEFT DIAGNOSTIC MAMMOGRAPHY COMPUTER-AIDED DETCJ UNI Maryjane Callahan MD [address] [place] [address] [facility] [address] [place] [address] Referral ID Status Reason Start Date Expiration Date Visits Requested Visits Authorized [id number] Pending Review Auto-Generat ed Referral 02/11/2023 03/12/2024 1 1 * Diagnostic Procedure Only (Routine) - Pending Review Specialty Diagnoses / Procedures Referred By Richard lagunas Referred To Contact [facility] Diagnoses Abnormal mammogram Procedures US BREAST LTD LEFT US BREAST UNI REAL TIME WITH IMAGE LIMITED Maryjane Callahan MD [address] [place] [address] [facility] [address] [place] [address] Referral ID Status Reason Start Date Expiration Date Visits Requested Visits Authorized [id number] Pending Review Auto-Generat ed Referral 02/11/2023 03/12/2024 1 1 [facility] for referral (narrative)* Diagnostic Procedure Only (Routine) - Closed Specialty Diagnoses / Procedures Referred By Richard lagunas Referred To Contact US IMAGING Diagnoses PMB (postmenopausal bleeding) Procedures US FEMALE PELVIS TRANSVAG US TRANSVAGINAL Maryjane Callahan MD [address] [place] [address] Us Imaging [place] [address] Referral ID Status Reason Start Date Expiration Date V isits Requested Visits Authorized [id number] Closed Auto-Generate d Referral 08/08/2023 09/06/2024 1 1 [facility] for referral (narrative)* Diagnostic Procedure Only (Routine) - Closed Specialty Diagnoses / Procedures Referred By Richard lagunas Referred To Contact [facility] Diagnoses Encounter for screening mammogram for malignant neoplasm of breast Procedures PARAM SCREENING W OFE SCREENING DIGITAL BREAST TOMOSYNTHESIS BI SCREENING MAMMOGRAPHY BI 2-VIEW BREAST INC CAD Maryjane Callahan MD [address] [place] [address] [facility] Imaging [address] [place] [phone] Referral ID Status Reason Start Date Expiration Date V isits Requested Visits Authorized [id number] Closed Auto-Generate d Referral 01/09/2022 02/08/2023 1 1 [facility] for referral (narrative)* Diagnostic Procedure Only (Routine) - Closed Specialty Diagnoses / Procedures Referred By Richard lagunas Referred To Contact [facility] Diagnoses Dense breast tissue Encounter for screening mammogram for malignant neoplasm of breast Procedures PARAM SCREENING W OFE SCREENING DIGITAL BREAST TOMOSYNTHESIS BI SCREENING MAMMOGRAPHY BI 2-VIEW BREAST INC CAD Maryjane Callahan MD [address] [place] [address] Br Imaging [address] [place] [phone] Referral ID Status Reason Start Date Expiration Date V isits Requested Visits Authorized [id number] Closed Auto-Generate d Referral 02/08/2023 03/09/2024 1 1 [facility] for referral (narrative)* Diagnostic Procedure Only (Routine) - Pending Review Specialty Diagnoses / Procedures Referred By Richard lagunas Referred To Contact XR IMAGING Diagnoses Osteopenia of lumbar spine Procedures DXA-AXIAL SKELETON Maryjane Callahan MD [address] [place] [address] Xr Imaging [facility] Referral ID Status Reason Start Date Expiration Date Visits Requested Visits Authorized [id number] Pending Review Auto-Generat ed Referral 03/13/2024 04/12/2025 1 1 * Diagnostic Procedure Only (Routine) - Pending Review Specialty Diagnoses / Procedures Referred By Richard lagunas Referred To Contact [facility] Diagnoses Encounter for screening mammogram for breast cancer Procedures PARAM SCREENING W OFE SCREENING DIGITAL BREAST TOMOSYNTHESIS BI SCREENING MAMMOGRAPHY BI 2-VIEW BREAST INC CAD Maryjane Callahan MD [address] [place] [address] [facility] [address] [place] [address] Referral ID Status Reason Start Date Expiration Date Visits Requested Visits Authorized [id number] Pending Review Auto-Generat ed Referral 03/13/2024 04/12/2025 1 1 [facility] for referral (narrative)No reason for referral information availableWCleveland Clinic [facility] Work Phone: Reason for visit Narrative* Diagnostic Procedure Only (Routine) - Closed Specialty Diagnoses / Procedures Referred By Richard lagunas Referred To Contact MOLECULAR & FUNCTIONAL IMAGING Diagnoses Chest pain, unspecified type Procedures NM CARDIAC PERF STRESS/PHARM MYOCARDIAL SPECT MULTIPLE STUDIES Guille Gautam MD [address] [place] [address] Molecular & Functional Imaging [address] [place] [id number] Referral ID Status Reason Start Date Expiration Date V isits Requested Visits Authorized [id number] Closed Auto-Generate d Referral 07/05/2023 08/03/2024 1 1 [facility] for visit Narrative* Diagnostic Procedure Only (Routine) - Authorized Specialty Diagnoses / Procedures Referred By Richard lagunas Referred To Contact [facility] Diagnoses Abnormal mammogram Procedures US BREAST LTD LEFT US BREAST UNI REAL TIME WITH IMAGE LIMITED Maryjane Callahan MD [address] [place] [address] [facility] Imaging [address] [place] [address] Referral ID Status Reason Start Date Expiration Date Visits Requested Visits Authorized [id number] Authorized Auto-Generat ed Referral 02/11/2023 03/12/2024 1 1 [facility] for visit Narrative* Diagnostic Procedure Only (Routine) - Closed Specialty Diagnoses / Procedures Referred By Richard lagunas Referred To Contact [facility] Diagnoses Abnormal mammogram Procedures PARAM DIAGNOSTIC LEFT DIAGNOSTIC MAMMOGRAPHY COMPUTER-AIDED DETCJ UNI Maryjane Callahan MD [address] [place] [address] Br Imaging [address] [place] [address] Referral ID Status Reason Start Date Expiration Date V isits Requested Visits Authorized [id number] Closed Auto-Generate d Referral 02/11/2023 03/12/2024 1 1 [facility] for visit Narrative* Diagnostic Procedure Only (Routine) - Closed Specialty Diagnoses / Procedures Referred By Richard lagunas Referred To Contact [facility] Diagnoses Encounter for screening mammogram for malignant neoplasm of breast Procedures PARAM SCREENING W OFE SCREENING DIGITAL BREAST TOMOSYNTHESIS BI SCREENING MAMMOGRAPHY BI 2-VIEW BREAST INC CAD Maryjane Callahan MD [address] [place] [address] Br Imaging [address] [place] [address] Referral ID Status Reason Start Date Expiration Date V isits Requested Visits Authorized [id number] Closed Auto-Generate d Referral 01/09/2022 02/08/2023 1 1 [facility] for visit Narrative* Diagnostic Procedure Only (Routine) - Closed Specialty Diagnoses / Procedures Referred By Richard lagunas Referred To Contact [facility]AG[facility] Diagnoses Dense breast tissue Encounter for screening mammogram for malignant neoplasm of breast Procedures PARAM SCREENING W OFE SCREENING DIGITAL BREAST TOMOSYNTHESIS BI SCREENING MAMMOGRAPHY BI 2-VIEW BREAST INC CAD Maryjane Callahan MD [address] [place] [address] Br Imaging [address] [place] [address] Referral ID Status Reason Start Date Expiration Date V isits Requested Visits Authorized [id number] Closed Auto-Generate d Referral 02/08/2023 03/09/2024 1 1 [facility] for visit Narrative* Diagnostic Procedure Only (Routine) - Closed Specialty Diagnoses / Procedures Referred By Richard t Referred To Contact XR IMAGING Diagnoses Osteopenia of lumbar spine Procedures DXA-AXIAL SKELETON Maryjane Callahan MD [address] [place] [address] [place] [address] Referral ID Status Reason Start Date Expiration Date V isits Requested Visits Authorized [id number] Closed Auto-Generate d Referral 03/13/2024 04/12/2025 1 1 [facility] Diagnostic Procedure Only (Routine) - Closed Specialty Diagnoses / Procedures Referred By Richard lagunas Referred To Contact [facility] Diagnoses Encounter for screening mammogram for breast cancer Procedures PARAM SCREENING W OFE SCREENING DIGITAL BREAST TOMOSYNTHESIS BI SCREENING MAMMOGRAPHY BI 2-VIEW BREAST INC CAD Maryjane Callahan MD [address] [place] [address] Phone: tel: fax: [facility] [address] [place] [address] Referral ID Status Reason Start Date Expiration Date V isits Requested Visits Authorized [id number] Closed Auto-Generate d Referral 03/13/2024 04/12/2025 1 1 [facility] Chief Complaint and Reason for Visit Chief Complaint ARTHRITIS/PAIN- COPY PCP SERUM FOR EYEDROPS Chief Complaint PAIN- COPY PCP Chief Complaint PAIN- COPY PCP EYE DROPS PAIN- COPY PCP Chief Complaint PAIN- COPY PCP EYE DROPS PAIN- COPY PCP chest pain Chief Complaint PAIN- COPY PCP chest pain Chief Complaint 2 ORDERS- 2 DRS Chief Complaint 2 ORDERS- 2 DRS EYE DROPS Chief Complaint 2 ORDERS- 2 DRS EYE DROPS 2 DRS/ 2 ORDERS Chief Complaint 2 DRS/ 2 ORDERS Chief Complaint 2 DRS/ 2 ORDERS SERUM FOR EYE DROPS Chief Complaint 2 DRS/ 2 ORDERS SERUM FOR EYE DROPS SKIN Chief Complaint SERUM FOR EYE DROPS SKIN Chief Complaint SERUM FOR EYE DROPS SKIN AVISE Chief Complaint AVISE SKIN PAIN- COPY PCP Chief Complaint SKIN PAIN- COPY PCP DRY EYE SYNDROME Chief Complaint Admit Date PAIN- COPY PCP December 14, 2024 8 :43am KERATOCONJUNCTIVITIS February 12, 2025 7: 50am Advance Directives Advance Directive Response Recorded Date/ Time Living Will Yes January 30, 2016 10:48am Power of Multineedle Shirrer Yes January 29 10:48am Documents on File Type Date Recorded 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 Advance Directive(s) 08/10/2021 7:40 AM Advance Directive(s) 10/27/2018 12:18 PM Advance Directive(s) 10/27/2018 12:26 PM Advance Directive(s) 10/03/2018 7:55 AM Advance Directive(s) 07/24/2011 12:00 AM Advance Directive(s) 01/03/2007 12:00 AM Advance Directive Response Recorded Date/ Time Name of Medical Power of Multineedle Shirrer August 17, 2022 9:06am Living Will Yes August 17, 2022 9:06am Power of Multineedle Shirrer Yes July 9:06am Advance Directive Response Recorded Date/ Time Name of Medical Power of Multineedle Shirrer August 17, 2022 8:06am Living Will Yes August 17, 2022 8:06am Power of Multineedle Shirrer Yes July 8:06am Documents on File Type Date Recorded 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 Advance Directive(s) 10/27/2018 12:26 PM Advance Directive(s) 07/24/2011 Advance Directive(s) 01/03/2007 Advance Directive Response Recorded Date/ Time Living Will Yes August 17, 2022 8:06am Power of Multineedle Shirrer Yes July 8:06am Documents on File Type Date Recorded 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 Advance Directive(s) 10/27/2018 12:26 PM Advance Directive(s) 07/24/2011 Advance Directive(s) 01/03/2007 Advance Directive Response Recorded Date/ Time Living Will Yes August 17, 2022 9:06am Power of Multineedle Shirrer Yes July 9:06am Summary Purpose Family History No Family History Records FoundNo Family History Records Found Additional Source Comments Goals (unrecognized section and content) Goals may be documented in a n alternate sectionGoals may be documented in an alternate sectionGoals may be documented in an alternate sectionGoals may be documented in an alternate sectionGoals may be documented in an alternate sectionGoals may be documented in an alternate sectionGoals may be documented in an alternate sectionGoals may be documented in an alternate sectionGoals may be documented in an alternate sectionGoals may be documented in an alternate sectionGoals may be documented in an alternate sectionGoals may be documented in an alternate sectionGoals may be documented in an alternate sectionGoals may be documented in an alternate sectionGoals may be documented in an alternate sectionGoals may be documented in an alternate sectionGoals may be documented in an alternate section Source Comments (unrecognize d section and content) In the event this informatio n is protected by the Federal Confidentiality of Alcohol and Drug Abuse Patient Records regulations: The Federal rules restrict any use of the information to criminally investigate or prosecute any alcohol or drug abuse patient.[facility] TownshipIn the event this information is protected by the Federal Confidentiality of Alcohol and Drug Abuse Patient Records regulations: The Federal rules restrict any use of the information to criminally investigate or prosecute any alcohol or drug abuse patient.[facility] TownshipIn the event this information is protected by the Federal Confidentiality of Alcohol and Drug Abuse Patient Records regulations: The Federal rules restrict any use of the information to criminally investigate or prosecute any alcohol or drug abuse patient.[facility] TownshipIn the event this information is protected by the Federal Confidentiality of Alcohol and Drug Abuse Patient Records regulations: The Federal rules restrict any use of the information to criminally investigate or prosecute any alcohol or drug abuse patient.[facility] TownshipIn the event this information is protected by the Federal Confidentiality of Alcohol and Drug Abuse Patient Records regulations: The Federal rules restrict any use of the information to criminally investigate or prosecute any alcohol or drug abuse patient.[facility] TownshipIn the event this information is protected by the Federal Confidentiality of Alcohol and Drug Abuse Patient Records regulations: The Federal rules restrict any use of the information to criminally investigate or prosecute any alcohol or drug abuse patient.[facility] TownshipIn the event this information is protected by the Federal Confidentiality of Alcohol and Drug Abuse Patient Records regulations: The Federal rules restrict any use of the information to criminally investigate or prosecute any alcohol or drug abuse patient.[facility] TownshipIn the event this information is protected by the Federal Confidentiality of Alcohol and Drug Abuse Patient Records regulations: The Federal rules restrict any use of the information to criminally investigate or prosecute any alcohol or drug abuse patient.[facility] TownshipIn the event this information is protected by the Federal Confidentiality of Alcohol and Drug Abuse Patient Records regulations: The Federal rules restrict any use of the information to criminally investigate or prosecute any alcohol or drug abuse patient.[facility] TownshipIn the event this information is protected by the Federal Confidentiality of Alcohol and Drug Abuse Patient Records regulations: The Federal rules restrict any use of the information to criminally investigate or prosecute any alcohol or drug abuse patient.[facility] TownshipIn the event this information is protected by the Federal Confidentiality of Alcohol and Drug Abuse Patient Records regulations: The Federal rules restrict any use of the information to criminally investigate or prosecute any alcohol or drug abuse patient.[facility] TownshipIn the event this information is protected by the Federal Confidentiality of Alcohol and Drug Abuse Patient Records regulations: The Federal rules restrict any use of the information to criminally investigate or prosecute any alcohol or drug abuse patient.[facility] TownshipIn the event this information is protected by the Federal Confidentiality of Alcohol and Drug Abuse Patient Records regulations: The Federal rules restrict any use of the information to criminally investigate or prosecute any alcohol or drug abuse patient.[facility] TownshipIn the event this information is protected by the Federal Confidentiality of Alcohol and Drug Abuse Patient Records regulations: The Federal rules restrict any use of the information to criminally investigate or prosecute any alcohol or drug abuse patient.[facility] TownshipIn the event this information is protected by the Federal Confidentiality of Alcohol and Drug Abuse Patient Records regulations: The Federal rules restrict any use of the information to criminally investigate or prosecute any alcohol or drug abuse patient.[facility] TownshipIn the event this information is protected by the Federal Confidentiality of Alcohol and Drug Abuse Patient Records regulations: The Federal rules restrict any use of the information to criminally investigate or prosecute any alcohol or drug abuse patient.[facility] TownshipIn the event this information is protected by the Federal Confidentiality of Alcohol and Drug Abuse Patient Records regulations: The Federal rules restrict any use of the information to criminally investigate or prosecute any alcohol or drug abuse patient.[facility] TownshipIn the event this information is protected by the Federal Confidentiality of Alcohol and Drug Abuse Patient Records regulations: The Federal rules restrict any use of the information to criminally investigate or prosecute any alcohol or drug abuse patient.[facility] TownshipIn the event this information is protected by the Federal Confidentiality of Alcohol and Drug Abuse Patient Records regulations: The Federal rules restrict any use of the information to criminally investigate or prosecute any alcohol or drug abuse patient.[facility] TownshipIn the event this information is protected by the Federal Confidentiality of Alcohol and Drug Abuse Patient Records regulations: The Federal rules restrict any use of the information to criminally investigate or prosecute any alcohol or drug abuse patient.[facility] TownshipIn the event this information is protected by the Federal Confidentiality of Alcohol and Drug Abuse Patient Records regulations: The Federal rules restrict any use of the information to criminally investigate or prosecute any alcohol or drug abuse patient.[facility] TownshipIn the event this information is protected by the Federal Confidentiality of Alcohol and Drug Abuse Patient Records regulations: The Federal rules restrict any use of the information to criminally investigate or prosecute any alcohol or drug abuse patient.[facility] TownshipIn the event this information is protected by the Federal Confidentiality of Alcohol and Drug Abuse Patient Records regulations: The Federal rules restrict any use of the information to criminally investigate or prosecute any alcohol or drug abuse patient.[facility] TownshipIn the event this information is protected by the Federal Confidentiality of Alcohol and Drug Abuse Patient Records regulations: The Federal rules restrict any use of the information to criminally investigate or prosecute any alcohol or drug abuse patient.[facility] TownshipIn the event this information is protected by the Federal Confidentiality of Alcohol and Drug Abuse Patient Records regulations: The Federal rules restrict any use of the information to criminally investigate or prosecute any alcohol or drug abuse patient.[facility] TownshipIn the event this information is protected by the Federal Confidentiality of Alcohol and Drug Abuse Patient Records regulations: The Federal rules restrict any use of the information to criminally investigate or prosecute any alcohol or drug abuse patient.[facility] TownshipIn the event this information is protected by the Federal Confidentiality of Alcohol and Drug Abuse Patient Records regulations: The Federal rules restrict any use of the information to criminally investigate or prosecute any alcohol or drug abuse patient.[facility] the event this information is protected by the Federal Confidentiality of Alcohol and Drug Abuse Patient Records regulations: The Federal rules restrict any use of the information to criminally investigate or prosecute any alcohol or drug abuse patient.[facility] TownshipIn the event this information is protected by the Federal Confidentiality of Alcohol and Drug Abuse Patient Records regulations: The Federal rules restrict any use of the information to criminally investigate or prosecute any alcohol or drug abuse patient.[facility] TownshipIn the event this information is protected by the Federal Confidentiality of Alcohol and Drug Abuse Patient Records regulations: The Federal rules restrict any use of the information to criminally investigate or prosecute any alcohol or drug abuse patient.[facility] TownshipIn the event this information is protected by the Federal Confidentiality of Alcohol and Drug Abuse Patient Records regulations: The Federal rules restrict any use of the information to criminally investigate or prosecute any alcohol or drug abuse patient.[facility] Reason for Visit (unrecogniz ed section and content) Reason Onset Date Comments Population Health Navigation Outreach 04/27/2022 HCC Low Reason Onset Date Comments Refill Request 11/28/2022 Reason Comments Well Woman Reason Comments Mammogram Result Call Back Reason Comments Chest Pain Reason Onset Date Comments [facility] 05/08/2023 [facility] PCSA Reason Comments Follow Up Reason Onset Date Comments Refill Request 08/03/2023 Reason Comments Results Reason Comments Radiology NM Specialty Diagnoses / Procedures Referred By Contac t Referred To Contact MOLECULAR & FUNCTIONAL IMAGING Diagnoses Chest pain, unspecified type Procedures NM CARDIAC PERF STRESS/PHARM MYOCARDIAL SPECT MULTIPLE STUDIES Guille Gautam MD [address] [place] [address] Molecular & Functional Imaging [address] [place] [address] Referral ID Status Reason Start Date Expiration Date V isits Requested Visits Authorized [id number] Closed Auto-Generate d Referral 07/05/2023 08/03/2024 1 1 Reason Comments Radiology US Specialty Diagnoses / Procedures Referred By Contac t Referred To Contact US IMAGING Diagnoses PMB (postmenopausal bleeding) Procedures US FEMALE PELVIS TRANSVAG US TRANSVAGINAL Maryjane Callahan MD [address] [place] [address] [facility] [place] [address] Referral ID Status Reason Start Date Expiration Date V isits Requested Visits Authorized [id number] Closed Auto-Generate d Referral 08/08/2023 09/06/2024 1 1 Reason Comments Yearly Exam Reason Onset Date Comments Refill Request 04/14/2024 Reason Onset Date Comments Refill Request 08/07/2024 Reason Onset Date Comments Refill Request 04/14/2025 Reason Comments Refill Request Care Teams (unrecognized sec tion and content) Operations Forester Relationship Specialty Start Date End Date Guille Gautam MD [address] [place], [place] [id number] PCP - General Family Practice 06/10/12 Operations Forester Relationship Specialty Start Date End Date Guille Gautam MD [address] [place], [place] [address] PCP - General Family Medicine 06/10/12 Team Status: Active Member Role Status Dates Dr. Guille Gautam MD Family Provider Active Dr. Guille Gautam MD Primary Care Provider Active Team Status: Inactive Member Role Status Dates Dr. Guille Gautam MD Primary Care Provider Active Dr. Shari Sanchez MD Attending Provider, Referring Provider Active Dr. Zay Wright MD Other Provider Active Operations Forester Relationship Specialty Start Date End Date Guille Gautam MD [address] [place] [address] PCP - General Family Medicine 06/10/12 Team Status: Inactive Member Role Status Dates Dr. Guille Gautam MD Primary Care Provider Active Dr. Osmin Jordan MD Attending Provider, Referring Pr ovider Active Operations Forester Relationship Specialty Start Date End Date Guille Gautam MD [address] [place] [address] PCP - General Family Medicine 06/10/12 Operations Forester Relationship Specialty Start Date End Date Guille Gautam MD [address] [facility] [address] PCP - General Family Medicine 06/10/12 Operations Forester Relationship Specialty Start Date End Date Guille Gautam MD [address] [facility] [address] PCP - General Family Medicine 06/10/12 Operations Forester Relationship Specialty Start Date End Date Guille Gautam MD [address] [place] [address] PCP - General Family Medicine 06/10/12 Operations Forester Relationship Specialty Start Date End Date Guille Gautam MD [address] [place] [address] PCP - General Family Medicine 06/10/12 Team Status: Inactive Member Role Status Dates Dr. Guille Gautam MD Primary Care Provider Active Dr. Shrai Sanchez MD Attending Provider, Referring Provider Active Operations Forester Relationship Specialty Start Date End Date Guille Gautam MD [address] [place] [address] PCP - General Family Medicine 06/10/12 Operations Forester Relationship Specialty Start Date End Date Guille Gautam MD [address] [place] [address] PCP - General Family Medicine 06/10/12 Team Status: Inactive Member Role Status Dates Dr. Guille Gautam MD Primary Care Provider Active Dr. Zay Wright MD Attending Provider, Referring Pro vider Active Operations Forester Relationship Specialty Start Date End Date Guille Gautam MD [address] [place] [address] PCP - General Family Medicine 06/10/12 Operations Forester Relationship Specialty Start Date End Date Guille Gautam MD [address] [place] [address] PCP - General Family Medicine 06/10/12 Operations Forester Relationship Specialty Start Date End Date Guille Gautam MD [address] [place] [address] PCP - General Family Medicine 06/10/12 Operations Forester Relationship Specialty Start Date End Date Guille Gautam MD [address] [place] [address] PCP - General Family Medicine 06/10/12 Operations Forester Relationship Specialty Start Date End Date Guille Gautam MD [address] [place] [address] PCP - General Family Medicine 06/10/12 Operations Forester Relationship Specialty Start Date End Date Guille Gautam MD [address] [place] [address] PCP - General Family Medicine 06/10/12 Operations Forester Relationship Specialty Start Date End Date Guille Gautam MD [address] [place] [address] PCP - General Family Medicine 06/10/12 Operations Forester Relationship Specialty Start Date End Date Guille Gautam MD [address] [place], [place] [address] PCP - General Family Medicine 06/10/12 Operations Forester Relationship Specialty Start Date End Date Guille Gautam MD [address] [place], [place] [address] PCP - General Family Medicine 06/10/12 Team Status: Inactive Member Role Status Dates Dr. Guille Gautam MD Primary Care Provider Active NABIL MADDEN Attending Provider Active Operations Forester Relationship Specialty Start Date End Date Guille Gautam MD [address] [place], [place] [address] PCP - General Family Medicine 06/10/12 Operations Forester Relationship Specialty Start Date End Date Guille Gautam MD [address] [place] [address] PCP - General Family Medicine 06/10/12 Team Status: Inactive Member Role Status Dates Dr. Guille Gautam MD Primary Care Provider Active Dr. Osmin Jordan MD Attending Provider Active Operations Forester Relationship Specialty Start Date End Date Guille Gautam MD [address] [place] [address] PCP - General Family Medicine 06/10/12 Operations Forester Relationship Specialty Start Date End Date Guille Gautam MD [address] [place] [address] PCP - General Family Medicine 06/10/12 Operations Forester Relationship Specialty Start Date End Date Guille Gautam MD [address] [facility], [place] [address] PCP - General Family Medicine 06/10/12 Chely Haley, CODING MACHINE OPERATOR.BOAT CANVAS MAKER INSTALLER [address] [facility] [place] [address] Correspondence Transcriber Family Medicine 10/26/24 Jing Myers CODING MACHINE OPERATOR.BOAT CANVAS MAKER INSTALLER [address] [place] [address] Correspondence Transcriber [facility] 10/26/24 Team Status: Active Member Role Status Dates Dr. Guille Gautam MD Primary Care Provider Active Team Status: Inactive Member Role Status Dates Dr. Guille Gautam MD Primary Care Provider Active Start: December 03, 2024 End: December 03, 2024 Dr. Zay Wright MD Attending Provider Active S tart: December 03, 2024 End: December 03, 2024 Dr. Zay Wright MD Referring Provider Active S tart: December 03, 2024 End: December 03, 2024 Dr. Shari Sanchez MD Other Provider Active St art: December 03, 2024 End: December 03, 2024 Team Status: Inactive Member Role Status Dates Dr. Guille Gautam MD Primary Care Provider Active Start: December 14, 2024 End: December 14, 2024 Dr. Shari Sanchez MD Attending Provider Active Start: December 14, 2024 End: December 14, 2024 Dr. Shari Sanchez MD Referring Provider Active Start: December 14, 2024 End: December 14, 2024 Team Status: Inactive Member Role Status Dates Dr. Guille Gautam MD Primary Care Provider Active Start: February 12, 2025 End: February 12, 2025 Dr. Fortunato Ritter MD Attending Provider Active Start: February 12, 2025 End: February 12, 2025 Dr. Fortunato Ritter MD Referring Provider Active Start: February 12, 2025 End: February 12, 2025 Team Status: Inactive Member Role Status Dates Dr. Guille Gautam MD Primary Care Provider Active Start: February 24, 2025 End: February 24, 2025 Dr. Shari Sanchez MD Attending Provider Active Start: February 24, 2025 End: February 24, 2025 Dr. Shari Sanchez MD Referring Provider Active Start: February 24, 2025 End: February 24, 2025 Operations Forester Relationship Specialty Start Date End Date Guille Gautam MD [address] [place], [place] [address] PCP - General Family Medicine 06/10/12 Chely Haley, CODING MACHINE OPERATOR.BOAT CANVAS MAKER INSTALLER [address] [place], [place] [address] [facility] 10/26/24 Jing Myers, CODING MACHINE OPERATOR.BOAT CANVAS MAKER INSTALLER [address] [place], [place] [id number] [facility] 10/26/24 Operations Forester Relationship Specialty Start Date End Date Guille Gautam MD [address] [place], [place] [id number] PCP - General Family Medicine 06/10/12 Chely Haley APRN.BOAT CANVAS MAKER INSTALLER [address] [facility] [place] [address] [facility] 10/26/24 iJng Myers CODING MACHINE OPERATOR.BOAT CANVAS MAKER INSTALLER [address] [place] [address] [facility] 10/26/24 Operations Forester Relationship Specialty Start Date End Date Guille Gautam MD [address] [place] [address] PCP - General Family Medicine 06/10/12 Chely Haley APRN.BOAT CANVAS MAKER INSTALLER [address] [place] [address] [facility] 10/26/24 Jing Myers CODING MACHINE OPERATOR.BOAT CANVAS MAKER INSTALLER [address] [place] [address] [facility] 10/26/24 Operations Forester Relationship Specialty Start Date End Date Guille Gautam MD [address] [place] [address] PCP - General Family Medicine 06/10/12 Chely Haley APRN.BOAT CANVAS MAKER INSTALLER [address] [place] [address] [facility] 10/26/24 Jing Myers CODING MACHINE OPERATOR.BOAT CANVAS MAKER INSTALLER [address] [place] [address] [facility] 10/26/24 INFORMATION SOURCE (unrecogn ized section and content) DATE CREATED AUTHOR 03/03/2025 [facility] DATE CREATED AUTHOR AUTHOR'S MARCOS SORENSENGAYLE 04/14/2025 [facility] FOR RECORDS PERTAINING TO PATIENTS WHO ARE [...] BE BASED ON THE PRIMARY CLINICAL RECORDS. [facility] [facility]. provides no warranty or guarantee of the accuracy or completeness of information in this document.
[2025-05-18 11:05] LABS: AST(SGOT) 23 U/L (<=31); Alanine Aminotransfer ALT/SGPT 23 U/L (<=34); Albumin, Serum 3.7 g/dL (3.4-4.8); Alkaline Phosphatase 94 U/L (35-104); Anion Gap 11 (5-15); BUN 13 mg/dL (4-19); BUN/Creat Ratio 16.0 RATIO (10-20); Calcium,Total 8.8 mg/dL (7.6-11.0); Carbon Dioxide 21.5 mmol/L (21.0-32.0); Chloride 104 mmol/L (98-108); Globulin 1.9 g/dL (2.2-4.2); Glucose 84 mg/dL (70-99); Potassium 4.3 mmol/L (3.3-5.1)
[2025-05-18 11:15] LABS: Hematocrit 36.4 % (37-47); Hemoglobin 11.9 g/dL (12.0-15.0); Immature Granulocytes Count 0.020 X10^3/uL (0.0-0.0); Mean Corp Hgb Conc 32.7 g/dL (32-36); Mean Corpuscular Volume 93.3 fL (81-99); Mean Platelet Vol. 10.5 fl (6.2-12.0); NRBC Flagged by Analyzer 0 % (0-5); POSITIVE DIFFERENTIAL YES; Platelet Count 288 K/mm3 (150-450); RBC Distribution Width CV 12.8 % (11.6-14.6); RBC Distribution Width SD 43.5 fl (35.1-43.9); Red Blood Count 3.90 M/mm3 (4.2-5.4); White Blood Count 3.9 K/mm3 (4.4-11.0)
[2025-05-22 11:08] LABS: QNTFERON TB Mitogen Value 5.02 IU/mL (.); QNTFERON TB Nil Value 0.07 IU/mL (.); QNTFERON TB1+ Ag Value 0.14 IU/mL (.); QNTFERON TB2+ Ag Value 0.07 IU/mL (.); QNTIFERON TB Positive Criteria Negative (Negative)
== END | disposition home or self-care (01) ==
LOC: MTLAB 07:18
PROVIDERS: PCP Family Medicine; Referring Provider Internal Medicine Rheumatology; Visit Provider Internal Medicine Rheumatology
DX: M33.13 Other dermatomyositis without myopathy (principal); M05.79 Rheumatoid arthritis with rheumatoid factor of multiple sites without organ or systems involvement; L93.1 Subacute cutaneous lupus erythematosus; Z79.899 Other long term (current) drug therapy; M35.00 Sjogren syndrome, unspecified
CPT/HCPCS: 36415; 80053; 85025; 86480

== ENCOUNTER → 2025-08-11 | Outpatient (CLI) | payer MEDICARE, OTHER, SELFPAY ==
[2025-08-11 10:44] LABS: Hematocrit 35.6 % (37-47); Hemoglobin 11.8 g/dL (12.0-15.0); Immature Granulocytes Count 0.020 X10^3/uL (0.0-0.0); Mean Corp Hgb Conc 33.1 g/dL (32-36); Mean Corpuscular Volume 94.9 fL (81-99); Mean Platelet Vol. 10.0 fl (6.2-12.0); NRBC Flagged by Analyzer 0 % (0-5); Platelet Count 298 K/mm3 (150-450); RBC Distribution Width CV 13.1 % (11.6-14.6); RBC Distribution Width SD 45.6 fl (35.1-43.9); Red Blood Count 3.75 M/mm3 (4.2-5.4); White Blood Count 4.5 K/mm3 (4.4-11.0)
[2025-08-11 11:11] LABS: AST(SGOT) 23 U/L (<=31); Alanine Aminotransfer ALT/SGPT 27 U/L (<=34); Albumin, Serum 3.9 g/dL (3.4-4.8); Alkaline Phosphatase 99 U/L (35-104); Anion Gap 10 (5-15); BUN 12 mg/dL (4-19); BUN/Creat Ratio 17.5 RATIO (10-20); Calcium,Total 8.8 mg/dL (7.6-11.0); Carbon Dioxide 24.0 mmol/L (21.0-32.0); Chloride 102 mmol/L (98-108); Globulin 1.7 g/dL (2.2-4.2); Glucose 87 mg/dL (70-99); Potassium 4.2 mmol/L (3.3-5.1)
== END | disposition home or self-care (01) ==
LOC: MTLAB 07:40
PROVIDERS: PCP Family Medicine; Referring Provider Internal Medicine Rheumatology; Visit Provider Internal Medicine Rheumatology
DX: M05.79 Rheumatoid arthritis with rheumatoid factor of multiple sites without organ or systems involvement (principal); Z79.899 Other long term (current) drug therapy
CPT/HCPCS: 36415; 80053; 85025

== ENCOUNTER → 2025-09-27 | Outpatient (CLI) | payer SELFPAY ==
[2025-09-27 10:02] LABS: SERUM TEARS COLLECTION SPECIMEN PROCESSED
== END | disposition home or self-care (01) ==
LOC: LAB 07:52
PROVIDERS: PCP Family Medicine; Referring Provider Ophthalmology; Visit Provider Ophthalmology
DX: M35.01 Sjogren syndrome with keratoconjunctivitis (principal)

== ENCOUNTER → 2025-11-03 | Outpatient (CLI) | payer MEDICARE, OTHER, SELFPAY ==
[2025-11-03 10:13] LABS: Hematocrit 35.0 % (37-47); Hemoglobin 11.5 g/dL (12.0-15.0); Immature Granulocytes Count 0.020 X10^3/uL (0.0-0.0); Mean Corp Hgb Conc 32.9 g/dL (32-36); Mean Corpuscular Volume 94.1 fL (81-99); Mean Platelet Vol. 9.7 fl (6.2-12.0); NRBC Flagged by Analyzer 0 % (0-5); POSITIVE DIFFERENTIAL YES; Platelet Count 267 K/mm3 (150-450); RBC Distribution Width CV 12.1 % (11.6-14.6); RBC Distribution Width SD 41.9 fl (35.1-43.9); Red Blood Count 3.72 M/mm3 (4.2-5.4); White Blood Count 4.9 K/mm3 (4.4-11.0)
[2025-11-03 10:38] LABS: AST(SGOT) 23 U/L (<=31); Alanine Aminotransfer ALT/SGPT 22 U/L (<=34); Albumin, Serum 3.9 g/dL (3.4-4.8); Alkaline Phosphatase 84 U/L (35-104); Anion Gap 12 (5-15); BUN 10 mg/dL (4-19); BUN/Creat Ratio 12.1 RATIO (10-20); Calcium,Total 9.0 mg/dL (7.6-11.0); Carbon Dioxide 24.3 mmol/L (21.0-32.0); Chloride 101 mmol/L (98-108); Globulin 1.8 g/dL (2.2-4.2); Glucose 90 mg/dL (70-99); Potassium 4.0 mmol/L (3.3-5.1)
== END | disposition home or self-care (01) ==
LOC: MTLAB 08:06
PROVIDERS: PCP Family Medicine; Referring Provider Internal Medicine Rheumatology; Visit Provider Internal Medicine Rheumatology
DX: M05.79 Rheumatoid arthritis with rheumatoid factor of multiple sites without organ or systems involvement (principal); Z79.899 Other long term (current) drug therapy
CPT/HCPCS: 36415; 80053; 85025